=== PATIENT | male | born 1950 | race Caucasian/White ===

== ENCOUNTER 2017-06-12 15:55 | Inpatient (IN) | payer MEDICARE, SELFPAY ==
[2017-06-12] VITALS (12 sets, daily range): BP systolic 115–173; BP diastolic 54–74; PULSE 50–63; RESP 16–20; TEMP 36.5–36.9; O2SAT 87–96; BMI 23.6; BMI 21.7; BMI 21.8
--- NOTE | 2017-06-12 16:41 | EKG12_ITS ---
Test Reason : SOB Blood Pressure : / mmHG Vent. Rate : 051 BPM Atrial Rate : 051 BPM P-R Int : 192 ms QRS Dur : 086 ms QT Int : 538 ms P-R-T Axes : 038 -03 055 degrees QTc Int : 495 ms Sinus bradycardia Prolonged QT Abnormal ECG Confirmed by SUMMER VALDOVINOS, MOHAN ([id number]), field map editor KAZ FRANCO ([id number]) on 06/16/2017 1:12:10 PM Referred By: AAKASH Confirmed By:MOHAN WHEELER MD
--- NOTE | 2017-06-12 16:45 | ED.DCSUM_ITS ---
- ER Visit Summary Date of Service: 06/12/17 Chief Complaint: Difficulty urinating and shortness of breath History of Present Illness: Patient is a 67-year-old male presenting with shortness of breath ?2 days. He has a productive cough. He states that he has intermittent trouble with urination. He was able to urinate this morning. He states he had dark urine. He denies fever or chest pain. He has a history of COPD and is a smoker. He is not on home O2. Physical Examination: Vitals are stable. Patient is afebrile. Alert no acute distress. HEENT exam is unremarkable. Neck is supple. Lungs are wheezing diffusely Heart is regular rate and rhythm. Abdomen is soft nontender nondistended. Extremities are unremarkable. Skin is warm and dry. No focal neurologic deficit. Remainder of exam is unremarkable. Emergency Department Course and Treatment: Patient was given albuterol and Atrovent aerosols. EKG is sinus rate of 51. Chest x-ray shows COPD, right basilar consolidation. He was given albuterol Atrovent aerosols. Respiratory therapy noted that he was 87% on room air while sitting. He was put on 4 L of O2 and is 93% on 4 L. CBC is normal. Chemistries show sodium 127, potassium 3.3. Troponin is negative. He was given Rocephin and Zithromax IV. Blood cultures were sent prior to antibiotics. Due to his hypoxia,will discuss with hospitalist for admission. Disposition: Admission Impression: Community acquired pneumonia, COPD exacerbation, hypoxia, hyponatremia This note was generated with R2integrated dictation software. It may contain incorrect words, spelling, and punctuation that were not noted in review of the chart prior to signing ED Disposition - Plan for ED Patient: Chief Complaint: Complaint Referrals: William Chacko MD [NON-STAFF] -
--- NOTE | 2017-06-12 16:45 | RAD_ITS ---
STUDY: X-RAY CHEST REASON FOR EXAM: Male, 67 years old. Shortness of breath. TECHNIQUE: Single AP portable view of the chest. COMPARISON: May 24, 2016 FINDINGS: Cardiac monitoring leads are present. A loop recorder is visible. The lungs are hyperexpanded. There is left basilar subsegmental atelectasis. There is also right basilar airspace consolidation and/or atelectasis. There is interstitial thickening visible in both lungs. There is no demonstrated pleural abnormality. Normal size heart. There are calcified mediastinal and hilar lymph nodes. There is prominence of the pulmonary hilar arteries without peripheral pulmonary vascular congestion. There is atherosclerotic calcification of the aortic arch with tortuosity. There is demineralization of the osseous structures. Normal visualized ribs, clavicles, and shoulders. There is no demonstrated abnormality of the visualized soft tissue structures of the upper abdomen. RAD/Chest 1 View (Portable) IMPRESSION: 1. COPD with left basilar subsegmental atelectasis. 2. New right basilar airspace consolidation and atelectasis since previous radiograph. Electronically Signed: Mabel Ramirez MD at 17:08 EST , Service support ,
[2017-06-12] MEDS: Ipratropium/Albuterol Sulfate 3 ML AMPUL.NEB INHALATION (17:16)
[2017-06-12] MEDS: Albuterol 2.5 MG/3 ML VIAL.NEB. INHALATION ×3 (17:17)
[2017-06-12 17:33] LABS: Absolute Neutrophil Count 6.4 X10^3/uL (2.0-7.7); Basophil# 0.02 X10^3/uL; Basophil% 0.2 % (0-1); Eosinophil# 0.07 X10^3/uL; Eosinophils% 0.9 % (0-5); Hematocrit 39.9 % (40-54); Hemoglobin 14.2 g/dl (13.0-16.5); Lymphocyte % 11.2 % (19-41); Mean Corp Hgb Conc 35.6 g/gl (32-36); Mean Corpuscular Hgb 35.3 pg (27.0-32.0); Mean Corpuscular Volume 99.3 fL (80-94); Mean Platelet Vol. 9.5 fl (6.2-12.0); Monocyte# 0.63 X10^3/uL; Monocyte% 7.9 % (0-10); Neutrophil # 6.37 X10^3/uL (2.7-7.7); Neutrophil % 79.4 % (47-70); POSITIVE COUNT NO; POSITIVE DIFFERENTIAL NO; POSITIVE MORPHOLOGY NO; Platelet Count 161 K/mm3 (150-450); RBC Distribution Width CV 13.6 % (11.6-14.6); RBC Distribution Width SD 49.2 fl (35.1-43.9); Red Blood Count 4.02 M/mm3 (4.6-6.2)
[2017-06-12 18:03] LABS: Anion Gap 10 (5-15); BUN 10 mg/dL (7-18); BUN/Creat Ratio 11.3 RATIO (10-20); Calcium,Total 8.3 mg/dL (8.5-10.1); Chloride 91 mmol/L (98-107); Creatinine, Serum 0.88 mg/dL (0.70-1.30); EST Glomerular Filtration Rate 91 mL/min (>60); Est Glom Filt Rate - Afr Amer 110 mL/min (>60); Estimated Creatinine Clearance 76.65 ml/min; Glucose 85 mg/dL (74-106); Potassium 3.3 mmol/L (3.5-5.1); Sodium Level 127 mmol/L (136-145)
[2017-06-12 18:03] LABS: Bacteria 0 SEEN /hpf (None Seen); Mucous, Urine 0 SEEN /hpf (<or=2+); Squamous Epithelial Cells - UA 0 SEEN /hpf (0-5)
[2017-06-12 18:10] LABS: Color, Urine Yellow (Yellow); Glucose, Dipstick Normal (Normal); Ketone-Dipstick Negative (Negative); Leukocyte Esterase-Dipstick 25 /ul (Negative); Nitrite-Dipstick Negative (Negative); Occult Blood-Urine Negative /ul (Negative); Protein-Dipstick Negative (Negative); Urine Bilirubin Dipstick Negative (Negative); Urine Clarity Clear (Clear); Urine Urobilinogen Normal (Normal); Urine pH 6.5 (5.0 - 8.0)
[2017-06-12 18:50] LABS: Red Blood Cells-Urine 0-5 SEEN /hpf (0-5); White Blood Cells 0-5 SEEN /hpf (0-5)
[2017-06-12] MEDS: MethylPREDNISolone 125 MG/2 ML Vial IV (19:14)
[2017-06-12] MEDS: Ceftriaxone 1 GM/50 ML BAG IV (19:25)
--- NOTE | 2017-06-12 20:04 | PCM.HP.STD ---
Problem List (1) Pneumonia, bacterial Status: Acute (2) COPD exacerbation Status: Acute (3) Hypokalemia Status: Acute (4) Atrial fibrillation Status: Chronic Qualifiers: Atrial fibrillation type: paroxysmal Qualified Code(s): I48.0 - Paroxysmal atrial fibrillation (5) Coronary atherosclerosis of [place] coronary artery Status: Chronic Qualifiers: [place] vs. transplanted heart: [place] heart Associated angina: without angina Qualified Code(s): I25.10 - Atherosclerotic heart disease of [place] coronary artery without angina pectoris (6) HTN (hypertension) Status: Chronic Qualifiers: Hypertension type: essential hypertension (7) Tobacco use disorder Status: Chronic History of Present Illness Date of Admission: 06/12/17 Chief Complaint: Cough, difficulty urinating. Patient is a 67 years old male with history of COPD, coronary artery disease, BPH, atrial fibrillation, presents with complaining of difficulty urinating. He was found to have Oxygen saturation 87% on arrival, started on oxygen. Further history revealed that he has some difficulty of breathing for past few days with increased wheezing. He also has productive cough. He denied of any fever, chills, or chest pain. He has symptoms of nocturia despite of current medication, Flomax 0.4 mg po qd. He goes to bathroom several times during the night. He also has some post-void dribbling and some hesitancy. Difficulty of urinating has been worsening for past 2 days. Past Medical History Past Medical History (Chronic Problems): Chronic Problems Atrial fibrillation (Chronic) Chronic airway obstruction (Chronic) Coronary atherosclerosis of [place] coronary artery (Chronic) Esophageal reflux (Chronic) HLD (hyperlipidemia) (Chronic) HTN (hypertension) (Chronic) Leukocytosis (Chronic) Percutaneous transluminal coronary angioplasty status (Chronic) PVD (peripheral vascular disease) (Chronic) Tobacco use disorder (Chronic) left stump swelling (Chronic) Alcohol abuse (Chronic) Allergies No Known Allergies Allergy (Verified 06/12/17 15:56) Home Medications: Ambulatory Orders Medication Instructions Recorded Amiodarone HCl [Cordarone] 200 mg PO DAILY 10/15/13 Aspirin E.C. [Ecotrin] 81 mg PO DAILY@0800 10/15/13 Diltiazem CD [Cardizem CD] 240 mg PO BID 10/15/13 Metoprolol Tartrate [Lopressor 50 mg PO BID 10/15/13 (beta lu)] Tamsulosin HCl [Flomax] 0.4 mg PO DAILY 10/15/13 Atorvastatin Calcium [Lipitor] 80 mg PO QHS 06/12/17 Ferrous Sulfate 325 mg PO BIDCM 06/12/17 Rivaroxaban [Xarelto] 15 mg PO DAILY 06/12/17 Surgical History: - - Multiple vascular stents, revasculation of left leg, left BKA Lives: Alone Smoking Status: Current every day smoker - 3 packs a day. Alcohol: Occasional Drugs: None - *Family History Paternal History Items: COPD, Heart Disease, No pertinent history Sibling History Items: COPD - 4 of his sisters has COPD. Review of Systems Comment: ROS: In general: Patient has been in good health, denied of any constitutional symptoms, such as weight loss, or gain, fever, chills, or night sweats. Patient denied of any profound fatigue. HEENT: Unremarkable. Patient denied of any dizziness, chronic headache, blurred vision, double vision, dry mouth, or nasal congestion. CV/respiratory: See HPI. GI: Patient denied any abdominal pain, nausea, vomiting, diarrhea, constipation, melena, or hematochezia. : See HPI. He denied of any dysuria. Neurology: Unremarkable. There is no history of seizure as an adult. Psychological: Unremarkable. ?. Endocrine: Unremarkable. Musculoskeletal: Unremarkable. VTE Information - Inpt Only VTE Present on Admission: No VTE Mechan Device Prophylaxis: None VTE Pharm Prophylaxis ordered?: Yes Patient Problems: Active and Suspected Problems Pneumonia, bacterial (Acute) COPD exacerbation (Acute) Objective: In general, patient is a well-nourished and developed adult. HEENT: Head is atraumatic, and normocephalic. Pupils are equal, round, and reactive to light and accommodations. Neck is supple. There is no lymphadenopathy, or thyromegaly. Oral mucosa is pink, and moist. There are no lesions. Heart: Auscultation is normal with regular rhythm and rate. There is no extra heart sounds, or murmurs. S1 and S2 are present. Point of maximal impulse is not displaced. Lungs: Diminished breath sounds, rales/crackles at right base. Wheezing upper lung mcdonald. Abdomen: Abdominal wall is non-tender, and non-distended. There is no palpable mass or organomegaly. Normoactive bowel sounds are present. Extremities: There is no cyanosis or clubbing. Peripheral pulses are palpable. There is no edema. S/P left BKA. Skin: There are no any skin discoloration or lesions. Neurological: CN II - XII are intact. Sensory and motor functions are grossly normal with no obvious deficit. Cerebellar functions are within normal range. Gait was not tested. - Physical Exam Vital Signs Temp Pulse Resp BP Pulse Ox 98.2 F 58 L 16 128/74 H 93 06/12/17 18:12 06/12/17 18:12 06/12/17 18:12 06/12/17 18:12 06/12/17 18:33 Oxygen Flow Rate 5 Oxygen Delivery Method Nasal Cannula Weight: 155 lb Body Mass Index (BMI) 23.6 Finger Stick Blood Glucose 89 Laboratory Tests Past 24 Hrs 06/12/17 06/12/17 06/12/17 17:25 17:25 17:55 WBC 8.0 RBC 4.02 L Hgb 14.2 Hct 39.9 L MCV 99.3 H MCH 35.3 H MCHC 35.6 RDW 13.6 RDW Differential 49.2 H Plt Count 161 MPV 9.5 Immature Gran % (Auto) 0.400 Neut % (Auto) 79.4 H Lymph % (Auto) 11.2 L [place] % (Auto) 7.9 Eos % (Auto) 0.9 Baso % (Auto) 0.2 Absolute Neuts (auto) 6.4 Absolute Lymphs (auto) 0.90 Total Counted Not Reportable Sodium 127 L Potassium 3.3 L Chloride 91 L Carbon Dioxide 26.0 Anion Gap 10 BUN 10 Creatinine 0.88 Estim Creat Clear Calc 76.65 Est GFR (MDRD) Af Amer 110 Est GFR (MDRD) Non-Af 91 BUN/Creatinine Ratio 11.3 Glucose 85 Calcium 8.3 L Troponin I < 0.02 Urine Color Yellow Urine Clarity Clear Urine pH 6.5 Ur Specific [place] 1.010 Urine Protein Negative Urine Glucose (UA) Normal Urine Ketones Negative Urine Occult Blood Negative Urine Nitrite Negative Urine Bilirubin Negative Urine Urobilinogen Normal Ur Leukocyte Esterase 25 H Urine RBC 0-5 SEEN Urine WBC 0-5 SEEN Ur Squamous Epith Cells 0 SEEN Urine Bacteria 0 SEEN Urine Mucus 0 SEEN Diagnostic Data Chest X-Ray 06/12/17 16:45 IMPRESSION: 1. COPD with left basilar subsegmental atelectasis. 2. New right basilar airspace consolidation and atelectasis since previous radiograph. Electronically Signed: Mabel Ramirez MD at 17:08 EST , Service support , Assessment/Plan Active and Suspected Problems Pneumonia, bacterial (Acute) COPD exacerbation (Acute) Patient is a 67 years old male with history of COPD, coronary artery disease, BPH, atrial fibrillation, presents with complaining of difficulty urinating. He was found to have Oxygen saturation 87% on arrival, started on oxygen. Further history revealed that he has some difficulty of breathing for past few days with increased wheezing. He also has productive cough. He denied of any fever, chills, or chest pain. He has symptoms of nocturia despite of current medication, Flomax 0.4 mg po qd. He goes to bathroom several times during the night. He also has some post-void dribbling and some hesitancy. Difficulty of urinating has been worsening for past 2 days. #1 Pneumonia. Right lower lobe. Check urine for strep and legionella. Blood culture pending. Started on azithromycin and ceftriaxone empirically. Continue. #2 Hypoxia. Due to pneumonia and mild exacerbation of COPD. Aerosol treatment with DuoNeb Q6H and albuterol prn. Oxygen supplement. He does not wear oxygen at home. #3 Mild COPD exacerbation. Bronchodilator and oxygen as above. Add low dose Solu-Medrol 40 mg IVP q12h. #4 Urinary retention with underling presumed BPH. He was on Flomax 0.4 mg daily, increase to 0.8 mg daily. Hamilton was inserted in ED. Consult urology in AM. #5 Paroxysmal atrial fibrillation. Rate controlled. In sinus rhythm. Continue current medications. He is on Xarelto for stroke prevention. Continue. #6 Coronary artery disease. He denied of any chest pain. Continue statin, aspirin, and metoprolol. #7 Hypokalemia. Give K-Dur 40 meq po x 1. Repeat BMP in AM. #8 Hyponatremia. Sodium 127. Although it is slightly lower, but it appears that this is a chronic problems. VTE prophylaxis: Xarelto po. GI prophylaxis: H2 lu po. Patient is DNR-CC Arrest. Code status discussed. Disposition: To be determined. Code Visit Inpatient E&M: 84549 Init Hosp L3
--- NOTE | 2017-06-12 20:20 | HP.PCM_ITS ---
Problem List (1) Pneumonia, bacterial Status: Acute (2) COPD exacerbation Status: Acute (3) Hypokalemia Status: Acute (4) Atrial fibrillation Status: Chronic Qualifiers: Atrial fibrillation type: paroxysmal Qualified Code(s): I48.0 - Paroxysmal atrial fibrillation (5) Coronary atherosclerosis of [place] coronary artery Status: Chronic Qualifiers: [place] vs. transplanted heart: [place] heart Associated angina: without angina Qualified Code(s): I25.10 - Atherosclerotic heart disease of [place] coronary artery without angina pectoris (6) HTN (hypertension) Status: Chronic Qualifiers: Hypertension type: essential hypertension (7) Tobacco use disorder Status: Chronic History of Present Illness Date of Admission: 06/12/17 Chief Complaint: Cough, difficulty urinating. Patient is a 67 years old male with history of COPD, coronary artery disease, BPH, atrial fibrillation, presents with complaining of difficulty urinating. He was found to have Oxygen saturation 87% on arrival, started on oxygen. Further history revealed that he has some difficulty of breathing for past few days with increased wheezing. He also has productive cough. He denied of any fever, chills, or chest pain. He has symptoms of nocturia despite of current medication, Flomax 0.4 mg po qd. He goes to bathroom several times during the night. He also has some post-void dribbling and some hesitancy. Difficulty of urinating has been worsening for past 2 days. Past Medical History Past Medical History (Chronic Problems): Chronic Problems Atrial fibrillation (Chronic) Chronic airway obstruction (Chronic) Coronary atherosclerosis of [place] coronary artery (Chronic) Esophageal reflux (Chronic) HLD (hyperlipidemia) (Chronic) HTN (hypertension) (Chronic) Leukocytosis (Chronic) Percutaneous transluminal coronary angioplasty status (Chronic) PVD (peripheral vascular disease) (Chronic) Tobacco use disorder (Chronic) left stump swelling (Chronic) Alcohol abuse (Chronic) Allergies No Known Allergies Allergy (Verified 06/12/17 15:56) Home Medications: Ambulatory Orders Medication Instructions Recorded Amiodarone HCl [Cordarone] 200 mg PO DAILY 10/15/13 Aspirin E.C. [Ecotrin] 81 mg PO DAILY@0800 10/15/13 Diltiazem CD [Cardizem CD] 240 mg PO BID 10/15/13 Metoprolol Tartrate [Lopressor 50 mg PO BID 10/15/13 (beta lu)] Tamsulosin HCl [Flomax] 0.4 mg PO DAILY 10/15/13 Atorvastatin Calcium [Lipitor] 80 mg PO QHS 06/12/17 Ferrous Sulfate 325 mg PO BIDCM 06/12/17 Rivaroxaban [Xarelto] 15 mg PO DAILY 06/12/17 Surgical History: - - Multiple vascular stents, revasculation of left leg, left BKA Lives: Alone Smoking Status: Current every day smoker - 3 packs a day. Alcohol: Occasional Drugs: None - *Family History Paternal History Items: COPD, Heart Disease, No pertinent history Sibling History Items: COPD - 4 of his sisters has COPD. Review of Systems Comment: ROS: In general: Patient has been in good health, denied of any constitutional symptoms, such as weight loss, or gain, fever, chills, or night sweats. Patient denied of any profound fatigue. HEENT: Unremarkable. Patient denied of any dizziness, chronic headache, blurred vision, double vision, dry mouth, or nasal congestion. CV/respiratory: See HPI. GI: Patient denied any abdominal pain, nausea, vomiting, diarrhea, constipation, melena, or hematochezia. : See HPI. He denied of any dysuria. Neurology: Unremarkable. There is no history of seizure as an adult. Psychological: Unremarkable. ?. Endocrine: Unremarkable. Musculoskeletal: Unremarkable. VTE Information - Inpt Only VTE Present on Admission: No VTE Mechan Device Prophylaxis: None VTE Pharm Prophylaxis ordered?: Yes Patient Problems: Active and Suspected Problems Pneumonia, bacterial (Acute) COPD exacerbation (Acute) Objective: In general, patient is a well-nourished and developed adult. HEENT: Head is atraumatic, and normocephalic. Pupils are equal, round, and reactive to light and accommodations. Neck is supple. There is no lymphadenopathy, or thyromegaly. Oral mucosa is pink, and moist. There are no lesions. Heart: Auscultation is normal with regular rhythm and rate. There is no extra heart sounds, or murmurs. S1 and S2 are present. Point of maximal impulse is not displaced. Lungs: Diminished breath sounds, rales/crackles at right base. Wheezing upper lung mcdonald. Abdomen: Abdominal wall is non-tender, and non-distended. There is no palpable mass or organomegaly. Normoactive bowel sounds are present. Extremities: There is no cyanosis or clubbing. Peripheral pulses are palpable. There is no edema. S/P left BKA. Skin: There are no any skin discoloration or lesions. Neurological: CN II - XII are intact. Sensory and motor functions are grossly normal with no obvious deficit. Cerebellar functions are within normal range. Gait was not tested. - Physical Exam Vital Signs Temp Pulse Resp BP Pulse Ox 98.2 F 58 L 16 128/74 H 93 06/12/17 18:12 06/12/17 18:12 06/12/17 18:12 06/12/17 18:12 06/12/17 18:33 Oxygen Flow Rate 5 Oxygen Delivery Method Nasal Cannula Weight: 155 lb Body Mass Index (BMI) 23.6 Finger Stick Blood Glucose 89 Laboratory Tests Past 24 Hrs 06/12/17 06/12/17 06/12/17 17:25 17:25 17:55 WBC 8.0 RBC 4.02 L Hgb 14.2 Hct 39.9 L MCV 99.3 H MCH 35.3 H MCHC 35.6 RDW 13.6 RDW Differential 49.2 H Plt Count 161 MPV 9.5 Immature Gran % (Auto) 0.400 Neut % (Auto) 79.4 H Lymph % (Auto) 11.2 L [place] % (Auto) 7.9 Eos % (Auto) 0.9 Baso % (Auto) 0.2 Absolute Neuts (auto) 6.4 Absolute Lymphs (auto) 0.90 Total Counted Not Reportable Sodium 127 L Potassium 3.3 L Chloride 91 L Carbon Dioxide 26.0 Anion Gap 10 BUN 10 Creatinine 0.88 Estim Creat Clear Calc 76.65 Est GFR (MDRD) Af Amer 110 Est GFR (MDRD) Non-Af 91 BUN/Creatinine Ratio 11.3 Glucose 85 Calcium 8.3 L Troponin I < 0.02 Urine Color Yellow Urine Clarity Clear Urine pH 6.5 Ur Specific [place] 1.010 Urine Protein Negative Urine Glucose (UA) Normal Urine Ketones Negative Urine Occult Blood Negative Urine Nitrite Negative Urine Bilirubin Negative Urine Urobilinogen Normal Ur Leukocyte Esterase 25 H Urine RBC 0-5 SEEN Urine WBC 0-5 SEEN Ur Squamous Epith Cells 0 SEEN Urine Bacteria 0 SEEN Urine Mucus 0 SEEN Diagnostic Data Chest X-Ray 06/12/17 16:45 IMPRESSION: 1. COPD with left basilar subsegmental atelectasis. 2. New right basilar airspace consolidation and atelectasis since previous radiograph. Electronically Signed: Mabel Ramirez MD at 17:08 EST , Service support , Assessment/Plan Active and Suspected Problems Pneumonia, bacterial (Acute) COPD exacerbation (Acute) Patient is a 67 years old male with history of COPD, coronary artery disease, BPH, atrial fibrillation, presents with complaining of difficulty urinating. He was found to have Oxygen saturation 87% on arrival, started on oxygen. Further history revealed that he has some difficulty of breathing for past few days with increased wheezing. He also has productive cough. He denied of any fever, chills, or chest pain. He has symptoms of nocturia despite of current medication, Flomax 0.4 mg po qd. He goes to bathroom several times during the night. He also has some post-void dribbling and some hesitancy. Difficulty of urinating has been worsening for past 2 days. #1 Pneumonia. Right lower lobe. Check urine for strep and legionella. Blood culture pending. Started on azithromycin and ceftriaxone empirically. Continue. #2 Hypoxia. Due to pneumonia and mild exacerbation of COPD. Aerosol treatment with DuoNeb Q6H and albuterol prn. Oxygen supplement. He does not wear oxygen at home. #3 Mild COPD exacerbation. Bronchodilator and oxygen as above. Add low dose Solu-Medrol 40 mg IVP q12h. #4 Urinary retention with underling presumed BPH. He was on Flomax 0.4 mg daily, increase to 0.8 mg daily. Hamilton was inserted in ED. Consult urology in AM. #5 Paroxysmal atrial fibrillation. Rate controlled. In sinus rhythm. Continue current medications. He is on Xarelto for stroke prevention. Continue. #6 Coronary artery disease. He denied of any chest pain. Continue statin, aspirin, and metoprolol. #7 Hypokalemia. Give K-Dur 40 meq po x 1. Repeat BMP in AM. #8 Hyponatremia. Sodium 127. Although it is slightly lower, but it appears that this is a chronic problems. VTE prophylaxis: Xarelto po. GI prophylaxis: H2 lu po. Patient is DNR-CC Arrest. Code status discussed. Disposition: To be determined. Code Visit Inpatient E&M: 83817 Init Hosp L3
[2017-06-12] MEDS: guaiFENesin 600 MG Tablet 1200 MG PO (21:20)
[2017-06-12] MEDS: Famotidine 20 MG Tablet PO (21:21)
[2017-06-12] MEDS: Atorvastatin Calcium 80 MG Tablet PO (21:21)
[2017-06-12] MEDS: Metoprolol Tartrate 50 MG Tablet PO (21:22)
[2017-06-12] MEDS: dilTIAZem CD 240 MG Capsule PO (21:22)
[2017-06-13] VITALS (17 sets, daily range): BP systolic 123–164; BP diastolic 41–88; PULSE 6–69; RESP 18–20; TEMP 36.2–37.4; O2SAT 93–94
[2017-06-13] MEDS: Ipratropium/Albuterol Sulfate 3 ML AMPUL.NEB INHALATION ×2 (05:53→18:57)
[2017-06-13] MEDS: Nystatin Powder 15gm Bottle 1 APPLIC TOPICAL ×2 (06:18→21:17)
[2017-06-13] MEDS: 0.9% NaCl Peripheral Flush Adult/Peds IV (06:18)
[2017-06-13 07:02] LABS: Absolute Lymphocyte Count 0.24 X10^3/ul (0.83-4.51); Absolute Neutrophil Count 5.4 X10^3/uL (2.0-7.7); Hematocrit 40.9 % (40-54); Hemoglobin 14.3 g/dl (13.0-16.5); Lymphocyte # 0.24 X10^3/ul (4.0); Lymphocyte % 4.2 % (19-41); Mean Corpuscular Hgb 34.8 pg (27.0-32.0); Mean Corpuscular Volume 99.5 fL (80-94); Mean Platelet Vol. 9.3 fl (6.2-12.0); Monocyte# 0.05 X10^3/uL; Monocyte% 0.9 % (0-10); Neutrophil # 5.39 X10^3/uL (2.7-7.7); Neutrophil % 94.7 % (47-70); Platelet Count 180 K/mm3 (150-450); RBC Distribution Width CV 13.7 % (11.6-14.6); RBC Distribution Width SD 49.8 fl (35.1-43.9); Red Blood Count 4.11 M/mm3 (4.6-6.2); White Blood Count 5.7 K/mm3 (4.4-11.0)
[2017-06-13 07:14] LABS: Differential Indicated SCAN CRITERIA MET; POSITIVE COUNT NO; POSITIVE DIFFERENTIAL YES; POSITIVE MORPHOLOGY NO
[2017-06-13 07:18] LABS: Anion Gap 10 (5-15); BUN 8 mg/dL (7-18); BUN/Creat Ratio 13.2 RATIO (10-20); Calcium,Total 8.4 mg/dL (8.5-10.1); Chloride 94 mmol/L (98-107); EST Glomerular Filtration Rate 141 mL/min (>60); Est Glom Filt Rate - Afr Amer 170 mL/min (>60); Glucose 124 mg/dL (74-106); Potassium 3.7 mmol/L (3.5-5.1); Sodium Level 129 mmol/L (136-145)
[2017-06-13] MEDS: Metoprolol Tartrate 50 MG Tablet PO ×2 (08:13→21:16)
[2017-06-13] MEDS: dilTIAZem CD 240 MG Capsule PO ×2 (08:14→21:16)
[2017-06-13] MEDS: Aspirin E.C. 81 MG Tablet PO (08:14)
[2017-06-13] MEDS: Amiodarone 200 MG Tablet PO (08:14)
[2017-06-13] MEDS: Ferrous Sulfate 325 MG Tablet PO ×2 (08:14→17:46)
[2017-06-13] MEDS: Famotidine 20 MG Tablet PO ×2 (08:15→21:16)
[2017-06-13] MEDS: Tamsulosin HCl 0.4 MG Capsule 0.8 MG PO (08:15)
[2017-06-13] MEDS: guaiFENesin 600 MG Tablet 1200 MG PO ×2 (08:15→21:16)
[2017-06-13] MEDS: Rivaroxaban 15 MG Tablet PO (08:15)
--- NOTE | 2017-06-13 08:41 | PCM.PN.HOSP ---
Subjective: Patient states urine retention and dribbling was the main complaint for his ER visit. For last 3 days, having difficulty in urination and has nocturia, wakes up frequently after 1 AM about 5- 6 times with a small amount of urine passed each time. He has BPH for 15 years but has been bothering much for last few days. He denies any chest complaints including sore throat, chest pain, shortness of breath or wheezing. He has history of COPD and [address] Dick is being paged and consulted. Ultrasound kidneys, bladder and prostate ordered. Creatinine clearance estimated 64 mL/min. Vitals/I&O's: Vital Signs Temp Pulse Resp BP Pulse Ox 97.7 F L 67 18 164/88 H 94 06/13/17 08:03 06/13/17 08:13 06/13/17 08:03 06/13/17 08:03 06/13/17 08:03 Oxygen Flow Rate 2 Oxygen Delivery Method Nasal Cannula Weight: 143 lb 4.807 oz Body Mass Index (BMI) 21.7 Intake and Output for Last 24 Hours 06/11/17 06/12/17 06/13/17 23:59 23:59 23:59 Intake Total 921 / 921 Output Total 1625 / 1625 Balance -704 / -704 General: Alert, Oriented x3, Cooperative HEENT: Atraumatic, PERRLA, EOMI, Normocephalic Neck: Supple, No JVD, Negative Carotid Bruits Lungs: No rhonchi, No wheeze, Diminished - On bilateral lung bases, left more than right. Cardiovascular: Regular rate, Regular Rhythm, Normal S1, Normal S2, No murmurs Abdomen: Bowel Sounds Present, Soft, Non Tender, Non-Distended, - - Erythematous inflammation or bilateral groin region and under the scrotum with and one [place] suggestive of urine dribbling and tinea infection Extremities: No edema, Capillary Refill Less than 3 Seconds Skin: No rashes, No breakdown Musculoskeletal: No Tenderness to Palpation of Joints or Extremities Neurological: Cranial nerves II-XII grossly intact Psych/Mental Status: Normal Affect, Appropriate Laboratory Results 06/13/17 06:09: WBC 5.7, RBC 4.11 L, Hgb 14.3, Hct 40.9, MCV 99.5 H, MCH 34.8 H, MCHC 35.0, RDW 13.7, RDW Differential 49.8 H, Plt Count 180, MPV 9.3, Immature Gran % (Auto) 0.200, Neut % (Auto) 94.7 H, Lymph % (Auto) 4.2 L, [place] % (Auto) 0.9, Eos % (Auto) 0.0, Baso % (Auto) 0.0, Absolute Neuts (auto) 5.4, Absolute Lymphs (auto) 0.24 L, Total Counted Not Reportable 06/13/17 06:09: Sodium 129 L, Potassium 3.7, Chloride 94 L, Carbon Dioxide 25.0, Anion Gap 10, BUN 8, Creatinine 0.60 L, Estim Creat Clear Calc 64.10, Est GFR (MDRD) Af Amer 170, Est GFR (MDRD) Non-Af 141, BUN/Creatinine Ratio 13.2, Glucose 124 H, Calcium 8.4 L Current Medications Acetaminophen (Tylenol) 650 mg PO Q6H PRN PRN PRN Reason: Mild Pain (1-3)/Temp > 100.7 F Al Hydroxide/Mg Hydroxide (Mylanta Ii) 30 ml PO Q6H PRN PRN PRN Reason: Gastric burning Albuterol Sulfate (Ventolin Aerosols) 2.5 mg INHALATION Q2H PRN PRN PRN Reason: SHORTNESS OF BREATH Albuterol/Ipratropium (Duoneb) 3 ml INHALATION Q6H.RT [facility] Last Admin: 06/13/17 05:53 Dose: 3 ml Amiodarone HCl (Cordarone) 200 mg PO DAILY [facility] Last Admin: 06/13/17 08:14 Dose: 200 mg Aspirin (Ecotrin) 81 mg PO DAILY@0800 [facility] Last Admin: 06/13/17 08:14 Dose: 81 mg Atorvastatin Calcium (Lipitor) 80 mg PO QHS [facility] Last Admin: 06/12/17 21:21 Dose: 80 mg Bisacodyl (Dulcolax) 5 mg PO DAILY PRN PRN PRN Reason: Constipation Diltiazem HCl (Cardizem Cd) 240 mg PO BID [facility] Last Admin: 06/13/17 08:14 Dose: 240 mg Famotidine (Pepcid) 20 mg PO BID [facility] Last Admin: 06/13/17 08:15 Dose: 20 mg [facility] Admin: 06/13/17 08:14 Dose: 325 mg Guaifenesin (Mucinex) 1,200 mg PO BID [facility] Last Admin: 06/13/17 08:15 Dose: 1,200 mg Azithromycin 500 mg/ Dextrose 255 mls @ 250 mls/hr IV Q24 [facility] Stop: 06/15/17 11:02 Ceftriaxone Sodium (Rocephin) 1 gm in 50 mls @ 100 mls/hr IV Q24H [facility] Magnesium Hydroxide (Milk Of Magnesia) 30 ml PO DAILY PRN PRN PRN Reason: Constipation Methylprednisolone (Solu-Medrol) 40 mg IV Q12H [facility] Last Admin: 06/13/17 06:18 Dose: 40 mg Metoprolol Tartrate (Lopressor (Beta Pauline)) 50 mg PO BID [facility] Last Admin: 06/13/17 08:13 Dose: 50 mg Nutritional Formula (Lactose Free) (Ensure Enlive) 120 ml PO 4X/DAY [facility] Last Admin: 06/13/17 08:19 Dose: 120 ml Nystatin (Mycostatin Powder) 1 applic TOPICAL BID [facility] PRN Reason: Protocol Last Admin: 06/13/17 06:18 Dose: 1 dose Oxycodone HCl (Oxyir) 5 - 10 mg PO Q4H PRN PRN PRN Reason: MOD-SEVERE PAIN (4-10/10) Promethazine HCl (Phenergan (Ll)) 12.5 mg IV Q6H PRN PRN Reason: NAUSEA Rivaroxaban (Xarelto) 15 mg PO DAILY [facility] Last Admin: 06/13/17 08:15 Dose: 15 mg Sodium Chloride () 5 - 30 ml IV UD PRN PRN Reason: SALINE FLUSH Last Admin: 06/13/17 06:18 Dose: 10 ml Tamsulosin HCl (Flomax) 0.8 mg PO DAILY [facility] Last Admin: 06/13/17 08:15 Dose: 0.8 mg Zolpidem Tartrate (Ambien (Generic)) 5 mg PO QHS PRN PRN PRN Reason: INSOMNIA Assessment/Plan Patient is a 67 years old male with history of COPD, coronary artery disease, BPH, atrial fibrillation, presents with complaining of difficulty urinating. He was found to have Oxygen saturation 87% on arrival, started on oxygen. Further history revealed that he has some difficulty of breathing for past few days with increased wheezing. He also has productive cough. He denied of any fever, chills, or chest pain. He has symptoms of nocturia despite of current medication, Flomax 0.4 mg po qd. He goes to bathroom several times during the night. He also has some post-void dribbling and some hesitancy. Difficulty of urinating has been worsening for past 2 days. #1 Right lower lobe community-acquired pneumonia : Urinary antigens are negative. Blood cultures are pending. Patient on azithromycin and ceftriaxone empirically. #2 Acute hypoxic respiratory failure secondary to COPD exacerbation, mild with acute bronchitis and pneumonia as mentioned above: Aerosol treatment with DuoNeb Q6H and albuterol prn. Oxygen supplement. He does not wear oxygen at home. #3 Mild COPD exacerbation acute bronchitis. Bronchodilator and oxygen as above. Add low dose Solu-Medrol 40 mg IVP q12h. #4 Urinary retention with increased nocturia, urine dribbling, suggestive of lower urinary tract symptoms with underling presumed BPH: Urologist consult, Dr. Dick note reviewed and appreciated. He advised Flomax 0.4 mg twice daily. Patient has Hamilton catheter inserted in the ER. Clear urine. UA suggestive of mild leukocyte esterase but negative nitrite, pyuria, hematuria or proteinuria. Ultrasound kidneys reported as bilateral renal cyst more prominent on the right but normal renal cortex and no hydronephrosis. Transrectal prostate ultrasound shows prostate volume 22.3 cm?, normal prostate glandular tissue without evidence of nodules or lesions. Reported as no significant abnormality. PSA ordered. #5 Paroxysmal atrial fibrillation. Rate controlled. In sinus rhythm. Continue current medications. He is on Xarelto for stroke prevention. Continue. #6 Coronary artery disease. He denied of any chest pain. Continue statin, aspirin, and metoprolol. #7 Hypokalemia. Repeat potassium is 3.7. Give K-Dur 40 meq po x 1. On IV fluid normal saline with 20 meq KCl. #8 Hyponatremia. Sodium 127. Repeat sodium is 129. his last sodium was 139 on May 17, 2016. VTE prophylaxis: Xarelto po. GI prophylaxis: H2 pauline po. Patient is DNR-CC Arrest. Code Visit Inpatient E&M: 59587 Subs Hosp L3
--- NOTE | 2017-06-13 09:20 | US_ITS ---
PROCEDURES: TRANSRECTAL ULTRASOUND GUIDED - PROSTATE REASON FOR EXAM: Male, 67 years old. Benign prostatic hypertrophy. TECHNIQUE: Ultrasound evaluation of the prostate was performed with real-time and static samson-scale imaging. Cleansing enema: Yes COMPARISON: None. FINDINGS: Prostate Volume: 22.3 cm3 The prostate glandular tissue appears normal without evidence of nodules or lesions. The prostate glandular tissue appears normal without evidence of nodules or lesions. The prostate glandular tissue appears normal without evidence of nodules or lesions. US/Prostate IMPRESSION: No significant abnormality is seen. Electronically Signed: Clay Bah MD at 13:47 EST Tel [phone], Service support ,
--- NOTE | 2017-06-13 09:20 | US_ITS ---
STUDY: RENAL ULTRASOUND - COMPLETE REASON FOR EXAM: Male, 67 years old. Chronic kidney disease. Urinary retention. TECHNIQUE: Ultrasound evaluation of the kidneys was performed with real-time and static fitzpatrick-scale imaging. COMPARISON: None. FINDINGS: RIGHT KIDNEY: Normal location of the right kidney, which is normal in size. The right kidney measures 10.1 cm x 5.9 cm x 1.7 cm. There is a normal cortex of the right kidney. The renal cortex measures 1.4 cm. 2 cysts are seen. The larger measures 5.2 cm x by 5 cm x 4 cm. There are no right renal calculi. There is no right hydronephrosis. DISTAL RIGHT URETER: There is non-visualization of the distal right ureter. There is no demonstrated right ureterovesical junction calculus. There is no demonstrated right ureteral jet. LEFT KIDNEY: Normal location of the left kidney, which is normal in size. The left kidney measures 14.1 cm x 5.5 cm x 7.3 cm. There is a normal cortex of the left kidney. The renal cortex measures 1.4 cm. There is a 1.3 cm x 1.1 cm x 1.3 cm left renal cyst. There are no left renal calculi. There is no left hydronephrosis. DISTAL LEFT URETER: There is non-visualization of the distal left ureter. There is no demonstrated left ureterovesical junction calculus. There is no demonstrated left ureteral jet. BLADDER: A Hamilton catheter is seen within the bladder. US/Kidney and Bladder IMPRESSION: Bilateral renal cysts more prominent on the right side. Electronically Signed: Clay Bah MD at 15:54 EST Tel [phone], Service support ,
--- NOTE | 2017-06-13 10:05 | CASEMGMT ---
See RN CM Assessment. DC PLAN: undetermined. Pt has Passport services 3x week. YIMI referral placed, YIMI Finley updated. Alberto SALINASN RN ACM
--- NOTE | 2017-06-13 10:35 | PCM.CONS.GEN ---
Reason for Consult Date of Consultation: 06/13/17 Reason for Consultation: Retention History of Present Illness: The patient is a 67 year old M presented to the emergency room in retention. Bladder scan had over 400 cc. Had a catheter was inserted and turned over 600 cc. Catheter was left indwelling. Patient has a other significant comorbidities. On further discussion with the patient he has been having nocturia at least 10 times more for the past 2 months. However going back 6 months he denies nocturia at that time. He had been seen at [facility] in [place] started on Flomax by the urologist. A JEAN PAUL which was normal but does not know if he had a PSA, cystoscopy, etc. Has been on Flomax 1 daily for several months and then this episode started in the last 2 months. States for the last 2 days the urine has had a significant odor. But he denies burning febrile illness etc. 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 Recommendations Leave the catheter until early next week and then possibly have patient remove it at home by himself Continue on Flomax twice daily as opposed to 1 daily Patient has been started on Proscar, would discharge him with Avodart/dutasteride for several months Have patient follow-up in the office later part of next week most likely proceed with cystoscopy at that time. Also sent home with low-dose antibiotic to prevent infection at the time of catheter removal if he develops retention again. Thank you for having us to participate in patient's care [] Past Medical History Past Medical History (Chronic Problems): Chronic Problems Atrial fibrillation (Chronic) Chronic airway obstruction (Chronic) Coronary atherosclerosis of [place] coronary artery (Chronic) Esophageal reflux (Chronic) HLD (hyperlipidemia) (Chronic) HTN (hypertension) (Chronic) Leukocytosis (Chronic) Percutaneous transluminal coronary angioplasty status (Chronic) PVD (peripheral vascular disease) (Chronic) Tobacco use disorder (Chronic) left stump swelling (Chronic) Alcohol abuse (Chronic) Allergies No Known Allergies Allergy (Verified 06/12/17 15:56) Home Medications: Ambulatory Orders Medication Instructions Recorded Amiodarone HCl [Cordarone] 200 mg PO DAILY 10/15/13 Aspirin E.C. [Ecotrin] 81 mg PO DAILY@0800 06/20/14 Diltiazem CD [Cardizem CD] 240 mg PO BID 10/15/13 Metoprolol Tartrate [Lopressor 50 mg PO BID 10/15/13 (beta lu)] Tamsulosin HCl [Flomax] 0.4 mg PO DAILY 10/15/13 Atorvastatin Calcium [Lipitor] 80 mg PO QHS 06/12/17 Ferrous Sulfate 325 mg PO BIDCM 06/12/17 Rivaroxaban [Xarelto] 15 mg PO DAILY 06/12/17 Surgical History: - - Multiple vascular stents, revasculation of left leg, left BKA Lives: Alone Smoking Status: Current every day smoker Alcohol: Occasional Drugs: None - *Family History Sibling History Items: COPD - 4 of his sisters has COPD. Paternal History Items: COPD, Heart Disease, No pertinent history - Physical Exam Vital Signs Temp Pulse Resp BP Pulse Ox 97.7 F L 67 18 164/88 H 94 06/13/17 08:03 06/13/17 08:13 06/13/17 08:03 06/13/17 08:03 06/13/17 08:03 Oxygen Flow Rate 2 Oxygen Delivery Method Nasal Cannula Weight: 65 kg Body Mass Index (BMI) 21.7 Intake and Output for Last 24 Hours 06/11/17 06/12/17 06/13/17 23:59 23:59 23:59 Intake Total 921 / 921 Output Total 1625 / 1625 Balance -704 / -704 Laboratory Tests Past 24 Hrs 06/13/17 06/13/17 06:09 06:09 WBC 5.7 RBC 4.11 L Hgb 14.3 Hct 40.9 MCV 99.5 H MCH 34.8 H MCHC 35.0 RDW 13.7 RDW Differential 49.8 H Plt Count 180 MPV 9.3 Immature Gran % (Auto) 0.200 Neut % (Auto) 94.7 H Lymph % (Auto) 4.2 L [place] % (Auto) 0.9 Eos % (Auto) 0.0 Baso % (Auto) 0.0 Absolute Neuts (auto) 5.4 Absolute Lymphs (auto) 0.24 L Total Counted Not Reportable Sodium 129 L Potassium 3.7 Chloride 94 L Carbon Dioxide 25.0 Anion Gap 10 BUN 8 Creatinine 0.60 L Estim Creat Clear Calc 64.10 Est GFR (MDRD) Af Amer 170 Est GFR (MDRD) Non-Af 141 BUN/Creatinine Ratio 13.2 Glucose 124 H Calcium 8.4 L
--- NOTE | 2017-06-13 10:45 | CON.PCM_ITS ---
Reason for Consult Date of Consultation: 06/13/17 Reason for Consultation: Retention History of Present Illness: The patient is a 67 year old M presented to the emergency room in retention. Bladder scan had over 400 cc. Had a catheter was inserted and turned over 600 cc. Catheter was left indwelling. Patient has a other significant comorbidities. On further discussion with the patient he has been having nocturia at least 10 times more for the past 2 months. However going back 6 months he denies nocturia at that time. He had been seen at [facility] in [place] started on Flomax by the urologist. A JEAN PAUL which was normal but does not know if he had a PSA, cystoscopy, etc. Has been on Flomax 1 daily for several months and then this episode started in the last 2 months. States for the last 2 days the urine has had a significant odor. But he denies burning febrile illness etc. 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 Recommendations Leave the catheter until early next week and then possibly have patient remove it at home by himself Continue on Flomax twice daily as opposed to 1 daily Patient has been started on Proscar, would discharge him with Avodart/ dutasteride for several months Have patient follow-up in the office later part of next week most likely proceed with cystoscopy at that time. Also sent home with low-dose antibiotic to prevent infection at the time of catheter removal if he develops retention again. Thank you for having us to participate in patient's care [] Past Medical History Past Medical History (Chronic Problems): Chronic Problems Atrial fibrillation (Chronic) Chronic airway obstruction (Chronic) Coronary atherosclerosis of [place] coronary artery (Chronic) Esophageal reflux (Chronic) HLD (hyperlipidemia) (Chronic) HTN (hypertension) (Chronic) Leukocytosis (Chronic) Percutaneous transluminal coronary angioplasty status (Chronic) PVD (peripheral vascular disease) (Chronic) Tobacco use disorder (Chronic) left stump swelling (Chronic) Alcohol abuse (Chronic) Allergies No Known Allergies Allergy (Verified 06/12/17 15:56) Home Medications: Ambulatory Orders Medication Instructions Recorded Amiodarone HCl [Cordarone] 200 mg PO DAILY 10/15/13 Aspirin E.C. [Ecotrin] 81 mg PO DAILY@0800 06/20/14 Diltiazem CD [Cardizem CD] 240 mg PO BID 10/15/13 Metoprolol Tartrate [Lopressor 50 mg PO BID 10/15/13 (beta lu)] Tamsulosin HCl [Flomax] 0.4 mg PO DAILY 10/15/13 Atorvastatin Calcium [Lipitor] 80 mg PO QHS 06/12/17 Ferrous Sulfate 325 mg PO BIDCM 06/12/17 Rivaroxaban [Xarelto] 15 mg PO DAILY 06/12/17 Surgical History: - - Multiple vascular stents, revasculation of left leg, left BKA Lives: Alone Smoking Status: Current every day smoker Alcohol: Occasional Drugs: None - *Family History Sibling History Items: COPD - 4 of his sisters has COPD. Paternal History Items: COPD, Heart Disease, No pertinent history - Physical Exam Vital Signs Temp Pulse Resp BP Pulse Ox 97.7 F L 67 18 164/88 H 94 06/13/17 08:03 06/13/17 08:13 06/13/17 08:03 06/13/17 08:03 06/13/17 08:03 Oxygen Flow Rate 2 Oxygen Delivery Method Nasal Cannula Weight: 65 kg Body Mass Index (BMI) 21.7 Intake and Output for Last 24 Hours 06/11/17 06/12/17 06/13/17 23:59 23:59 23:59 Intake Total 921 / 921 Output Total 1625 / 1625 Balance -704 / -704 Laboratory Tests Past 24 Hrs 06/13/17 06/13/17 06:09 06:09 WBC 5.7 RBC 4.11 L Hgb 14.3 Hct 40.9 MCV 99.5 H MCH 34.8 H MCHC 35.0 RDW 13.7 RDW Differential 49.8 H Plt Count 180 MPV 9.3 Immature Gran % (Auto) 0.200 Neut % (Auto) 94.7 H Lymph % (Auto) 4.2 L [place] % (Auto) 0.9 Eos % (Auto) 0.0 Baso % (Auto) 0.0 Absolute Neuts (auto) 5.4 Absolute Lymphs (auto) 0.24 L Total Counted Not Reportable Sodium 129 L Potassium 3.7 Chloride 94 L Carbon Dioxide 25.0 Anion Gap 10 BUN 8 Creatinine 0.60 L Estim Creat Clear Calc 64.10 Est GFR (MDRD) Af Amer 170 Est GFR (MDRD) Non-Af 141 BUN/Creatinine Ratio 13.2 Glucose 124 H Calcium 8.4 L
--- NOTE | 2017-06-13 11:59 | CASEMGMT ---
SW called Eva Aniket w/Passport([phone]), confirmed pt is has Passport, and [facility] provide the aide services. Pt also has a Life Alert button. Eva asked to speak w/pt, SW put pt on phone w/Eva. YIMI called [facility], confirmed they are the agency that provides aides for pt. SW explained if pt is discharged on the weekend, they will be notified. SW spoke w/pt in regard to discharge plan. Pt plans to return home at discharge. If discharged on the weekend, pt will take a taxi. If he is discharged during the week, YIMI explained we can see if the hospital van is available. Pt states understanding. SW placed green sheet on chart w/order to resume home health. YIMI will follow up again if pt is still here next week. JOSE MARTIN Landaverde, [employer]ING [employer]ACHINE [employer]TER
[2017-06-13] MEDS: Finasteride 5 MG Tablet PO (12:11)
[2017-06-13] MEDS: Fleet Enema 1 ML RECTAL (13:30)
[2017-06-13] MEDS: 0.9% Normal Saline 1,000 ML 150 ML IV (18:16)
[2017-06-13] MEDS: Ceftriaxone 1 GM/50 ML BAG IV (20:00)
[2017-06-13] MEDS: Tamsulosin HCl 0.4 MG Capsule PO (21:16)
[2017-06-13] MEDS: Atorvastatin Calcium 80 MG Tablet PO (21:17)
[2017-06-14] VITALS (12 sets, daily range): BP systolic 144–156; BP diastolic 64–71; PULSE 62–71; RESP 18–20; TEMP 35.8–36.3; O2SAT 91–96
[2017-06-14] MEDS: 0.9% NaCl Peripheral Flush Adult/Peds IV ×3 (06:17→22:03)
[2017-06-14] MEDS: Ipratropium/Albuterol Sulfate 3 ML AMPUL.NEB INHALATION ×2 (07:04→18:43)
[2017-06-14 07:58] LABS: Anion Gap 9 (5-15); BUN 14 mg/dL (7-18); BUN/Creat Ratio 26.6 RATIO (10-20); Calcium,Total 7.8 mg/dL (8.5-10.1); Chloride 99 mmol/L (98-107); Creatinine, Serum 0.53 mg/dL (0.70-1.30); EST Glomerular Filtration Rate 165 mL/min (>60); Est Glom Filt Rate - Afr Amer 200 mL/min (>60); Glucose 115 mg/dL (74-106); Potassium 3.2 mmol/L (3.5-5.1); Sodium Level 132 mmol/L (136-145)
[2017-06-14] MEDS: Aspirin E.C. 81 MG Tablet PO (08:24)
[2017-06-14] MEDS: Ferrous Sulfate 325 MG Tablet PO ×2 (08:24→17:24)
[2017-06-14 08:30] LABS: Absolute Lymphocyte Count 0.42 X10^3/ul (0.83-4.51); Absolute Neutrophil Count 11.2 X10^3/uL (2.0-7.7); Hematocrit 38.4 % (40-54); Hemoglobin 13.3 g/dl (13.0-16.5); Lymphocyte # 0.42 X10^3/ul (4.0); Lymphocyte % 3.5 % (19-41); Mean Corp Hgb Conc 34.6 g/gl (32-36); Mean Corpuscular Hgb 34.5 pg (27.0-32.0); Mean Corpuscular Volume 99.7 fL (80-94); Mean Platelet Vol. 9.2 fl (6.2-12.0); Monocyte# 0.45 X10^3/uL; Monocyte% 3.7 % (0-10); Neutrophil # 11.19 X10^3/uL (2.7-7.7); Neutrophil % 92.6 % (47-70); Platelet Count 212 K/mm3 (150-450); RBC Distribution Width SD 50.8 fl (35.1-43.9); Red Blood Count 3.85 M/mm3 (4.6-6.2); White Blood Count 12.1 K/mm3 (4.4-11.0)
[2017-06-14 08:42] LABS: Differential Indicated SCAN CRITERIA MET; POSITIVE COUNT NO; POSITIVE DIFFERENTIAL YES; POSITIVE MORPHOLOGY NO
[2017-06-14 08:53] LABS: Differential Comment SCANNED
[2017-06-14] MEDS: guaiFENesin 600 MG Tablet 1200 MG PO ×2 (11:30→21:57)
[2017-06-14] MEDS: dilTIAZem CD 240 MG Capsule PO ×2 (11:30→21:58)
[2017-06-14] MEDS: Nystatin Powder 15gm Bottle 1 APPLIC TOPICAL ×2 (11:30→21:57)
[2017-06-14] MEDS: Rivaroxaban 15 MG Tablet PO (11:30)
[2017-06-14] MEDS: Metoprolol Tartrate 50 MG Tablet PO ×2 (11:30→21:58)
[2017-06-14] MEDS: Finasteride 5 MG Tablet PO (11:30)
[2017-06-14] MEDS: Tamsulosin HCl 0.4 MG Capsule PO ×2 (11:30→21:58)
[2017-06-14] MEDS: Amiodarone 200 MG Tablet PO (11:30)
[2017-06-14] MEDS: Famotidine 20 MG Tablet PO ×2 (11:30→21:57)
--- NOTE | 2017-06-14 15:25 | PCM.PN.HOSP ---
Subjective: Patient is confused and disoriented. 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 He is disoriented to time, place and person. He remembers past event including demise of his about 3 years ago in October. Objective: General: Alert, Oriented x3, Cooperative HEENT: Atraumatic, PERRLA, EOMI, Normocephalic Neck: Supple, No JVD, Negative Carotid Bruits Lungs: No rhonchi, No wheeze, Diminished - On bilateral lung bases, left more than right. Cardiovascular: Regular rate, Regular Rhythm, Normal S1, Normal S2, No murmurs Abdomen: Bowel Sounds Present, Soft, Non Tender, Non-Distended, - - Erythematous inflammation or bilateral groin region and under the scrotum with and perineal region suggestive of urine dribbling and tinea infection Extremities: No edema, Capillary Refill Less than 3 Seconds Skin: No rashes, No breakdown Musculoskeletal: No Tenderness to Palpation of Joints or Extremities Neurological: Cranial nerves II-XII grossly intact Psych/Mental Status: Normal Affect, Appropriate Vitals/I&O's: Vital Signs Temp Pulse Resp BP Pulse Ox 96.9 F L 63 18 156/68 H 94 06/14/17 15:23 06/14/17 15:23 06/14/17 15:23 06/14/17 15:23 06/14/17 15:23 Oxygen Flow Rate 3 Oxygen Delivery Method Nasal Cannula Weight: 143 lb 4.807 oz Body Mass Index (BMI) 21.7 Intake and Output for Last 24 Hours 06/12/17 06/13/17 06/14/17 23:59 23:59 23:59 Intake Total 1970 / 1970 3659 / 3659 Output Total 1925 / 1925 1650 / 1650 Balance 46 / 46 2008 Microbiology Past 72 Hours 06/13/17 17:50 Urine Catheter - Hamilton Urine Culture - Preliminary Culture exhibits no growth. Laboratory Results 06/14/17 06:55: WBC 12.1 H, RBC 3.85 L, Hgb 13.3, Hct 38.4 L, MCV 99.7 H, MCH 34.5 H, MCHC 34.6, RDW 14.0, RDW Differential 50.8 H, Plt Count 212, MPV 9.2, Immature Gran % (Auto) 0.200, Neut % (Auto) 92.6 H, Lymph % (Auto) 3.5 L, [place] % (Auto) 3.7, Eos % (Auto) 0.0, Baso % (Auto) 0.0, Absolute Neuts (auto) 11.2 H, Absolute Lymphs (auto) 0.42 L, Total Counted Not Reportable, Differential Comment SCANNED 06/14/17 06:55: Sodium 132 L, Potassium 3.2 L, Chloride 99, Carbon Dioxide 24.0, Anion Gap 9, BUN 14, Creatinine 0.53 L, Estim Creat Clear Calc 64.10, Est GFR (MDRD) Af Amer 200, Est GFR (MDRD) Non-Af 165, BUN/Creatinine Ratio 26.6 H, Glucose 115 H, Calcium 7.8 L, Total PSA 6.20 H Current Medications Acetaminophen (Tylenol) 650 mg PO Q6H PRN PRN PRN Reason: Mild Pain (1-3)/Temp > 100.7 F Al Hydroxide/Mg Hydroxide (Mylanta Ii) 30 ml PO Q6H PRN PRN PRN Reason: Gastric burning Albuterol Sulfate (Ventolin Aerosols) 2.5 mg INHALATION Q2H PRN PRN PRN Reason: SHORTNESS OF BREATH Albuterol/Ipratropium (Duoneb) 3 ml INHALATION Q6H.RT [facility] Last Admin: 06/14/17 13:10 Dose: Not Given Amiodarone HCl (Cordarone) 200 mg PO DAILY [facility] Last Admin: 06/14/17 11:30 Dose: 200 mg Aspirin (Ecotrin) 81 mg PO DAILY@0800 [facility] Last Admin: 06/14/17 08:24 Dose: 81 mg Atorvastatin Calcium (Lipitor) 80 mg PO QHS [facility] Last Admin: 06/13/17 21:17 Dose: 80 mg Bisacodyl (Dulcolax) 5 mg PO DAILY PRN PRN PRN Reason: Constipation Diltiazem HCl (Cardizem Cd) 240 mg PO BID [facility] Last Admin: 06/14/17 11:30 Dose: 240 mg Famotidine (Pepcid) 20 mg PO BID [facility] Last Admin: 06/14/17 11:30 Dose: 20 mg [facility]ous S[facility] ([facility] S[facility]) [facility] Last Admin: 06/14/17 08:24 Dose: 325 mg Finasteride (Proscar) 5 mg PO DAILY [facility] Last Admin: 06/14/17 11:30 Dose: 5 mg Guaifenesin (Mucinex) 1,200 mg PO BID [facility] Last Admin: 06/14/17 11:30 Dose: 1,200 mg Azithromycin 500 mg/ Dextrose 255 mls @ 250 mls/hr IV Q24 [facility] Stop: 06/15/17 11:02 Last Admin: 06/14/17 11:30 Dose: 250 mls/hr Ceftriaxone Sodium (Rocephin) 1 gm in 50 mls @ 100 mls/hr IV Q24H [facility] Last Admin: 06/13/17 20:00 Dose: 100 mls/hr Magnesium Hydroxide (Milk Of Magnesia) 30 ml PO DAILY PRN PRN PRN Reason: Constipation Methylprednisolone (Solu-Medrol) 40 mg IV Q12H [facility] Last Admin: 06/14/17 06:17 Dose: 40 mg Metoprolol Tartrate (Lopressor (Beta Pauline)) 50 mg PO BID [facility] Last Admin: 06/14/17 11:30 Dose: 50 mg Nutritional Formula (Lactose Free) (Ensure Enlive) 120 ml PO 4X/DAY [facility] Last Admin: 06/14/17 11:30 Dose: 120 ml Nystatin (Mycostatin Powder) 1 applic TOPICAL BID [facility] PRN Reason: Protocol Last Admin: 06/14/17 11:30 Dose: 1 dose Oxycodone HCl (Oxyir) 5 - 10 mg PO Q4H PRN PRN PRN Reason: MOD-SEVERE PAIN (4-10/10) Promethazine HCl (Phenergan (Ll)) 12.5 mg IV Q6H PRN PRN Reason: NAUSEA Rivaroxaban (Xarelto) 15 mg PO DAILY [facility] Last Admin: 06/14/17 11:30 Dose: 15 mg Sodium Chloride () 5 - 30 ml IV UD PRN PRN Reason: SALINE FLUSH Last Admin: 06/14/17 06:17 Dose: 10 ml Tamsulosin HCl (Flomax) 0.4 mg PO BID [facility] Last Admin: 06/14/17 11:30 Dose: 0.4 mg Zolpidem Tartrate (Ambien (Generic)) 5 mg PO QHS PRN PRN PRN Reason: INSOMNIA Assessment/Plan Patient is a 67 years old male with history of COPD, coronary artery disease, BPH, atrial fibrillation, presents with complaining of difficulty urinating. He was found to have Oxygen saturation 87% on arrival, started on oxygen. Further history revealed that he has some difficulty of breathing for past few days with increased wheezing. He also has productive cough. He denied of any fever, chills, or chest pain. He has symptoms of nocturia despite of current medication, Flomax 0.4 mg po qd. He goes to bathroom several times during the night. He also has some post-void dribbling and some hesitancy. Difficulty of urinating has been worsening for past 2 days. #1 Right lower lobe community-acquired pneumonia : Urinary antigens are negative. Blood cultures are pending. Patient on azithromycin and ceftriaxone empirically. #2 Acute hypoxic respiratory failure secondary to COPD exacerbation, mild with acute bronchitis and pneumonia as mentioned above: Aerosol treatment with DuoNeb Q6H and albuterol prn. Oxygen supplement. He does not wear oxygen at home. #3 Mild COPD exacerbation acute bronchitis. Bronchodilator and oxygen as above. Add low dose Solu-Medrol 40 mg IVP q12h. #4 Urinary retention with increased nocturia, urine dribbling, suggestive of lower urinary tract symptoms with underling presumed BPH: Urologist consult, Dr. Dick note reviewed and appreciated. He advised Flomax 0.4 mg twice daily. Patient has Hamilton catheter inserted in the ER. Clear urine. UA suggestive of mild leukocyte esterase but negative nitrite, pyuria, hematuria or proteinuria. Urine culture negative. Ultrasound kidneys reported as bilateral renal cyst more prominent on the right but normal renal cortex and no hydronephrosis. Transrectal prostate ultrasound shows prostate volume 22.3 cm?, normal prostate glandular tissue without evidence of nodules or lesions. Reported as no significant abnormality. PSA elevated. Altered mental status with confusion disorientation probably acute infectious/metabolic encephalopathy on baseline dementia: Treat the underlying cause. Monitor electrolytes and correct accordingly #5 Paroxysmal atrial fibrillation. Rate controlled. In sinus rhythm. Continue current medications. He is on Xarelto for stroke prevention. Continue. #6 Coronary artery disease. He denied of any chest pain. Continue statin, aspirin, and metoprolol. #7 Hypokalemia. Repeat potassium is 3.7. Give K-Dur 40 meq po x 1. On IV fluid normal saline with 20 meq KCl. #8 Hyponatremia. Sodium 127. Repeat sodium is 129. his last sodium was 139 on May 17, 2016. VTE prophylaxis: Xarelto po. GI prophylaxis: H2 pauline po. Patient is DNR-CC Arrest. Anticipate discharge tomorrow if confusion/disorientation improves Code Visit Inpatient E&M: 09690 Subs Hosp L3
[2017-06-14] MEDS: oxyCODONE 5 MG Tablet PO (15:29)
--- NOTE | 2017-06-14 15:29 | PN_ITS ---
Subjective: Patient is confused and disoriented. 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 He is disoriented to time, place and person. He remembers past event including demise of his about 3 years ago in October. Objective: General: Alert, Oriented x3, Cooperative HEENT: Atraumatic, PERRLA, EOMI, Normocephalic Neck: Supple, No JVD, Negative Carotid Bruits Lungs: No rhonchi, No wheeze, Diminished - On bilateral lung bases, left more than right. Cardiovascular: Regular rate, Regular Rhythm, Normal S1, Normal S2, No murmurs Abdomen: Bowel Sounds Present, Soft, Non Tender, Non-Distended, - - Erythematous inflammation or bilateral groin region and under the scrotum with and perineal region suggestive of urine dribbling and tinea infection Extremities: No edema, Capillary Refill Less than 3 Seconds Skin: No rashes, No breakdown Musculoskeletal: No Tenderness to Palpation of Joints or Extremities Neurological: Cranial nerves II-XII grossly intact Psych/Mental Status: Normal Affect, Appropriate Vitals/I&O's: Vital Signs Temp Pulse Resp BP Pulse Ox 96.9 F L 63 18 156/68 H 94 06/14/17 15:23 06/14/17 15:23 06/14/17 15:23 06/14/17 15:23 06/14/17 15:23 Oxygen Flow Rate 3 Oxygen Delivery Method Nasal Cannula Weight: 143 lb 4.807 oz Body Mass Index (BMI) 21.7 Intake and Output for Last 24 Hours 06/12/17 06/13/17 06/14/17 23:59 23:59 23:59 Intake Total 1970 / 1970 3659 / 3659 Output Total 1925 / 1925 1650 / 1650 Balance 46 / 46 2008 Microbiology Past 72 Hours 06/13/17 17:50 Urine Catheter - [facility] Urine Culture - Preliminary Culture exhibits no growth. Laboratory Results 06/14/17 06:55: WBC 12.1 H, RBC 3.85 L, Hgb 13.3, Hct 38.4 L, MCV 99.7 H, MCH 34.5 H, MCHC 34.6, RDW 14.0, RDW Differential 50.8 H, Plt Count 212, MPV 9.2, Immature Gran % (Auto) 0.200, Neut % (Auto) 92.6 H, Lymph % (Auto) 3.5 L, [place] % (Auto) 3.7, Eos % (Auto) 0.0, Baso % (Auto) 0.0, Absolute Neuts (auto) 11.2 H , Absolute Lymphs (auto) 0.42 L, Total Counted Not Reportable, Differential Comment SCANNED 06/14/17 06:55: Sodium 132 L, Potassium 3.2 L, Chloride 99, Carbon Dioxide 24.0 , Anion Gap 9, BUN 14, Creatinine 0.53 L, Estim Creat Clear Calc 64.10, Est GFR (MDRD) Af Amer 200, Est GFR (MDRD) Non-Af 165, BUN/Creatinine Ratio 26.6 H, Glucose 115 H, Calcium 7.8 L, Total PSA 6.20 H Current Medications Acetaminophen (Tylenol) 650 mg PO Q6H PRN PRN PRN Reason: Mild Pain (1-3)/Temp > 100.7 F Al Hydroxide/Mg Hydroxide (Mylanta Ii) 30 ml PO Q6H PRN PRN PRN Reason: Gastric burning Albuterol Sulfate (Ventolin Aerosols) 2.5 mg INHALATION Q2H PRN PRN PRN Reason: SHORTNESS OF BREATH Albuterol/Ipratropium (Duoneb) 3 ml INHALATION Q6H.RT [facility] Last Admin: 06/14/17 13:10 Dose: Not Given Amiodarone HCl (Cordarone) 200 mg PO DAILY [facility] Last Admin: 06/14/17 11:30 Dose: 200 mg Aspirin (Ecotrin) 81 mg PO DAILY@0800 [facility] Last Admin: 06/14/17 08:24 Dose: 81 mg Atorvastatin Calcium (Lipitor) 80 mg PO QHS [facility] Last Admin: 06/13/17 21:17 Dose: 80 mg Bisacodyl (Dulcolax) 5 mg PO DAILY PRN PRN PRN Reason: Constipation Diltiazem HCl (Cardizem Cd) 240 mg PO BID [facility] Last Admin: 06/14/17 11:30 Dose: 240 mg Famotidine (Pepcid) 20 mg PO BID [facility] Last Admin: 06/14/17 11:30 Dose: 20 mg Ferrous Sulfate [facility]) [facility] Last Admin: 06/14/17 08:24 Dose: 325 mg Finasteride (Proscar) 5 mg PO DAILY [facility] Last Admin: 06/14/17 11:30 Dose: 5 mg Guaifenesin (Mucinex) 1,200 mg PO BID [facility] Last Admin: 06/14/17 11:30 Dose: 1,200 mg Azithromycin 500 mg/ Dextrose 255 mls @ 250 mls/hr IV Q24 [facility] Stop: 06/15/17 11:02 Last Admin: 06/14/17 11:30 Dose: 250 mls/hr Ceftriaxone Sodium (Rocephin) 1 gm in 50 mls @ 100 mls/hr IV Q24H [facility] Last Admin: 06/13/17 20:00 Dose: 100 mls/hr Magnesium Hydroxide (Milk Of Magnesia) 30 ml PO DAILY PRN PRN PRN Reason: Constipation Methylprednisolone (Solu-Medrol) 40 mg IV Q12H [facility] Last Admin: 06/14/17 06:17 Dose: 40 mg Metoprolol Tartrate (Lopressor (Beta Pauline)) 50 mg PO BID [facility] Last Admin: 06/14/17 11:30 Dose: 50 mg Nutritional Formula (Lactose Free) (Ensure Enlive) 120 ml PO 4X/DAY [facility] Last Admin: 06/14/17 11:30 Dose: 120 ml Nystatin (Mycostatin Powder) 1 applic TOPICAL BID [facility] PRN Reason: Protocol Last Admin: 06/14/17 11:30 Dose: 1 dose Oxycodone HCl (Oxyir) 5 - 10 mg PO Q4H PRN PRN PRN Reason: MOD-SEVERE PAIN (4-10/10) Promethazine HCl (Phenergan (Ll)) 12.5 mg IV Q6H PRN PRN Reason: NAUSEA Rivaroxaban (Xarelto) 15 mg PO DAILY [facility] Last Admin: 06/14/17 11:30 Dose: 15 mg Sodium Chloride () 5 - 30 ml IV UD PRN PRN Reason: SALINE FLUSH Last Admin: 06/14/17 06:17 Dose: 10 ml Tamsulosin HCl (Flomax) 0.4 mg PO BID [facility] Last Admin: 06/14/17 11:30 Dose: 0.4 mg Zolpidem Tartrate (Ambien (Generic)) 5 mg PO QHS PRN PRN PRN Reason: INSOMNIA Assessment/Plan Patient is a 67 years old male with history of COPD, coronary artery disease, BPH, atrial fibrillation, presents with complaining of difficulty urinating. He was found to have Oxygen saturation 87% on arrival, started on oxygen. Further history revealed that he has some difficulty of breathing for past few days with increased wheezing. He also has productive cough. He denied of any fever, chills, or chest pain. He has symptoms of nocturia despite of current medication, Flomax 0.4 mg po qd. He goes to bathroom several times during the night. He also has some post-void dribbling and some hesitancy. Difficulty of urinating has been worsening for past 2 days. #1 Right lower lobe community-acquired pneumonia : Urinary antigens are negative. Blood cultures are pending. Patient on azithromycin and ceftriaxone empirically. #2 Acute hypoxic respiratory failure secondary to COPD exacerbation, mild with acute bronchitis and pneumonia as mentioned above: Aerosol treatment with DuoNeb Q6H and albuterol prn. Oxygen supplement. He does not wear oxygen at home. #3 Mild COPD exacerbation acute bronchitis. Bronchodilator and oxygen as above. Add low dose Solu-Medrol 40 mg IVP q12h. #4 Urinary retention with increased nocturia, urine dribbling, suggestive of lower urinary tract symptoms with underling presumed BPH: Urologist consult, Dr. Dick note reviewed and appreciated. He advised Flomax 0.4 mg twice daily. Patient has Hamilton catheter inserted in the ER. Clear urine. UA suggestive of mild leukocyte esterase but negative nitrite, pyuria, hematuria or proteinuria. Urine culture negative. Ultrasound kidneys reported as bilateral renal cyst more prominent on the right but normal renal cortex and no hydronephrosis. Transrectal prostate ultrasound shows prostate volume 22.3 cm?, normal prostate glandular tissue without evidence of nodules or lesions. Reported as no significant abnormality. PSA elevated. Altered mental status with confusion disorientation probably acute infectious/ metabolic encephalopathy on baseline dementia: Treat the underlying cause. Monitor electrolytes and correct accordingly #5 Paroxysmal atrial fibrillation. Rate controlled. In sinus rhythm. Continue current medications. He is on Xarelto for stroke prevention. Continue. #6 Coronary artery disease. He denied of any chest pain. Continue statin, aspirin, and metoprolol. #7 Hypokalemia. Repeat potassium is 3.7. Give K-Dur 40 meq po x 1. On IV fluid normal saline with 20 meq KCl. #8 Hyponatremia. Sodium 127. Repeat sodium is 129. his last sodium was 139 on May 17, 2016. VTE prophylaxis: Xarelto po. GI prophylaxis: H2 pauline po. Patient is DNR-CC Arrest. Anticipate discharge tomorrow if confusion/disorientation improves Code Visit Inpatient E&M: 39260 Subs Hosp L3
--- NOTE | 2017-06-14 17:53 | PCA ---
pt in bed call light in reach bed exit on
[2017-06-14] MEDS: Ceftriaxone 1 GM/50 ML BAG IV (19:37)
[2017-06-14] MEDS: Atorvastatin Calcium 80 MG Tablet PO (21:57)
[2017-06-15] VITALS (8 sets, daily range): BP systolic 147–152; BP diastolic 69–70; PULSE 58–72; RESP 16–22; TEMP 36.2–36.6; O2SAT 91–94
--- NOTE | 2017-06-15 03:32 | NURSING ---
Have found that patient has removed 02 several times during the night. Nurse has had to place 02 back on patient several times during the operator bearer systems. Nurse noticed that patient gets confused when he is hypoxic. Pt's sats drops to mid 80s to 88% on room air. Spoke to patient about considering smoking cessation, and he said he would consider to stop smoking if he would be prescribed the right medications. Pt stated he currently smokes 3ppd. Pt is not currently using 02 at home.
[2017-06-15] MEDS: 0.9% NaCl Peripheral Flush Adult/Peds IV (06:39)
[2017-06-15 06:44] LABS: Absolute Lymphocyte Count 0.36 X10^3/ul (0.83-4.51); Absolute Neutrophil Count 7.9 X10^3/uL (2.0-7.7); Hematocrit 37.3 % (40-54); Hemoglobin 12.8 g/dl (13.0-16.5); Lymphocyte # 0.36 X10^3/ul (4.0); Lymphocyte % 4.2 % (19-41); Mean Corp Hgb Conc 34.3 g/gl (32-36); Mean Corpuscular Hgb 34.8 pg (27.0-32.0); Mean Corpuscular Volume 101.4 fL (80-94); Mean Platelet Vol. 9.3 fl (6.2-12.0); Monocyte# 0.36 X10^3/uL; Monocyte% 4.2 % (0-10); Neutrophil % 91.1 % (47-70); Platelet Count 219 K/mm3 (150-450); RBC Distribution Width CV 14.2 % (11.6-14.6); RBC Distribution Width SD 52.6 fl (35.1-43.9); Red Blood Count 3.68 M/mm3 (4.6-6.2); White Blood Count 8.7 K/mm3 (4.4-11.0)
[2017-06-15] MEDS: Ipratropium/Albuterol Sulfate 3 ML AMPUL.NEB INHALATION ×3 (06:45→18:58)
[2017-06-15 06:49] LABS: Differential Indicated SCAN CRITERIA MET; POSITIVE COUNT NO; POSITIVE DIFFERENTIAL YES; POSITIVE MORPHOLOGY NO
[2017-06-15 07:00] LABS: Anion Gap 7 (5-15); BUN 20 mg/dL (7-18); BUN/Creat Ratio 33.8 RATIO (10-20); Calcium,Total 8.2 mg/dL (8.5-10.1); Chloride 102 mmol/L (98-107); Creatinine, Serum 0.59 mg/dL (0.70-1.30); EST Glomerular Filtration Rate 144 mL/min (>60); Est Glom Filt Rate - Afr Amer 174 mL/min (>60); Glucose 117 mg/dL (74-106); Magnesium 2.1 mg/dL (1.6-2.6); Potassium 3.9 mmol/L (3.5-5.1); Sodium Level 136 mmol/L (136-145)
[2017-06-15 07:27] LABS: Differential Comment SCANNED
[2017-06-15] MEDS: Ferrous Sulfate 325 MG Tablet PO ×2 (08:08→17:24)
[2017-06-15] MEDS: Aspirin E.C. 81 MG Tablet PO (08:09)
[2017-06-15] MEDS: Rivaroxaban 15 MG Tablet PO (09:59)
[2017-06-15] MEDS: guaiFENesin 600 MG Tablet 1200 MG PO ×2 (09:59→21:50)
[2017-06-15] MEDS: dilTIAZem CD 240 MG Capsule PO ×2 (09:59→21:51)
[2017-06-15] MEDS: Finasteride 5 MG Tablet PO (09:59)
[2017-06-15] MEDS: Tamsulosin HCl 0.4 MG Capsule PO ×2 (09:59→21:49)
[2017-06-15] MEDS: Amiodarone 200 MG Tablet PO (09:59)
[2017-06-15] MEDS: Metoprolol Tartrate 50 MG Tablet PO ×2 (09:59→21:51)
[2017-06-15] MEDS: Nystatin Powder 15gm Bottle 1 APPLIC TOPICAL ×2 (10:00→21:50)
[2017-06-15] MEDS: Famotidine 20 MG Tablet PO ×2 (10:01→21:50)
--- NOTE | 2017-06-15 12:56 | PCM.PN.HOSP ---
Subjective: No fever. Still short of breath. Patient on 2 L of oxygen per valuable needed oxygen at the time of discharge. Patient walked with his prosthetic leg, left below-knee amputation with physical therapist, by stand Objective: General: Alert, Oriented x3, Cooperative HEENT: Atraumatic, PERRLA, EOMI, Normocephalic Neck: Supple, No JVD, Negative Carotid Bruits Lungs: No rhonchi, No wheeze, Diminished - On bilateral lung bases, left more than right. Cardiovascular: Regular rate, Regular Rhythm, Normal S1, Normal S2, No murmurs Abdomen: Bowel Sounds Present, Soft, Non Tender, Non-Distended, - - Erythematous inflammation or bilateral groin region and under the scrotum with and perineal region suggestive of urine dribbling and tinea infection; improved Extremities: No edema, Capillary Refill Less than 3 Seconds Skin: No rashes, No breakdown Musculoskeletal: No Tenderness to Palpation of Joints or Extremities. Left BKA with prosthetic leg Neurological: Cranial nerves II-XII grossly intact Psych/Mental Status: Normal Affect, Appropriate Vitals/I&O's: Vital Signs Temp Pulse Resp BP Pulse Ox 97.3 F L 58 L 22 H 151/70 H 93 06/15/17 10:00 06/15/17 12:41 06/15/17 12:41 06/15/17 10:00 06/15/17 10:00 Oxygen Flow Rate 3 Oxygen Delivery Method Nasal Cannula Weight: 143 lb 4.807 oz Body Mass Index (BMI) 21.7 Intake and Output for Last 24 Hours 06/13/17 06/14/17 06/15/17 23:59 23:59 23:59 Intake Total 1970 / 1970 4099 / 4099 251 / 251 Output Total 1924 / 1924 1949 / 1949 850 / 850 Balance 46 / 46 2149 / 2149 -599 / -599 Microbiology Past 72 Hours 06/13/17 17:50 Urine Catheter - Hamilton Urine Culture - Preliminary Culture exhibits no growth. Laboratory Results 06/15/17 06:20: WBC 8.7, RBC 3.68 L, Hgb 12.8 L, Hct 37.3 L, MCV 101.4 H, MCH 34.8 H, MCHC 34.3, RDW 14.2, RDW Differential 52.6 H, Plt Count 219, MPV 9.3, Immature Gran % (Auto) 0.500, Neut % (Auto) 91.1 H, Lymph % (Auto) 4.2 L, Frederick % (Auto) 4.2, Eos % (Auto) 0.0, Baso % (Auto) 0.0, Absolute Neuts (auto) 7.9 H, Absolute Lymphs (auto) 0.36 L, Total Counted Not Reportable, Differential Comment SCANNED 06/15/17 06:20: Sodium 136, Potassium 3.9, Chloride 102, Carbon Dioxide 27.0, Anion Gap 7, BUN 20 H, Creatinine 0.59 L, Estim Creat Clear Calc 64.10, Est GFR (MDRD) Af Amer 174, Est GFR (MDRD) Non-Af 144, BUN/Creatinine Ratio 33.8 H, Glucose 117 H, Calcium 8.2 L, Magnesium 2.1 Current Medications Acetaminophen (Tylenol) 650 mg PO Q6H PRN PRN PRN Reason: Mild Pain (1-3)/Temp > 100.7 F Al Hydroxide/Mg Hydroxide (Mylanta Ii) 30 ml PO Q6H PRN PRN PRN Reason: Gastric burning Albuterol Sulfate (Ventolin Aerosols) 2.5 mg INHALATION Q2H PRN PRN PRN Reason: SHORTNESS OF BREATH Albuterol/Ipratropium (Duoneb) 3 ml INHALATION Q6H.RT [facility] Last Admin: 06/15/17 12:41 Dose: 3 ml Amiodarone HCl (Cordarone) 200 mg PO DAILY [facility] Last Admin: 06/15/17 09:59 Dose: 200 mg Aspirin (Ecotrin) 81 mg PO DAILY@0800 [facility] Last Admin: 06/15/17 08:09 Dose: 81 mg Atorvastatin Calcium (Lipitor) 80 mg PO QHS [facility] Last Admin: 06/14/17 21:57 Dose: 80 mg Bisacodyl (Dulcolax) 5 mg PO DAILY PRN PRN PRN Reason: Constipation Diltiazem HCl (Cardizem Cd) 240 mg PO BID [facility] Last Admin: 06/15/17 09:59 Dose: 240 mg Famotidine (Pepcid) 20 mg PO BID [facility] Last Admin: 06/15/17 10:01 Dose: 20 mg [facility]ous [facility] Admin: 06/15/17 08:08 Dose: 325 mg Finasteride (Proscar) 5 mg PO DAILY [facility] Last Admin: 06/15/17 09:59 Dose: 5 mg Guaifenesin (Mucinex) 1,200 mg PO BID [facility] Last Admin: 06/15/17 09:59 Dose: 1,200 mg Ceftriaxone Sodium (Rocephin) 1 gm in 50 mls @ 100 mls/hr IV Q24H [facility] Last Admin: 06/14/17 19:37 Dose: 100 mls/hr Magnesium Hydroxide (Milk Of Magnesia) 30 ml PO DAILY PRN PRN PRN Reason: Constipation Methylprednisolone (Solu-Medrol) 40 mg IV Q12H [facility] Last Admin: 06/15/17 06:39 Dose: 40 mg Metoprolol Tartrate (Lopressor (Beta Pauline)) 50 mg PO BID [facility] Last Admin: 06/15/17 09:59 Dose: 50 mg Nutritional Formula (Lactose Free) (Ensure Enlive) 120 ml PO 4X/DAY [facility] Last Admin: 06/15/17 09:59 Dose: 120 ml Nystatin (Mycostatin Powder) 1 applic TOPICAL BID [facility] PRN Reason: Protocol Last Admin: 06/15/17 10:00 Dose: 1 dose Oxycodone HCl (Oxyir) 5 - 10 mg PO Q4H PRN PRN PRN Reason: MOD-SEVERE PAIN (4-10/10) Last Admin: 06/14/17 15:29 Dose: 5 mg Promethazine HCl (Phenergan (Ll)) 12.5 mg IV Q6H PRN PRN Reason: NAUSEA Rivaroxaban (Xarelto) 15 mg PO DAILY [facility] Last Admin: 06/15/17 09:59 Dose: 15 mg Sodium Chloride () 5 - 30 ml IV UD PRN PRN Reason: SALINE FLUSH Last Admin: 06/15/17 06:39 Dose: 10 ml Tamsulosin HCl (Flomax) 0.4 mg PO BID [facility] Last Admin: 06/15/17 09:59 Dose: 0.4 mg Zolpidem Tartrate (Ambien (Generic)) 5 mg PO QHS PRN PRN PRN Reason: INSOMNIA Assessment/Plan Patient is a 67 years old male with history of COPD, coronary artery disease, BPH, atrial fibrillation, presents with complaining of difficulty urinating. He was found to have Oxygen saturation 87% on arrival, started on oxygen. Further history revealed that he has some difficulty of breathing for past few days with increased wheezing. He also has productive cough. He denied of any fever, chills, or chest pain. He has symptoms of nocturia despite of current medication, Flomax 0.4 mg po qd. He goes to bathroom several times during the night. He also has some post-void dribbling and some hesitancy. Difficulty of urinating has been worsening for past 2 days. #1 Right lower lobe community-acquired pneumonia left basilar subsegmental atelectasis: Urinary antigens are negative. Patient on azithromycin and ceftriaxone empirically. Blood cultures ?2 are negative for more than 48 hours. Urinary antigens are negative. Follow-up chest x-ray PA and lateral tomorrow. #2 Acute hypoxic respiratory failure secondary to COPD exacerbation, mild with acute bronchitis and pneumonia as mentioned above: Aerosol treatment with DuoNeb Q6H and albuterol prn. Oxygen supplement. He does not wear oxygen at home. #3 Mild COPD exacerbation acute bronchitis. Bronchodilator and oxygen as above. Add low dose Solu-Medrol 40 mg IVP q12h. #4 Urinary retention with increased nocturia, urine dribbling, suggestive of lower urinary tract symptoms with underling presumed BPH: Urologist consult, Dr. Dick note reviewed and appreciated. He advised Flomax 0.4 mg twice daily. Patient has Hamilton catheter inserted in the ER. Clear urine. UA suggestive of mild leukocyte esterase but negative nitrite, pyuria, hematuria or proteinuria. Urine culture negative. Ultrasound kidneys reported as bilateral renal cyst more prominent on the right but normal renal cortex and no hydronephrosis. Transrectal prostate ultrasound shows prostate volume 22.3 cm?, normal prostate glandular tissue without evidence of nodules or lesions. Reported as no significant abnormality. PSA elevated. Urine culture is negative. Altered mental status with confusion disorientation probably acute infectious/metabolic encephalopathy on baseline dementia: Treat the underlying cause. Monitor electrolytes and correct accordingly #5 Paroxysmal atrial fibrillation. Rate controlled. In sinus rhythm. Continue current medications. He is on Xarelto for stroke prevention. Continue. #6 Coronary artery disease. He denied of any chest pain. Continue statin, aspirin, and metoprolol. #7 Hypokalemia. Repeat potassium is 3.7. Give K-Dur 40 meq po x 1. On IV fluid normal saline with 20 meq KCl. #8 Hyponatremia. Sodium 127. Repeat sodium is 129. his last sodium was 139 on May 17, 2016. VTE prophylaxis: Xarelto po. GI prophylaxis: H2 pauline po. Patient is DNR-CC Arrest. I anticipate discharge tomorrow on Home oxygen. Needs oxygen authorization and approval, by family preservation caseworker tomorrow. Code Visit Inpatient E&M: 83848 [facility] Hosp L3
[2017-06-15] MEDS: Ceftriaxone 1 GM/50 ML BAG IV (18:00)
[2017-06-15] MEDS: Atorvastatin Calcium 80 MG Tablet PO (21:51)
[2017-06-16] VITALS (7 sets, daily range): BP systolic 135–182; BP diastolic 46–60; PULSE 62–73; RESP 16–18; TEMP 36.6–36.7; O2SAT 90–95
[2017-06-16] MEDS: Ipratropium/Albuterol Sulfate 3 ML AMPUL.NEB INHALATION ×2 (00:45→12:15)
--- NOTE | 2017-06-16 05:55 | RAD_ITS ---
STUDY: X-RAY CHEST REASON FOR EXAM: Male, 67 years old. Decreased aeration of the right lower lobe. TECHNIQUE: PA and lateral views of the chest. COMPARISON: Comparison is made with prior study dated June 12, 2017. FINDINGS: Hyperinflation. Stable increased markings at the left lung base suggestive of atelectasis and/or scarring. There is blunting of the costophrenic angles posteriorly. Normal size heart. Normal mediastinum and narayan. Normal visualized pulmonary arteries. There is atherosclerotic calcification of the aortic arch with tortuosity. There is demineralization of the osseous structures. Normal visualized ribs, clavicles, and shoulders. There is no demonstrated abnormality of the visualized soft tissue structures of the upper abdomen. RAD/Chest PA and Lateral IMPRESSION: Hyperinflation. Stable increased markings at the left lung base suggestive of left basilar atelectasis and/or early infiltrate. Electronically Signed: Clay Bah MD at 8:16 EST Tel [phone], Service support ,
[2017-06-16] MEDS: 0.9% NaCl Peripheral Flush Adult/Peds IV (06:01)
[2017-06-16] MEDS: Ferrous Sulfate 325 MG Tablet PO (08:10)
[2017-06-16] MEDS: Aspirin E.C. 81 MG Tablet PO (08:10)
[2017-06-16] MEDS: dilTIAZem CD 240 MG Capsule PO (08:11)
[2017-06-16] MEDS: Amiodarone 200 MG Tablet PO (08:11)
[2017-06-16] MEDS: Tamsulosin HCl 0.4 MG Capsule PO ×2 (08:11→10:37)
[2017-06-16] MEDS: guaiFENesin 600 MG Tablet 1200 MG PO (08:11)
--- NOTE | 2017-06-16 10:15 | PCM.DC ---
You will use the following diet at home:: Cardiac Discharge Activity: Return to Normal Activity Call your doctor if you observe: Shortness of breath, Dizziness, Fainting spells, Chest pain, Increased palpitations (irregular heartbeat) Additional Instructions: You will need to monitor you oxygen at home. Recommend purchasing a pulse oximeter from [employer], etc. Your oxygen level should be at or above 90%. Recommend you follow up with permanent waver (lung doctor) for further testing and follow-up for COPD given your extensive smoking history. You CANNOT smoke while using oxygen at home, which we discussed during your visit. Please follow-up with Dr. Dick in 3-5 days regarding your urinary retention/fall catheter. Allergies/Adverse Reactions: Allergies No Known Allergies Allergy (Verified 06/12/17 15:56) Medications to take at Discharge Amiodarone HCl [Cordarone] 200 mg PO DAILY 10/15/13 Aspirin E.C. [Ecotrin] 81 mg PO DAILY@0800 10/15/13 Diltiazem CD [Cardizem CD] 240 mg PO BID 10/15/13 Metoprolol Tartrate [Lopressor (beta lu)] 50 mg PO BID 10/15/13 Atorvastatin Calcium [Lipitor] 80 mg PO QHS 06/12/17 Ferrous Sulfate 325 mg PO BIDCM 06/12/17 Rivaroxaban [Xarelto] 15 mg PO DAILY 06/12/17 Albuterol Aerosols [Ventolin Aerosols] 2.5 mg INHALATION Q2H PRN PRN #120 vial.neb. 06/16/17 Finasteride [Proscar] 5 mg PO DAILY #30 tab 06/16/17 Ipratropium/Albuterol Sulfate [Duoneb] 3 ml INHALATION Q6H.RT #120 ampul.neb 06/16/17 Levofloxacin [Levaquin] 750 mg PO DAILY #4 tab 06/16/17 Prednisone See Taper PO DAILY #30 tab 06/16/17 Tamsulosin HCl [Flomax] 0.4 mg PO BID #60 cap 06/16/17 The following prescriptions were given: Albuterol Aerosols [Ventolin Aerosols] 2.5 mg INHALATION Q2H PRN PRN #120 vial.neb. PRN Reason: Shortness Of Breath Ipratropium/Albuterol Sulfate [Duoneb] 3 ml INHALATION Q6H.RT #120 ampul.neb Finasteride [Proscar] 5 mg PO DAILY #30 tab Levofloxacin [Levaquin] 750 mg PO DAILY #4 tab Prednisone See Taper PO DAILY #30 tab Tamsulosin HCl [Flomax] 0.4 mg PO BID #60 cap Primary Care Physician: William Chacko MD [NON-STAFF] - Please Follow Up With: Sudhakar Crowell MD When: As scheduled Please Follow Up With: Sharath Dick MD When: This week, 3-5 days Please Follow Up With: Josue Gonzales MD - May see SOLAR BUSINESS DEVELOPER/PA When: 2-4 Weeks Proposed Discharge Date: 06/16/17
--- NOTE | 2017-06-16 10:22 | DCINST_ITS ---
You will use the following diet at home:: Cardiac Discharge Activity: Return to Normal Activity Call your doctor if you observe: Shortness of breath, Dizziness, Fainting spells , Chest pain, Increased palpitations (irregular heartbeat) Additional Instructions: You will need to monitor you oxygen at home. Recommend purchasing a pulse oximeter from [employer], [employer], etc. Your oxygen level should be at or above 90%. Recommend you follow up with signaling project engineer (lung doctor) for further testing and follow-up for COPD given your extensive smoking history. You CANNOT smoke while using oxygen at home, which we discussed during your visit. Please follow-up with Dr. Dick in 3-5 days regarding your urinary retention/fall catheter. Allergies/Adverse Reactions: Allergies No Known Allergies Allergy (Verified 06/12/17 15:56) Medications to take at Discharge Amiodarone HCl [Cordarone] 200 mg PO DAILY 10/15/13 Aspirin E.C. [Ecotrin] 81 mg PO DAILY@0800 10/15/13 Diltiazem CD [Cardizem CD] 240 mg PO BID 10/15/13 Metoprolol Tartrate [Lopressor (beta lu)] 50 mg PO BID 10/15/13 Atorvastatin Calcium [Lipitor] 80 mg PO QHS 06/12/17 Ferrous Sulfate 325 mg PO BIDCM 06/12/17 Rivaroxaban [Xarelto] 15 mg PO DAILY 06/12/17 Albuterol Aerosols [Ventolin Aerosols] 2.5 mg INHALATION Q2H PRN PRN #120 vial.neb. 06/16/17 Finasteride [Proscar] 5 mg PO DAILY #30 tab 06/16/17 Ipratropium/Albuterol Sulfate [Duoneb] 3 ml INHALATION Q6H.RT #120 ampul.neb Levofloxacin [Levaquin] 750 mg PO DAILY #4 tab 06/16/17 Prednisone See Taper PO DAILY #30 tab 06/16/17 Tamsulosin HCl [Flomax] 0.4 mg PO BID #60 cap 06/16/17 The following prescriptions were given: Albuterol Aerosols [Ventolin Aerosols] 2.5 mg INHALATION Q2H PRN PRN #120 vial.neb. PRN Reason: Shortness Of Breath Ipratropium/Albuterol Sulfate [Duoneb] 3 ml INHALATION Q6H.RT #120 ampul.neb Finasteride [Proscar] 5 mg PO DAILY #30 tab Levofloxacin [Levaquin] 750 mg PO DAILY #4 tab Prednisone See Taper PO DAILY #30 tab Tamsulosin HCl [Flomax] 0.4 mg PO BID #60 cap Primary Care Physician: William Chacko MD [NON-STAFF] - Please Follow Up With: Sudhakar Crowell MD When: As scheduled Please Follow Up With: Sharath Dick MD When: This week, 3-5 days Please Follow Up With: Josue Gonzales MD - May see FARMER CASH GRAIN/PA When: 2-4 Weeks Proposed Discharge Date: 06/16/17
--- NOTE | 2017-06-16 10:26 | DS.PCM_ITS ---
Addendum entered and electronically signed by VIRI Teixeira 06/16/17 11:25: Code Visit During repeat oxygen testing for home oxygen qualification, patient did not qualify for home oxygen and is stable on room air at rest and with ambulation. Patient will receive home health at discharge in which they will continue to reassess this. Original Note: <No Mathur - Last Filed: 06/16/17 11:24> Discharge Date and Diagnosis Date of Admission: 06/12/17 Date of Discharge: 06/16/17 - Primary Discharge Diagnosis 1. COPD exacerbation with acute bronchitis 2. Right lower lobe community-acquired pneumonia 3. Acute hypoxia secondary to #1/#2 4. Urinary retention secondary to BPH 5. Electrolyte imbalance-hypokalemia/hyponatremia - Secondary Discharge Diagnosis Chronic Problems Atrial fibrillation (Chronic) Chronic airway obstruction (Chronic) Coronary atherosclerosis of [place] coronary artery (Chronic) Esophageal reflux (Chronic) HLD (hyperlipidemia) (Chronic) HTN (hypertension) (Chronic) Leukocytosis (Chronic) Percutaneous transluminal coronary angioplasty status (Chronic) PVD (peripheral vascular disease) (Chronic) Tobacco use disorder (Chronic) left stump swelling (Chronic) Alcohol abuse (Chronic) Hospital Course and Treatment Imaging Results: Diagnostic Data Prostate Ultrasound 06/13/17 09:20 IMPRESSION: No significant abnormality is seen. Electronically Signed: Clay Bah MD at 13:47 EST Tel [phone], Service support , Renal Ultrasound 06/13/17 09:20 IMPRESSION: Bilateral renal cysts more prominent on the right side. Electronically Signed: Clay Bah MD at 15:54 EST Tel [phone], Service support , Chest X-Ray 06/16/17 05:55 IMPRESSION: Hyperinflation. Stable increased markings at the left lung base suggestive of left basilar atelectasis and/or early infiltrate. Electronically Signed: Clay Bah MD at 8:16 EST Tel [phone], Service support , Dr. Dick- Urology Operations: None Procedures: None Summary of Care Provided: The patient is a 67 year old M admitted 06/12/2017 due to cough, difficulty urinating. He has a past medical history of COPD, CAD s/p PCI, BPH, HTN, HLD, CVA, GERD, atrial fibrillation, tobacco dependence, PVD, s/p L BKA. Patient was found to have COPD exacerbation with acute bronchitis and right lower lobe community-acquired pneumonia with associated hypoxia. Patient will require continuous home oxygen supplementation 2-3L to maintain O2 at or above 90%. He is ambulatory in the home. Patient is a 3 pack per day smoker and was instructed not to smoke while on oxygen supplementation. He was encouraged to quit smoking altogether. He does not follow with a grooming assistant. Recommend following up with pulmonary for further testing and outpatient follow-up. Patient will be discharged on 750 mg Levaquin daily for 4 days and prednisone taper. He was also discharged with nebulizer and albuterol/DuoNeb aerosols. He received IV azithromycin and Rocephin during admission. Urine antigens negative. Chest x-ray day of discharge showed hyperinflation, stable markings at the left lung base suggestive of left basilar atelectasis and/or early infiltrate. Patient was also found to have urinary retention secondary to BPH. Urology was consulted. His Flomax was increased to twice daily and he was started on Proscar. Urinalysis negative. Patient will be discharged with Fall catheter which can be removed in the next few days. Patient will follow up with Dr. Dick in the office in 3-5 days. PSA was elevated, 6.20. Kidney ultrasound showed it bilateral renal cyst, no hydronephrosis. Prostate ultrasound showed normal prostate glandular tissue without evidence of nodules or lesions. Patient had electrolyte imbalance including hypokalemia and hyponatremia which have both resolved. Other chronic medical conditions as noted above are stable at this time. Patient lives alone and has left BKA. He will be discharged with continued home health and physical therapy. He denies other home needs. General: Alert, Oriented x3, Cooperative Neck: Supple, No JVD, Negative Carotid Bruits Lungs: Clear, diminished Cardiovascular: Regular rate, Regular Rhythm, Normal S1, Normal S2, No murmurs Abdomen: Bowel Sounds Present, Soft, Non Tender, Non-Distended Extremities: No edema, Capillary Refill Less than 3 Seconds Skin: No rashes, No breakdown Musculoskeletal: No Tenderness to Palpation of Joints or Extremities. Left BKA. Neurological: Cranial nerves II-XII grossly intact Psych/Mental Status: Normal Affect, Appropriate Patient seen and examined prior to discharge. Physical assessment as noted above. Patient is stable for discharge home with recommendations as noted above. This patient was seen by VIRI Teixeira under the supervision of Dr. Trimble. Discharge Diet: Low fat/ Low Cholesterol Discharge Activity: Return to Normal Activity Call your doctor if you observe: Shortness of breath, Dizziness, Fainting spells , Chest pain, Increased palpitations (irregular heartbeat) Home Medications: Medications to take at Discharge Amiodarone HCl [Cordarone] 200 mg PO DAILY 10/15/13 Aspirin E.C. [Ecotrin] 81 mg PO DAILY@0800 10/15/13 Diltiazem CD [Cardizem CD] 240 mg PO BID 10/15/13 Metoprolol Tartrate [Lopressor (beta lu)] 50 mg PO BID 10/15/13 Atorvastatin Calcium [Lipitor] 80 mg PO QHS 06/12/17 Ferrous Sulfate 325 mg PO BIDCM 06/12/17 Rivaroxaban [Xarelto] 15 mg PO DAILY 06/12/17 Albuterol Aerosols [Ventolin Aerosols] 2.5 mg INHALATION Q2H PRN PRN #120 vial.neb. 06/16/17 Finasteride [Proscar] 5 mg PO DAILY #30 tab 06/16/17 Ipratropium/Albuterol Sulfate [Duoneb] 3 ml INHALATION Q6H.RT #120 ampul.neb Levofloxacin [Levaquin] 750 mg PO DAILY #4 tab 06/16/17 Prednisone See Taper PO DAILY #30 tab 06/16/17 Tamsulosin HCl [Flomax] 0.4 mg PO BID #60 cap 06/16/17 Following Prescrptions Were Given to Patient: Albuterol Aerosols [Ventolin Aerosols] 2.5 mg INHALATION Q2H PRN PRN #120 vial.neb. PRN Reason: Shortness Of Breath Ipratropium/Albuterol Sulfate [Duoneb] 3 ml INHALATION Q6H.RT #120 ampul.neb Finasteride [Proscar] 5 mg PO DAILY #30 tab Levofloxacin [Levaquin] 750 mg PO DAILY #4 tab Prednisone See Taper PO DAILY #30 tab Tamsulosin HCl [Flomax] 0.4 mg PO BID #60 cap Primary Care Physician: William Chacko MD [NON-STAFF] - Please Follow Up With: Sudhakar Crowell MD When: As scheduled Please Follow Up With: Sharath Dick MD When: This week, 3-5 days Please Follow Up With: Josue Gonzales MD - May see DIGITAL MEDIA PLANNER/PA When: 2-4 Weeks Additional Instructions: You will need to monitor you oxygen at home. Recommend purchasing a pulse oximeter from [employer], [employer], etc. Your oxygen level should be at or above 90%. Recommend you follow up with grooming assistant (lung doctor) for further testing and follow-up for COPD given your extensive smoking history. You CANNOT smoke while using oxygen at home, which we discussed during your visit. Please follow-up with Dr. Dick in 3-5 days regarding your urinary retention/fall catheter. Disposition: Home with Home Health Minutes spent on discharge:: 35 Patient Condition:: Stable Meaningful Use Info Meaningful Use Diagnoses (Choose all that apply): None applicable <Juan Trimble E - Last Filed: 06/16/17 12:58> Discharge Date and Diagnosis - Secondary Discharge Diagnosis Chronic Problems Atrial fibrillation (Chronic) Chronic airway obstruction (Chronic) Coronary atherosclerosis of [place] coronary artery (Chronic) Esophageal reflux (Chronic) HLD (hyperlipidemia) (Chronic) HTN (hypertension) (Chronic) Leukocytosis (Chronic) Percutaneous transluminal coronary angioplasty status (Chronic) PVD (peripheral vascular disease) (Chronic) Tobacco use disorder (Chronic) left stump swelling (Chronic) Alcohol abuse (Chronic) Hospital Course and Treatment Imaging Results: 06/16/17 05:55 Chest PA and Lateral [RAD] AM (NON MEDS) Summary of Care Provided: Hospitalist note: Discharge summary above reviewed as well as physical examination and I agree with above discharge plan. Patient was admitted for cough on mild shortness of breath, found to have right lower community-acquired pneumonia as well as COPD exacerbation and acute hypoxic respiratory failure. He was treated with IV antibiotics, bronchodilators and IV fluids. His pneumococcal and Legionella antigen were negative. His blood culture showed no growth in 48 hours. Urine culture showed no growth. Patient complained of urinary retention upon admission, started on Proscar and Flomax and urology recommended Fall catheter. He remained afebrile throughout admission. Walking pulse oximeter was above 88% on room air with ambulation and patient did not qualify for home oxygen. Patient discharged home with home health in a stable medical condition , discharged on Levaquin 750 mg p.o. daily, continued on bronchodilators, continued on Xarelto, discharged on tapering course of prednisone, discharged on Flomax, plan to follow-up with PCP in 1 week as scheduled, follow-up with urology in 3-5 days and follow-up with pulmonology in 2-4 weeks. Minutes spent on discharge:: 32 Code Visit Inpatient E&M: 57169 [facility] H[facility]
[2017-06-16] MEDS: Metoprolol Tartrate 50 MG Tablet PO (10:35)
[2017-06-16] MEDS: Finasteride 5 MG Tablet PO (10:35)
[2017-06-16] MEDS: Nystatin Powder 15gm Bottle 1 APPLIC TOPICAL (10:36)
[2017-06-16] MEDS: Rivaroxaban 15 MG Tablet PO (10:37)
[2017-06-16] MEDS: Famotidine 20 MG Tablet PO (10:37)
--- NOTE | 2017-06-16 10:40 | CASEMGMT ---
GENA SOLANO reviewed patient clinical and spoke with nurse practitioner, No Mathur re: transition planning. Per Alvina she anticipated patient would need home oxygen at discharge. Patient is a 3 PPD smoker. Bedside RN did complete home oxygen qualification, however, patient did not qualify. RN XIOMARA notified No NOLAN who requested nurse complete a second qualification. RN XIOMARA notified bedside RN Nighat. GENA SOLANO met with patient to discuss choice for oxygen, nebulizer and home health. Patient chose [facility] for oxygen, if qualifies, and nebulizer. Patient chose [facility] for jail and therapy. Referral made to [facility] and per Audrey, they are able to accept. Will continue to follow for home oxygen needs. Margret Mart BSN, RN-BC, CCM
--- NOTE | 2017-06-16 11:01 | NURSING ---
Received phone call from Ellen, pharmacist for [facility]. She states that there is an interaction between patient's levaquin and amiodarone which is increase in arrhythmias. This RN paged No Mathur NP, per Ellen's request and notified her of same. She verified that it is fine to have both medications ordered. This RN returned call to [facility] pharmacist and spoke with oDnna- notified her that this RN received verbal ok for both prescriptions from No Mathur NP.
--- NOTE | 2017-06-16 11:12 | CASEMGMT ---
Social Work Note Placed call to Eva Marcial, pt's case coordinator through [employer], and left vm updating that pt would be discharging this date. Placed call to [facility] and spoke with Mayi. Also updated that pt was discharging and Mayi denies need for discharge instructions, they will resume aide services. No further needs identified. Plan: Home with aide services resumed through [facility], and skilled services initiated through [facility]. No Sampson, TRAFFIC II MANAGER, FOOD SAFETY SPECIALIST
--- NOTE | 2017-06-16 11:25 | NURSING ---
patient ambulating in hallway on room air. Assessing for oxygen need with ambulating, and his oxygen saturations ranged between 90 - 92%. He did not appear acutely short of breath at any point during the activity. The walk was terminated because the patient had his prosthesis begin to fall off. This did not effect the assessment however as the patient had already performed a few minutes of walking without an apparent increase in oxygen demand. Obtained a wheel chair and patient actually self propelled self to his room also with his oxygen saturations remaining above 90%. Returned to his chair and denies further needs. call light and phone within reach
--- NOTE | 2017-06-16 11:43 | CASEMGMT ---
Transition Planning: LACE Strata 4: COPD: Patient ambulated a second time, and still did not qualify for home oxygen. With the referral for the nebulizer, patient was enrolled in [employer]'s Breathe Easy Program which includes Overnight Pulse Ox Testing and Patient Education which will include: COPD Overview, Exercise, Nutrition, Medication, and Smoking Cessation. Patient will follow-up with PCP, appnt to be scheduled by [employer] Ramp Supervisor. Urinary Retention: Patient is to follow-up with [facility], appt to be scheduled by Refueling Ramp Supervisor. Patient was started on Proscar and Flomax. Patient could be discharged with urinary catheter in place, if so, patient will have removed in the office or by home health. Bedside RN is clarifying with urology whether the catheter should be removed prior to discharge. Disposition Plan: Home with resumption of [employer] services, new Skilled HHC with [facility] (Longterm and PT/OT)
== END 2017-06-16 15:00 | disposition home health service (06) | DRG 193 ==
LOC: ED 17:44 → MS2 20:20
PROVIDERS: Admitting Provider Hospitalist; Emergency Provider Emergency Medicine; Family Provider Family Medicine; PCP Family Medicine; Visit Provider Hospitalist
DX: J18.9 Pneumonia, unspecified organism (principal); J96.01 Acute respiratory failure with hypoxia; E87.1 Hypo-osmolality and hyponatremia; J44.0 Chronic obstructive pulmonary disease with (acute) lower respiratory infection; J44.1 Chronic obstructive pulmonary disease with (acute) exacerbation; I48.0 Paroxysmal atrial fibrillation; F17.210 Nicotine dependence, cigarettes, uncomplicated; I25.10 Atherosclerotic heart disease of native coronary artery without angina pectoris; N40.1 Benign prostatic hyperplasia with lower urinary tract symptoms; R33.8 Other retention of urine; R35.1 Nocturia; E87.6 Hypokalemia; Z66 Do not resuscitate; J20.9 Acute bronchitis, unspecified; Z89.512 Acquired absence of left leg below knee; K21.9 Gastro-esophageal reflux disease without esophagitis; E78.5 Hyperlipidemia, unspecified; I10 Essential (primary) hypertension; I73.9 Peripheral vascular disease, unspecified; Z79.02 Long term (current) use of antithrombotics/antiplatelets; F10.10 Alcohol abuse, uncomplicated; Z98.61 Coronary angioplasty status
CPT/HCPCS: 36415; 51702; 71045; 71046; 76770; 76872; 80048; 81001; 83735; 84153; 84484; 85025; 87040; 87086; 87449; 93005; 94640; 97162; 97166; 97530; 97802; 99285; 99406; J7030; J7040; J7050; A4216

== ENCOUNTER 2017-09-17 08:54 | Day surgery (SDC) | payer MEDICARE, SELFPAY ==
[2017-09-17] VITALS (17 sets, daily range): BP systolic 95–197; BP diastolic 50–90; PULSE 58–84; RESP 16–18; TEMP 35.9–36.9; O2SAT 91–100; BMI 21.7
[2017-09-17 09:33] LABS: Hematocrit 44.7 % (40-54); Mean Corp Hgb Conc 35.8 g/gl (32-36); Mean Corpuscular Hgb 38.6 pg (27.0-32.0); Mean Platelet Vol. 8.5 fl (6.2-12.0); Platelet Count 230 K/mm3 (150-450); RBC Distribution Width CV 14.3 % (11.6-14.6); RBC Distribution Width SD 56.7 fl (35.1-43.9); Red Blood Count 4.14 M/mm3 (4.6-6.2); White Blood Count 7.5 K/mm3 (4.4-11.0)
[2017-09-17 09:34] LABS: Scan Indicated on CBC? Y/N NO
[2017-09-17 09:42] LABS: Anion Gap 9 (5-15); BUN 4 mg/dL (7-18); Calcium,Total 8.4 mg/dL (8.5-10.1); Chloride 90 mmol/L (98-107); Creatinine, Serum 0.57 mg/dL (0.70-1.30); EST Glomerular Filtration Rate 151 mL/min (>60); Est Glom Filt Rate - Afr Amer 182 mL/min (>60); Glucose 73 mg/dL (74-106); International Normalized Ratio 0.9; Partial Thromboplast Time 30.3 Seconds (24.1-36.2); Potassium 3.4 mmol/L (3.5-5.1); Prothrombin Time (Protime)PT. 12.6 SECONDS (11.7-14.9); Sodium Level 124 mmol/L (136-145)
[2017-09-17] MEDS: Cefazolin 2 GM in 0.9% Normal Saline 100 ML IV (13:03)
--- NOTE | 2017-09-17 13:14 | PCM.DC.URO ---
Discharge Diet: Light diet - advance as tolerated Discharge Activity: May Not Drive Call your doctor if your incision/area has: Continuous Slow Oozing, Sudden Increased Bleeding, Increased Pain/ Swelling, Increased Redness, Foul Smelling Discharge, Swelling at the incision site Suture Line Care: Avoid Pulling/Pushing, Avoid Pinching/Bending Instructions: Transurethral Resection of the Prostate (TURP): Home Recovery Allergies/Adverse Reactions: Allergies No Known Allergies Allergy (Verified 09/10/17 14:44) Medications to take at Discharge Amiodarone HCl [Cordarone] 200 mg PO DAILY 10/15/13 Aspirin E.C. [Ecotrin] 81 mg PO DAILY@0800 10/15/13 Diltiazem CD [Cardizem CD] 240 mg PO BID 10/15/13 Metoprolol Tartrate [Lopressor (beta lu)] 50 mg PO BID 10/15/13 Atorvastatin Calcium [Lipitor] 80 mg PO QHS 06/12/17 Ferrous Sulfate 325 mg PO BIDCM 06/12/17 Rivaroxaban [Xarelto] 15 mg PO DAILY 06/12/17 Albuterol Aerosols [Ventolin Aerosols] 2.5 mg INHALATION Q2H PRN PRN #120 vial.neb. 06/16/17 Finasteride [Proscar] 5 mg PO DAILY #30 tab 06/16/17 Tamsulosin HCl [Flomax] 0.4 mg PO BID #60 cap 06/16/17 Ipratropium/Albuterol Sulfate [Duoneb] 1 puff INHALATION QHS 09/10/17 Prednisone 10 mg PO DAILY 09/10/17 Primary Care Physician: Sudhakar Crowell MD [Primary Care Provider] - Please Follow Up With: Fabrice Hines MD When: October 02 at 10:15am Proposed Discharge Date: 09/18/17
[2017-09-17] MEDS: Ondansetron 4 MG/2 ML Vial (13:34)
--- NOTE | 2017-09-17 13:35 | PROS_PTH ---
PATIENT: PIOTR MARTINEZ Jr. LOC: [facility] [place] U#:[id number] AGE/SX: 67/M ROOM: RE09/17/[address]: Dr. Fabrice Hines MD : [id number] BED: DIS: 09/18/2017 SPEC #: [id number] RECD: 09/17/17 15:36 STATUS: DEVON DENNISON #: [id number] CECE: 09/17/17 13:[address]: Fabrice Hines DEPT: SURGICAL PATHOLOGY RECD BY: Scar Wolfe ENTERED: 09/18/17 08:13 SP TYPE: TURP OTHR DR: Dr. Sudhakar Crowell MD Tissues: Prostate, NOS Procedures: Surgery Specimen Level IV HEADER OPERATION: Cysto, TUR, prostate, Olympus PRE-OP DIAGNOSIS: BPH with obstruction, urinary retention TISSUE SUBMITTED: Prostate tissue MICROSCOPIC DIAGNOSIS Prostate tissue, TUR: Benign prostatic hyperplasia, glandular and stromal type. Focal mild chronic inflammation and basal cell hyperplasia. OLGA:mila 09/19/17 MICROSCOPIC DESCRIPTION Slides are reviewed. GROSS DESCRIPTION Received is one container labeled with the patient's name and designated prostate tissue. The specimen consists of multiple irregular fragments of pink-santoyo, rubbery, soft tissue that in aggregate weigh 5.4 gm and measure in aggregate 4.5 x 4 x 2 cm. The entire specimen is submitted in six cassettes. OLGA:mila 09/18/17 TC:5 CPT: 64960
[2017-09-17] MEDS: 0.9% Normal Saline 1,000 ML 75 ML IV (15:38)
[2017-09-17] MEDS: Ferrous Sulfate 325 MG Tablet PO (17:35)
[2017-09-17] MEDS: Acetaminophen 325 MG Tablet PO (18:43)
[2017-09-17] MEDS: oxyCODONE 5 MG Tablet PO (18:43)
[2017-09-17] MEDS: Ipratropium/Albuterol Sulfate 3 ML AMPUL.NEB INHALATION (19:30)
[2017-09-17] MEDS: dilTIAZem CD 240 MG Capsule PO (22:03)
[2017-09-17] MEDS: Docusate Sodium 100 MG Capsule PO (22:03)
[2017-09-17] MEDS: Tamsulosin HCl 0.4 MG Capsule PO (22:03)
[2017-09-17] MEDS: Ciprofloxacin 500 MG Tablet PO (22:03)
[2017-09-17] MEDS: Metoprolol Tartrate 50 MG Tablet PO (22:05)
[2017-09-17] MEDS: Atorvastatin Calcium 80 MG Tablet PO (22:05)
[2017-09-17] MEDS: Ibuprofen 600 MG Tablet PO (22:09)
[2017-09-18] MEDS: 0.9% Normal Saline 1,000 ML 75 ML IV (00:16)
[2017-09-18 03:00] VITALS: BP 162/60; PULSE 62; RESP 18; TEMP 36.6; O2SAT 95
[2017-09-18 04:00] VITALS: RESP 18
[2017-09-18 07:07] VITALS: O2SAT 97
--- NOTE | 2017-09-18 07:20 | OP.PCM_ITS ---
Report of Operation Date of Procedure: 09/17/17 Pre-Operative Diagnosis: BPH with obstruction Post-Operative Diagnosis: Same Surgery/Procedure Performed:: Transurethral resection of the prostate Description of Surgical Findings:: 67-year-old male underwent general anesthesia, penis and testicles were prepped and draped in usual sterile fashion, used a cystoscope and inspected the entire length of the urethra which was normal sphincter normal prostate was short in length with obstructive the high riding bladder neck, I then switched over to the resectoscope and resected the prostate which is quite small but obstructive from the bladder neck to the verumontanum. After resecting all the tissue he had a good flow sphincter was intact, placed the catheter into the bladder and was started on continuous bladder irrigation the urine is fairly clear. Patient 's anesthetic was reversed taken back to PACU in good condition., Also of note his bladder is fairly stretched out hypotonic. Type of Anesthesia:: General Drains: fall - Admit VTE Documentation VTE Present on Admission: No VTE Mechan Device Prophylaxis: SCD's VTE Pharm Prophylaxis ordered?: No Reason prophylaxis not ordered:: Treatment Not Indicated
[2017-09-18 08:04] VITALS: BP 171/53; PULSE 58; RESP 16; TEMP 36.5; O2SAT 98
[2017-09-18] MEDS: Amiodarone 200 MG Tablet PO (08:10)
[2017-09-18] MEDS: Pantoprazole Sodium 40 MG Tablet PO (08:10)
[2017-09-18] MEDS: Ferrous Sulfate 325 MG Tablet PO (08:10)
[2017-09-18 08:11] VITALS: PULSE 58
[2017-09-18] MEDS: Ciprofloxacin 500 MG Tablet PO (08:11)
[2017-09-18] MEDS: Docusate Sodium 100 MG Capsule PO (08:11)
[2017-09-18] MEDS: Metoprolol Tartrate 50 MG Tablet PO (08:11)
[2017-09-18] MEDS: dilTIAZem CD 240 MG Capsule PO (08:11)
[2017-09-18] MEDS: Finasteride 5 MG Tablet PO (08:12)
[2017-09-18] MEDS: Tamsulosin HCl 0.4 MG Capsule PO (08:12)
[2017-09-18] MEDS: predniSONE 10 MG Tablet PO (08:15)
[2017-09-18] MEDS: oxyCODONE 5 MG Tablet PO (10:56)
[2017-09-18 10:57] VITALS: BP 140/46; PULSE 60; RESP 16; TEMP 36.5; O2SAT 97
== END 2017-09-18 13:43 | disposition home or self-care (01) ==
LOC: SDC 08:54 → AC 08:58 → MS3 09-18 11:10
PROVIDERS: Family Provider Family Medicine; PCP Family Medicine; Visit Provider Urology
PROC: (CPT 52630; principal; 2017-09-17 13:25)
DX: N40.1 Benign prostatic hyperplasia with lower urinary tract symptoms (principal); N41.1 Chronic prostatitis; R33.8 Other retention of urine; I48.91 Unspecified atrial fibrillation; I10 Essential (primary) hypertension; E78.00 Pure hypercholesterolemia, unspecified; I27.20 Pulmonary hypertension, unspecified; F17.210 Nicotine dependence, cigarettes, uncomplicated; Z86.718 Personal history of other venous thrombosis and embolism
CPT/HCPCS: 52630; 80048; 85027; 85610; 85730; 88305; 94640; 97802; J7030; J7120; J2405

== ENCOUNTER 2017-11-24 17:27 | Inpatient (IN) | payer MEDICARE, SELFPAY ==
[2017-11-24 17:28] VITALS: BP 101/46; PULSE 57; RESP 18; TEMP 36.6; O2SAT 94; BMI 20.9
--- NOTE | 2017-11-24 17:51 | CT_ITS ---
STUDY: CT BRAIN WITHOUT CONTRAST REASON FOR EXAM: Male, 67 years old. Hypertension, headache, mental status change RADIATION DOSAGE (If Supplied By Facility): CTDIvol = ( 44.99 ) mGy, DLP = ( 796.11 ) mGycm TECHNIQUE: Transaxial CT imaging of the brain was performed without administration of intravenous contrast material. Individualized dose optimization techniques were used for this CT. COMPARISON: 05/24/2016 FINDINGS: Normal soft tissue structures. Normal calvarium. There is mild cerebral atrophy with widening of the extra-axial spaces and ventricular dilatation. There are areas of decreased attenuation within the white matter tracts of the supratentorial brain, consistent with microvascular disease changes. There are small punctate calcifications of the basal ganglia which are seen in the aging brain as a normal variant. Old lacunar infarct in the left basal ganglia. Normal brainstem. There is mild cerebellar atrophy. There is no intracranial hemorrhage. There are no findings of an acute ischemic infarction. There is near complete opacification of the left maxillary sinus CT/Brain/Head without Contrast IMPRESSION: Chronic involutional changes of the brain. No acute hemorrhage or significant interval change Left maxillary sinusitis Electronically Signed: Rich Glass MD at 18:34 EDT , Service support ,
--- NOTE | 2017-11-24 17:52 | EKG12_ITS ---
Test Reason : Blood Pressure : / mmHG Vent. Rate : 112 BPM Atrial Rate : 112 BPM P-R Int : 000 ms QRS Dur : 094 ms QT Int : 354 ms P-R-T Axes : 000 -46 093 degrees QTc Int : 483 ms Sinus rhythm Left axis deviation Inferior infarct , age undetermined Nonspecific ST and T wave abnormality Abnormal ECG Confirmed by SUMMER VALDOVINOS, MOHAN ([id number]), editorial assistant KAZ FRANCO ([id number]) on 11/27/2017 9:57:21 AM Referred By: DEVANTE Confirmed By:MOHAN WHEELER MD
--- NOTE | 2017-11-24 17:56 | ED.DCSUM_ITS ---
- ER Visit Summary Date of Service: 11/24/17 Chief Complaint: Fall, generalized weakness History of Present Illness: The patient is a 67 M presenting after fall on Friday. Patient states he lost his balance and fell hitting his left side. He denies hitting his head. Denies losing consciousness. He complains of pain in the left side of his ribs. He has had decreased appetite. He complains of generalized weakness. He states he was doing okay yesterday but today was unable to stand secondary to pain in his left side. He lives alone. Physical Examination: Vitals are stable. Patient is afebrile. Alert no acute distress. HEENT exam is unremarkable. Neck is nontender Lungs are clear and equal bilaterally. Left lateral chest wall tenderness with no crepitus Heart is regular rate and rhythm. Abdomen is soft nontender nondistended. No guarding or rebound Extremities are unremarkable. Skin is warm and dry. No focal neurologic deficit. Remainder of exam is unremarkable. Emergency Department Course and Treatment: Patient is given morphine, Zofran IV. Left rib series shows no acute process. CT head shows chronic changes. CBC , chemistries unremarkable other than sodium 126, potassium 2.6, glucose 70. Patient states he has not been eating. His troponin is 0.016. He is given potassium IV replacement, IV fluids. He feels too weak to go home. Discussed with the hospitalist for admission. Disposition: Admission Impression: Chest wall contusion, hypokalemia, generalized weakness This note was generated with [employer] dictation software. It may contain incorrect words, spelling, and punctuation that were not noted in review of the chart prior to signing ED Disposition - Plan for ED Patient: Chief Complaint: Chest Other Referrals: Sudhakar Crowell MD [Primary Care Provider] -
[2017-11-24] MEDS: Ondansetron 4 MG/2 ML Vial IV (18:09)
[2017-11-24] MEDS: Morphine 4 MG/ML Syringe IV ×2 (18:09→19:33)
--- NOTE | 2017-11-24 18:28 | RAD_ITS ---
STUDY: X-RAY - UNILATERAL RIBS ( LEFT ) WITH CHEST REASON FOR EXAM: Male, 67 years old. Left-sided chest pain after a fall TECHNIQUE - RIBS: 4 view(s) of the ribs. TECHNIQUE - CHEST: COMPARISON: None. FINDINGS - RIBS: There is demineralization of the osseous structures which diminishes the diagnostic sensitivity of this examination, however there is no visualized rib fracture. FINDINGS - CHEST: EKG leads overlie the chest There are interstitial fibrotic changes of the lungs. There is no demonstrated pleural abnormality. Normal size heart. Normal mediastinum and narayan. Normal visualized pulmonary arteries. There is atherosclerotic calcification of the aortic arch with tortuosity. There are diffuse degenerative changes of the visualized thoracic spine. There is degenerative osteoarthritis of the bilateral shoulders. There is no demonstrated abnormality of the visualized soft tissue structures of the upper abdomen. RAD/Ribs Uni Min 3V w/PA Chest IMPRESSION: RIBS: Demineralization of the osseous structures, no demonstrated fracture or suspicious osseous lesion CHEST: Chronic interstitial changes, no superimposed acute pulmonary process Electronically Signed: Rich Glass MD at 18:46 EDT , Service support ,
[2017-11-24 18:32] LABS: Anion Gap 15 (5-15); BUN 10 mg/dL (7-18); Calcium,Total 8.7 mg/dL (8.5-10.1); Chloride 87 mmol/L (98-107); Creatinine, Serum 0.71 mg/dL (0.70-1.30); EST Glomerular Filtration Rate 116 mL/min (>60); Est Glom Filt Rate - Afr Amer 141 mL/min (>60); Estimated Creatinine Clearance 59.66 ml/min; Glucose 70 mg/dL (74-106); Potassium 2.6 mmol/L (3.5-5.1); Sodium Level 126 mmol/L (136-145)
--- NOTE | 2017-11-24 18:40 | ED.RN ---
critical value of 2.6 potassium received, dr freedman notified. no new orders.
[2017-11-24 19:36] VITALS: BP 97/44; PULSE 93; RESP 20; O2SAT 2
[2017-11-24 19:47] LABS: Macrocytosis 1+; Platelet Morphology LARGE
[2017-11-24 19:54] LABS: Absolute Lymphocyte Count 0.57 X10^3/ul (0.83-4.51); Absolute Neutrophil Count 5.1 X10^3/uL (2.0-7.7); Basophil# 0.01 X10^3/uL; Basophil% 0.2 % (0-1); Differential Indicated SCAN CRITERIA MET; Eosinophil# 0.03 X10^3/uL; Eosinophils% 0.5 % (0-5); Hematocrit 41.7 % (40-54); Lymphocyte # 0.57 X10^3/ul (4.0); Lymphocyte % 8.7 % (19-41); Mean Corpuscular Hgb 36.6 pg (27.0-32.0); Mean Corpuscular Volume 101.7 fL (80-94); Monocyte# 0.78 X10^3/uL; Monocyte% 11.9 % (0-10); Neutrophil # 5.12 X10^3/uL (2.7-7.7); Neutrophil % 78.4 % (47-70); POSITIVE COUNT NO; POSITIVE DIFFERENTIAL YES; POSITIVE MORPHOLOGY NO; Platelet Count 168 K/mm3 (150-450); RBC Distribution Width CV 13.4 % (11.6-14.6); RBC Distribution Width SD 50.1 fl (35.1-43.9); White Blood Count 6.5 K/mm3 (4.4-11.0)
[2017-11-24 19:55] LABS: Platelet Estimate ADEQUATE (ADEQ)
[2017-11-24 21:14] VITALS: BP 99/59; PULSE 111; RESP 9; O2SAT 96
[2017-11-24 21:16] VITALS: BP 99/59; PULSE 111; RESP 13; TEMP 37.1; O2SAT 96
--- NOTE | 2017-11-24 22:09 | HP.PCM_ITS ---
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 (2) Hyponatremia Status: Acute (3) Chronic airway obstruction Status: Chronic Qualifiers: (4) Coronary atherosclerosis of [place] coronary artery Status: Chronic Qualifiers: (5) Esophageal reflux Status: Chronic Qualifiers: (6) HLD (hyperlipidemia) Status: Chronic Qualifiers: (7) HTN (hypertension) Status: Chronic Qualifiers: (8) Tobacco use disorder Status: Chronic (9) Hypokalemia Status: Acute (10) Alcohol abuse Status: Chronic History of Present Illness Date of Admission: 11/24/17 Chief Complaint: fall with weakness The patient is a 67 year old male patient who lives alone fell on Friday bruising his left rib cage. He denies hitting his head or losing consciousness. The patient complains of loss of appetite and has been getting weak. He states since his fall on Friday he has become weaker and in more discomfort. He lives alone and relies on a prosthetic left leg as well. Sodium and potassium are markedly low and the patient will require admission for electrolyte imbalance and debility. Past Medical History Past Medical History (Chronic Problems): Chronic Problems Amputation of left lower extremity (Chronic) Atrial fibrillation (Chronic) Chronic airway obstruction (Chronic) Coronary atherosclerosis of [place] coronary artery (Chronic) Esophageal reflux (Chronic) HLD (hyperlipidemia) (Chronic) HTN (hypertension) (Chronic) Leukocytosis (Chronic) Percutaneous transluminal coronary angioplasty status (Chronic) PVD (peripheral vascular disease) (Chronic) Tobacco use disorder (Chronic) left stump swelling (Chronic) Alcohol abuse (Chronic) Allergies No Known Allergies Allergy (Verified 11/24/17 17:32) Home Medications: Ambulatory Orders Medication Instructions Recorded Amiodarone HCl [Cordarone] 200 mg PO DAILY 10/15/13 Aspirin E.C. [Ecotrin] 81 mg PO DAILY@0800 10/15/13 Diltiazem CD [Cardizem CD] 240 mg PO BID 10/15/13 Metoprolol Tartrate [Lopressor 50 mg PO BID 10/15/13 (beta lu)] Atorvastatin Calcium [Lipitor] 80 mg PO QHS 06/12/17 Ferrous Sulfate 325 mg PO BIDCM 06/12/17 Cyclobenzaprine [Flexeril] 10 mg PO QHS 11/24/17 Finasteride [Proscar] 5 mg PO DAILY 11/24/17 Rivaroxaban [Xarelto] 15 mg PO DAILY 11/24/17 Tamsulosin HCl [Flomax] 0.4 mg PO DAILY 11/24/17 Umeclidinium Brm/Vilanterol Tr 1 inh INHALATION DAILY 11/24/17 [Anoro Ellipta 62.5-25 Mcg INH] traMADol [Ultram] 50 - 100 mg PO Q4H PRN PRN 11/24/17 Surgical History: - - Multiple vascular stents, revasculation of left leg, left BKA Smoking Status: Current every day smoker - *Family History Sibling History Items: COPD - 4 of his sisters has COPD. Paternal History Items: COPD, Heart Disease, No pertinent history Review of Systems Constitutional: Reports: Anorexia, Weakness, Weight Change. Denies: Chills, Fever HEENT: Denies: Head Aches, Sinus Congestion, Sinus Drainage Cardiovascular: Denies: Chest Pain, Palpitations Respiratory: Denies: Cough, Shortness of breath at rest, Sputum production Gastrointestinal: Denies: Abdominal Pain, Nausea, Vomiting Genitourinary: Denies: Dysuria Musculoskeletal: Reports: - - left leg amputee. Denies: Joint Pain, Joint Tenderness Skin: Denies: Rash, Wounds Neurological: Denies: Numbness, Tingling, Focal weakness Psychiatric: Denies: Anxiety, Depression, Homicidal Ideations, Suicidal Ideations Hematologic/ Lymphatic: Denies: Easy Bruising, Easy Bleeding VTE Information - Inpt Only VTE Present on Admission: No VTE Mechan Device Prophylaxis: None VTE Pharm Prophylaxis ordered?: Yes Patient Problems: Active and Suspected Problems Hyponatremia (Acute) - Physical Exam General: Alert, Oriented x3, Cooperative HEENT: Atraumatic, Normocephalic Neck: Supple Lungs: Clear to auscultation, Normal air movement Cardiovascular: Regular rate, Normal S1, Normal S2, No murmurs Abdomen: Bowel Sounds Present, Soft, Non Tender Extremities: No edema, - - left leg amputee Skin: No rashes, No breakdown Musculoskeletal: Tenderness - left lower ant rib cage Neurological: Neuro grossly intact Psych/Mental Status: Normal Affect, Appropriate Vital Signs Temp Pulse Resp BP Pulse Ox 98.7 F 111 H 13 99/59 L 96 11/24/17 21:16 11/24/17 21:16 11/24/17 21:16 11/24/17 21:16 11/24/17 21:16 Oxygen Flow Rate (L/min) 2 Oxygen Delivery Method Nasal Cannula Weight: 133 lb 6.075 oz Body Mass Index (BMI) 20.9 Finger Stick Blood Glucose 89 Laboratory Tests Past 24 Hrs 11/24/17 11/24/17 18:03 18:03 WBC 6.5 RBC 4.10 L Hgb 15.0 Hct 41.7 MCV 101.7 H MCH 36.6 H MCHC 36.0 RDW 13.4 RDW Differential 50.1 H Plt Count 168 MPV 10.0 Immature Gran % (Auto) 0.300 Neut % (Auto) 78.4 H Lymph % (Auto) 8.7 L Coffey % (Auto) 11.9 H Eos % (Auto) 0.5 Baso % (Auto) 0.2 Absolute Neuts (auto) 5.1 Absolute Lymphs (auto) 0.57 L Total Counted Not Reportable Platelet Estimate ADEQUATE Plt Morphology Comment LARGE Macrocytosis 1+ Sodium 126 L Potassium 2.6 L* Chloride 87 L Carbon Dioxide 24.0 Anion Gap 15 BUN 10 Creatinine 0.71 Estim Creat Clear Calc 59.66 Est GFR (MDRD) Af Amer 141 Est GFR (MDRD) Non-Af 116 BUN/Creatinine Ratio 14.0 Glucose 70 L Calcium 8.7 Troponin I 0.016 Assessment/Plan All Active Problems Hyponatremia (Acute) Acute arterial ischemic stroke, vertebrobasilar, thalamic (Acute) TIA (transient ischemic attack) (Acute) Acute blood loss anemia (Acute) Hypokalemia (Acute) Chronic Problems Amputation of left lower extremity (Chronic) Atrial fibrillation (Chronic) Chronic airway obstruction (Chronic) Coronary atherosclerosis of [place] coronary artery (Chronic) Esophageal reflux (Chronic) HLD (hyperlipidemia) (Chronic) HTN (hypertension) (Chronic) Leukocytosis (Chronic) Percutaneous transluminal coronary angioplasty status (Chronic) PVD (peripheral vascular disease) (Chronic) Tobacco use disorder (Chronic) left stump swelling (Chronic) Alcohol abuse (Chronic) Plan - admit to medical surgical floor with telemetry due to electrolyte deficiency - normal saline with 20meq KCL at 125cc/hour - 40meq KCl PO X 1 - repeat BMP in am and check magnesium level - PT to evaluate and treat for ADLs - continue routine home medications, hold diuretics - LMWH for DVT prophylaxis - may need transitional care as this patient resides alone and is a fall risk Code Visit Inpatient E&M: 61788 Init Hosp L3
[2017-11-24 23:20] VITALS: BMI 19.4
[2017-11-24 23:25] VITALS: BP 118/68; PULSE 89; RESP 18; TEMP 36.6; O2SAT 93
[2017-11-24 23:28] VITALS: BMI 19.5
[2017-11-24 23:35] VITALS: PULSE 104
[2017-11-24] MEDS: 0.9% NaCl Peripheral Flush Adult/Peds IV (23:57)
[2017-11-25] VITALS (15 sets, daily range): BP systolic 121–153; BP diastolic 59–90; PULSE 74–118; RESP 18–19; TEMP 36.4–36.8; O2SAT 83–98
--- NOTE | 2017-11-25 00:08 | NURSING ---
Pt does not know home medications, states no one to bring them in from home either.
[2017-11-25] MEDS: Morphine 2 MG/ML Syringe IV ×5 (04:15→23:30)
[2017-11-25] MEDS: 0.9% NaCl Peripheral Flush Adult/Peds IV (04:16)
[2017-11-25 05:37] LABS: Bacteria 0 SEEN /hpf (None Seen); Mucous, Urine 0 SEEN /hpf (<or=2+)
[2017-11-25 05:39] LABS: Color, Urine Amber (Yellow); Glucose, Dipstick Normal (Normal); Ketone-Dipstick 50 mg/dl (Negative); Leukocyte Esterase-Dipstick 100 /ul (Negative); Nitrite-Dipstick Negative (Negative); Occult Blood-Urine 150 /ul (Negative); Protein-Dipstick 30 mg/dl (Negative); Urine Clarity Sl. Cloudy (Clear); Urine Urobilinogen 1 mg/dl (Normal)
[2017-11-25 06:03] LABS: Red Blood Cells-Urine 5-10 SEEN /hpf (0-5); Squamous Epithelial Cells - UA 0-5 SEEN /hpf (0-5); Urine Bilirubin Dipstick 1 mg/dL (Negative); White Blood Cells 0-5 SEEN /hpf (0-5)
[2017-11-25 06:31] LABS: Anion Gap 9 (5-15); BUN 8 mg/dL (7-18); BUN/Creat Ratio 13.4 RATIO (10-20); Calcium,Total 7.6 mg/dL (8.5-10.1); Chloride 95 mmol/L (98-107); EST Glomerular Filtration Rate 143 mL/min (>60); Est Glom Filt Rate - Afr Amer 173 mL/min (>60); Estimated Creatinine Clearance 55.62 ml/min; Glucose 102 mg/dL (74-106); Potassium 2.9 mmol/L (3.5-5.1); Sodium Level 131 mmol/L (136-145)
[2017-11-25] MEDS: Ipratropium/Albuterol Sulfate 3 ML AMPUL.NEB INHALATION ×2 (07:18→19:14)
[2017-11-25] MEDS: Aspirin E.C. 81 MG Tablet PO (08:54)
[2017-11-25] MEDS: Rivaroxaban 15 MG Tablet PO (08:54)
[2017-11-25] MEDS: Amiodarone 200 MG Tablet PO (08:54)
[2017-11-25] MEDS: Ferrous Sulfate 325 MG Tablet PO ×2 (08:54→15:41)
[2017-11-25] MEDS: Finasteride 5 MG Tablet PO (08:55)
[2017-11-25] MEDS: Metoprolol Tartrate 50 MG Tablet PO ×2 (08:55→22:02)
[2017-11-25] MEDS: Tamsulosin HCl 0.4 MG Capsule PO (08:55)
[2017-11-25] MEDS: dilTIAZem CD 240 MG Capsule PO ×2 (08:55→22:02)
--- NOTE | 2017-11-25 11:23 | CASEMGMT ---
CM INITIAL ASSESSMENT: Home: Patient states he lives alone in a one story home with a ramp. HHS/Aides: Patient states he's previously had [facility], but has no home health at this time. He has [employer]. Aides are provided for 3 hours, 3 days a week. His director case management is Eva Marcial. He tells me that his aides assist him by doing grocery shopping, cleaning, laundry and errands. He tells me he usually bathes himself. DME: Patient states he uses a wheel chair and walker. He also has a cane, grab bars in shower, and stool in walk-in shower. He states that he feels he would benefit from an elevated toilet seat. He tells he fell, on Friday, when trying to get up from the toilet. He tells me that his director case management, Eva Marcial, is aware of the request for elevated toilet seat. Home Oxygen: Denies home oxygen, cpap, bipap. Patient is currently 92% on 2L oxygen in the hospital. [facility]acy: [facility] Advance Directives: Patient states he does have advance directives on file and tells me that Monica Willson, his sister, is his medical POA. PCP: Himanshu Crowell Specialists: Dr. Koch, cardiology. DC Plan: TBD. PT/OT elisa pending. Patient would like to return home upon discharge. He states that he has a dog he has to take care of and cannot be gone from him for long. Patient does not have a preference for home health agency, but states he has used [facility] in the past and was pleased with his care. CM will continue to follow for safe and effective discharge planning.
--- NOTE | 2017-11-25 16:11 | CASEMGMT ---
Addendum entered by Rosi Gonsales 11/25/17 16:33: Brina, with [facility], states the patient has aide services through [facility]. He has a [employer] Button through [facility]. Original Note: [facility] notified of patients admission. I spoke with Brina, who confirmed that they are working with patient's insurance on getting elevated toilet seat for patient. Brina requested PT evaluation. Faxed at this time.
--- NOTE | 2017-11-25 19:43 | PN_ITS ---
Patient Problems: Active and Suspected Problems Hyponatremia (Acute) Hypokalemia (Acute) Subjective: Patient was seen and examined today, he states he would like to go home if possible rather than go to a longterm, nursing told me that the patient was able to walk in the [place] today pretty well with a walker. Patient will have a repeat BMP done in the morning, he was given oral potassium today. I have decided to turn down his IV rate. Patient states he is only drinking a couple cans of beer a day. I am not sure why the patient's sodium was so low when he was admitted. I suspect patient is drinking more than 2 cans of beer a day. - Physical Exam General: Alert, Cooperative, No apparent distress, Well developed HEENT: Atraumatic, PERRLA, EOMI, Normocephalic Oral: Moist Mucosa Neck: Supple, No Nuchal Rigidity, Trachea Midline, Thyroid Normal Size and Texture Lungs: Clear to auscultation, Normal air movement, No rhonchi, No wheeze, No rales Cardiovascular: Regular rate, Regular Rhythm, Normal S1, Normal S2, No murmurs, No Ectopic Activity Abdomen: Bowel Sounds Present, Soft, Non Tender, Non-Distended, No hernias noted Extremities: No clubbing, No cyanosis, No edema, - - Remote left lower extremity amputation is noted Skin: No rashes Neurological: Cranial nerves II-XII grossly intact, Neuro grossly intact, Sensory exam intact to light touch and pain, Coordination normal Psych/Mental Status: Normal Affect, Appropriate, Alert and oriented to time, place, person, mood and affect Vital Signs Temp Pulse Resp BP Pulse Ox 98.2 F 79 18 134/59 H 94 11/25/17 17:13 11/25/17 17:13 11/25/17 17:13 11/25/17 17:13 11/25/17 17:13 Oxygen Flow Rate (L/min) 2 Oxygen Delivery Method Room Air Weight: 56.4 kg Body Mass Index (BMI) 19.4 Intake and Output for Last 24 Hours 11/23/17 11/24/17 11/25/17 23:59 23:59 23:59 Intake Total 2474 / 2474 Output Total 990 / 990 Balance 1484 / 1484 Laboratory Tests Past 24 Hrs 11/25/17 11/25/17 05:10 05:30 Sodium 131 L Potassium 2.9 L Chloride 95 L Carbon Dioxide 27.0 Anion Gap 9 BUN 8 Creatinine 0.60 L Estim Creat Clear Calc 55.62 Est GFR (MDRD) Af Amer 173 Est GFR (MDRD) Non-Af 143 BUN/Creatinine Ratio 13.4 Glucose 102 Calcium 7.6 L Urine Color Nancy Urine Clarity Sl. Cloudy Urine pH 6.0 Ur Specific [place] 1.020 Urine Protein 30 H Urine Glucose (UA) Normal Urine Ketones 50 H Urine Occult Blood 150 H Urine Nitrite Negative Urine Bilirubin 1 H Urine Urobilinogen 1 H Ur Leukocyte Esterase 100 H Urine RBC 5-10 SEEN Urine WBC 0-5 SEEN Ur Squamous Epith Cells 0-5 SEEN Urine Bacteria 0 SEEN Urine Mucus 0 SEEN Medical Necessity - Tobacco Use Smoking Status: Current every day smoker Assessment/Plan All Active Problems Hyponatremia (Acute) Acute arterial ischemic stroke, vertebrobasilar, thalamic (Resolved) TIA (transient ischemic attack) (Resolved) Acute blood loss anemia (Resolved) Hypokalemia (Acute) #1 hypokalemia-etiology unknown, recheck labs tomorrow #2 hyponatremia-probably secondary to alcohol ingestion (beer)-labs will be repeated tomorrow #3 hypertension #4 paroxysmal atrial fibrillation-currently in sinus rhythm #5 suspected alcohol abuse #6 generalized weakness-PT and OT are seeing the patient, patient refuses to go to residential facility and wishes to be discharged home when he is medically stable Code Visit Inpatient E&M: 48525 Subs Hosp L2
[2017-11-25] MEDS: Acetaminophen 325 MG Tablet 650 MG PO (20:03)
[2017-11-25] MEDS: Magnesium Hydroxide 30 ML UDC PO (20:33)
[2017-11-25] MEDS: Atorvastatin Calcium 80 MG Tablet PO (22:02)
[2017-11-26] VITALS (21 sets, daily range): BP systolic 91–138; BP diastolic 46–76; PULSE 58–100; RESP 12–36; TEMP 36.4–36.8; O2SAT 85–96
--- NOTE | 2017-11-26 04:04 | NURSING ---
PT WOKE, HE HAD TAKEN HIS O2 OFF WHILE SLEEPING, CALLED FOR SOB, PLACED ON A 100% NRB, PULSE OX 76%. CALLED RESP.
[2017-11-26] MEDS: Furosemide 40 MG/4 ML Vial IV (04:21)
--- NOTE | 2017-11-26 04:23 | NURSING ---
BIPAP PLACED, LASIX 40IVP GIVEN. PT BREATHING BETTER, PULSE OX 98% AT THIS TIME. RESP GIVING A BREATHING TREATMENT.
[2017-11-26] MEDS: Ipratropium/Albuterol Sulfate 3 ML AMPUL.NEB INHALATION ×6 (04:25→22:45)
[2017-11-26 06:20] LABS: Anion Gap 10 (5-15); BUN 6 mg/dL (7-18); BUN/Creat Ratio 9.7 RATIO (10-20); Calcium,Total 7.8 mg/dL (8.5-10.1); Chloride 96 mmol/L (98-107); Creatinine, Serum 0.62 mg/dL (0.70-1.30); EST Glomerular Filtration Rate 137 mL/min (>60); Est Glom Filt Rate - Afr Amer 166 mL/min (>60); Estimated Creatinine Clearance 55.62 ml/min; Glucose 120 mg/dL (74-106); Potassium 3.5 mmol/L (3.5-5.1); Sodium Level 132 mmol/L (136-145)
--- NOTE | 2017-11-26 06:57 | RAD_ITS ---
STUDY: X-RAY CHEST REASON FOR EXAM: Male, 67 years old. Shortness of breath TECHNIQUE: Single AP portable view of the chest. COMPARISON: 11/24/2017, 06/16/2017 FINDINGS: Cardiac monitoring leads overlie the chest. Interstitial markings are prominent. Interstitial edema is suspected. There is no demonstrated pleural abnormality. Normal size heart. Normal mediastinum and narayan. Normal visualized pulmonary arteries. There is atherosclerotic calcification of the aortic arch with tortuosity. Normal visualized thoracic spine. Normal visualized ribs, clavicles, and shoulders. There is no demonstrated abnormality of the visualized soft tissue structures of the upper abdomen. RAD/Chest 1 View (Portable) IMPRESSION: Interstitial edema. No focal pneumonia. Electronically Signed: Espinoza Mathur DO at 8:56 EDT Tel , Service support ,
--- NOTE | 2017-11-26 06:57 | EKG12_ITS ---
Test Reason : SOB Blood Pressure : / mmHG Vent. Rate : 069 BPM Atrial Rate : 208 BPM P-R Int : 000 ms QRS Dur : 094 ms QT Int : 492 ms P-R-T Axes : 000 029 059 degrees QTc Int : 527 ms Atrial fibrillation Nonspecific T wave abnormality Prolonged QT Abnormal ECG Confirmed by SUMMER VALDOVINOS, MOHAN ([id number]), brands editor KAZ FRANCO ([id number]) on 12/05/2017 2:47:22 PM Referred By: SONIA Confirmed By:MOHAN WHEELER MD
--- NOTE | 2017-11-26 07:02 | NURSING ---
dr. manzano notified of the pts low bp this a, , and afib/flutter, ordered cxray,ekg and enzymes to be drawn,
[2017-11-26] MEDS: Rivaroxaban 15 MG Tablet PO (07:31)
[2017-11-26] MEDS: Aspirin E.C. 81 MG Tablet PO (07:31)
[2017-11-26] MEDS: Ferrous Sulfate 325 MG Tablet PO ×2 (07:31→16:26)
[2017-11-26] MEDS: Metoprolol Tartrate 50 MG Tablet PO ×2 (09:30→20:46)
[2017-11-26] MEDS: Tamsulosin HCl 0.4 MG Capsule PO (09:31)
[2017-11-26] MEDS: Finasteride 5 MG Tablet PO (09:31)
[2017-11-26] MEDS: dilTIAZem CD 240 MG Capsule PO ×2 (09:31→20:47)
[2017-11-26] MEDS: Amiodarone 200 MG Tablet PO (09:31)
--- NOTE | 2017-11-26 12:51 | CASEMGMT ---
GENA SOLANO into visit pt re: discharge plan. Reviewed previous RN [facility] assessment for baseline status and services. Reviewed PT assessment and noted need for further skilled therapy. Pt states he wants to return home with previous home health attendant services and resumption of home PT. Pt states he has three different weighted hand weights and three different resistance bands at home to use for strengthening. Pt states he plans to use his wheelchair for mobility around his home instead of his walker although he has not used his wheelchair before. States he has a wheelchair ramp up to his front door and does not have any steps to navigate. Pt's aides purchase microwave meals for him that are easy to prepare but he does cook on occasion. Pt is not interested in meals on wheels as he has had them in the past and does not like them. Pt states he calls his insurance when in need of transportation and they provide him a wheelchair van. Pt is currently on O2 at 3L/min. Pt states he does not have O2 or bipap at home. Discussed with pt concern re: his increased weakness and need to gain strength to reach his baseline. Recommended to pt to go for rehab prior to returning home. Pt prefers to go home but willing to think about it and consider the option. Plan: PT to see pt this afternoon, watch for any change in pt's ability to mobilize. Monitor pt's oxygenation level and evaluate for home O2 need. Recheck with patient to discuss needs at discharge and agreement for SNF vs Home PT services. Vilma Saleem RN
--- NOTE | 2017-11-26 16:23 | NURSING ---
pt step daughter genie called, , concerns of patient being discharged home, pt not safe to go home, and let genie know that sw and cm can contact tomorrow 11/27/17 will discharge planning/concerns
[2017-11-26] MEDS: HYDROcodone Bitartrate/Apap 5/325 Tablet PO (16:26)
--- NOTE | 2017-11-26 19:43 | PCM.PROGNOTE ---
Patient Problems: Active and Suspected Problems Hyponatremia (Acute) Hypokalemia (Acute) Subjective: Patient was seen and examined today, nursing talked with him earlier today and he is agreed to go to assisted facility if it is approved. Patient appeared weaker today than yesterday. Patient's pulse ox is 92% on 3 L. Patient voices no complaints of any shortness of breath or chest discomfort at the time of my visit. Patient had fluid overload earlier this morning and was given IV Lasix. - Physical Exam General: Alert, Oriented x3, Cooperative, No apparent distress, Well developed HEENT: Atraumatic, PERRLA, EOMI, Normocephalic Oral: Moist Mucosa Neck: Supple, No JVD, No Nuchal Rigidity, Trachea Midline, Thyroid Normal Size and Texture Lungs: Clear to auscultation, Normal air movement, No rhonchi, No wheeze, No rales Cardiovascular: Regular rate, Regular Rhythm, Normal S1, Normal S2, No murmurs, No Ectopic Activity, PMI Normal, No rub noted, No Gallop Abdomen: Bowel Sounds Present, Soft, Non Tender, Non-Distended, No hernias noted Extremities: No clubbing, No cyanosis, No edema, Capillary Refill Less than 3 Seconds Skin: No rashes, No breakdown Musculoskeletal: No Tenderness to Palpation of Joints or Extremities Neurological: Cranial nerves II-XII grossly intact, Neuro grossly intact, Sensory exam intact to light touch and pain, Coordination normal Psych/Mental Status: Normal Affect, Appropriate, Alert and oriented to time, place, person, mood and affect Vital Signs Temp Pulse Resp BP Pulse Ox 98.0 F 58 L 20 H 105/51 L 92 11/26/17 14:00 11/26/17 18:00 11/26/17 15:30 11/26/17 14:00 11/26/17 14:00 Oxygen Flow Rate (L/min) 3 Oxygen Delivery Method Nasal Cannula Weight: 56.4 kg Body Mass Index (BMI) 19.4 Intake and Output for Last 24 Hours 11/24/17 11/25/17 11/26/17 23:59 23:59 23:59 Intake Total 2474 / 2474 950 / 950 Output Total 990 / 990 1500 / 1500 Balance 1484 / 1484 -550 / -550 Laboratory Tests Past 24 Hrs 11/26/17 11/26/17 11/26/17 05:40 05:40 08:35 Sodium 132 L Potassium 3.5 Chloride 96 L Carbon Dioxide 26.0 Anion Gap 10 BUN 6 L Creatinine 0.62 L Estim Creat Clear Calc 55.62 Est GFR (MDRD) Af Amer 166 Est GFR (MDRD) Non-Af 137 BUN/Creatinine Ratio 9.7 L Glucose 120 H Calcium 7.8 L Troponin I 0.050 H 0.042 Medical Necessity - Tobacco Use Smoking Status: Current every day smoker Assessment/Plan All Active Problems Hyponatremia (Acute) Acute arterial ischemic stroke, vertebrobasilar, thalamic (Resolved) TIA (transient ischemic attack) (Resolved) Acute blood loss anemia (Resolved) Hypokalemia (Acute) #1 hypokalemia-etiology unknown #2 hyponatremia-probably secondary to alcohol ingestion (beer) #3 hypertension #4 paroxysmal atrial fibrillation-currently in sinus rhythm #5 suspected alcohol abuse #6 generalized weakness-PT and OT are seeing the patient, patient now says he will go to assisted facility if needed, he would [facility] #7 fluid overload-resolved #8 severe protein and caloric malnutrition-nutritional services will continue to see patient Code Visit Inpatient E&M: 66750 Subs Hosp L2
[2017-11-26] MEDS: Atorvastatin Calcium 80 MG Tablet PO (20:46)
[2017-11-27] VITALS (20 sets, daily range): BP systolic 106–129; BP diastolic 49–65; PULSE 63–78; RESP 12–21; TEMP 36.7–37.1; O2SAT 86–97
[2017-11-27] MEDS: Ipratropium/Albuterol Sulfate 3 ML AMPUL.NEB INHALATION ×5 (07:07→23:20)
[2017-11-27] MEDS: Rivaroxaban 15 MG Tablet PO (07:21)
[2017-11-27] MEDS: Aspirin E.C. 81 MG Tablet PO (07:21)
[2017-11-27] MEDS: Ferrous Sulfate 325 MG Tablet PO ×2 (07:21→17:23)
--- NOTE | 2017-11-27 08:50 | CASEMGMT ---
Addendum entered by Martina Barnhart 11/27/17 11:26: SW spoke w/Amy from [facility], they can take pt and will start precert. SW let pt know that [facility] can take him and will start precert. SW inquired if he would like SW to let his daughter know, pt states he will let her know. SW will continue to follow. JOSE MARTIN Landaverde, HEALTH SYSTEMS ANALYST Original Note: Addendum entered by Martina Barnhart 11/27/17 10:44: SW called [facility], message left inquiring if they have reviewed the referral and if they can take pt. SW will continue to follow. JOSE MARTIN Landaverde, HEALTH SYSTEMS ANALYST Original Note: SW spoke w/RN, RN spoke w/pt and pt would like to go to [facility], pt was concerned about his dog however. SW met w/pt in the room, confirmed w/pt he is in agreement with a referral to [facility] for rehab. Pt spoke about his dog, SW explained that RN was going to call the vet clinic where pt's dog is to see if the dog can stay longer. Pt states understanding. SW called [facility], message left and referral faxed. RN called the vet clinic and the dog can stay there, RN let pt know and pt is fine with this. SW will await call back from [facility] regarding referral. JOSE MARTIN Landaverde, HEALTH SYSTEMS ANALYST
[2017-11-27] MEDS: Tamsulosin HCl 0.4 MG Capsule PO (10:43)
[2017-11-27] MEDS: Amiodarone 200 MG Tablet PO (10:43)
[2017-11-27] MEDS: Finasteride 5 MG Tablet PO (10:43)
[2017-11-27] MEDS: Metoprolol Tartrate 50 MG Tablet PO ×2 (10:43→21:57)
[2017-11-27] MEDS: dilTIAZem CD 240 MG Capsule PO ×2 (10:43→21:57)
[2017-11-27] MEDS: HYDROcodone Bitartrate/Apap 5/325 Tablet PO (17:23)
--- NOTE | 2017-11-27 19:45 | PCM.PROGNOTE ---
Subjective: Patient seen and examined this evening, he has inspiratory rales at the bases of his lungs, he is not wearing his oxygen at the time of my examination. Patient's pulse ox has been adequate on nasal cannula O2 today. I decided to repeat the patient's chest x-ray this evening, his other chest x-ray was read out as vascular congestion-I feel it was due to fluid overload. 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) Skin: No rashes, No breakdown Neurological: Cranial nerves II-XII grossly intact, Neuro grossly intact, Muscle tone normal, Sensory exam intact to light touch and pain Psych/Mental Status: Normal Affect, Appropriate, Alert and oriented to time, place, person, mood and affect Vital Signs Temp Pulse Resp BP Pulse Ox 98.6 F 64 18 128/60 H 93 11/27/17 16:24 11/27/17 16:24 11/27/17 16:24 11/27/17 16:24 11/27/17 16:24 Oxygen Flow Rate (L/min) 3 Oxygen Delivery Method Nasal Cannula Weight: 56.4 kg Body Mass Index (BMI) 19.4 Intake and Output for Last 24 Hours 11/25/17 11/26/17 11/27/17 23:59 23:59 23:59 Intake Total 2474 / 2474 950 / 950 1650 / 1650 Output Total 990 / 990 1500 / 1500 850 / 850 Balance 1484 / 1484 -550 / -550 800 / 800 Medical Necessity - Tobacco Use Smoking Status: Current every day smoker Assessment/Plan All Active Problems Hyponatremia (Acute) Acute arterial ischemic stroke, vertebrobasilar, thalamic (Resolved) TIA (transient ischemic attack) (Resolved) Acute blood loss anemia (Resolved) Hypokalemia (Acute) #1 hypokalemia-etiology unknown, corrected at this time #2 hyponatremia-probably secondary to alcohol ingestion (beer) #3 hypertension #4 paroxysmal atrial fibrillation-currently in sinus rhythm #5 suspected alcohol abuse #6 generalized weakness-PT and OT are seeing the patient, patient now says he will go to detention facility if needed, he would prefer [facility], we are awaiting insurance approval #7 fluid overload-resolved, patient will get a chest x-ray tonight to confirm this #8 severe protein and caloric malnutrition-nutritional services will continue to see patient Code Visit Inpatient E&M: 72819 Subs Hosp L2
--- NOTE | 2017-11-27 19:50 | RAD_ITS ---
STUDY: X-RAY CHEST REASON FOR EXAM: Male, 67 years old. COUGH TECHNIQUE: Single frontal view of the chest. COMPARISON: Study done yesterday. FINDINGS: Chronic appearing increased interstitial lung markings. There are small bilateral pleural effusions. Enlarged heart size. Normal mediastinum and narayan. Prominent visualized pulmonary arteries. There is atherosclerotic calcification of the aortic arch with tortuosity. There are diffuse degenerative changes of the visualized thoracic spine. There is degenerative osteoarthritis of the bilateral shoulders. There is no demonstrated abnormality of the visualized soft tissue structures of the upper abdomen. RAD/Chest 1 View (Portable) IMPRESSION: Minimal improvement in the interstitial edema Electronically Signed: Justice Desir MD at 20:06 EDT , Service support ,
[2017-11-27] MEDS: Atorvastatin Calcium 80 MG Tablet PO (21:57)
[2017-11-27] MEDS: 0.9% NaCl Peripheral Flush Adult/Peds IV ×2 (21:57→22:06)
[2017-11-27] MEDS: Furosemide 40 MG/4 ML Vial IV (22:06)
[2017-11-28] VITALS (13 sets, daily range): BP systolic 116–131; BP diastolic 53–61; PULSE 61–81; RESP 16–20; TEMP 36.7–37.1; O2SAT 91–98
[2017-11-28] MEDS: Ipratropium/Albuterol Sulfate 3 ML AMPUL.NEB INHALATION ×5 (03:21→17:18)
--- NOTE | 2017-11-28 08:12 | ECHOD_ITS ---
Reason For Study: SOB Procedure This was a 2D Doppler, Color Flow transthoracic echocardiogram. The exam was of adequate technical quality. Exam performed portable in patient room. Left Ventricle Normal LV size. Sigmoid septum. Left ventricular systolic function is normal. The estimated ejection fraction is 60 %. There is evidence of diastolic dysfunction. No regional wall motion abnormalities noted. Right Ventricle Normal RV size. Normal systolic function. Atria The left atrium is mildly enlarged. Normal right atrium. No doppler evidence for ASD. Mitral Valve There is mild mitral annular calcification. Mild diffuse mitral valve thickening. The mitral papillary muscle appears thickened and/or calcified. Mild-Moderate (1-2+) mitral valve insufficiency. Tricuspid Valve Normal tricuspid valve. Mild tricuspid valve insufficiency. Right ventricular systolic pressure estimated to be 39 mmHg. Aortic Valve Trisinus/trileaflet aortic valve. Mild diffuse aortic valve thickening. Mild focal aortic valve calcification. Aortic sclerosis, no stenosis. Mild (1+) aortic valve insufficiency. Pulmonic Valve The pulmonic valve is not well visualized. Trivial pulmonic valve insufficiency. Great Vessels Normal sized aortic root. Calcified aortic root. Pericardium/Pleural No pericardial effusion. MMode/2D Measurements & Calculations LVIDd: 3.4 cm IVSd: 1.5 cm LVOT diam: 2.0 cm LVIDs: 2.1 cm LVPWd: 1.1 cm LVOT area: 3.1 cm2 RVDd: 3.2 cm FS: 37.0 % Ao root diam: 3.4 cm LAV(MOD-bp): 63.6 ml LA A4 area: 19.1 cm2 LA dimension: 4.2 cm LAV(MOD-bp) Indexed: 38.5 ml/m2 LAV(MOD-sp2): 66.0 ml LAV(MOD-sp4): 57.3 ml RA A4 area: 20.6 cm2 Doppler Measurements & Calculations MV E max peter: 57.0 cm/sec Lat Peak E' Peter: 4.4 cm/sec Med Peak E' Peter: 4.3 cm/sec MV A max peter: 86.4 cm/sec E/E' lat: 13.0 E/E' med: 13.4 MV E/A: 0.66 Ao V2 max: 168.3 cm/sec AI max peter: 406.5 cm/sec LV V1 max: 141.4 cm/sec Ao max P.3 mmHg AI max P.1 mmHg LV V1 max P.0 mmHg Ao V2 mean: 103.4 cm/sec AI dec slope: 306.4 cm/sec2 LV V1 mean P.6 mmHg Ao mean P.0 mmHg AI P1/2t: 388.6 msec LV V1 mean: 88.1 cm/sec Ao V2 VTI: 29.1 cm LV V1 VTI: 28.3 cm HUNTER(I,D): 3.1 cm2 HUNTER(V,D): 2.6 cm2 SV(LVOT): 89.2 ml PA V2 max: 94.0 cm/sec TR max peter: 297.3 cm/sec TR max P.5 mmHg Interpretation Summary Left ventricular systolic function is normal. The estimated ejection fraction is 60 %. Sigmoid septum. The left atrium is mildly enlarged. There is mild mitral annular calcification. Mild diffuse mitral valve thickening. The mitral papillary muscle appears thickened and/or calcified. Mild-Moderate (1-2+) mitral valve insufficiency. Mild tricuspid valve insufficiency. Aortic sclerosis, no stenosis. Mild (1+) aortic valve insufficiency. Trivial pulmonic valve insufficiency. Calcified aortic root. Right ventricular systolic pressure estimated to be 39 mmHg. There is evidence of diastolic dysfunction. Ordering Physician: Srinivas Villa Referring Physician: Himanshu Crowell Performed By: Alma Lal RDCS
[2017-11-28] MEDS: Metoprolol Tartrate 50 MG Tablet PO (08:54)
[2017-11-28] MEDS: Aspirin E.C. 81 MG Tablet PO (08:55)
[2017-11-28] MEDS: Tamsulosin HCl 0.4 MG Capsule PO (08:55)
[2017-11-28] MEDS: Amiodarone 200 MG Tablet PO (08:55)
[2017-11-28] MEDS: Rivaroxaban 15 MG Tablet PO (08:55)
[2017-11-28] MEDS: Ferrous Sulfate 325 MG Tablet PO ×2 (08:55→16:04)
[2017-11-28] MEDS: dilTIAZem CD 240 MG Capsule PO (08:55)
[2017-11-28] MEDS: Finasteride 5 MG Tablet PO (08:56)
[2017-11-28 09:19] LABS: BNP,B-Type NATRIURETIC PEPTIDE 960.6 pg/mL (0-100)
--- NOTE | 2017-11-28 10:15 | CASEMGMT ---
Addendum entered by Katie Forde 11/28/17 17:04: YIMI placed a call to pt's daughter Nelida and updated her that pt will be discharged today. Original Note: Social Work Note SW received phone call from Kaye at [facility] stating that pre-cert has been obtained and pt is able to discharge today. YIMI updated Dr. Villa of this. Dr. Villa states that he will discharge pt. YIMI completed convalescent [facility]000 in [facility] and placed copy on pt's chart. Green sheet on chart. Plan: Pt to discharge to [facility] today for rehabilitation. Green sheet on chart Katie Forde TABULAR TYPIST, [employer] SALES REPRESENTATIVE
[2017-11-28] MEDS: Furosemide 40 MG Tablet PO (16:02)
--- NOTE | 2017-11-28 16:46 | TREXTCAR_ITS ---
- Diet 11/24/17 22:14 Diet: Regular Diet Food consistency:: Regular Liquid Consistency:: Regular/Thin - Routine Orders/Code Status O2 Liters per Minute: 2 O2 Frequency: Continuous Keep PO Greater than or Equal to (%): 90 Routine Lab Work: BMP - in 5 days Code Status: Full Code - Wound(s) Right hand/wrist Wound Type: abrasions/scabs - Therapies Physical Therapy: Eval and Treat Occupational Therapy: Eval and Treat - Problem/Diagnosis (1) Paroxysmal A-fib Status: Chronic Comment: currently in sinus rhythm Current Visit: Yes (2) Coronary atherosclerosis of [place] coronary artery Status: Chronic Current Visit: No (3) HTN (hypertension) Status: Chronic Current Visit: No (4) Hypokalemia Status: Acute Current Visit: No (5) Chronic airway obstruction Status: Chronic Current Visit: No (6) Diastolic CHF Status: Acute Current Visit: Yes - Allergies/Procedures Done in Hospital Allergies/Adverse Reactions: Allergies No Known Allergies Allergy (Verified 11/24/17 17:32) Procedures: 2-D Echocardiogram - Type of Care/Length of Stay Estimated LOS: Convalescent Care Less Than 30 days Type of Care Needed: Skilled Rehab Potential: Good Prognosis: Good - Additional Orders/Day of Discharge H&P will serve as current which was dated: 11/24/17 Day of Discharge: 11/28/17 - Dietary and Speech Recommendations Dietitian Recommendations/Changes: Will continue to provide Ensure Enlive 120 ml 4 x / day on medpass to provide extra calories/nutrients if consumed. - Follow Up Care Primary Care Physician: Sudhakar Crowell MD [Primary Care Provider] -
--- NOTE | 2017-11-28 16:52 | CHAPLAIN ---
Type of Pastoral Visit _x__ Initial Visit ___ Follow-up Visit ___ On-call Visit ___ General Patient Visit ___ Spiritual Assessment ___ Family Conference ___ Bereavement ___ Rapid Response ___ Code Blue ___ Other (describe below) Pastoral Care Referral From _x__ Patient ___ Family ___ Nurse ___ Physician ___ Pbx Mechanic ___ Dishtank Operator ___ Other (describe below) Sacrament/Intervention _x__ Active listening ___ Anointing ___ Roman Catholic ___ Bereavement ___ Communion ___ Mckenna exploration ___ _x__ Life review _x__ Prayer ___ Reconciliation ___ Sacrament of Sick _x__ Supportive presence ___ Wedding ___ Other (describe below) Pastoral Comments patient says he has no family in this area; there is no connection to congregational or social groups he claims and no neighbors that he has contact with; pt is glad that he is going to [facility] where he has been before and feels he will have good care there;
--- NOTE | 2017-11-28 17:21 | NURSING ---
report called to [facility] to [place]. Further questions denied.
--- NOTE | 2017-11-28 17:24 | NURSING ---
called dietary at 1700 requesting stat meal- special of day for patient as he is preparing to be d/c'ed around 1800
--- NOTE | 2017-11-28 20:20 | NURSING ---
Monica Willson, pt's sister called this RN to check on pt status. Informed her of pt's transfer to [facility] this evening and phone number given for this facility.
--- NOTE | 2017-11-29 11:36 | PCM.DC.SUM ---
Discharge Date and Diagnosis Date of Admission: 11/24/17 Date of Discharge: 11/28/17 - Primary Discharge Diagnosis 1 hypokalemia-etiology unknown #2 hyponatremia-probably secondary to alcohol ingestion (beer) #3 hypertension #4 paroxysmal atrial fibrillation- #5 suspected alcohol abuse #6 generalized weakness-secondary to deconditioning #7 Acute diastolic congestive heart failure #8 severe protein and caloric malnutrition #9 acute hypoxic respiratory failure secondary to acute diastolic congestive heart failure and chronic obstructive lung disease #10 chronic obstructive lung disease - Secondary Discharge Diagnosis Chronic Problems Paroxysmal A-fib (Chronic) currently in sinus rhythm Amputation of left lower extremity (Chronic) Atrial fibrillation (Chronic) Chronic airway obstruction (Chronic) Coronary atherosclerosis of [place] coronary artery (Chronic) Esophageal reflux (Chronic) HLD (hyperlipidemia) (Chronic) HTN (hypertension) (Chronic) Leukocytosis (Chronic) Percutaneous transluminal coronary angioplasty status (Chronic) PVD (peripheral vascular disease) (Chronic) Tobacco use disorder (Chronic) left stump swelling (Chronic) Alcohol abuse (Chronic) Hospital Course and Treatment Operations: None Procedures: None Summary of Care Provided: The patient is a 67 year old M who came to the emergency room at [facility] after sustaining a fall and hitting his left side, he complained of generalized weakness also. Patient lives alone and his caloric intake was poor. Workup in the emergency room included a CT of the head which showed chronic changes, CBC was unremarkable, chemistry showed a sodium of 126, potassium of 2.6, and troponin 0.016. Patient was given IV potassium replacement and IV fluids, he did not feel he was able to go home however and was admitted to the hospitalist service. Patient's labs were monitored, he was given potassium replacement, patient's sodium corrected on IV fluid. Patient did however have an episode of congestive heart failure and required high flow oxygen in the form of BiPAP at one time. Echocardiogram was performed which showed a normal EF. Patient agreed to temporary placement in a fdc facility at the time of his discharge from the hospital, on 11/28/17, patient was seen and examined and felt to be in stable condition for transfer to an extended care facility for rehab. Home Medications: Medications to take at Discharge Amiodarone HCl [Cordarone] 200 mg PO DAILY 10/15/13 Aspirin E.C. [Ecotrin] 81 mg PO DAILY@0800 10/15/13 Diltiazem CD [Cardizem CD] 240 mg PO BID 10/15/13 Metoprolol Tartrate [Lopressor (beta lu)] 50 mg PO BID 10/15/13 Atorvastatin Calcium [Lipitor] 80 mg PO QHS 06/12/17 Ferrous Sulfate 325 mg PO BIDCM 06/12/17 Cyclobenzaprine [Flexeril] 10 mg PO QHS 11/24/17 Finasteride [Proscar] 5 mg PO DAILY 11/24/17 Rivaroxaban [Xarelto] 15 mg PO DAILY 11/24/17 Tamsulosin HCl [Flomax] 0.4 mg PO DAILY 11/24/17 traMADol [Ultram] 50 - 100 mg PO Q4H PRN PRN 11/24/17 Acetaminophen [Tylenol Tablet] 650 mg PO Q6H PRN PRN tablet 11/28/17 Albuterol Aerosols [Ventolin Aerosols] 2.5 mg INHALATION Q2H PRN PRN vial.neb. 11/28/17 Ensure Enlive 120 ml PO 4X/DAY liquid 11/28/17 Furosemide [Lasix] 40 mg PO DAILY #1 tab 11/28/17 Hydrocodone Bitart/Apap 5-325 [Foster 5/325] 1 tab PO Q6H PRN PRN #20 tab 11/28/17 Ipratropium/Albuterol Sulfate [Duoneb] 3 ml INHALATION Q4H.RT ampul.neb 11/28/17 Potassium Chloride 20 meq PO DAILY #1 tablet.er 11/28/17 Following Prescrptions Were Given to Patient: Hydrocodone Bitart/Apap 5-325 [Foster 5/325] 1 tab PO Q6H PRN PRN #20 tab PRN Reason: Severe Pain (6-10/10) Furosemide [Lasix] 40 mg PO DAILY #1 tab Potassium Chloride 20 meq PO DAILY #1 tablet.er Primary Care Physician: Sudhakar Crowell MD [Primary Care Provider] - Disposition: Senior Care facility Minutes spent on discharge:: 32 Patient Condition:: Stable Medical Necessity - Tobacco Use Smoking Status: Current every day smoker Meaningful Use Info Meaningful Use Diagnoses (Choose all that apply): CHF - CHF YANNICK/ARB ordered at discharge?: No Reason YANNICK/ARB not ordered?: Allergy - not indicated Documented LVEF (%): 60 Code Visit Inpatient E&M: 35308 Disch Hosp
--- NOTE | 2017-11-29 11:40 | DS.PCM_ITS ---
Discharge Date and Diagnosis Date of Admission: 11/24/17 Date of Discharge: 11/28/17 - Primary Discharge Diagnosis 1 hypokalemia-etiology unknown #2 hyponatremia-probably secondary to alcohol ingestion (beer) #3 hypertension #4 paroxysmal atrial fibrillation- #5 suspected alcohol abuse #6 generalized weakness-secondary to deconditioning #7 Acute diastolic congestive heart failure #8 severe protein and caloric malnutrition #9 acute hypoxic respiratory failure secondary to acute diastolic congestive heart failure and chronic obstructive lung disease #10 chronic obstructive lung disease - Secondary Discharge Diagnosis Chronic Problems Paroxysmal A-fib (Chronic) currently in sinus rhythm Amputation of left lower extremity (Chronic) Atrial fibrillation (Chronic) Chronic airway obstruction (Chronic) Coronary atherosclerosis of [place] coronary artery (Chronic) Esophageal reflux (Chronic) HLD (hyperlipidemia) (Chronic) HTN (hypertension) (Chronic) Leukocytosis (Chronic) Percutaneous transluminal coronary angioplasty status (Chronic) PVD (peripheral vascular disease) (Chronic) Tobacco use disorder (Chronic) left stump swelling (Chronic) Alcohol abuse (Chronic) Hospital Course and Treatment Operations: None Procedures: None Summary of Care Provided: The patient is a 67 year old M who came to the emergency room at [facility] after sustaining a fall and hitting his left side, he complained of generalized weakness also. Patient lives alone and his caloric intake was poor. Workup in the emergency room included a CT of the head which showed chronic changes, CBC was unremarkable, chemistry showed a sodium of 126, potassium of 2.6, and troponin 0.016. Patient was given IV potassium replacement and IV fluids, he did not feel he was able to go home however and was admitted to the hospitalist service. Patient's labs were monitored, he was given potassium replacement, patient's sodium corrected on IV fluid. Patient did however have an episode of congestive heart failure and required high flow oxygen in the form of BiPAP at one time. Echocardiogram was performed which showed a normal EF. Patient agreed to temporary placement in a custodial facility at the time of his discharge from the hospital, on 11/28/17, patient was seen and examined and felt to be in stable condition for transfer to an extended care facility for rehab. Home Medications: Medications to take at Discharge Amiodarone HCl [Cordarone] 200 mg PO DAILY 10/15/13 Aspirin E.C. [Ecotrin] 81 mg PO DAILY@0800 10/15/13 Diltiazem CD [Cardizem CD] 240 mg PO BID 10/15/13 Metoprolol Tartrate [Lopressor (beta lu)] 50 mg PO BID 10/15/13 Atorvastatin Calcium [Lipitor] 80 mg PO QHS 06/12/17 Ferrous Sulfate 325 mg PO BIDCM 06/12/17 Cyclobenzaprine [Flexeril] 10 mg PO QHS 11/24/17 Finasteride [Proscar] 5 mg PO DAILY 11/24/17 Rivaroxaban [Xarelto] 15 mg PO DAILY 11/24/17 Tamsulosin HCl [Flomax] 0.4 mg PO DAILY 11/24/17 traMADol [Ultram] 50 - 100 mg PO Q4H PRN PRN 11/24/17 Acetaminophen [Tylenol Tablet] 650 mg PO Q6H PRN PRN tablet 11/28/17 Albuterol Aerosols [Ventolin Aerosols] 2.5 mg INHALATION Q2H PRN PRN vial.neb. 11/28/17 Ensure Enlive 120 ml PO 4X/DAY liquid 11/28/17 Furosemide [Lasix] 40 mg PO DAILY #1 tab 11/28/17 Hydrocodone Bitart/Apap 5-325 [[place] 5/325] 1 tab PO Q6H PRN PRN #20 tab Ipratropium/Albuterol Sulfate [Duoneb] 3 ml INHALATION Q4H.RT ampul.neb Potassium Chloride 20 meq PO DAILY #1 tablet.er 11/28/17 Following Prescrptions Were Given to Patient: Hydrocodone Bitart/Apap 5-325 [[place] 5/325] 1 tab PO Q6H PRN PRN #20 tab PRN Reason: Severe Pain (6-10/10) Furosemide [Lasix] 40 mg PO DAILY #1 tab Potassium Chloride 20 meq PO DAILY #1 tablet.er Primary Care Physician: Sudhakar Crowell MD [Primary Care Provider] - Disposition: [facility] facility Minutes spent on discharge:: 32 Patient Condition:: Stable Medical Necessity - Tobacco Use Smoking Status: Current every day smoker Meaningful Use Info Meaningful Use Diagnoses (Choose all that apply): CHF - CHF YANNICK/ARB ordered at discharge?: No Reason YANNICK/ARB not ordered?: Allergy - not indicated Documented LVEF (%): 60 Code Visit Inpatient E&M: 98682 Disch Hosp
== END 2017-11-28 19:47 | disposition skilled nursing facility (03) | DRG 640 ==
LOC: ED 18:11 → MS2 22:34 → MS3 11-27 16:45
PROVIDERS: Family Medicine; Admitting Provider Family Medicine; Emergency Provider Emergency Medicine; Family Provider Family Medicine; PCP Family Medicine; Visit Provider Internal Medicine
DX: E87.1 Hypo-osmolality and hyponatremia (principal); E43 Unspecified severe protein-calorie malnutrition; I50.31 Acute diastolic (congestive) heart failure; J96.01 Acute respiratory failure with hypoxia; J44.0 Chronic obstructive pulmonary disease with (acute) lower respiratory infection; I11.0 Hypertensive heart disease with heart failure; I25.10 Atherosclerotic heart disease of native coronary artery without angina pectoris; K21.9 Gastro-esophageal reflux disease without esophagitis; E78.5 Hyperlipidemia, unspecified; E87.6 Hypokalemia; I73.9 Peripheral vascular disease, unspecified; F10.10 Alcohol abuse, uncomplicated; I48.0 Paroxysmal atrial fibrillation; E87.70 Fluid overload, unspecified; F17.200 Nicotine dependence, unspecified, uncomplicated; Z79.82 Long term (current) use of aspirin; Z60.2 Problems related to living alone; Z89.512 Acquired absence of left leg below knee; Y90.9 Presence of alcohol in blood, level not specified
CPT/HCPCS: 36415; 70450; 71045; 71101; 80048; 81001; 83880; 84484; 85025; 93005; 93306; 94002; 94003; 94640; 97110; 97116; 97162; 97165; 97530; 97802; 99285; 99406; J7030; J7040; A4216; J1940; J2405

== ENCOUNTER 2018-09-09 10:27 | Day surgery (SDC) | payer MEDICARE, SELFPAY ==
--- NOTE | 2018-09-08 17:05 | PCM.HP.BLA ---
History and Physical Date of Admission: 09/09/18 HISTORY AND PHYSICAL ? Vincenzo Olvera 1950 ? REFERRING PHYSICIAN: ??Himanshu Crowell ? CHIEF COMPLAINT: ??Consult (Consult Colonoscopy +IFOBT) ? HPI: The patient is a 68 year old male referred for endoscopy. ?Vincenzo states his insurance company sent him a stool card to check for blood, and they informed him this was positive.??Of note, patient is on iron supplementation-states his insurance company is aware of this. ?States his insurance told him he would need to have a colonoscopy. ? ?Patient denies any change in bowel habits, weight changes,?visible?blood in stools, black tarry stools or abdominal pain.??Denies?family history of colon issues. ? Ardene?has?undergone prior?colonoscopy in [address] Adi Nassar which showed hemorrhoids and diverticulosis, 10 year follow-up recommended. ?He has had several EGDs in the past with findings of gastritis and esophagitis, as well as a hiatal hernia. ? ? Patient's past medical history is significant for stroke, coronary artery disease, past PR, hypertension, peripheral vascular disease, atrial fibrillation, s/p peripheral artery bypass, tobacco use-2 packs per day of cigarettes, alcohol abuse, SIADH, COPD, DVT, left BKA secondary to blood clots in leg, carotid artery stenosis. ?The patient denies chest pain, shortness of breath, dizziness or recent hospitalizations. ?Denies problems with sedation in the past. ?Patient is maintained on chronic oral anticoagulation. ?He follows with Dr. Crowell for his chronic medical conditions as well as Dr. Haque in cardiology. ?Chart mentions patient being on palliative care/hospice-the patient tells me this is actually referring to management of his back pain. ? ? PAST?MEDICAL?HISTORY PAST MEDICAL HISTORY Diagnosis Date ? Acute venous embolism and thrombosis of other specified veins(453.89) ? ? Arrhythmia ? ? Atherosclerosis of [place] arteries of the extremities with intermittent claudication ? ? BPH (benign prostatic hyperplasia) ? ? Chronic airway obstruction, not elsewhere classified ? ? Coronary artery disease ? ? Dr. Haque ? DVT (deep venous thrombosis) (HCC) ? ? Esophageal reflux ? ? Essential hypertension, benign ? ? Fracture, olecranon 12/18/2015 ? Heart attack (HCC) ? ? Other and unspecified alcohol dependence, unspecified drinking behavior ? ? Pain in left wrist 12/18/2015 ? Psychosexual dysfunction, unspecified ? ? PVD (PERIPHERAL VASCULAR DISEASE) PERIPH VASC DISEASE,UNSP 06/04/2005 ? Dr. Corona ? S/P BKA (below knee amputation) unilateral (HCC) 04/15/2012 ? S/p L BKA secondary to blood clots in leg. ? ? Stroke (HCC) ? ? Syncope ? ? Tobacco use disorder ? ? Transfusion history ? ? Unspecified sleep apnea ? ? ? PAST?SURGICAL?HISTORY PAST SURGICAL HISTORY Procedure Laterality Date ? AMPUTATION LEG THRU TIBIA & FIBULA ? 2012 ? ?left ? INSERT CATH,ART,PERCUT,SHORTTERM ? 01-03-14 ? MAL LESION TRUNK,ARM,LEG 1.1-2.0 CM ? 10/14/12 ? Exc. right wrist skin lesion ? ORTHOPEDIC SURGERY HX Left 12/19/15 ? I & D elbow ? past surgical history ? ? ? multiple stents placed in legs . ? REVASCULARIZATION ILIAC ARTERY ANGIOP 1ST VSL ? 04-10-11 ? LEFT LEG ? REVSC OPN/PRQ FEM/POP W/ATHRC/ANGIOP SM VSL ? 04-10-11 ? LEFT LEG ? REVSC OPN/PRQ FEM/POP W/ATHRC/ANGIOP SM VSL ? 05-21-11 ? ? ? THROMBOENDARTECTMY NECK,NECK INCIS ? 01-03-14 ? ?LEFT ? ? CURRENT?MEDICATIONS ? Current Outpatient Medications: tamsulosin ER (FLOMAX) 0.4 mg cap Take 1 capsule by mouth once daily. metoprolol tartrate, short acting, (LOPRESSOR) 50 mg tablet Take 1 tablet by mouth twice daily. HYDROcodone-Acetaminophen (NORCO) 7.5-325 mg per tablet Take 1 tablet by mouth every 4 hours as needed. diltiazem (CARDIZEM) 120 mg tablet Take 1 tablet by mouth twice daily. mirtazapine (REMERON) 30 mg tablet Take 1 tablet by mouth daily at bedtime. rivaroxaban (XARELTO) 15 mg tablet Take 1 tablet by mouth daily with dinner. methadone (DOLOPHINE) 5 mg tablet twice daily. potassium gluconate 550 mg (90 mg) tab Take by mouth. amiodarone (CORDARONE) 200 mg tablet Take 0.5 tablets by mouth once daily. cyclobenzaprine (FLEXERIL) 10 mg tablet Take 10 mg by mouth daily at bedtime. [id number] 1.5 mg iron- 8.73 mg CpID Take by mouth. iron,carb/vit C/vit B12/folic (IRON 100 PLUS ORAL) Take 1 Tablespoonful by mouth twice daily. albuterol HFA (VENTOLIN HFA) 90 mcg/actuation inhaler Inhale 2 Puffs as instructed every 4 hours as needed. atorvastatin (LIPITOR) 80 mg tablet Take 1 tablet by mouth once daily. finasteride (PROSCAR) 5 mg tablet Take 1 tablet by mouth once daily. umeclidinium-vilanterol (ANORO ELLIPTA) 62.5-25 mcg/actuation inhaler Inhale 1 Inhalation as instructed once daily. ferrous sulfate 325 mg (65 mg iron) tablet Take 1 tablet by mouth twice daily. gabapentin (NEURONTIN) 600 mg tablet Take 1 tablet by mouth three times daily. ASPIRIN 81 MG TAB Take one(1) tablet daily. ? No current facility-administered medications for this visit.? ? ALLERGIES:?Patient has no known allergies. ? PERSONAL HISTORY:? SOCIAL?HISTORY Social History ??Socioeconomic History ?Marital status: ?Spouse name: Not on file ?Number of children: Not on file ?Years of education: Not on file ?Highest education level: Not on file ??Social Needs ?Financial resource strain: Not on file ?Food insecurity - worry: Not on file ?Food insecurity - inability: Not on file ?Transportation needs - medical: Not on file ?Transportation needs - non-medical: Not on file ??Occupational History ?Not on file ??Tobacco Use ?Smoking status: Current Every Day Smoker ?Packs/day: 2.00 ?Years: 45.00 ?Pack years: 90 ?Types: Cigarettes ?Start date: 08/05/1968 ?Smokeless tobacco: Never Used ??Substance and Sexual Activity ?Alcohol use: Yes ?Alcohol/week: 60.0 oz ?Types: 40 Cans of Beer (12oz) per week ?Comment: 6 beers a dy ?Drug use: No ?Sexual activity: Yes ?Partners: Female ??Other Topics ?Concerns: ?Not on file ??Social History Narrative ?Rents mobile home, , October 2014. ?He gets help with rides to medical appts. ? FAMILY HISTORY:? FAMILY?HISTORY History reviewed. No pertinent family history. ? REVIEW OF SYMPTOMS: ??The review of systems data was entered by the nurse and reviewed by me ? Nursing Notes: Danny Almonte LPN ?08/05/2018 ?3:25 PM ?Signed REVIEW OF SYSTEMS: ?General:???The patient denies fatigue, denies weight loss, denies weight gain, denies feeling hot, and denies feelings of cold. ?Eyes: ?The patient denies glaucoma, denies eye injury/surgery, does not wear glasses or contacts. ?Ear/Nose/Throat: ?The patient denies allergies, denies hayfever, denies ear infections, and denies bloody noses. ?Cardiovascular: ?The patient denies chest pain, NOTES heart disease, NOTES high blood pressure,NOTES cardiac stent, NOTES prior heart attack, NOTES irregular heart beat, NOTES high cholesterol, ?NOTES poor circulation, denies heart failure, other cardiac issues, NOTES claudication, NOTES cold feet, NOTES peripheral arterial stent. ?Respiratory: ?The patient denies tuberculosis, denies pneumonia, denies frequent cough, denies pulmonary embolism, denies shortness of breath, and denies coughing up blood. ?Gastrointestinal: ?The patient denies difficulty swallowing, NOTES acid reflux, denies ulcers, denies vomiting, denies jaundice/hepatitis, denies gallbladder problems, denies black or tarry stools, denies hemorrhoids, denies bleeding from rectum, denies diverticulitis, denies constipation, denies diarrhea, denies loss of stool control, and denies hernias. ?Kidney/Bladder: ?The patient denies kidney stones, denies urine infections, and denies bloody urine. ?Skin: ?The patient denies a history of skin cancer, denies bleeding/changing moles, and denies a history of skin rash. ?Neurologic: ?The patient denies a history of epilepsy/convulsions, denies headaches, denies head/spinal injuries, and NOTES stroke/TIA. ?Psychiatric: ?The patient denies psychiatric medications, denies depression, and denies voices, denies substance abuse. ?Endocrine: ?The patient denies thyroid disorders, denies diabetes, and denies hormonal problems. ?Hematologic: ?The patient denies a history of bruising, denies bleeding, and denies anemia, NOTES blood clots. ?Infections: ?The patient denies a history of measles and mumps, denies rheumatic fever, and denies sexually transmitted diseases. ?Musculoskeletal: ?The patient denies back pain/injury, denies back problems, denies sciatica, denies knee/foot trouble, denies arthritis, or denies gout. ? ? When was patient's last Mammogram screening? N/A ? ?Last Colonoscopy: ?05/12 ? Danny Almonte LPN ?I have confirmed and edited as necessary, the PFSH and ROS obtained by others. ? PHYSICAL EXAMINATION: ? General: ?The patient is 68 year old male, well nourished, well hydrated in no acute distress. ?The patient is oriented to time, place, and person. ? VITALS:?Blood pressure 105/52, pulse 63, temperature 36.3 ?C (97.4 ?F), SpO2 95 %.?There is no height or weight on file to calculate BMI.? ? HEENT: ?Normal cephalic, ataumatic, pupils are equally round, sclera are anicteric, mucous membranes are moist, oropharynx is clear. ?Neck has no masses, asymmetry or lymphadenopathy. ? ? Respiratory: ?Clear to auscultation and percussion. ?Normal respiratory excursion and pattern. ? Cardiac: ?Examination is regular rate and rhythm. ?Normal S1/S2 ? Abdominal exam: ?Soft, nontender, ?with no palpable masses. ?No hepatosplenomegaly. ?No palpable hernias. ? Extremities:??Left BKA.??no clubbing, cyanosis or edema. ?No adenopathy. ? LABORATORY VALUES: As Noted ? RADIOLOGIC STUDIES: ?As Noted ? ? Assessment ? IMPRESSION:?heme positive stool, recommend upper and lower endoscopy to be performed with MAC due to medical comorbidities?? ? PLAN: ?I have reviewed my findings with the surgeon, who participated in development of the following plan. ?Will plan for upper and lower?endoscopy under Monitored Anesthetic care. ??We discussed the risks and benefits of the planned endoscopy. ?I have informed the patient that complications can occur including failure to complete the endoscopy and perforation. ?The patient had the opportunity to ask questions concerning the planned endoscopy. ?My staff has also explained the procedure to the patient in understandable terms and has given the patient printed material concerning the procedure. ?The patient freely consents to surgery. ? I plan to use?Miralax?bowel preparation in addition to 2 days of clear liquid diet. ?Reviewed importance of good hydration with bowel preparation ? Patient to remain on all routine medications, including his anticoagulation, for the procedure ? The patient has medical comorbidities for which we will plan for the procedure to be performed under Monitored Anesthetic Care. ? ? Diagnoses:?(R19.5) Heme positive stool ?(primary encounter diagnosis) (Z79.01) On continuous oral anticoagulation (Z89.519) S/P BKA (below knee amputation) unilateral (HCC) (F10.10) Chronic alcohol abuse (F17.200) Tobacco use disorder (Z86.39) History of SIADH ? ? Priyanka Hutchison PA-C
--- NOTE | 2018-09-09 | EGD_PTH ---
PATIENT: PIOTR MARTINEZ Jr. LOC: EN U#:[id number] AGE/SX: 68/M ROOM: RE09/09/[address]: Dr. Edis De La Torre MD : 1950 BED: DIS: 09/09/2018 SPEC #: [id number] RECD: 09/09/18 12:26 STATUS: DEVON REQ #: [id number] CECE: 09/09/18 00:[address]: Edis De La Torre DEPT: SURGICAL PATHOLOGY RECD BY: Dennis Arshad ENTERED: 09/09/18 12:49 SP TYPE: EGD BIOPSY OT DR: Dr. Sudhakar Crowell MD Tissues: A - Gastric mucous membrane B - Transverse colon C - Rectum, NOS Procedures: Surgery Specimen Level IV HEADER OPERATION: [place] [place] DIAGNOSIS: Blood in stool TISSUE SUBMITTED: A - Antrum biopsy for H. pylori, B - Transverse colon polyp biopsy, C - Rectal polyp biopsy MICROSCOPIC DIAGNOSIS A. Gastric antrum, biopsy: Mild chronic gastritis. See comment. B. Transverse colon polyp, biopsy: Polypoid fragment of benign colloid mucosa. See comment. C. Rectal polyp, biopsy: Tubular adenoma. AM:mila 09/10/18 COMMENT A. The results of immunohistochemistry for Helicobacter pylori will be reported separately ([id number]). B. Neither hyperplastic nor adenomatous change is identified. Clinical correlation is suggested. MICROSCOPIC DESCRIPTION Slides are reviewed. GROSS DESCRIPTION A - Received in fixative is one container labeled with the patient's name and designated antrum biopsy. The specimen consists of one irregular fragment of light santoyo soft tissue that measures 0.5 x 0.3 x 0.1 cm. The specimen is totally submitted in one cassette. B - Received in fixative is one container labeled with the patient's name and designated transverse colon polyp. The specimen consists of one irregular fragment of light santoyo soft tissue that measures 0.5 x 0.3 x 0.1 cm. The specimen is totally submitted in one cassette. C - Received in fixative is one container labeled with the patient's name and designated rectal polyp biopsy. The specimen consists of one irregular fragment of light santoyo soft tissue that measures 0.3 x 0.2 x 0.1 cm. The specimen is totally submitted in one cassette. / AM:mila 09/09/18 TC:5 CPT: 22069 x3
[2018-09-09 10:51] VITALS: BP 144/54; PULSE 48; RESP 16; TEMP 36.5; O2SAT 100; BMI 21.2
[2018-09-09 12:10] VITALS: BP 144/54; BP 99/54; PULSE 60; RESP 16; TEMP 36; O2SAT 97
--- NOTE | 2018-09-09 12:11 | OP.ENDO_ITS ---
09/09/2018 Sudhakar Crowell Re : Upper GI endoscopy procedure for Vincenzo Olvera Dear Socrates This procedure was performed on Sunday, September 09, 2018. My impressions and recommendations are as follows: Impressions : - Normal examined jejunum. - Erythematous duodenopathy. - Gastritis. Biopsied. - Medium-sized hiatal hernia. - Mildly severe reflux esophagitis. Recommendations : - Await pathology results. - Return to physician it administrative assistant in 1 week. - Continue present medications. My findings are described in the full procedure note, which is enclosed. If I can be of further assistance, please feel free to contact me at Doctor phone number(s): , Work: . Sincerely, Edis De La Torre MD 09/09/2018 12:11:36 PM This report has been signed electronically.
--- NOTE | 2018-09-09 12:14 | OP.ENDO_ITS ---
09/09/2018 Sudhakar Crowell Re : Colonoscopy procedure for Vincenzo Crowell This procedure was performed on Sunday, September 09, 2018. My impressions and recommendations are as follows: Impressions : - Two small polyps at the recto-sigmoid colon and in the transverse colon, removed with a cold biopsy forceps. Resected and retrieved. - The examination was otherwise normal. - The distal rectum and anal verge are normal on retroflexion view. Recommendations : - Discharge patient to home. - Resume previous diet. - Continue present medications. - Return to physician furniture removalist's assistant in 1 week. - Repeat colonoscopy is recommended. The colonoscopy date will be determined after pathology results from today's exam become available for review. My findings are described in the full procedure note, which is enclosed. If I can be of further assistance, please feel free to contact me at Doctor phone number(s): , Work: . Sincerely, Edis De La Torre MD 09/09/2018 12:13:35 PM This report has been signed electronically.
[2018-09-09 12:15] VITALS: BP 114/47; BP 144/54; PULSE 62; RESP 16; O2SAT 97
[2018-09-09 12:20] VITALS: BP 113/57; BP 144/54; PULSE 62; RESP 16; O2SAT 95
[2018-09-09 12:25] VITALS: BP 131/63; BP 144/54; PULSE 62; RESP 16; TEMP 36; O2SAT 97
--- NOTE | 2018-09-09 12:30 | IMM_PTH ---
PATIENT: PIOTR MARTINEZ Jr. LOC: EN U#:[id number] AGE/SX: 68/M ROOM: RE09/09/[address]: Dr. Edis De La Torre MD : 1950 BED: DIS: 09/09/2018 SPEC #: [id number] RECD: 09/09/18 15:23 STATUS: DEVON REQ #: [id number] CECE: 09/09/18 12:[address]: Edis De La Torre DEPT: IMMUNOHISTOCHEMISTRY RECD BY: Latisha Lindquist ENTERED: 09/09/18 15:24 SP TYPE: IMMUNO OTHR DR: Dr. Sudhakar Crowell MD Tissues: A - Stomach, NOS Procedures: H Pylori (initial) PHYSICIAN & INSTITUTION [place] [id number] SPECIMEN INFORMATION: Tissue Source: A - Antrum biopsy Clinical Info: Blood in stool Specimen Number: [id number] CPT code: 14798 METHODOLOGY: Deparaffinized sections of prefer/formalin-fixed tissue or PAP/DQ stained slides are incubated with monoclonal/polyclonal antibodies/oligonucleotide probes. Localization is made via biotin free immunoperoxidase method. Appropriate controls are performed and reacted as expected. Results on target cell population are indicated in the following table: RESULTS: ANTIBODY / CLONE RESULT Block A H Pylori (polyclonal) negative These tests were developed and their performance characteristics determined by [facility]. They may not have been cleared or approved by the U.S. Food and Drug Administration. The FDA has determined that such clearance or approval is not necessary. INTERPRETATION: A. Antrum biopsy: Negative for Helicobacter pylori organisms. AM:mila 09/10/18
[2018-09-09 12:54] VITALS: BP 144/54
== END 2018-09-09 12:59 | disposition home or self-care (01) ==
LOC: EN 10:28 → AC 10:29
PROVIDERS: Family Provider Family Medicine; PCP Family Medicine; Referring Provider Family Medicine; Visit Provider Surgery
PROC: 0DJD8ZZ Inspection of Lower Intestinal Tract, Via Natural or Artificial Opening Endoscopic (ICD-10-PCS; CPT 45378; principal; 2018-09-09 12:25)
DX: K29.50 Unspecified chronic gastritis without bleeding (principal); K44.9 Diaphragmatic hernia without obstruction or gangrene; K21.0 Gastro-esophageal reflux disease with esophagitis; D12.8 Benign neoplasm of rectum; Z87.19 Personal history of other diseases of the digestive system; D12.5 Benign neoplasm of sigmoid colon; E22.2 Syndrome of inappropriate secretion of antidiuretic hormone; F10.20 Alcohol dependence, uncomplicated; F17.210 Nicotine dependence, cigarettes, uncomplicated; I48.91 Unspecified atrial fibrillation; J44.9 Chronic obstructive pulmonary disease, unspecified; N40.0 Benign prostatic hyperplasia without lower urinary tract symptoms; I25.2 Old myocardial infarction; Z79.01 Long term (current) use of anticoagulants; Z79.82 Long term (current) use of aspirin; Z79.899 Other long term (current) drug therapy; Z86.73 Personal history of transient ischemic attack (TIA), and cerebral infarction without residual deficits; Z89.512 Acquired absence of left leg below knee; I70.219 Atherosclerosis of native arteries of extremities with intermittent claudication, unspecified extremity; R19.5 Other fecal abnormalities
CPT/HCPCS: 43239; 45380; 88305; 88342; J7120

== ENCOUNTER 2018-09-25 11:30 | Outpatient (RCR) | payer MEDICARE, SELFPAY ==
--- NOTE | 2018-08-12 15:40 | HP.PTEVAL ---
Patient's Visit Information PIOTR MARTINEZ Jr. is a 68 year old M referred to Physical Therapy by Heron Plata with a diagnosis of Lumbar Sprain. Date of Evaluation: 08/12/18 Physical Therapist: KAROLINA Ferrell - Visit Plan Frequency: 2x /Week Duration: 6 Weeks Plan: 2X/ week for 5 weeks for Trunk AROM, hip strengthening, progressive gait mechanics, core stability with HEP and functional activities with HEP - Subjective Findings: Pt has a LB problem. The back pain started about 1.5 years ago. He has tried chiropractor and pain pills and nothing seems to help. He can barely stand for 5 min and that is pushing it. He can not walk far because of back pain. He uses a walke at home but he has a very small house and its about 50 feet from one end to the other. He has no stairs in the home. He has a WC ramp to get into the home. His back hurts around the belt line and has nothing along the leg. He describes the pain as an aching pain. The pain is worse in standing but there in sitting. Pt was told that he had arthritis in his back a couple of years ago. Pt would like to be able to walk from treatment rooms to the front door which is approx 150 feet. Any straight back chair begins to bother him after sitting there for about 20 minutes. He is able recliner or couch for as long as he needs too. - Pain LB Pain Pain Intensity (Out of 10): 6 Comment: with pain meds - Objective LE MMT: B hip flex 4-/5, B knee ext R 4/5 and L 3+/5, R knee flex 4/5, B hip abd 4-/5, B hip ext 2-/5. Sit to stand: He is able to and uses his arms to stand up. Gait: walks with a front wheeled walker approx 80 feet with decreased stride length and decrease hip extension. He has a prosthesis on the L LE (AKA). Approx 40-50 feet into the walk he started to feel his back pain but was able to make it back to his wheelchair. His pain stopped when he sat down. He walks with flexed L-spine and fw head posture. Posture: sits with flexed L-spine and fw head. Trunk AROM: Ext 25%, flexion 50%, SB B 75% - Goals Goal 1:: I HEP Goal 2:: Increase trunk AROM (especially extension to 50-75% normal ROM) Goal Time Frame: 4-6 Weeks Goal 3:: Be able to walk 150-200 feet with front wheeled walker with SBA with minimal back pain and upright posture Goal Time Frame: 4-6 Weeks Goal 4:: Be able to increase hip ext and hip abd strength by 1/2 muscle grade or complete 3 X 15 bridges for hip extension strength. Goal Time Frame: 4-6 Weeks Goal 5:: Decrease back pain to 2/10 on daily basis when performing ADL's in standing or when washing dishes. Goal Time Frame: 4-6 Weeks - Rehabilitation Potential Rehabilitation Potential: Good - Anticipated Interventions Patient/Client Instruction: Educate patient on: Condition, Plan of Care For the Purpose of:: To decrease pain, To increase ROM, To improve nutrient delivery to tissue, To improve muscle performance and motor function, To improve ability to perform ADL's, To increase tolerance to activity/condition/position, To improve performance and independence with ADL's, To improve ability of physical actions for home/community/work/leisure, To improve gait and locomotor functions, To decrease soft tissue restriction, To increase flexibility/ROM, To improve balance Therapeutic Exercise to Include: Strength training, Endurance training, Balance training, Postural training, Flexibilty training, Gait and locomotor training, Active ROM, Dynamic Lumbar Stabilization, Scapular Strength/Stabilization For the Purpose of:: To decrease pain, To increase ROM, To improve nutrient delivery to tissue, To improve muscle performance and motor function, To improve ability to perform ADL's, To increase tolerance to activity/condition/position, To improve ability of physical actions for home/community/work/leisure, To improve gait and locomotor functions, To improve health of tissue, To decrease soft tissue restriction, To increase flexibility/ROM Thank you for the opportunity to evaluate your patient. For Medicare and Medicare HMO plans, please review the plan of care and approve it. It will need to be FAXED BACK to us at [phone] for Medicare purposes. For Medicare only, by signing this I certify the plan of care. Please let me know if there are questions or concerns regarding this plan of care. Physician Signature: Date:
--- NOTE | 2018-09-25 12:02 | HP.PTDCSUM_ITS ---
HP - PT D/C Summary It has been my pleasure to treat PIOTR MARTINEZ Jr. under orders from Heron Plata, for the diagnosis of Lumbar Sprain for a total of 10 visit(s). Discharge Date: 09/25/18 Please see the following information for a summary of their discharge status. - Subjective Subjective: Pt reports that he has not made any improvements. - Pain LB Pain Pain Intensity (Out of 10): 8 - Objective Objective/Function: Trunk AROM: flex 50%, ext 10%, SB B 75%. Hip ext R ext 4- /5 and L 4/5, R hip abd 4/5 and L 4-/5. Able to do 3 X 10 Bridges with pain. Pt struggles with transitioning from supine to S/L. 8 inch step ups 2 X 10 B - Goals Goal 1:: I HEP Goal 2:: Increase trunk AROM (especially extension to 50-75% normal ROM) Goal Progress: Not Progressing Goal 3:: Be able to walk 150-200 feet with front wheeled walker with SBA with minimal back pain and upright posture Goal Progress: Not Progressing Goal 4:: Be able to increase hip ext and hip abd strength by 1/2 muscle grade or complete 3 X 15 bridges for hip extension strength. Goal 5:: Decrease back pain to 2/10 on daily basis when performing ADL's in standing or when washing dishes. Goal Progress: Not Progressing - Plan Plan: DC PT to Physician for reassessment. - D/C Information Discharge Comments: DC PT to physician for reassessment If there are questions or concerns regarding this patient's physical therapy, please feel free to call me at [phone]. Thank you for the referral of this patient. Sincerely, Yennifer Anderson, MPT
== END 2018-09-25 19:00 | disposition home or self-care (01) ==
LOC: PT 11:30
PROVIDERS: Family Provider Family Medicine; PCP Family Medicine; Referring Provider Chiropractor; Visit Provider Chiropractor
DX: S33.5XXD Sprain of ligaments of lumbar spine, subsequent encounter (principal)
CPT/HCPCS: 97110; 97161; 97530

== ENCOUNTER 2018-10-15 08:12 | Inpatient (IN) | payer MEDICARE, SELFPAY ==
[2018-10-15] VITALS (13 sets, daily range): BP systolic 91–131; BP diastolic 37–72; PULSE 75–99; RESP 14–20; TEMP 36.5–37.1; O2SAT 95–99; BMI 21.1; BMI 20.8
--- NOTE | 2018-10-15 08:28 | EKG12_ITS ---
Test Reason : DIZZINESS Blood Pressure : / mmHG Vent. Rate : 098 BPM Atrial Rate : 098 BPM P-R Int : 168 ms QRS Dur : 088 ms QT Int : 426 ms P-R-T Axes : 066 047 065 degrees QTc Int : 543 ms Sinus rhythm with Premature atrial complexes Prolonged QT Abnormal ECG Confirmed by SUMMER VALDOVINOS, MOHAN ([id number]), food editor VIOLETA GASPAR ([id number]) on 11/02/2018 2:06:45 PM Referred By: Makayla Reynoso Confirmed By:MOHAN WHEELER MD
--- NOTE | 2018-10-15 08:28 | RAD_ITS ---
STUDY: X-RAY CHEST REASON FOR EXAM: Male, 68 years old. Worsening dizziness. TECHNIQUE: Single AP portable view of the chest. COMPARISON: Comparison is made with prior study dated November 27, 2017. FINDINGS: EKG electrodes are seen. Hyperinflation. Mild residual increased linear markings at the left lung base suggestive of scarring. This has improved as compared to prior study. Mild blunting of the left costophrenic angle. Normal size heart. Normal mediastinum and narayan. Normal visualized pulmonary arteries. There is atherosclerotic calcification of the aortic arch with tortuosity. There is a dextroscoliosis of the thoracic spine. Normal visualized ribs, clavicles, and shoulders. There is no demonstrated abnormality of the visualized soft tissue structures of the upper abdomen. RAD/Chest 1 View (Portable) IMPRESSION: Minimal increased markings at the left lung base suggestive of left basilar scarring. This has improved as compared to prior study. Electronically Signed: Clay Bah, at 9:10 EDT , Service support ,
--- NOTE | 2018-10-15 08:29 | CT_ITS ---
STUDY: CT BRAIN WITHOUT CONTRAST REASON FOR EXAM: Male, 68 years old. Dizziness. RADIATION DOSAGE (If Supplied By Facility): CTDIvol = ( 44.99 ) mGy, DLP = ( 796.11 ) mGycm TECHNIQUE: Transaxial CT imaging of the brain was performed without administration of intravenous contrast material. Individualized dose optimization techniques were used for this CT. COMPARISON: Comparison is made with prior examination dated November 24, 2017. FINDINGS: Normal soft tissue structures. Normal calvarium. There is mild cerebral atrophy with widening of the extra-axial spaces and ventricular dilatation. There are areas of decreased attenuation within the white matter tracts of the supratentorial brain, consistent with microvascular disease changes. There are small punctate calcifications of the basal ganglia which are seen in the aging brain as a normal variant. Normal brainstem. Normal cerebellum. There is no intracranial hemorrhage. There are no findings of an acute ischemic infarction. Atherosclerotic calcification of the vertebral arteries and cavernous portions of the internal carotid arteries bilaterally. Partial opacification of the left maxillary sinus and mucosal thickening of the right maxillary sinus. Stable 2.5 cm x 2 cm soft tissue mass causing expansion of the anterior left ethmoid sinus as well as resorption of the medial wall of the left orbit. This is unchanged. CT/Brain/Head without Contrast IMPRESSION: Chronic involutional changes of the brain. Sinusitis. Stable soft tissue mass in the anterior aspect of the left ethmoid sinus causing expansion and thinning of the medial wall of the left orbit. Electronically Signed: Clay Bah, at 9:05 EDT , Service support ,
--- NOTE | 2018-10-15 08:34 | ED.DCSUM_ITS ---
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 Indicates today his dizziness and spinning sensation worse to where he was crawling around his home paramedics were called he was brought in. 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 fib indicates he had a stroke many years ago left him with some right hand tingling, he denies headache neck pain chest pain abdominal pain his bowel bladder habits been normal indicates decreased p.o. intake is not been hungry Past Medical History - Allergies and Home Meds Allergies/Adverse Reactions: Allergies No Known Allergies Allergy (Verified 10/15/18 08:16) Primary Care Physician: Sudhakar Crowell MD [Primary Care Provider] - Surgical History: - - Multiple vascular stents, revasculation of left leg, left BKA Smoking Status: Current every day smoker - Family History Sibling Family History: Reports: COPD - 4 of his sisters has COPD. Paternal Family History: Reports: COPD, Heart Disease, No pertinent history Review of Systems General: Denies: Chills, Fever, Sweats Eyes: Denies: Visual changes - bilaterally, Diplopia ENT: Denies: Rhinorrhea, Sore throat Cardiovascular: Denies: Chest pain, Palpitations Respiratory: Denies: Dyspnea, Cough, Dyspnea on exertion Gastrointestinal: Denies: Abdominal pain, Nausea, Vomiting, Diarrhea, Melena, Hematochezia Genitourinary: Denies: Dysuria, Hematuria, Frequency Musculoskeletal: Denies: Back pain, Extremity Pain Skin: Denies: Rash, Wounds Neurological: Reports: - - Only complaint is dizziness complaining of a spinning sensation as above no change in mental capacity no weakness dizziness is improved as he sits in the ED but not resolved and has had this again for a few weeks. Denies: Headache, Weakness, Numbness Physical Exam Vital Signs/Narrative: Vital Signs Temp Pulse Resp BP Pulse Ox 10/15/18 08:29 95 14 119/72 99 10/15/18 08:13 98.2 F 95 18 106/50 L 98 General: Well nourished, Well developed, No Acute Distress Head: Normocephalic, Atraumatic Eyes: Perrl, EOMI ENT: Moist mucous membranes, No rhinorrhea Neck: Supple, Nontender Cardiovascular: Regular rate, No murmurs, Irregular, Tachycardia, - - Appears to have atrial fibrillation or flutter 05 07-05 17 Respiratory: No distress, CTA bilaterally, Chest nontender Abdomen: Soft, Nontender, Nondistended, Normal bowel sounds Back: Nontender, Normal Inspection Extremities: Nontender, No edema Skin: Normal color, No rash Neurological: Alert, Oriented x3, Cranial nerves II-XII grossly intact, Normal Strength, Normal Sensation Psychological: Normal affect, Normal Mood Diagnostic/Tx/Re-eval - Medical Decision Making He is in no distress his vital signs show blood pressure of 120/80 heart rate 05 07-05 17 he is awake and alert physical exam is unremarkable, neurologic exam unremarkable, the left elbow area shows the incisions intact without any abnormalities is no drainage has decreased range of motion related to chronic pain his range of motion is unchanged no signs of joint infection the distal hand exam neurovascular is unremarkable Patient's EKG shows a sinus rhythm nothing acute, rate is about 98, his head CT and chest x-ray generally unremarkable no acute abnormalities radiology notes a stable mass in 1 of the sinuses see that report, his screening labs are also generally unremarkable see those reports, I had a long talk conversation with the patient we try to walk him he could not walk because he was still intractably dizzy given all the above we have asked the hospital seen further management and admission Final impression Intractable dizziness, inability to walk, recent left elbow surgery ED Disposition - Plan for ED Patient: Referrals: Sudhakar Crowell MD [Primary Care Provider] -
[2018-10-15 08:44] LABS: Absolute Lymphocyte Count 0.88 X10^3/ul (0.83-4.51); Absolute Neutrophil Count 11.1 X10^3/uL (2.0-7.7); Basophil# 0.02 X10^3/uL; Basophil% 0.2 % (0-1); Eosinophil# 0.21 X10^3/uL; Eosinophils% 1.6 % (0-5); Hematocrit 28.2 % (40-54); Hemoglobin 9.9 g/dl (13.0-16.5); Lymphocyte # 0.88 X10^3/ul (4.0); Lymphocyte % 6.8 % (19-41); Mean Corp Hgb Conc 35.1 g/gl (32-36); Mean Corpuscular Hgb 37.1 pg (27.0-32.0); Mean Corpuscular Volume 105.6 fL (80-94); Mean Platelet Vol. 8.9 fl (6.2-12.0); Monocyte# 0.76 X10^3/uL; Monocyte% 5.9 % (0-10); Neutrophil # 11.06 X10^3/uL (2.7-7.7); Platelet Count 351 K/mm3 (150-450); RBC Distribution Width SD 48.4 fl (35.1-43.9); Red Blood Count 2.67 M/mm3 (4.6-6.2)
[2018-10-15 08:46] LABS: POSITIVE COUNT NO; POSITIVE DIFFERENTIAL NO; POSITIVE MORPHOLOGY NO
[2018-10-15] MEDS: 0.9% Normal Saline 1,000 ML 150 ML IV ×3 (08:48→22:35)
[2018-10-15 08:59] LABS: BUN 13 mg/dL (7-18); Creatinine, Serum 0.61 mg/dL (0.70-1.30); Glucose 97 mg/dL (74-106)
[2018-10-15 09:00] LABS: Anion Gap 8 (5-15); BUN/Creat Ratio 21.2 RATIO (10-20); Calcium,Total 8.2 mg/dL (8.5-10.1); Chloride 105 mmol/L (98-107); EST Glomerular Filtration Rate 138 mL/min (>60); Est Glom Filt Rate - Afr Amer 167 mL/min (>60); Potassium 3.3 mmol/L (3.5-5.1); Sodium Level 140 mmol/L (136-145)
[2018-10-15 09:13] LABS: BNP,B-Type NATRIURETIC PEPTIDE 150.1 pg/mL (0-100)
--- NOTE | 2018-10-15 14:53 | CASEMGMT ---
Patient has a Healthcare POA and Healthcare LW on file at [facility]. Edyta LUZ FIRMWARE ARCHITECT
--- NOTE | 2018-10-15 16:40 | MRI_ITS ---
STUDY: MRI BRAIN WITHOUT CONTRAST REASON FOR EXAM: Male, 68 years old. Worsening dizziness for 3 weeks. TECHNIQUE: Standardized multiplanar fat and water weighted pulse sequences were obtained. COMPARISON: CT head 10/15/2018 and MRI brain 05/24/2016 FINDINGS: There is mild cerebral atrophy with widening of the extra-axial spaces and moderate ventricular dilatation. There are multiple white matter hyperintensities, distributed throughout the deep white matter tracts of the cerebral hemispheres, consistent with moderate chronic white matter ischemic changes. There is confluent periventricular hyperintensity cloaking the lateral ventricles, consistent with periventricular leukoaraiosis. There is no evidence for recent intracranial ischemia or other cause of cytotoxic edema on diffusion weighted imaging (DWI). Normal T2* images of the brain without demonstrated susceptibility artifact. There is no demonstrated hemosiderin stain. There are prominent perivascular spaces (PVS) involving the basal ganglia. There is a focus of abnormal signal left thalamus probably related to old infarct. This is more prominent than it was on the previous study. The right thalamus is within normal limits. There is no extra-axial fluid accumulation. Normal flow voids within the major intracranial circulation suggesting patency by spin echo criteria. Normal sella turcica, pituitary gland, infundibular stalk, optic chiasm and hypothalamus. Normal tectal plate and pineal gland. There are chronic white matter ischemic changes of the janelle. The midbrain and medulla are otherwise normal. Normal cerebellum. There are large basal cisterns. Normal bilateral temporal bones. Normal bilateral internal auditory canals. No demonstrated orbital abnormality, within the constraints of a routine brain study. There is enlargement of the left-sided ethmoid sinus with abnormal signal measuring up to 2.8 cm in size. This is unchanged since the previous study and likely represents a mucocele. There is moderate mucosal periosteal thickening in left maxillary sinus. There are postoperative changes involving the right sided ostiomeatal complex with surgical resection. There has also has been surgical resection of left inferior turbinate and right middle turbinate. Normal calvarium and skull base. Normal visualized soft tissue structures. Normal visualized upper cervical spine. MRI/Brain without Contrast IMPRESSION: 1. Involutional changes of the brain, as described above. 2. No MR evidence for acute infarct. 3. Left-sided ethmoid mucocele. Electronically Signed: Mabel Ramirez MD at 11:14 EDT , Service support ,
[2018-10-15] MEDS: Meclizine HCl 25 MG Tablet PO ×2 (17:03→20:13)
[2018-10-15] MEDS: Ferrous Sulfate 325 MG Tablet PO (17:04)
[2018-10-15] MEDS: 0.9% Normal Saline 1,000 ML 999 ML IV (17:23)
[2018-10-15] MEDS: LORazepam 0.5 MG Tablet PO (18:30)
--- NOTE | 2018-10-15 19:07 | PCM.HP.STD ---
Problem List (1) Gait instability Status: Acute (2) Orthostatic hypotension Status: Acute (3) Macrocytic anemia Status: Acute (4) Diastolic CHF Status: Chronic (5) Hypokalemia Status: Acute (6) Hyponatremia Status: Resolved (7) Amputation of left lower extremity Status: Chronic (8) Chronic airway obstruction Status: Chronic Qualifiers: (9) Coronary atherosclerosis of [place] coronary artery Status: Chronic Qualifiers: (10) Esophageal reflux Status: Chronic Qualifiers: (11) HLD (hyperlipidemia) Status: Chronic Qualifiers: (12) HTN (hypertension) Status: Chronic Qualifiers: (13) Leukocytosis Status: Chronic (14) PVD (peripheral vascular disease) Status: Chronic (15) Paroxysmal A-fib Status: Chronic Comment: currently in sinus rhythm (16) Percutaneous transluminal coronary angioplasty status Status: Chronic (17) Tobacco use disorder Status: Chronic (18) left stump swelling Status: Resolved (19) Acute arterial ischemic stroke, vertebrobasilar, thalamic Status: Resolved (20) Acute blood loss anemia Status: Resolved (21) TIA (transient ischemic attack) Status: Resolved Qualifiers: Transient cerebral ischemia type: unspecified Qualified Code(s): G45.9 - Transient cerebral ischemic attack, unspecified (22) Chronic anticoagulation Status: Chronic Comment: Xarelto (23) Depression Status: Chronic History of Present Illness Date of Admission: 10/15/18 Chief Complaint: lightheadedness and inability to walk and maintain balance The patient is a 68 year old M with a past medical history of paroxysmal atrial fibrillation, chronic anticoagulation with Xarelto, COPD, tobacco dependence, hypertension, peripheral vascular disease, history of left lower extremity amputation secondary to peripheral vascular disease, BPH, GERD, hyperlipidemia, heavy alcohol consumption and coronary artery disease with history of PTCA who presented to the ED at [facility] on 10/15/2018 complaining of lightheadedness which had been getting progressively worse over the past 2 to 3 weeks. It had progressed to the point where he was unable to ambulate. He recently had surgery on the Left elbow at [facility] for chronic infection. He has had a CVA in the past due to AF and was not on anticoagulation at that time. Signs at presentation to the emergency room are temperature 98.2, pulse rate 95, blood pressure 106/50, respiratory rate 18 and he was 98 to 99% saturated on room air. Blood cell count was elevated at 13 with a left shift. Hemoglobin is 9.9 with an MCV of 105.6 and a normal RDW. Platelets were within normal limits. BMP was remarkable for a potassium of 3.3 and a BUN of 13 with creatinine of 0.61 and a BUN/creatinine ratio of 21. Troponin was less than 0.015. Noncontrasted CT of the brain showed chronic involutional changes with sinusitis. There is a stable soft tissue mass in the anterior aspect of the left ethmoid sinus. Ray showed no pleural effusions, pulmonary vascular congestion or infiltrates. Past Medical History Past Medical History (Chronic Problems): Chronic Problems Paroxysmal A-fib (Chronic) currently in sinus rhythm Diastolic CHF (Chronic) Chronic anticoagulation (Chronic) Xarelto Depression (Chronic) Amputation of left lower extremity (Chronic) Chronic airway obstruction (Chronic) Coronary atherosclerosis of [place] coronary artery (Chronic) Esophageal reflux (Chronic) HLD (hyperlipidemia) (Chronic) HTN (hypertension) (Chronic) Leukocytosis (Chronic) Percutaneous transluminal coronary angioplasty status (Chronic) PVD (peripheral vascular disease) (Chronic) Tobacco use disorder (Chronic) Allergies No Known Allergies Allergy (Verified 10/15/18 08:16) Home Medications: Ambulatory Orders Medication Instructions Recorded Amiodarone HCl [Cordarone] 100 mg PO DAILY 10/15/13 Aspirin E.C. [Ecotrin] 81 mg PO DAILY@0800 10/15/13 Diltiazem CD [Cardizem CD] 120 mg PO BID 10/15/13 Metoprolol Tartrate [Lopressor 50 mg PO BID 10/15/13 (beta lu)] Atorvastatin Calcium [Lipitor] 80 mg PO QHS 06/12/17 Ferrous Sulfate 325 mg PO BIDCM 06/12/17 Finasteride [Proscar] 5 mg PO DAILY 11/24/17 Rivaroxaban [Xarelto] 15 mg PO DAILY 11/24/17 Tamsulosin HCl [Flomax] 0.4 mg PO DAILY 11/24/17 Albuterol Aerosols [Ventolin 2.5 mg INHALATION Q2H PRN PRN 11/28/17 Aerosols] vial.neb. Albuterol Inhaler [Ventolin Hfa 1 - 2 puff INHALATION Q4H PRN PRN 09/07/18 (SP)] Hydrocodone/Acetaminophen 1 ea PO Q4H PRN 10/15/18 [Hydrocodon-Acetaminoph 7.5-325] Methadone HCl [(None)] 5 mg PO BID 10/15/18 Mirtazapine [Remeron] 30 mg PO QHS 10/15/18 Multivit-Min/FA/Lycopen/Lutein 1 ea PO DAILY 10/15/18 [Centrum Silver Tablet] Potassium Gluconate 500 mg PO DAILY 10/15/18 Ranitidine [Zantac] 150 mg PO DAILY 10/15/18 Surgical History: - - Multiple vascular stents, revasculation of left leg, left BKA, left elbow debridement for chronic infection Psychiatric History: No pertinent psych hx Lives: Alone Smoking Status: Current every day smoker Tobacco Use: Cigarettes Alcohol: None, Heavy - 2-3 beers daily....used to drink even more - *Family History Sibling History Items: COPD - 4 of his sisters has COPD. Paternal History Items: COPD, Heart Disease, No pertinent history Review of Systems Constitutional: Reports: Weakness, - - decreased appetite. Denies: Anorexia, Chills, Fever, Weight Change HEENT: Denies: Difficulty Swallowing, Head Aches, Sinus Congestion, Sinus Drainage, Sore Throat Cardiovascular: Reports: Light Headedness. Denies: Chest Pain, Palpitations Respiratory: Denies: Cough, Shortness of breath at rest, Sputum production Gastrointestinal: Denies: Abdominal Pain, Nausea, Vomiting Genitourinary: Denies: Dysuria Musculoskeletal: Reports: Joint Pain - left elbow. Denies: Joint Tenderness Skin: Denies: Rash, Wounds Neurological: Reports: Balance problems. Denies: Double vision, Change in Speech, Slurred speech, Confusion, Focal weakness, Numbness, Tingling, Tremor, Seizures Psychiatric: Reports: Depression - on Remeron. Denies: Anxiety, Homicidal Ideations, Suicidal Ideations Hematologic/ Lymphatic: Denies: Easy Bruising, Easy Bleeding VTE Information - Inpt Only VTE Present on Admission: No VTE Mechan Device Prophylaxis: Knee High RICKEY Hose VTE Pharm Prophylaxis ordered?: No Reason prophylaxis not ordered:: Treatment Not Indicated - pt is on Xarelto Patient Problems: Active and Suspected Problems Gait instability (Acute) Orthostatic hypotension (Acute) Macrocytic anemia (Acute) - Physical Exam General: Alert, Oriented x3, Cooperative, No apparent distress HEENT: Atraumatic, PERRLA, EOMI, Normocephalic, - - no nystagmus Oral: Dry Mucosa Neck: Supple, No JVD, Carotid Bruits, Bilateral - L>R Lungs: Clear to auscultation, Diminished Cardiovascular: Regular rate, Regular Rhythm, Normal S1, Normal S2, Murmur - at the apex and also with MM in the left axilla, No rub noted, No Gallop Abdomen: Bowel Sounds Present, Soft, Non Tender, Non-Distended Extremities: No clubbing, No cyanosis, No edema Musculoskeletal: No Muscle Wasting Neurological: Cranial nerves II-XII grossly intact, Neuro grossly intact Psych/Mental Status: Appropriate, Flat Affect Vital Signs Temp Pulse Resp BP Pulse Ox 98.8 F 86 14 128/49 H 95 10/15/18 16:50 10/15/18 16:50 10/15/18 16:50 10/15/18 16:50 10/15/18 16:50 Oxygen Delivery Method Room Air Weight: 132 lb 15.02 oz Body Mass Index (BMI) 20.8 Finger Stick Blood Glucose 89 Orthostatic Vital Signs Start: 10/15/18 16:48 Freq: q24h Status: Active Protocol: Activity Type Activity Date Activity User E-Sign Co-Sign Detail Recorded Client Recorded Date Recorded By Document 10/15/18 16:48 DS [id number] 10/15/18 16:58 DS 10/15/18 16:48 Orthostatic Vitals Standing -Blood Pressure (90/60-120/80 mm Hg) 95/51 L -Extremity Use Right Arm -Pulse Rate (60-100 beats/min) 95 Sitting -Blood Pressure (90/60-120/80 mm Hg) 91/50 L -Extremity Use Right Arm -Pulse Rate (60-100 beats/min) 88 Lying -Blood Pressure (90/60-120/80 mm Hg) 128/49 H -Extremity Use Right Arm -Pulse Rate (60-100 beats/min) 79 Intake and Output for Last 24 Hours 10/13/18 10/14/18 10/15/18 23:59 23:59 23:59 Intake Total 2015 Balance 2015 Laboratory Tests Past 24 Hrs 10/15/18 10/15/18 10/15/18 08:30 08:30 08:30 WBC 13.0 H RBC 2.67 L Hgb 9.9 L Hct 28.2 L MCV 105.6 H MCH 37.1 H MCHC 35.1 RDW 13.0 RDW Differential 48.4 H Plt Count 351 MPV 8.9 Immature Gran % (Auto) 0.500 Neut % (Auto) 85.0 H Lymph % (Auto) 6.8 L [place] % (Auto) 5.9 Eos % (Auto) 1.6 Baso % (Auto) 0.2 Absolute Neuts (auto) 11.1 H Absolute Lymphs (auto) 0.88 Total Counted Not Reportable Sodium 140 Potassium 3.3 L Chloride 105 Carbon Dioxide 27.0 Anion Gap 8 BUN 13 Creatinine 0.61 L Estim Creat Clear Calc 59.40 Est GFR (MDRD) Af Amer 167 Est GFR (MDRD) Non-Af 138 BUN/Creatinine Ratio 21.2 H Glucose 97 Calcium 8.2 L Troponin I < 0.015 B-Natriuretic Peptide 150.1 H Ethyl Alcohol 10/15/18 10/15/18 10/15/18 13:32 13:32 16:02 WBC RBC Hgb Hct MCV MCH MCHC RDW RDW Differential Plt Count MPV Immature Gran % (Auto) Neut % (Auto) Lymph % (Auto) [place] % (Auto) Eos % (Auto) Baso % (Auto) Absolute Neuts (auto) Absolute Lymphs (auto) Total Counted Sodium Potassium Chloride Carbon Dioxide Anion Gap BUN Creatinine Estim Creat Clear Calc Est GFR (MDRD) Af Amer Est GFR (MDRD) Non-Af BUN/Creatinine Ratio Glucose Calcium Troponin I 0.017 0.021 B-Natriuretic Peptide Ethyl Alcohol 3.0 Assessment/Plan All Active Problems Gait instability (Acute) Orthostatic hypotension (Acute) Macrocytic anemia (Acute) TIA (transient ischemic attack) (Resolved) Acute blood loss anemia (Resolved) Hypokalemia (Acute) Acute arterial ischemic stroke, vertebrobasilar, thalamic (Resolved) Hyponatremia (Resolved) left stump swelling (Resolved) Impressions 1. gait instability with inability to ambulate - progressing over the preceding few weeks 2. Orthostatic hypotension secondary to dehydration 3. Dehydration 4. Decreased appetite 5. Depression 6. PAF 7. Chronic anticoagulation with Xarelto 8. Macrocytic anemia 9. Tobacco dependence 10. Hypertension history 11. Hyperlipidemia 12. BPH 13. Recent surgery on the left elbow at [facility] for chronic infected bursitis 14. Heavy alcohol [id number]-8-7 beers daily 15. Remote history of CVA secondary to atrial fibrillation when he was not on anticoagulation 16. Hypokalemia 17. Leukocytosis - afebrile stress? admit to a monitored bed on PCU MRI of the brain to r/o brainstem infarct stroke protocol initiated Supplement the potassium Hydrate Lab in the a.m. smoking cessation counselling give....he is not interested in quitting CRP Code Visit Inpatient E&M: 56803 Init Hosp L3
[2018-10-15] MEDS: 0.9% NaCl Peripheral Flush Adult/Peds IV (20:11)
[2018-10-15] MEDS: Atorvastatin Calcium 80 MG Tablet PO (20:13)
[2018-10-15] MEDS: Mirtazapine 30 MG Tablet PO (20:13)
[2018-10-15] MEDS: dilTIAZem CD 120 MG Capsule PO (20:13)
[2018-10-15] MEDS: Metoprolol Tartrate 25 MG Tablet PO (20:13)
[2018-10-15 20:17] LABS: Immature Platelet Fraction 2.3 % (1.0-7.9); RET-HE 40.1 pg (30-35); Reticulocyte Count 5.82 % (0.5-1.5)
--- NOTE | 2018-10-15 20:17 | NURSING ---
Pt requesting to have meds early, because he takes them earlier at home.
[2018-10-15 20:27] LABS: Erythrocyte Sedimentation Rate 2 mm/hr (0-20)
[2018-10-15 20:39] LABS: Thyroid Stim Hormone (TSH) 0.76 uIU/mL (0.358-3.74)
[2018-10-16] VITALS (16 sets, daily range): BP systolic 96–134; BP diastolic 32–56; PULSE 67–135; RESP 18; TEMP 36.5–37.1; O2SAT 92–98; BMI 20.8
[2018-10-16] MEDS: Meclizine HCl 25 MG Tablet PO (05:06)
[2018-10-16] MEDS: 0.9% Normal Saline 1,000 ML 150 ML IV ×2 (05:07→16:47)
[2018-10-16 06:42] LABS: Hematocrit 22.8 % (40-54); Hemoglobin 7.6 g/dl (13.0-16.5); Mean Corp Hgb Conc 33.3 g/gl (32-36); Mean Corpuscular Hgb 36.4 pg (27.0-32.0); Mean Corpuscular Volume 109.1 fL (80-94); Platelet Count 280 K/mm3 (150-450); RBC Distribution Width CV 12.9 % (11.6-14.6); RBC Distribution Width SD 47.2 fl (35.1-43.9); Red Blood Count 2.09 M/mm3 (4.6-6.2); White Blood Count 8.4 K/mm3 (4.4-11.0)
[2018-10-16 06:48] LABS: Scan Indicated on CBC? Y/N NO
[2018-10-16 06:55] LABS: ALB/GLOB Ratio 0.8 RATIO (0.9-2.4); AST(SGOT) 17 U/L (15-37); Alanine Aminotransfer ALT/SGPT 15 U/L (16-61); Alkaline Phosphatase 68 U/L (45-117); Anion Gap 7 (5-15); BUN 14 mg/dL (7-18); BUN/Creat Ratio 34.7 RATIO (10-20); Calcium,Total 7.5 mg/dL (8.5-10.1); Chloride 114 mmol/L (98-107); Cholesterol 71 mg/dL (200); EST Glomerular Filtration Rate 223 mL/min (>60); Est Glom Filt Rate - Afr Amer 270 mL/min (>60); Estimated Creatinine Clearance 58.63 ml/min; Globulin 2.6 g/dL (2.2-4.2); Glucose 94 mg/dL (74-106); High Density Lipoprotein 33 mg/dL; Magnesium 1.9 mg/dL (1.6-2.6); Phosphorus 1.8 mg/dL (2.5-4.9); Potassium 3.8 mmol/L (3.5-5.1); Protein, Total 4.6 g/dL (6.4-8.2); Sodium Level 142 mmol/L (136-145); Triglycerides 65 mg/dL; Very Low Density Lipoprotein 13 mg/dL (5-40)
[2018-10-16] MEDS: Rivaroxaban 15 MG Tablet PO (08:48)
[2018-10-16] MEDS: Metoprolol Tartrate 25 MG Tablet PO ×2 (08:48→21:42)
[2018-10-16] MEDS: Finasteride 5 MG Tablet PO (08:48)
[2018-10-16] MEDS: dilTIAZem CD 120 MG Capsule PO ×2 (08:49→21:41)
[2018-10-16] MEDS: Ferrous Sulfate 325 MG Tablet PO ×2 (08:49→17:35)
[2018-10-16] MEDS: Aspirin E.C. 81 MG Tablet PO (08:49)
[2018-10-16] MEDS: Amiodarone 200 MG Tablet 100 MG PO (08:49)
[2018-10-16] MEDS: Tamsulosin HCl 0.4 MG Capsule PO (08:49)
--- NOTE | 2018-10-16 09:36 | CASEMGMT ---
Assessment- SW completed assessment with patient. Living situation- Patient lives alone in a 1 story home with ramp entrance. PCP: Dr Crowell Specialists: Used to see Dr Pendleton for Cardiology, however he has retired and patient has not seen a new Acetylene Cutter yet. Pharmacy: [facility] DME: 3 canes, wheelchair, walker, shower chair, grab bars, raised toilet seat, medical alert button ADL's/IADL's: Patient said he bathes himself and sets up his own medications. He does not drive. He utilizes transportation through [facility]. Past SNF/rehab: Yes. SW Past HH: Yes. Could not remember agency LW: Yes and on file at [facility] POA: Yes and on file at [facility] Patient lives alone. He is active with [employer] through [facility]. His briefcase sewer is Eva Marcial. He gets an aide 3 hours a day 4 days a week from [facility]. He has a Medical alert button through [employer]. He plans on returning home at discharge. YIMI and GENA CM to follow for d/c plan. Edyta LUZ PROCEDURES RN
--- NOTE | 2018-10-16 09:49 | CASEMGMT ---
This RN XIOMARA received call from Eva Marcial, pt's [facility] CM in the community, and she states that the pt has a medical alert button and that he currently has aides set up through [facility] in [place], 3 hrs on M, T, W, F. She states that she was planning on switching this to 3 hours daily s/p pt's upcoming surgery. Eva is aware that pt would like to go home at this time, pending daily PT/OT evals and neuro c/s. Yvette AVERY CM
[2018-10-16 11:57] LABS: Vitamin B12 > 2000 pg/mL (211-911)
[2018-10-16] MEDS: Ondansetron 4 MG/2 ML Vial IV (17:35)
--- NOTE | 2018-10-16 20:23 | PN_ITS ---
Subjective: Doing much better today. He denies lightheadedness and also denies vertigo. He was able to ambulate with physical therapy today. Orthostatics were negative today. Denies chest pain, shortness of breath, nausea, vomiting, abdominal pain. Objective: PHYSICAL EXAM: GENERAL: alert, oriented X 3, Cooperative, NAD ORAL: dry mucosa still, no mucosal lesions NECK: No JVD, supple, trachea midline, BL bruits LUNGS: CTA, symmetric chest expansion, diminished HEART: RRR, Normal S1 and S2, no rub, no gallop, positive murmur at the apex radiating into the left axilla ABDOMEN: soft, NT, ND, BS present, no guarding with palpation EXTREMITIES: no edema, no cyanosis, no calf tenderness, status post left BKA, stump has no open lesions or areas of erythema. SKIN: No rashes, no breakdown NEUROLOGIC: no focal neurologic deficits PSYCH: appropriate, normal affect, pleasant - Physical Exam Vital Signs Temp Pulse Resp BP Pulse Ox 98.1 F 86 18 102/56 L 95 10/16/18 17:38 10/16/18 19:06 10/16/18 17:38 10/16/18 17:38 10/16/18 17:38 Oxygen Delivery Method Room Air Weight: 132 lb 15.02 oz Body Mass Index (BMI) 20.8 Finger Stick Blood Glucose 89 Orthostatic Vital Signs Start: 10/15/18 16:48 Freq: q24h Status: Active Protocol: Activity Type Activity Date Activity User E-Sign Co-Sign Detail Recorded Client Recorded Date Recorded By Document 10/16/18 04:15 JANIE [id number] 10/16/18 04:31 JANIE 10/16/18 04:15 Orthostatic Vitals Standing -Blood Pressure (90/60-120/80 mm Hg) 134/51 H -Extremity Use Right Arm -Pulse Rate (60-100 beats/min) 87 Sitting -Blood Pressure (90/60-120/80 mm Hg) 104/53 L -Extremity Use Right Arm -Pulse Rate (60-100 beats/min) 81 Lying -Blood Pressure (90/60-120/80 mm Hg) 111/32 L -Extremity Use Right Arm -Pulse Rate (60-100 beats/min) 76 Intake and Output for Last 24 Hours 10/14/18 10/15/18 10/16/18 23:59 23:59 23:59 Intake Total 2015 3522 / 3522 Output Total 193 / 193 Balance 2015 1587 / 1587 Laboratory Tests Past 24 Hrs 10/15/18 10/15/18 10/15/18 08:30 20:04 20:04 WBC RBC Hgb Hct MCV MCH MCHC RDW RDW Differential Plt Count MPV ESR Sodium Potassium Chloride Carbon Dioxide Anion Gap BUN Creatinine Estim Creat Clear Calc Est GFR (MDRD) Af Amer Est GFR (MDRD) Non-Af BUN/Creatinine Ratio Glucose Calcium Phosphorus Magnesium Total Bilirubin AST ALT Alkaline Phosphatase C-React Prot Ext Range Total Protein Albumin Globulin Albumin/Globulin Ratio Triglycerides Cholesterol LDL Cholesterol VLDL Cholesterol HDL Cholesterol Vitamin B12 > 2000 H TSH 0.76 Blood Type O POSITIVE Antibody Screen NEGATIVE Crossmatch See Detail 10/15/18 10/15/18 10/16/18 20:04 20:04 06:30 WBC RBC Hgb Hct MCV MCH MCHC RDW RDW Differential Plt Count MPV ESR 2 Sodium 142 Potassium 3.8 Chloride 114 H Carbon Dioxide 21.0 Anion Gap 7 BUN 14 Creatinine 0.40 L Estim Creat Clear Calc 58.63 Est GFR (MDRD) Af Amer 270 Est GFR (MDRD) Non-Af 223 BUN/Creatinine Ratio 34.7 H Glucose 94 Calcium 7.5 L Phosphorus 1.8 L Magnesium 1.9 Total Bilirubin 0.20 AST 17 ALT 15 L Alkaline Phosphatase 68 C-React Prot Ext Range 29.00 H Total Protein 4.6 L Albumin 2.0 L Globulin 2.6 Albumin/Globulin Ratio 0.8 L Triglycerides 65 Cholesterol 71 LDL Cholesterol 25 VLDL Cholesterol 13 HDL Cholesterol 33 L Vitamin B12 TSH Blood Type Antibody Screen Crossmatch 10/16/18 06:30 WBC 8.4 RBC 2.09 L Hgb 7.6 L Hct 22.8 L MCV 109.1 H MCH 36.4 H MCHC 33.3 RDW 12.9 RDW Differential 47.2 H Plt Count 280 MPV 9.0 ESR Sodium Potassium Chloride Carbon Dioxide Anion Gap BUN Creatinine Estim Creat Clear Calc Est GFR (MDRD) Af Amer Est GFR (MDRD) Non-Af BUN/Creatinine Ratio Glucose Calcium Phosphorus Magnesium Total Bilirubin AST ALT Alkaline Phosphatase C-React Prot Ext Range Total Protein Albumin Globulin Albumin/Globulin Ratio Triglycerides Cholesterol LDL Cholesterol VLDL Cholesterol HDL Cholesterol Vitamin B12 TSH Blood Type Antibody Screen Crossmatch Medical Necessity - Tobacco Use Smoking Status: Current every day smoker Tobacco Use: Cigarettes Assessment/Plan All Active Problems Atrial fibrillation with RVR (Acute) Gait instability (Acute) Orthostatic hypotension (Acute) Macrocytic anemia (Acute) TIA (transient ischemic attack) (Resolved) Acute blood loss anemia (Resolved) Hypokalemia (Acute) Acute arterial ischemic stroke, vertebrobasilar, thalamic (Resolved) Hyponatremia (Resolved) Leukocytosis (Resolved) left stump swelling (Resolved) Impressions 1. gait instability with inability to ambulate - progressing over the preceding few weeks 2. Orthostatic hypotension secondary to dehydration 3. Dehydration 4. Decreased appetite 5. Depression 6. PAF 7. Chronic anticoagulation with Xarelto 8. Macrocytic anemia 9. Tobacco dependence 10. Hypertension history 11. Hyperlipidemia 12. BPH 13. Recent surgery on the left elbow at [facility] for chronic infected bursitis 14. Heavy alcohol aflvmhgiatt-0-9 beers daily 15. Remote history of CVA secondary to atrial fibrillation when he was not on anticoagulation 16. Hypokalemia 17. Leukocytosis - afebrile stress? Continue hydration Recheck orthostatic blood pressures in the a.m. Recheck lab in the a.m. Possible discharge tomorrow Code Visit Inpatient E&M: 33172 Subs Hosp L2
[2018-10-16] MEDS: Atorvastatin Calcium 80 MG Tablet PO (21:42)
[2018-10-16] MEDS: Mirtazapine 30 MG Tablet PO (21:43)
[2018-10-17] VITALS (10 sets, daily range): BP systolic 102–122; BP diastolic 31–67; PULSE 65–134; RESP 18–20; TEMP 36.8–37.5; O2SAT 92–95
[2018-10-17] MEDS: 0.9% NaCl Peripheral Flush Adult/Peds IV (01:29)
[2018-10-17 08:10] LABS: Hematocrit 25.7 % (40-54); Hemoglobin 8.6 g/dl (13.0-16.5); Mean Corp Hgb Conc 33.5 g/gl (32-36); Mean Corpuscular Hgb 34.7 pg (27.0-32.0); Mean Corpuscular Volume 103.6 fL (80-94); Mean Platelet Vol. 9.4 fl (6.2-12.0); Platelet Count 292 K/mm3 (150-450); RBC Distribution Width CV 16.3 % (11.6-14.6); RBC Distribution Width SD 56.9 fl (35.1-43.9); Red Blood Count 2.48 M/mm3 (4.6-6.2); White Blood Count 7.9 K/mm3 (4.4-11.0)
[2018-10-17 08:12] LABS: Scan Indicated on CBC? Y/N NO
[2018-10-17] MEDS: dilTIAZem CD 120 MG Capsule PO (08:13)
[2018-10-17] MEDS: Finasteride 5 MG Tablet PO (08:17)
[2018-10-17] MEDS: Ferrous Sulfate 325 MG Tablet PO (08:21)
[2018-10-17] MEDS: Aspirin E.C. 81 MG Tablet PO (08:21)
[2018-10-17] MEDS: Tamsulosin HCl 0.4 MG Capsule PO (08:21)
[2018-10-17] MEDS: Rivaroxaban 15 MG Tablet PO (08:21)
[2018-10-17] MEDS: Metoprolol Tartrate 25 MG Tablet PO (08:23)
[2018-10-17 08:28] LABS: Phosphorus 4.6 mg/dL (2.5-4.9)
--- NOTE | 2018-10-17 10:25 | DCINST_ITS ---
- Discharge Diagnoses Current Active Problems: Current Active and Chronic Problems Gait instability (Acute) Orthostatic hypotension (Acute) Macrocytic anemia (Acute) Chronic anticoagulation (Chronic) Xarelto Depression (Chronic) You will use the following diet at home:: Other - resume previous diet Your food should be the consistency of: Regular Your liquids should be the consistency of: Regular/Thin Discharge Activity: Return to Normal Activity, - - When you go from lying to sitting and sitting to standing....allow a minute or so to pass before you take off. Call your doctor if your incision/area has: Continuous Slow Oozing, Sudden Increased Bleeding, Increased Pain/ Swelling, Increased Redness, Foul Smelling Discharge, Swelling at the incision site Call your doctor if you observe: Fever of 101 or Higher, Shortness of breath, Dizziness, Fainting spells, Swelling in the ankles, Chest pain, Uncontrolled pain Additional Instructions: 1. The dizziness and the trouble walking you had at admission were due to a combination of dehydration and anemia. When you are dehydrated and anemic when you stand the blood goes to your feet and not your head and you get lightheaded and can pass out. We gave you IV fluids and blood and the BP now no longer drops when you stand. You are still anemia so keep taking your iron supplement. Iron can cause constipation so if this is a problem start metamucil, citracil or miralax to keep the stool soft. Make sure you drink plenty of water to stay hydrated and to help with constipation. 2. You are going in and out of atrial fibrillation and on the day of discharge the heart rate was up so we gave you some extra amiodarone intravenously to better control the heart rate. You had a low potassium when you came into the hospital and this can put you into atrial fibrillation. 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 2. You did not have a stroke. 3. It was a pleasure to meet you Ardene and I hope everything is good for you when you go home. I will be working at the hospital until next Friday. If you have a problem or a question you can call the hospital at [phone] and ask for the felt cutting machine operator to page me......I am here from 7AM to usually 7 PM daily. Pending Tests on Discharge: none Allergies/Adverse Reactions: Allergies No Known Allergies Allergy (Verified 10/15/18 08:16) Medications to take at Discharge Amiodarone HCl [Cordarone] 100 mg PO DAILY 10/15/13 Aspirin E.C. [Ecotrin] 81 mg PO DAILY@0800 10/15/13 Diltiazem CD [Cardizem CD] 120 mg PO BID 10/15/13 Metoprolol Tartrate [Lopressor (beta lu)] 50 mg PO BID 10/15/13 Atorvastatin Calcium [Lipitor] 80 mg PO QHS 06/12/17 Ferrous Sulfate 325 mg PO BIDCM 06/12/17 Finasteride [Proscar] 5 mg PO DAILY 11/24/17 Rivaroxaban [Xarelto] 15 mg PO DAILY 11/24/17 Tamsulosin HCl [Flomax] 0.4 mg PO DAILY 11/24/17 Albuterol Aerosols [Ventolin Aerosols] 2.5 mg INHALATION Q2H PRN PRN vial.neb. 11/28/17 Albuterol Inhaler [Ventolin Hfa] 1 - 2 puff INHALATION Q4H PRN PRN 09/07/18 Hydrocodone/Acetaminophen [Hydrocodone-Acetamin 7.5-325] 1 ea PO Q4H PRN 10/15/18 Methadone HCl 5 mg PO BID 10/15/18 Mirtazapine [Remeron] 30 mg PO QHS 10/15/18 Multivit-Min/FA/Lycopen/Lutein [Centrum Silver Tablet] 1 ea PO DAILY 10/15/18 Potassium Gluconate 500 mg PO DAILY 10/15/18 Ranitidine [Zantac] 150 mg PO DAILY 10/15/18 Primary Care Physician: Sudhakar Crowell MD [Primary Care Provider] - Please follow up with your Primary Care Physician in: 5-7 days Test Results: Test results from this visit will be discussed in further detail at your follow- up appointment, if applicable. Proposed Discharge Date: 10/17/18
--- NOTE | 2018-10-17 10:44 | DS.PCM_ITS ---
Discharge Date and Diagnosis - Problem List Patient Problems: Active and Suspected Problems Atrial fibrillation with RVR (Acute) Gait instability (Acute) Orthostatic hypotension (Acute) Macrocytic anemia (Acute) Date of Admission: 10/15/18 Date of Discharge: 10/17/18 - Primary Discharge Diagnosis Active and Suspected Problems Atrial fibrillation with RVR (Acute) Gait instability (Acute) Orthostatic hypotension (Acute) Macrocytic anemia (Acute) - due to blood loss from recent surgery on the left elbow - Secondary Discharge Diagnosis Chronic Problems Paroxysmal A-fib (Chronic) Diastolic CHF (Chronic) Chronic anticoagulation (Chronic) - Xarelto Depression (Chronic) Amputation of left lower extremity (Chronic) due to PVD Chronic airway obstruction (Chronic) Coronary atherosclerosis of [place] coronary artery (Chronic) Esophageal reflux (Chronic) HLD (hyperlipidemia) (Chronic) HTN (hypertension) (Chronic) Percutaneous transluminal coronary angioplasty status (Chronic) PVD (peripheral vascular disease) (Chronic) Tobacco use disorder (Chronic) history of heavy alcohol use in the past Hospital Course and Treatment Imaging Results: Clinical Impression(s) from Imaging Studies Chest X-Ray 10/15/18 08:28 IMPRESSION: Minimal increased markings at the left lung base suggestive of left basilar scarring. This has improved as compared to prior study. Electronically Signed: Clay Bah, at 9:10 EDT , Service support , Brain CT 10/15/18 08:29 IMPRESSION: Chronic involutional changes of the brain. Sinusitis. Stable soft tissue mass in the anterior aspect of the left ethmoid sinus causing expansion and thinning of the medial wall of the left orbit. Electronically Signed: Clay Bah, at 9:05 EDT , Service support , Brain MRI 10/15/18 16:40 IMPRESSION: 1. Involutional changes of the brain, as described above. 2. No MR evidence for acute infarct. 3. Left-sided ethmoid mucocele. Electronically Signed: Mabel Ramirez MD at 11:14 EDT , Service support , Laboratory Results - last 24 hr 10/15/18 10/15/18 10/17/18 08:30 20:04 07:25 WBC 7.9 RBC 2.48 L Hgb 8.6 L Hct 25.7 L MCV 103.6 H MCH 34.7 H MCHC 33.5 RDW 16.3 H RDW Differential 56.9 H Plt Count 292 MPV 9.4 Phosphorus Vitamin B12 > 2000 H Blood Type O POSITIVE Antibody Screen NEGATIVE Crossmatch See Detail 10/17/18 07:25 WBC RBC Hgb Hct MCV MCH MCHC RDW RDW Differential Plt Count MPV Phosphorus 4.6 Vitamin B12 Blood Type Antibody Screen Crossmatch none Operations: None Procedures: None Summary of Care Provided: The patient is a 68 year old M with a past medical history of paroxysmal atrial fibrillation, chronic anticoagulation with Xarelto, COPD, tobacco dependence, hypertension, peripheral vascular disease, history of left lower extremity amputation secondary to peripheral vascular disease, BPH, GERD, hyperlipidemia, heavy alcohol consumption in the past and coronary artery disease with history of PTCA who presented to the ED at [facility] on 10/15/2018 complaining of lightheadedness which had been getting progressively worse over the past 2 to 3 weeks. It had progressed to the point where he was unable to ambulate. He denied vertigo and he had no nystagmus. He recently had surgery on the Left elbow at [place] for chronic infection and he was anemic. He has had a CVA in the past due to AF and was not on anticoagulation at that time for the surgical procedure. Vital signs at presentation to the emergency room are temperature 98.2, pulse rate 95, blood pressure 106/50, respiratory rate 18 and he was 98 to 99% saturated on room air. Blood cell count was elevated at 13 with a left shift. Hemoglobin was 9.9 with an MCV of 105.6 and a normal RDW. Platelets were within normal limits. BMP was remarkable for a potassium of 3.3 and a BUN of 13 with creatinine of 0.61 and a BUN/creatinine ratio of 21. Troponin was less than 0.015. Noncontrasted CT of the brain showed chronic involutional changes with sinusitis. There is a stable soft tissue mass in the anterior aspect of the left ethmoid sinus. Chest Xray showed no pleural effusions, pulmonary vascular congestion or infiltrates. He was admitted to a monitored bed on ICU on stroke protocol was initiated. He was hydrated and the potassium was supplemented. The following morning an MRI of the brain was obtained and was negative for acute CVA. Neurochecks were discontinued. He was seen by PT and was able to ambulate with a steady gait without loss of balance. He denied lightheadedness. Following hydration the hemoglobin dropped to 7.6 and he was transfused with 1 unit of packed red blood cells. Reticulocyte count was appropriate elevated at 5.82. Phosphorus was low at 1.8 and was supplemented. Potassium was 3.8 and with atrial fibrillation we elected to increase the potassium supplement to 500 mg p.o. twice daily. Telemetry showed intermittent AF. On 10/17/2018 the blood pressure did not significantly drop with orthostatic vital signs however the heart rate went from 89 lying down to 134 sitting up. Telemetry showed atrial fibrillation with rapid ventricular response. Cardizem and Metoprolol were given early and he was given a one time bolus of Amiodarone 150 mg. Repeat orthostatics 2 hours later were negative and the patient denied lightheadedness. HR was well controlled. He was discharged home and will follow up with Dr. Crowell in 1 week for recheck on the potassium and the HH. He will start Metamucil every day rather than PRN to treat the constipation associated with the iron supplement. Physical Exam General: Alert, Oriented x3, Cooperative, No apparent distress HEENT: Atraumatic, PERRLA, EOMI, Normocephalic, - - no nystagmus Oral: Moist mucosa Neck: Supple, No JVD, Carotid Bruits, Bilateral - L>R Lungs: Clear to auscultation, Diminished Cardiovascular: irregular, monitor shows AF with RVR , Normal S1, Normal S2, Murmur - at the apex and also with MM in the left axilla, No rub noted, No Gallop. Converted to NSR after amiodarone bolus Abdomen: Bowel Sounds Present, Soft, Non Tender, Non-Distended Extremities: No clubbing, No cyanosis, No edema Musculoskeletal: No Muscle Wasting Neurological: Cranial nerves II-XII grossly intact, Neuro grossly intact Psych/Mental Status: Appropriate, normal Affect This note was generated with Mavination software. It may contain incorrect words, spelling, and punctuation that were not noted in checking the note before signing. Patient Problems: Active and Suspected Problems Atrial fibrillation with RVR (Acute) Gait instability (Acute) Orthostatic hypotension (Acute) Macrocytic anemia (Acute) - Physical Exam Vital Signs Temp Pulse Resp BP Pulse Ox 98.6 F 71 20 H 110/39 L 94 10/17/18 09:49 10/17/18 09:49 10/17/18 09:49 10/17/18 09:49 10/17/18 09:49 Oxygen Delivery Method Room Air Weight: 132 lb 15.02 oz Body Mass Index (BMI) 20.8 Finger Stick Blood Glucose 89 Orthostatic Vital Signs Start: 10/15/18 16:48 Freq: q24h Status: Active Protocol: Activity Type Activity Date Activity User E-Sign Co-Sign Detail Recorded Client Recorded Date Recorded By Document 10/17/18 09:48 DW [id number] 10/17/18 09:49 DW 10/17/18 09:48 Orthostatic Vitals Standing -Blood Pressure (90/60-120/80 mm Hg) 104/41 L -Extremity Use Right Arm -Pulse Rate (60-100 beats/min) 73 Sitting -Blood Pressure (90/60-120/80 mm Hg) 110/39 L -Extremity Use Right Arm -Pulse Rate (60-100 beats/min) 71 Lying -Blood Pressure (90/60-120/80 mm Hg) 116/47 L -Extremity Use Right Arm -Pulse Rate (60-100 beats/min) 71 Intake and Output for Last 24 Hours 10/15/18 10/16/18 10/17/18 23:59 23:59 23:59 Intake Total 2015 3522 / 3522 1785 / 1785 Output Total 1934 / 1935 1475 / 1475 Balance 2015 1587 / 1587 310 / 310 Laboratory Tests Past 24 Hrs 10/15/18 10/15/18 10/17/18 08:30 20:04 07:25 WBC 7.9 RBC 2.48 L Hgb 8.6 L Hct 25.7 L MCV 103.6 H MCH 34.7 H MCHC 33.5 RDW 16.3 H RDW Differential 56.9 H Plt Count 292 MPV 9.4 Phosphorus Vitamin B12 > 2000 H Blood Type O POSITIVE Antibody Screen NEGATIVE Crossmatch See Detail 10/17/18 07:25 WBC RBC Hgb Hct MCV MCH MCHC RDW RDW Differential Plt Count MPV Phosphorus 4.6 Vitamin B12 Blood Type Antibody Screen Crossmatch Discharge Activity: Return to Normal Activity, - - When you go from lying to sitting and sitting to standing....allow a minute or so to pass before you take off. Call your doctor if your incision/area has: Continuous Slow Oozing, Sudden Increased Bleeding, Increased Pain/ Swelling, Increased Redness, Foul Smelling Discharge, Swelling at the incision site Call your doctor if you observe: Fever of 101 or Higher, Shortness of breath, Dizziness, Fainting spells, Swelling in the ankles, Chest pain, Uncontrolled pain Home Medications: Medications to take at Discharge Amiodarone HCl [Cordarone] 100 mg PO DAILY 10/15/13 Aspirin E.C. [Ecotrin] 81 mg PO DAILY@0800 10/15/13 Diltiazem CD [Cardizem CD] 120 mg PO BID 10/15/13 Metoprolol Tartrate [Lopressor (beta lu)] 50 mg PO BID 10/15/13 Atorvastatin Calcium [Lipitor] 80 mg PO QHS 06/12/17 Ferrous Sulfate 325 mg PO BIDCM 06/12/17 Finasteride [Proscar] 5 mg PO DAILY 11/24/17 Rivaroxaban [Xarelto] 15 mg PO DAILY 11/24/17 Tamsulosin HCl [Flomax] 0.4 mg PO DAILY 11/24/17 Albuterol Aerosols [Ventolin Aerosols] 2.5 mg INHALATION Q2H PRN PRN vial.neb. 11/28/17 Albuterol Inhaler [Ventolin Hfa] 1 - 2 puff INHALATION Q4H PRN PRN 09/07/18 Hydrocodone/Acetaminophen [Hydrocodone-Acetamin 7.5-325] 1 ea PO Q4H PRN 10/15/18 Methadone HCl 5 mg PO BID 10/15/18 Mirtazapine [Remeron] 30 mg PO QHS 10/15/18 Multivit-Min/FA/Lycopen/Lutein [Centrum Silver Tablet] 1 ea PO DAILY 10/15/18 Ranitidine [Zantac] 150 mg PO DAILY 10/15/18 Potassium Gluconate 500 mg PO BID #60 tab 10/17/18 Following Prescrptions Were Given to Patient: Potassium Gluconate 500 mg PO BID #60 tab Prescription Printed Primary Care Physician: Sudhakar Crowell MD [Primary Care Provider] - Please follow up with your Primary Care Physician in: 5-7 days Disposition: Home Minutes spent on discharge:: 35 Patient Condition:: Good Medical Necessity - Tobacco Use Smoking Status: Current every day smoker Tobacco Use: Cigarettes Meaningful Use Info Meaningful Use Diagnoses (Choose all that apply): None applicable Code Visit Inpatient E&M: 20259 Disch Hosp
[2018-10-18 22:08] LABS: Folate, Hemolysate Test 491.1 ng/mL (Not Estab.); Folate, RBC (Hct) Test 23.4 % (37.5-51.0)
[2018-10-19 11:13] LABS: Folates, RBC Test 2099 ng/mL (>498)
--- NOTE | 2018-10-19 13:41 | CASEMGMT ---
GENA SOLANO DC PHONE CALL DC DATE: 10/17/18 DC Disposition: Home LACE/STRATA: 01/28 Intro role of CM to patient. Pt states he is doing well, has good understanding re: instructions. States there was a medication that [facility] pharmacy could not fill, not sure which one. GENA SOLANO offered to call pharmacy. -Call to [facility] pharmacy. Potassium Gluconate was OTC and not available at [facility]. Dr. Reynoso notified and she will call in script for Potassium to pt's pharmacy. Pt called back and updated. -No further questions or concerns. No care improvement suggestions given. Alberto PEARSON RN ACM
== END 2018-10-17 11:26 | disposition home or self-care (01) | DRG 812 ==
LOC: ED 12:02 → PCU 12:44
PROVIDERS: Admitting Provider Internal Medicine; Emergency Provider Emergency Medicine; Family Provider Family Medicine; PCP Family Medicine; Referring Provider Internal Medicine; Visit Provider Internal Medicine
DX: D50.0 Iron deficiency anemia secondary to blood loss (chronic) (principal); I50.30 Unspecified diastolic (congestive) heart failure; E86.0 Dehydration; I48.0 Paroxysmal atrial fibrillation; I95.1 Orthostatic hypotension; E87.6 Hypokalemia; F17.210 Nicotine dependence, cigarettes, uncomplicated; J44.9 Chronic obstructive pulmonary disease, unspecified; I73.9 Peripheral vascular disease, unspecified; N40.0 Benign prostatic hyperplasia without lower urinary tract symptoms; E78.5 Hyperlipidemia, unspecified; K21.9 Gastro-esophageal reflux disease without esophagitis; I25.10 Atherosclerotic heart disease of native coronary artery without angina pectoris; F32.9 Major depressive disorder, single episode, unspecified; I11.0 Hypertensive heart disease with heart failure; Z86.73 Personal history of transient ischemic attack (TIA), and cerebral infarction without residual deficits; Z79.01 Long term (current) use of anticoagulants; Z89.512 Acquired absence of left leg below knee; R26.89 Other abnormalities of gait and mobility
CPT/HCPCS: 36415; 70450; 70551; 71045; 80048; 80053; 80061; 80320; 82607; 82747; 83735; 83880; 84100; 84443; 84484; 85014; 85025; 85027; 85045; 85652; 86140; 86850; 86900; 86920; 86922; 93005; 97162; 97166; 97802; 99285; 99406; J7030; J7040; P9016; A4216; G0480; J2405

== ENCOUNTER → 2019-05-04 12:50 | Outpatient (CLI) | payer MEDICARE, SELFPAY ==
[2019-04-22 10:02] VITALS: BMI 20.8
--- NOTE | 2019-05-04 12:52 | ART_ITS ---
Reason For Study: Claudication Procedure A bilateral lower extremity continuous wave Doppler with analog waveform analysis,segmental pressures,and ankle brachial indexes without exercise. Left Segmental Pressures Left brachial= 132mmHg. Left thigh = 79mmHg. The left thigh waveforms are biphasic. Right Segmental Pressures Right brachial= 131mmHg. Right thigh = 115mmHg. Right calf = 73mmHg. Right posterior tibial artery = 74mmHg. Right dorsalis pedis artery = 88mmHg. Right digit = 52 mmHg. The right dorsalis pedis waveforms are monophasic. The right posterior tibial artery waveforms are monophasic. Indices The right ankle brachial index by the dorsalis pedis is 0.67. The right ankle brachial index by the posterior tibial artery is 0.56. The right digital-brachial index is 0.39. The left thigh brachial index by the popliteal artery is 0.60. Interpretation Summary Moderately severe right lower extremity arterial occlusive disease The monophasic right posterior tibial and dorsalis pedis Doppler waveforms might suggest a more severe level of disease Moderately severe left low thigh index with history of left below-knee amputation Cardiac arrhythmia Ordering Physician: Adi Nassra Referring Physician: Himanshu Crowell Performed By: Katie Holt RVT
== END ==
PROVIDERS: Family Provider Family Medicine; PCP Family Medicine; Referring Provider Surgery; Visit Provider Surgery
DX: I73.9 Peripheral vascular disease, unspecified (principal)
CPT/HCPCS: 93923

== ENCOUNTER 2019-09-17 22:04 | Inpatient (IN) | payer MEDICARE, MEDICAID, SELFPAY ==
[2019-05-05 14:52] VITALS: BMI 20.8
[2019-09-17 22:05] VITALS: BP 105/54; PULSE 58; RESP 16; TEMP 36.5; O2SAT 92; BMI 22.0
--- NOTE | 2019-09-17 22:22 | ED.DCSUM_ITS ---
History of Present Illness Chief Complaint: Fall Informant: Patient Narrative: Patient stated he injured his right hip. He stated he was watching TV in his living room. He got up to use the bathroom and lost his balance and fell onto his right hip. He did not hit his head or injure anything else. He cannot stand secondary to pain in the hip. No home treatment. EMS brought him in for further evaluation. He is on Xarelto and baby aspirin. He has a history of atrial fibrillation. Denies any other injuries. Current severity is moderate with movement. No pain at rest. Only pain with movement in his right hip. 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 (7) Chronic airway obstruction Status: Chronic (8) Chronic anticoagulation Status: Chronic Comment: Xarelto (9) Coronary atherosclerosis of [place] coronary artery Status: Chronic (10) Depression Status: Chronic (11) Diastolic CHF Status: Chronic (12) Esophageal reflux Status: Chronic (13) HLD (hyperlipidemia) Status: Chronic (14) HTN (hypertension) Status: Chronic (15) PVD (peripheral vascular disease) Status: Chronic (16) Paroxysmal A-fib Status: Chronic Comment: currently in sinus rhythm (17) Percutaneous transluminal coronary angioplasty status Status: Chronic (18) Tobacco use disorder Status: Chronic (19) Acute blood loss anemia Status: Resolved (20) TIA (transient ischemic attack) Status: Resolved Past Medical History - Allergies and Home Meds Allergies/Adverse Reactions: Allergies No Known Allergies Allergy (Verified 05/05/19 14:32) Primary Care Physician: Sudhakar Crowell MD [Primary Care Provider] - Prior records reviewed: Yes Past Medical History: - - See problem list Surgical History: - - Multiple vascular stents, revasculation of left leg, left BKA, left elbow debridement for chronic infection Smoking Status: Current every day smoker Alcohol: None Drugs: None - Family History Sibling Family History: Family History (Last Updated 05/05/19 @ 14:31 by Rose Valdez) Father Asthma Family History: Reports: COPD - 4 of his sisters has COPD. Paternal Family History: Family History (Last Updated 05/05/19 @ 14:31 by Rose Valdez) Father Asthma Family History: Reports: COPD, Heart Disease, No pertinent history Review of Systems General: Denies: Chills, Fever, Sweats Eyes: Denies: Visual changes - bilaterally, Diplopia ENT: Denies: Rhinorrhea, Sore throat Cardiovascular: Denies: Chest pain, Palpitations Respiratory: Denies: Dyspnea, Cough, Dyspnea on exertion Gastrointestinal: Denies: Abdominal pain, Nausea, Vomiting, Diarrhea, Melena, Hematochezia Genitourinary: Denies: Dysuria, Hematuria, Frequency Musculoskeletal: Reports: Extremity Pain - Right hip injury. Denies: Back pain Skin: Denies: Rash, Wounds Neurological: Denies: Headache, Weakness, Numbness Physical Exam Vital Signs/Narrative: Vital Signs Temp Pulse Resp BP Pulse Ox 09/17/19 22:05 97.7 F L 92 16 105/54 L 58 General: Well nourished, Well developed, No Acute Distress Head: Normocephalic, Atraumatic Eyes: Perrl, EOMI ENT: Moist mucous membranes, No rhinorrhea Neck: Supple, Nontender Cardiovascular: Regular rate, Regular rhythm, No murmurs Respiratory: No distress, CTA bilaterally, Chest nontender Abdomen: Soft, Nontender, Nondistended, Normal bowel sounds Back: Nontender, Normal Inspection Extremities: No edema, Tenderness - Tenderness in the right hip with decreased range of motion in all mcdonald secondary to pain. Unable to move it off the bed., - - Left the knee amputation. Negative for: Nontender Skin: Normal color, No rash Neurological: Alert, Oriented x3, Cranial nerves II-XII grossly intact, Normal Strength, Normal Sensation Psychological: Normal affect, Normal Mood Diagnostic/Tx/Re-eval - Medical Decision Making Patient does not want any pain medicine at rest as he has no pain. X-ray of the right hip obtained. X-ray shows a subtrochanteric hip fracture with displacement. Patient was given a dose of morphine for pain later in his stay. Preoperative chest x-ray obtained. EKG shows sinus bradycardia at a rate of 53. No acute ischemic findings. Preop labs obtained. Patient has very mild anemia. He has hyponatremia at 125. He was given IV normal saline to bring this number up. Chloride was mildly low as well. Calcium is chronically mildly low as well. Blood sugar was mildly low. He was given something to drink to bring this up. I spoke to orthopedics. They stated he will have to wait to have his body metabolize Xarelto. He will have surgery in a couple days. Discussed with the hospitalist who will admit the patient for further evaluation and treatment of the above ED Disposition - Plan for ED Patient: Disposition: Acute Care Hospital [facility] Diagnosis: Closed right hip fracture, Hyponatremia, Hypoglycemia
--- NOTE | 2019-09-17 22:40 | RAD_ITS ---
STUDY: X-RAY - PELVIS AND RIGHT HIP REASON FOR EXAM: Male, 69 years old. Pain after falling. TECHNIQUE: 3 views of the pelvis and hip. COMPARISON: None. FINDINGS: Acute fracture extending from the cephalad aspect of the right femur lesser trochanter, obliquely inferiorly through the proximal shaft. The shaft is displaced medially one shaft width and approximately approximately 2 cm. The femoral head maintains articulation with the acetabulum. No other fracture is evident. Atherosclerosis, stent in the region of the right external iliac artery. RAD/HIP, UNI W/ Pelvis 2-3 Views IMPRESSION: Acute displaced fracture of the proximal right femur. Electronically Signed: Heron Love, at 23:19 EDT Tel , Service support ,
--- NOTE | 2019-09-17 22:42 | EKG12_ITS ---
Test Reason : DYSRHYTMIA Blood Pressure : / mmHG Vent. Rate : 053 BPM Atrial Rate : 053 BPM P-R Int : 206 ms QRS Dur : 092 ms QT Int : 478 ms P-R-T Axes : 059 054 066 degrees QTc Int : 448 ms Sinus bradycardia Otherwise normal ECG Confirmed by AYE VALDOVINOS, LEIGH ([id number]), newspaper photo editor KAZ FRANCO ([id number]) on 09/21/2019 2:37:03 PM Referred By: Danny Stone Confirmed By:LEIGH GRIFFITHS MD
--- NOTE | 2019-09-17 23:13 | RAD_ITS ---
STUDY: X-RAY CHEST REASON FOR EXAM: Male, 69 years old. Pain after falling. TECHNIQUE: Portable AP COMPARISON: 10/15/2018 CXR FINDINGS: No evidence of pneumonia, pulmonary edema, pneumothorax or pleural effusion. Left basilar scarring unchanged. Mildly lucent and hyperinflated lungs. Cardiac silhouette, hilar and mediastinal contours with no acute findings. Atherosclerosis of the thoracic aorta. Degenerative osseous changes with no acute osseous abnormality. RAD/Chest 1 View (Portable) IMPRESSION: No acute findings. Suspect mild COPD/emphysema. Electronically Signed: Heron Love, at 23:41 EDT Tel , Service support ,
[2019-09-17 23:14] LABS: Absolute Lymphocyte Count 1.26 X10^3/uL (0.83-4.51); Absolute Neutrophil Count 3.8 X10^3/uL (2.0-7.7); Basophil# 0.04 X10^3/uL; Basophil% 0.7 % (0-1); Eosinophil# 0.27 X10^3/uL; Eosinophils% 4.5 % (0-5); Hemoglobin 11.2 g/dL (13.0-16.5); Lymphocyte # 1.26 X10^3/ul (4.0); Lymphocyte % 21.2 % (19-41); Mean Corp Hgb Conc 33.9 g/dL (32-36); Mean Corpuscular Hgb 36.5 pg (27.0-32.0); Mean Corpuscular Volume 107.5 fL (80-94); Mean Platelet Vol. 8.9 fl (6.2-12.0); Monocyte# 0.51 X10^3/uL; Monocyte% 8.6 % (0-10); NRBC Flagged by Analyzer 0 % (0-5); Neutrophil # 3.75 X10^3/uL (2.7-7.7); Platelet Count 209 K/mm3 (150-450); RBC Distribution Width CV 15.7 % (11.6-14.6); RBC Distribution Width SD 62.2 fl (35.1-43.9); Red Blood Count 3.07 M/mm3 (4.6-6.2)
[2019-09-17 23:20] LABS: International Normalized Ratio 1.6; Prothrombin Time (Protime)PT. 18.2 SECONDS (11.7-14.9)
[2019-09-17 23:21] LABS: Partial Thromboplast Time 41.4 Seconds (24.1-36.2)
[2019-09-17] MEDS: 0.9% Normal Saline 1,000 ML 100 ML IV (23:26)
[2019-09-17] MEDS: Morphine 2 MG/ML Syringe IV (23:26)
[2019-09-17 23:28] LABS: Anion Gap 5 (5-15); BUN 4 mg/dL (7-18); BUN/Creat Ratio 9.6 RATIO (10-20); Calcium,Total 7.7 mg/dL (8.5-10.1); Chloride 95 mmol/L (98-107); Creatinine, Serum 0.42 mg/dL (0.70-1.30); EST Glomerular Filtration Rate 216 mL/min (>60); Est Glom Filt Rate - Afr Amer 261 mL/min (>60); Estimated Creatinine Clearance 63.06 ml/min; Glucose 69 mg/dL (74-106); Potassium 4.1 mmol/L (3.5-5.1); Sodium Level 125 mmol/L (136-145)
--- NOTE | 2019-09-17 23:52 | HP.PCM_ITS ---
Problem List (1) Closed right hip fracture Status: Acute (2) Hyponatremia Status: Acute (3) Hypoglycemia Status: Acute (4) Paroxysmal A-fib Status: Chronic Comment: currently in sinus rhythm (5) Diastolic CHF Status: Chronic (6) Gait instability Status: Chronic (7) Macrocytic anemia Status: Chronic (8) Chronic anticoagulation Status: Chronic Comment: Xarelto (9) Depression Status: Chronic (10) Amputation of left lower extremity Status: Chronic (11) Chronic airway obstruction Status: Chronic Qualifiers: (12) Coronary atherosclerosis of [place] coronary artery Status: Chronic Qualifiers: (13) Esophageal reflux Status: Chronic Qualifiers: (14) HLD (hyperlipidemia) Status: Chronic Qualifiers: (15) HTN (hypertension) Status: Chronic Qualifiers: (16) Percutaneous transluminal coronary angioplasty status Status: Chronic (17) PVD (peripheral vascular disease) Status: Chronic (18) Tobacco use disorder Status: Chronic History of Present Illness Date of Admission: 09/17/19 Chief Complaint: Right hip pain The patient is a 69 year old M with a significant history of hypertension; atrial fibrillation; left below 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 fib; and alcoholism who presents emergency department with right hip pain after a fall. Reportedly he lost balance and he fell. He reports excruciating pain at his right hip. He rated his pain as a 9-1/2 out of 10. He describes his pain as it hurts. Hip and pelvis x-ray showed acute displaced fracture of the proximal right femur. Emergent department doctor discussed the case with Dr. Boyle orthopedic surgeon who may do surgery it on 09/19/2019 on 09/20/2019. Per emergent department doctor orthopedic surgeon want to wait for patient's Eliquis to metabolized. Of note patient is on Eliquis. At emergent department patient was found to have hyponatremia with sodium of 125. Patient reports drinking about 5-8 beers daily. Last time he drank was just before he came to the emergency department. Also his blood glucose at emergency department was 69 and he was food and drink. Past Medical History Past Medical History (Chronic Problems): Chronic Problems (Last Reviewed 09/18/19 @ 02:[address] Danny Stone MD) Paroxysmal A-fib (Chronic) currently in sinus rhythm Diastolic CHF (Chronic) Gait instability (Chronic) Macrocytic anemia (Chronic) Chronic anticoagulation (Chronic) Xarelto Depression (Chronic) Amputation of left lower extremity (Chronic) Chronic airway obstruction (Chronic) Coronary atherosclerosis of [place] coronary artery (Chronic) Esophageal reflux (Chronic) HLD (hyperlipidemia) (Chronic) HTN (hypertension) (Chronic) Percutaneous transluminal coronary angioplasty status (Chronic) PVD (peripheral vascular disease) (Chronic) Tobacco use disorder (Chronic) Medical History: Medical History (Last Reviewed 09/18/19 @ 07:[address] Danny Stone MD) Arthritis M19.90 Back problem M53.9 H/O TIA (transient ischemic attack) and stroke Z86.73 HTN (hypertension) I10 Allergies No Known Allergies Allergy (Verified 05/05/19 14:32) Home Medications: Ambulatory Orders Medication Instructions Recorded Amiodarone HCl [Cordarone] 100 mg PO DAILY 10/15/13 Aspirin E.C. [Ecotrin] 81 mg PO DAILY@0800 10/15/13 Diltiazem CD [Cardizem CD] 120 mg PO BID 10/15/13 Metoprolol Tartrate [Lopressor 50 mg PO BID 10/15/13 (beta lu)] Atorvastatin Calcium [Lipitor] 80 mg PO QHS 06/12/17 Ferrous Sulfate 325 mg PO BIDCM 06/12/17 Finasteride [Proscar] 5 mg PO DAILY 11/24/17 Rivaroxaban [Xarelto] 15 mg PO DAILY 11/24/17 Tamsulosin HCl [Flomax] 0.4 mg PO DAILY 11/24/17 Albuterol Aerosols [Ventolin 2.5 mg INHALATION Q2H PRN PRN 11/28/17 Aerosols] vial.neb. Albuterol Inhaler [Ventolin Hfa] 1 - 2 puff INHALATION Q4H PRN PRN 09/07/18 Mirtazapine [Remeron] 30 mg PO QHS 10/15/18 Multivit-Min/FA/Lycopen/Lutein 1 ea PO DAILY 10/15/18 [Centrum Silver Tablet] Potassium Chloride [K-Dur] 20 meq PO DAILY #30 tab 10/19/18 hydrocodone 7.5 mg-acetaminophen 1 tab PO Q4H PRN 05/05/19 325 mg tablet methadone 5 mg tablet 10 mg PO BID tab 05/05/19 omeprazole 40 mg capsule,delayed 40 mg PO DAILY 05/05/19 release Surgical History: Surgical History (Last Reviewed 09/18/19 @ 07:[address] Danny Stone MD) Amputated left leg S88.912A History of surgery on upper extremity Z98.890 Surgical History: - - Multiple vascular stents, revasculation of left leg, left BKA, left elbow debridement for chronic infection Psychiatric History: No pertinent psych hx Smoking Status: Current every day smoker Tobacco Use: Cigarettes Alcohol: Heavy Drugs: None - *Family History Sibling Family History: Family History (Last Reviewed 09/18/19 @ 07:[address] Danny Stone MD) Father Asthma History Items: COPD - 4 of his sisters has COPD. Paternal Family History: Family History (Last Reviewed 09/18/19 @ 07:[address] Danny Stone MD) Father Asthma History Items: COPD, Heart Disease, No pertinent history Review of Systems Constitutional: Denies: Chills, Fever, Weight Change HEENT: Denies: Head Aches, Sinus Congestion, Sinus Drainage Cardiovascular: Denies: Chest Pain, Palpitations Respiratory: Denies: Cough, Shortness of breath at rest, Sputum production Gastrointestinal: Denies: Abdominal Pain, Nausea, Vomiting Genitourinary: Denies: Dysuria Musculoskeletal: Reports: Joint Tenderness - Right hip. Denies: Joint Pain Skin: Denies: Rash, Wounds Neurological: Denies: Numbness, Tingling, Focal weakness Psychiatric: Denies: Anxiety, Depression, Homicidal Ideations, Suicidal Ideations Hematologic/ Lymphatic: Denies: Easy Bruising, Easy Bleeding VTE Information - Inpt Only VTE Present on Admission: No VTE Mechan Device Prophylaxis: None VTE Pharm Prophylaxis ordered?: Yes Patient Problems: Active and Suspected Problems (Last Reviewed 09/18/19 @ 02:[address] Danny ross MD) Closed right hip fracture (Acute) Hyponatremia (Acute) Hypoglycemia (Acute) - Physical Exam Vitals/I&O's: Vital Signs Temp Pulse Resp BP Pulse Ox 97.7 F L 92 16 105/54 L 58 09/17/19 22:05 09/17/19 22:05 09/17/19 22:05 09/17/19 22:05 09/17/19 22:05 Oxygen Delivery Method Room Air Weight: 65.8 kg Body Mass Index (BMI) 22.0 Finger Stick Blood Glucose 89 General: Alert, Oriented x3, Cooperative HEENT: Atraumatic, PERRLA, EOMI, Normocephalic Neck: Supple, No JVD, Negative Carotid Bruits Lungs: No rhonchi, No rales, Wheezes Cardiovascular: Normal S1, No murmurs, Bradycardic Abdomen: Bowel Sounds Present, Soft, Non Tender Extremities: Tenderness - Right hip; right hip swelling, - - Left below the knee amputation. Skin: No rashes, No breakdown Musculoskeletal: No Tenderness to Palpation of Joints or Extremities Neurological: Cranial nerves II-XII grossly intact Psych/Mental Status: Normal Affect, Appropriate Laboratory Results 09/17/19 22:55: WBC 6.0, RBC 3.07 L, Hgb 11.2 L, Hct 33.0 L, MCV 107.5 H, MCH 36.5 H, MCHC 33.9, RDW Std Deviation 62.2 H, RDW Coeff of [place] 15.7 H, Plt Count 209, MPV 8.9, Immature Gran % (Auto) 2.000 H, Neut % (Auto) 63.0, Lymph % (Auto) 21.2, [place] % (Auto) 8.6, Eos % (Auto) 4.5, Baso % (Auto) 0.7, Absolute Neuts (auto) 3.8, Absolute Lymphs (auto) 1.26, Nucleated RBC % 0 09/17/19 22:55: PT 18.2 H, INR 1.6, APTT 41.4 H 09/17/19 22:55: Sodium 125 L, Potassium 4.1, Chloride 95 L, Carbon Dioxide 25.0, Anion Gap 5, BUN 4 L, Creatinine 0.42 L, Estim Creat Clear Calc 63.06, Est GFR (MDRD) Af Amer 261, Est GFR (MDRD) Non-Af 216, BUN/Creatinine Ratio 9.6 L, Glucose 69 L, Calcium 7.7 L 09/17/19 22:55: Blood Type Pending, Antibody Screen Pending 09/17/19 23:05: COVID-19 (LILIAM) Cancelled Current Medications Sodium Chloride () 1,000 mls @ 100 mls/hr IV .Q10H PATRICIA Last Admin: 09/17/19 23:26 Dose: 100 mls/hr Documented by: Assessment/Plan All Active Problems (Last Reviewed 09/18/19 @ 02:[address] 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 fib; and alcoholism who presents emergency department with right hip pain after a fall and found to have acute displaced fracture of the proximal right femur. Acute displaced fracture of the proximal right femur Could be due to imbalance from left BKA; cannot rule out contribution from alcohol intoxication. Pain control with oxycodone. Zofran PRN for nausea. Bowel protocol. Hold home aspirin and Xarelto. Alcohol abuse Place on multivitamin; thiamine and folic acid. CIWA protocol with as needed A tivan ordered. Counseled. Hyponatremia Presentation sodium was 125. Likely secondary to be able to beer potomania. Asymptomatic with it. Gentle IV hydration. Trend BMP. Hypoglycemia Blood glucose at emergency department was 69 and patient was given food. Repeat Accu-Chek. Paroxysmal A. fib. Sinus bradycardia dictation. Xarelto held secondary to planned surgery. COPD Stable. Albuterol as needed. DVT prophylaxis Heparin subcutaneous; hold midnight of day of surgery. Inpatient E&M: [id number] Init Hosp L3
[2019-09-18] VITALS (9 sets, daily range): BP systolic 105–163; BP diastolic 46–96; PULSE 58–98; RESP 17–18; TEMP 36.3–36.8; O2SAT 92–100; BMI 19.5
--- NOTE | 2019-09-18 01:29 | NURSING ---
pt denies having allergies. pt has never received a flu shot.
--- NOTE | 2019-09-18 01:31 | NURSING ---
pt unsure of the names and dosages of the medications that he takes.
[2019-09-18] MEDS: 0.9% Normal Saline 1,000 ML 50 ML IV ×2 (01:39→22:05)
[2019-09-18 02:06] LABS: Bedside Glucose 95 mg/dL (70-110)
--- NOTE | 2019-09-18 03:58 | NURSING ---
pt didn't want anyone notified/updated about his admission.
[2019-09-18] MEDS: oxyCODONE 5 MG Tablet 10 MG PO ×3 (06:44→22:05)
[2019-09-18 07:03] LABS: Absolute Lymphocyte Count 0.71 X10^3/uL (0.83-4.51); Absolute Neutrophil Count 8.7 X10^3/uL (2.0-7.7); Basophil# 0.02 X10^3/uL; Basophil% 0.2 % (0-1); Eosinophil# 0.05 X10^3/uL; Eosinophils% 0.5 % (0-5); Hematocrit 30.8 % (40-54); Hemoglobin 10.7 g/dL (13.0-16.5); Lymphocyte # 0.71 X10^3/ul (4.0); Lymphocyte % 6.9 % (19-41); Mean Corp Hgb Conc 34.7 g/dL (32-36); Mean Corpuscular Hgb 36.5 pg (27.0-32.0); Mean Corpuscular Volume 105.1 fL (80-94); Mean Platelet Vol. 8.8 fl (6.2-12.0); Monocyte# 0.63 X10^3/uL; Monocyte% 6.2 % (0-10); NRBC Flagged by Analyzer 0 % (0-5); Neutrophil # 8.74 X10^3/uL (2.7-7.7); Neutrophil % 85.5 % (47-70); Platelet Count 192 K/mm3 (150-450); RBC Distribution Width CV 15.6 % (11.6-14.6); RBC Distribution Width SD 59.4 fl (35.1-43.9); Red Blood Count 2.93 M/mm3 (4.6-6.2); White Blood Count 10.2 K/mm3 (4.4-11.0)
[2019-09-18 07:24] LABS: Anion Gap 8 (5-15); BUN 5 mg/dL (7-18); BUN/Creat Ratio 12.4 RATIO (10-20); Calcium,Total 7.6 mg/dL (8.5-10.1); Chloride 97 mmol/L (98-107); EST Glomerular Filtration Rate 223 mL/min (>60); Est Glom Filt Rate - Afr Amer 270 mL/min (>60); Estimated Creatinine Clearance 55.87 ml/min; Glucose 81 mg/dL (74-106); Potassium 3.8 mmol/L (3.5-5.1); Sodium Level 129 mmol/L (136-145)
--- NOTE | 2019-09-18 07:36 | RAD_ITS ---
STUDY: X-RAY - RIGHT FEMUR REASON FOR STUDY: Male, 69 years old. KNOWN HIP FRACTURE TECHNIQUE: 4 view(s) of the femur. COMPARISON: None. FINDINGS: Proximal shaft fracture of the femur. Normal visualized soft tissue structure. Vascular stent is noted over the pelvis. Vascular calcifications. RAD/Femur Min 2 Views IMPRESSION: Proximal shaft fracture of the femur. Electronically Signed: Valeriy Layne DO at 11:01 EDT Tel [phone], Service support ,
--- NOTE | 2019-09-18 07:48 | PCM.PN.HOSP ---
Patient Problems: Active and Suspected Problems (Last Reviewed 09/18/19 @ 07:[address] Danny Stone MD) Closed right hip fracture (Acute) Hyponatremia (Acute) Hypoglycemia (Acute) Vitals/I&O's: Vital Signs Temp Pulse Resp BP Pulse Ox 98 F 70 18 123/46 H 92 09/18/19 06:42 09/18/19 06:42 09/18/19 06:42 09/18/19 06:42 09/18/19 06:42 Oxygen Flow Rate (L/min) 1.5 Oxygen Delivery Method Nasal Cannula Weight: 128 lb 8.472 oz Body Mass Index (BMI) 19.5 Finger Stick Blood Glucose 89 Intake and Output for Last 24 Hours 09/16/19 09/17/19 09/18/19 23:59 23:59 23:59 Intake Total 323.33 / 323.33 Output Total 1550 / 1550 Balance -1226.67 / -1226.67 Microbiology Past 72 Hours 09/17/19 23:05 Mucosa - Nasopharyngeal Coronavirus COVID-19 PCR - Preliminary Laboratory Results 09/17/19 22:55: WBC 6.0, RBC 3.07 L, Hgb 11.2 L, Hct 33.0 L, MCV 107.5 H, MCH 36.5 H, MCHC 33.9, RDW Std Deviation 62.2 H, RDW Coeff of [place] 15.7 H, Plt Count 209, MPV 8.9, Immature Gran % (Auto) 2.000 H, Neut % (Auto) 63.0, Lymph % (Auto) 21.2, White % (Auto) 8.6, Eos % (Auto) 4.5, Baso % (Auto) 0.7, Absolute Neuts (auto) 3.8, Absolute Lymphs (auto) 1.26, Nucleated RBC % 0 09/17/19 22:55: PT 18.2 H, INR 1.6, APTT 41.4 H 09/17/19 22:55: Sodium 125 L, Potassium 4.1, Chloride 95 L, Carbon Dioxide 25.0, Anion Gap 5, BUN 4 L, Creatinine 0.42 L, Estim Creat Clear Calc 63.06, Est GFR (MDRD) Af Amer 261, Est GFR (MDRD) Non-Af 216, BUN/Creatinine Ratio 9.6 L, Glucose 69 L, Calcium 7.7 L 09/17/19 22:55: Blood Type O POSITIVE, Antibody Screen NEGATIVE 09/17/19 23:05: COVID-19 (LILIAM) Cancelled 09/18/19 00:24: Ethyl Alcohol 146.0 09/18/19 01:42: POC Glucose 95 09/18/19 06:44: Sodium 129 L, Potassium 3.8, Chloride 97 L, Carbon Dioxide 24.0, Anion Gap 8, BUN 5 L, Creatinine 0.40 L, Estim Creat Clear Calc 55.87, Est GFR (MDRD) Af Amer 270, Est GFR (MDRD) Non-Af 223, BUN/Creatinine Ratio 12.4, Glucose 81, Calcium 7.6 L 09/18/19 06:44: WBC 10.2, RBC 2.93 L, Hgb 10.7 L, Hct 30.8 L, MCV 105.1 H, MCH 36.5 H, MCHC 34.7, RDW Std Deviation 59.4 H, RDW Coeff of [place] 15.6 H, Plt Count 192, MPV 8.8, Immature Gran % (Auto) 0.700, Neut % (Auto) 85.5 H, Lymph % (Auto) 6.9 L, [place] % (Auto) 6.2, Eos % (Auto) 0.5, Baso % (Auto) 0.2, Absolute Neuts (auto) 8.7 H, Absolute Lymphs (auto) 0.71 L, Nucleated RBC % 0 Current Medications Acetaminophen (Tylenol) 650 mg PO Q6H PRN PRN PRN Reason: Pain Score 1-10/Temp > 100.7 F Albuterol Sulfate (Ventolin Aerosols) 2.5 mg INHALATION Q2H PRN PRN PRN Reason: Shortness of Breath/Wheezing Calamine/Phenol (Calmoseptine Ointment) 1 applic TOPICAL BID PATRICIA; Protocol Dextrose (D50w Syringe) 0 gm IV X1 PRN; Protocol PRN Reason: Hypoglycemia Folic Acid (Folic Acid) 1 mg PO DAILY@0800 [facility] Stop: 09/20/19 08:01 Glucagon () 1 mg IM .X1 PRN PRN Reason: Hypoglycemia Heparin Sodium (Porcine) (Heparin Na) 5,000 unit SC Q12 [facility] Last Admin: 09/18/19 07:42 Dose: Not Given Documented by: Sodium Chloride () 1,000 mls @ 50 mls/hr IV .Q20H [facility] Last Admin: 09/18/19 01:39 Dose: 50 mls/hr Documented by: Sodium Chloride () 250 mls @ 15 mls/hr IV .[id number] PRN PRN Reason: Saline Flush Sodium Chloride () 250 mls @ 15 mls/hr IV .[id number] PRN PRN Reason: Additional IVPB Infusion Cefazolin Sodium 2 gm/ Sodium (Chloride) 110 mls @ 150 mls/hr IV X1 ONE Stop: 09/18/19 08:26 Lorazepam (Ativan) 2 mg IV Q2H PRN PRN; Protocol PRN Reason: CIWA score > 8 but <15 Lorazepam (Ativan) 2 mg IV UD PRN; Protocol PRN Reason: CIWA score >/=15. Multivitamins/Minerals (Multivitamin With Minerals (Bkc)) [facility] Nutritional Formula (Lactose Free) (Ensure Enlive) 120 ml PO TID [facility] Last Admin: 09/18/19 06:43 Dose: 120 ml Documented by: Ondansetron HCl (Zofran) 4 mg IV Q8H PRN PRN PRN Reason: NAUSEA/VOMITING Oxycodone HCl (Oxyir) 10 mg PO Q4H PRN PRN PRN Reason: Pain Score 6-10/10 Last Admin: 09/18/19 06:44 Dose: 10 mg Documented by: Sodium Chloride () 10 - 40 ml IV UD PRN PRN Reason: SALINE FLUSH Thiamine HCl (Vitamin B1) 100 mg PO BIDCM [facility] Stop: 09/20/19 17:01 STROKE Vital Signs/Narrative: Vital Signs Temp Pulse Resp BP Pulse Ox 09/18/19 06:42 98 F 70 18 123/46 H 92 Medical Necessity - Tobacco Use Smoking Status: Current every day smoker Tobacco Use: Cigarettes Assessment/Plan All Active Problems (Last Reviewed 09/18/19 @ 07:[address] 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 fib; and alcoholism who presents emergency department with right hip pain after a fall and found to have acute displaced fracture of the proximal right femur. 1. Acute displaced fracture of the proximal right femur with left BKA: NSQIP perioperative surgical risk evaluation done. Risk of serious complication 12.8% with average risk 10.4% and risk of cardiac complication 1.4%, pneumonia 3.2%. Discussed with hide house supervisor Dr. espinal. Patient had 2D echo is reported as EF 60%, left atrium mildly enlarged mild to moderate MR, mild diffuse mitral valve thickening, mild TR, aortic sclerosis but no stenosis, mild AR, RVSP 39 mmHg history of mild chronic diastolic heart failure. Patient also has history of smoking 2 packs/day, drinks alcohol 6-8 beers every day, COPD and limited physical capacity on wheeled walker or wheelchair. 2. Large right thigh anterolateral swelling most probably hematoma from fracture femur, complicated with Eliquis: Hold Xarelto and aspirin. Patient right TELECOMMUNICATIONS ADMINISTRATOR was less palpable therefore bedside Doppler was done and shows good audible pulse on right popliteal, right TELECOMMUNICATIONS ADMINISTRATOR and dorsalis pedis. 3. COPD, paroxysmal A. fib on Xarelto, chronic cigarette smoker, chronic alcohol use: This increases the patient risk. Continue multivitamin, thiamine and folic acid. CIWA protocol with as needed Ativan. Patient was counseled to quit smoking and drinking alcohol. 4. Hyponatremia, chronic in nature: Patient had history of hyponatremia intermittently ranging from 1 24-132 since December 2015 most probably beer portal [place] suggestive of hypotonic, isovolumic hyponatremia. Continue IV fluid mostly at 50 mils per hour. 6. Hypoglycemia most probably secondary to chronic alcohol use: We will repeat liver chemistry test. Repeat glucose 81. Blood glucose at emergency department was 69 and patient was given food. Paroxysmal A. fib. EKG shows sinus bradycardia 53 beats per 1. 7. COPD Stable. Albuterol as needed. Will need outpatient PFT. DVT prophylaxis: Pharmacological prophylaxis contraindicated in view of right femur fracture and hematoma. Xarelto is held prior to surgery. SCD. CODE STATUS: DNR CC arrest with no intubation Total time of the visit including total time spent in counseling or coordination of care, (more than 50% of the total time, spent in obtaining medical information from nurses and other ancillary care providers), discussion with hide house supervisor, Dr. espinal, review of labs and imaging is 30 minutes Inpatient E&M: [id number] [facility] Hosp L3
[2019-09-18] MEDS: Acetaminophen 325 MG Tablet 650 MG PO ×2 (08:41→15:55)
[2019-09-18] MEDS: Multivitamins,Ther W-Minerals Tablet 1 TABLET PO (08:41)
[2019-09-18] MEDS: Thiamine Hydrochloride 100 MG Tablet PO ×2 (08:41→15:52)
[2019-09-18] MEDS: Folic Acid 1 MG Tablet PO (08:41)
[2019-09-18] MEDS: Morphine 2 MG/ML Syringe IV ×3 (09:29→19:59)
[2019-09-18] MEDS: Menthol/Lanolin/Calamine/Znox 113 GM Tube 1 APPLIC TOPICAL ×2 (09:33→21:57)
[2019-09-18] MEDS: Heparin Injection (Vial) 5,000 UNIT/ML VIAL 5000 UNIT SC (09:35)
--- NOTE | 2019-09-18 12:44 | PCM.CONS.GEN ---
Reason for Consult Date of Consultation: 09/18/19 History of Present Illness: The patient is a 69 year old M alcoholic left lower extremity below the knee amputee history of DVT says he must have passed out injuring his right hip denies other injury comfortable now Past Medical History Past Medical History (Chronic Problems): Chronic Problems (Last Reviewed 09/18/19 @ 07:[address] Danny Stone MD) Paroxysmal A-fib (Chronic) currently in sinus rhythm Diastolic CHF (Chronic) Gait instability (Chronic) Macrocytic anemia (Chronic) Chronic anticoagulation (Chronic) Xarelto Depression (Chronic) Amputation of left lower extremity (Chronic) Chronic airway obstruction (Chronic) Coronary atherosclerosis of [place] coronary artery (Chronic) Esophageal reflux (Chronic) HLD (hyperlipidemia) (Chronic) HTN (hypertension) (Chronic) Percutaneous transluminal coronary angioplasty status (Chronic) PVD (peripheral vascular disease) (Chronic) Tobacco use disorder (Chronic) Medical History: Medical History (Last Reviewed 09/18/19 @ 07:[address] Danny Stone MD) Arthritis M19.90 Back problem M53.9 H/O TIA (transient ischemic attack) and stroke Z86.73 HTN (hypertension) I10 Allergies No Known Allergies Allergy (Verified 05/05/19 14:32) Home Medications: Ambulatory Orders Medication Instructions Recorded Amiodarone HCl [Cordarone] 100 mg PO DAILY 10/15/13 Aspirin E.C. [Ecotrin] 81 mg PO DAILY@0800 10/15/13 Diltiazem CD [Cardizem CD] 60 mg PO BID 10/15/13 Metoprolol Tartrate [Lopressor 50 mg PO BID 10/15/13 (beta pauline)] Atorvastatin Calcium [Lipitor] 80 mg PO QHS 06/12/17 Ferrous Sulfate 325 mg PO BIDCM 06/12/17 Finasteride [Proscar] 5 mg PO DAILY 11/24/17 Rivaroxaban [Xarelto] 15 mg PO DAILY 11/24/17 Tamsulosin HCl [Flomax] 0.4 mg PO DAILY 11/24/17 Albuterol Aerosols [Ventolin 2.5 mg INHALATION Q2H PRN PRN 11/28/17 Aerosols] vial.neb. Albuterol Inhaler [Ventolin Hfa] 1 - 2 puff INHALATION Q4H PRN PRN 09/07/18 Mirtazapine [Remeron] 30 mg PO QHS 10/15/18 Multivit-Min/FA/Lycopen/Lutein 1 ea PO DAILY 10/15/18 [Centrum Silver Tablet] hydrocodone 7.5 mg-acetaminophen 1 tab PO Q4H PRN 05/05/19 325 mg tablet omeprazole 40 mg capsule,delayed 40 mg PO DAILY 05/05/19 release Mupirocin 1 applicatio TOPICAL TID 09/18/19 Oxycodone HCl 10 mg PO TID 09/18/19 Potassium Chloride [K-Dur] 20 meq PO DAILY 09/18/19 Valacyclovir HCl [Valacyclovir] 1,000 mg PO TID 09/18/19 Surgical History: Surgical History (Last Reviewed 09/18/19 @ 07:[address] Danny Stone MD) Amputated left leg S88.912A History of surgery on upper extremity Z98.890 Surgical History: - - Multiple vascular stents, revasculation of left leg, left BKA, left elbow debridement for chronic infection Psychiatric History: No pertinent psych hx Smoking Status: Current every day smoker Tobacco Use: Cigarettes Alcohol: Heavy Drugs: None - *Family History Sibling Family History: Family History (Last Reviewed 09/18/19 @ 07:[address] Danny Stone MD) Father Asthma History Items: COPD - 4 of his sisters has COPD. Paternal Family History: Family History (Last Reviewed 09/18/19 @ 07:[address] Danny Stone MD) Father Asthma History Items: COPD, Heart Disease, No pertinent history Patient Problems: Active and Suspected Problems (Last Reviewed 09/18/19 @ 07:[address] Danny Stone MD) Closed right hip fracture (Acute) Hyponatremia (Acute) Hypoglycemia (Acute) Objective: X-ray demonstrates a right subtrochanteric femur fracture that is displaced and shortened - Physical Exam Vitals/I&O's: Vital Signs Temp Pulse Resp BP Pulse Ox 98.2 F 72 18 111/56 L 94 09/18/19 09:21 09/18/19 09:21 09/18/19 09:21 09/18/19 09:21 09/18/19 09:21 Oxygen Flow Rate (L/min) 1 Oxygen Delivery Method Nasal Cannula Weight: 128 lb 8.472 oz Body Mass Index (BMI) 19.5 Finger Stick Blood Glucose 89 Intake and Output for Last 24 Hours 09/16/19 09/17/19 09/18/19 23:59 23:59 23:59 Intake Total 323.33 / 323.33 Output Total 1550 / 1550 Balance -1226.67 / -1226.67 General: Alert, Cooperative, No apparent distress Extremities: - - Faint pedal pulse palpable intact sensation to light touch compartment soft no joint effusion in the knee no open wounds or ecchymosis erythema about the hip. Microbiology Past 72 Hours 09/17/19 23:05 Mucosa - Nasopharyngeal Coronavirus COVID-19 PCR - Preliminary Laboratory Results 09/17/19 22:55: WBC 6.0, RBC 3.07 L, Hgb 11.2 L, Hct 33.0 L, MCV 107.5 H, MCH 36.5 H, MCHC 33.9, RDW Std Deviation 62.2 H, RDW Coeff of Sarai 15.7 H, Plt Count 209, MPV 8.9, Immature Gran % (Auto) 2.000 H, Neut % (Auto) 63.0, Lymph % (Auto) 21.2, [place] % (Auto) 8.6, Eos % (Auto) 4.5, Baso % (Auto) 0.7, Absolute Neuts (auto) 3.8, Absolute Lymphs (auto) 1.26, Nucleated RBC % 0 09/17/19 22:55: PT 18.2 H, INR 1.6, APTT 41.4 H 09/17/19 22:55: Sodium 125 L, Potassium 4.1, Chloride 95 L, Carbon Dioxide 25.0, Anion Gap 5, BUN 4 L, Creatinine 0.42 L, Estim Creat Clear Calc 63.06, Est GFR (MDRD) Af Amer 261, Est GFR (MDRD) Non-Af 216, BUN/Creatinine Ratio 9.6 L, Glucose 69 L, Calcium 7.7 L 09/17/19 22:55: Blood Type O POSITIVE, Antibody Screen NEGATIVE 09/17/19 23:05: COVID-19 (LILIAM) Cancelled 09/18/19 00:24: Ethyl Alcohol 146.0 09/18/19 01:42: POC Glucose 95 09/18/19 06:44: Sodium 129 L, Potassium 3.8, Chloride 97 L, Carbon Dioxide 24.0, Anion Gap 8, BUN 5 L, Creatinine 0.40 L, Estim Creat Clear Calc 55.87, Est GFR (MDRD) Af Amer 270, Est GFR (MDRD) Non-Af 223, BUN/Creatinine Ratio 12.4, Glucose 81, Calcium 7.6 L 09/18/19 06:44: WBC 10.2, RBC 2.93 L, Hgb 10.7 L, Hct 30.8 L, MCV 105.1 H, MCH 36.5 H, MCHC 34.7, RDW Std Deviation 59.4 H, RDW Coeff of Sarai 15.6 H, Plt Count 192, MPV 8.8, Immature Gran % (Auto) 0.700, Neut % (Auto) 85.5 H, Lymph % (Auto) 6.9 L, [place] % (Auto) 6.2, Eos % (Auto) 0.5, Baso % (Auto) 0.2, Absolute Neuts (auto) 8.7 H, Absolute Lymphs (auto) 0.71 L, Nucleated RBC % 0 Current Medications Acetaminophen (Tylenol) 650 mg PO Q6H PRN PRN PRN Reason: Pain Score 1-10/Temp > 100.7 F Last Admin: 09/18/19 08:41 Dose: 650 mg Documented by: Albuterol Sulfate (Ventolin Aerosols) 2.5 mg INHALATION Q2H PRN PRN PRN Reason: Shortness of Breath/Wheezing Amiodarone HCl (Cordarone) 100 mg PO DAILY [facility] Atorvastatin Calcium (Lipitor) 80 mg PO QHS [facility] Calamine/Phenol (Calmoseptine Ointment) 1 applic TOPICAL BID [facility]; Protocol Last Admin: 09/18/19 09:33 Dose: 1 applicatio Documented by: Dextrose (D50w Syringe) 0 gm IV X1 PRN; Protocol PRN Reason: Hypoglycemia Diltiazem HCl (Cardizem Cd) 60 mg PO BID [facility] Ferrous Sulfate (Ferrous Sulfate) 325 mg PO DAILY [facility] Finasteride (Proscar) 5 mg PO DAILY [facility] Folic Acid (Folic Acid) 1 mg PO DAILY@0800 [facility] Stop: 09/20/19 08:01 Last Admin: 09/18/19 08:41 Dose: 1 mg Documented by: Glucagon () 1 mg IM .X1 PRN PRN Reason: Hypoglycemia Sodium Chloride () 1,000 mls @ 50 mls/hr IV .Q20H [facility] Last Admin: 09/18/19 01:39 Dose: 50 mls/hr Documented by: Sodium Chloride () 250 mls @ 15 mls/hr IV .[id number] PRN PRN Reason: Saline Flush Sodium Chloride () 250 mls @ 15 mls/hr IV .[id number] PRN PRN Reason: Additional IVPB Infusion Cefazolin Sodium 2 gm/ Sodium (Chloride) 110 mls @ 150 mls/hr IV X1 ONE Stop: 09/19/19 07:43 Lorazepam (Ativan) 2 mg IV Q2H PRN PRN; Protocol PRN Reason: CIWA score > 8 but <15 Lorazepam (Ativan) 2 mg IV UD PRN; Protocol PRN Reason: CIWA score >/=15. Metoprolol Tartrate (Lopressor (Beta Pauline)) 50 mg PO BID [facility] Morphine Sulfate () 2 mg IV Q4H PRN PRN PRN Reason: Pain Score 6-10/10 Last Admin: 09/18/19 09:29 Dose: 2 mg Documented by: Multivitamins/Minerals (Multivitamin With Minerals (Bkc)) 1 tablet PO DAILYCM [facility] Last Admin: 09/18/19 08:41 Dose: 1 tablet Documented by: Mupirocin (Bactroban) applic TOPICAL TID [facility]; Protocol Nicotine (Nicoderm Cq (Pbkc)) 21 mg TRANSDERM. DAILY [facility] Non-Formulary Medication (Mirtazapine [Remeron]) 15 mg PO QHS [facility] Non-Formulary Medication (Omeprazole) 40 mg PO DAILY [facility] Non-Formulary Medication (Oxycodone Hcl) 10 mg PO TID [facility] Non-Formulary Medication (Valacyclovir Hcl [Valacyclovir]) 1,000 mg PO TID [facility] Nutritional Formula (Lactose Free) (Ensure Enlive) 120 ml PO TID [facility] Last Admin: 09/18/19 06:43 Dose: 120 ml Documented by: Ondansetron HCl (Zofran) 4 mg IV Q8H PRN PRN PRN Reason: NAUSEA/VOMITING Oxycodone HCl (Oxyir) 10 mg PO Q4H PRN PRN PRN Reason: Pain Score 4-5/10 Potassium Chloride (K-Dur) 20 meq PO DAILY [facility] Sodium Chloride () 10 - 40 ml IV UD PRN PRN Reason: SALINE FLUSH Tamsulosin HCl (Flomax) 0.4 mg PO DAILY [facility] Thiamine HCl (Vitamin B1) 100 mg PO BIDCM [facility] Stop: 09/20/19 17:01 Last Admin: 09/18/19 08:41 Dose: 100 mg Documented by: Assessment/Plan All Active Problems (Last Reviewed 09/18/19 @ 07:[address] Danny Stone MD) Closed right hip fracture (Acute) Hyponatremia (Acute) Hypoglycemia (Acute) TIA (transient ischemic attack) (Resolved) Acute blood loss anemia (Resolved) Acute arterial ischemic stroke, vertebrobasilar, thalamic (Resolved) Hyponatremia (Resolved) Leukocytosis (Resolved) left stump swelling (Resolved) Right hip displaced shortened subtrochanteric femur fracture Holding home medication of Xarelto reason for surgical delay. Plan to proceed 09/19/2019 8 AM right hip cephalo-medullary fixation informed consent obtained. Patient on Ciwa protocol We will place in 7 pounds You's traction right lower extremity Hold anticoagulation in the evening will resume 12 hours after surgery Preoperative antibiotics ordered on-call to the OR SCDs RICKEY mckoy
--- NOTE | 2019-09-18 12:50 | PCM.PN.HOSP ---
Patient Problems: Active and Suspected Problems (Last Reviewed 09/18/19 @ 07:[address] Danny Stone MD) Closed right hip fracture (Acute) Hyponatremia (Acute) Hypoglycemia (Acute) Vitals/I&O's: Vital Signs Temp Pulse Resp BP Pulse Ox 98.2 F 72 18 111/56 L 94 09/18/19 09:21 09/18/19 09:21 09/18/19 09:21 09/18/19 09:21 09/18/19 09:21 Oxygen Flow Rate (L/min) 1 Oxygen Delivery Method Nasal Cannula Weight: 128 lb 8.472 oz Body Mass Index (BMI) 19.5 Finger Stick Blood Glucose 89 Intake and Output for Last 24 Hours 09/16/19 09/17/19 09/18/19 23:59 23:59 23:59 Intake Total 323.33 / 323.33 Output Total 1550 / 1550 Balance -1226.67 / -1226.67 Microbiology Past 72 Hours 09/17/19 23:05 Mucosa - Nasopharyngeal Coronavirus COVID-19 PCR - Preliminary Laboratory Results 09/17/19 22:55: WBC 6.0, RBC 3.07 L, Hgb 11.2 L, Hct 33.0 L, MCV 107.5 H, MCH 36.5 H, MCHC 33.9, RDW Std Deviation 62.2 H, RDW Coeff of Sarai 15.7 H, Plt Count 209, MPV 8.9, Immature Gran % (Auto) 2.000 H, Neut % (Auto) 63.0, Lymph % (Auto) 21.2, [place] % (Auto) 8.6, Eos % (Auto) 4.5, Baso % (Auto) 0.7, Absolute Neuts (auto) 3.8, Absolute Lymphs (auto) 1.26, Nucleated RBC % 0 09/17/19 22:55: PT 18.2 H, INR 1.6, APTT 41.4 H 09/17/19 22:55: Sodium 125 L, Potassium 4.1, Chloride 95 L, Carbon Dioxide 25.0, Anion Gap 5, BUN 4 L, Creatinine 0.42 L, Estim Creat Clear Calc 63.06, Est GFR (MDRD) Af Amer 261, Est GFR (MDRD) Non-Af 216, BUN/Creatinine Ratio 9.6 L, Glucose 69 L, Calcium 7.7 L 09/17/19 22:55: Blood Type O POSITIVE, Antibody Screen NEGATIVE 09/17/19 23:05: COVID-19 (LILIAM) Cancelled 09/18/19 00:24: Ethyl Alcohol 146.0 09/18/19 01:42: POC Glucose 95 09/18/19 06:44: Sodium 129 L, Potassium 3.8, Chloride 97 L, Carbon Dioxide 24.0, Anion Gap 8, BUN 5 L, Creatinine 0.40 L, Estim Creat Clear Calc 55.87, Est GFR (MDRD) Af Amer 270, Est GFR (MDRD) Non-Af 223, BUN/Creatinine Ratio 12.4, Glucose 81, Calcium 7.6 L 09/18/19 06:44: WBC 10.2, RBC 2.93 L, Hgb 10.7 L, Hct 30.8 L, MCV 105.1 H, MCH 36.5 H, MCHC 34.7, RDW Std Deviation 59.4 H, RDW Coeff of Sarai 15.6 H, Plt Count 192, MPV 8.8, Immature Gran % (Auto) 0.700, Neut % (Auto) 85.5 H, Lymph % (Auto) 6.9 L, [place] % (Auto) 6.2, Eos % (Auto) 0.5, Baso % (Auto) 0.2, Absolute Neuts (auto) 8.7 H, Absolute Lymphs (auto) 0.71 L, Nucleated RBC % 0 Current Medications Acetaminophen (Tylenol) 650 mg PO Q6H PRN PRN PRN Reason: Pain Score 1-10/Temp > 100.7 F Last Admin: 09/18/19 08:41 Dose: 650 mg Documented by: Albuterol Sulfate (Ventolin Aerosols) 2.5 mg INHALATION Q2H PRN PRN PRN Reason: Shortness of Breath/Wheezing Amiodarone HCl (Cordarone) 100 mg PO DAILY [facility] Atorvastatin Calcium (Lipitor) 80 mg PO QHS [facility] Calamine/Phenol (Calmoseptine Ointment) 1 applic TOPICAL BID [facility]; Protocol Last Admin: 09/18/19 09:33 Dose: 1 applicatio Documented by: Dextrose (D50w Syringe) 0 gm IV X1 PRN; Protocol PRN Reason: Hypoglycemia Diltiazem HCl (Cardizem Cd) 60 mg PO BID [facility] Ferrous Sulfate (Ferrous Sulfate) 325 mg PO DAILY [facility] Finasteride (Proscar) 5 mg PO DAILY [facility] Folic Acid (Folic Acid) 1 mg PO DAILY@0800 [facility] Stop: 09/20/19 08:01 Last Admin: 09/18/19 08:41 Dose: 1 mg Documented by: Glucagon () 1 mg IM .X1 PRN PRN Reason: Hypoglycemia Sodium Chloride () 1,000 mls @ 50 mls/hr IV .Q20H [facility] Last Admin: 09/18/19 01:39 Dose: 50 mls/hr Documented by: Sodium Chloride () 250 mls @ 15 mls/hr IV .[id number] PRN PRN Reason: Saline Flush Sodium Chloride () 250 mls @ 15 mls/hr IV .[id number] PRN PRN Reason: Additional IVPB Infusion Cefazolin Sodium 2 gm/ Sodium (Chloride) 110 mls @ 150 mls/hr IV X1 ONE Stop: 09/19/19 07:43 Lorazepam (Ativan) 2 mg IV Q2H PRN PRN; Protocol PRN Reason: CIWA score > 8 but <15 Lorazepam (Ativan) 2 mg IV UD PRN; Protocol PRN Reason: CIWA score >/=15. Metoprolol Tartrate (Lopressor (Beta Pauline)) 50 mg PO BID [facility] Morphine Sulfate () 2 mg IV Q4H PRN PRN PRN Reason: Pain Score 6-10/10 Last Admin: 09/18/19 09:29 Dose: 2 mg Documented by: Multivitamins/Minerals ([facility]itamin With Minerals (B[facility])) [facility] Last Admin: 09/18/19 08:41 Dose: 1 tablet Documented by: Mupirocin (Bactroban) applic TOPICAL TID [facility]; Protocol Nicotine (Nicoderm Cq (Pbkc)) 21 mg TRANSDERM. DAILY [facility] Non-Formulary Medication (Mirtazapine [Remeron]) 15 mg PO QHS [facility] Non-Formulary Medication (Omeprazole) 40 mg PO DAILY [facility] Non-Formulary Medication (Oxycodone Hcl) 10 mg PO TID [facility] Non-Formulary Medication (Valacyclovir Hcl [Valacyclovir]) 1,000 mg PO TID [facility] Nutritional Formula (Lactose Free) (Ensure Enlive) 120 ml PO TID [facility] Last Admin: 09/18/19 06:43 Dose: 120 ml Documented by: Ondansetron HCl (Zofran) 4 mg IV Q8H PRN PRN PRN Reason: NAUSEA/VOMITING Oxycodone HCl (Oxyir) 10 mg PO Q4H PRN PRN PRN Reason: Pain Score 4-5/10 Potassium Chloride (K-Dur) 20 meq PO DAILY [facility] Sodium Chloride () 10 - 40 ml IV UD PRN PRN Reason: SALINE FLUSH Tamsulosin HCl (Flomax) 0.4 mg PO DAILY [facility] Thiamine HCl (Vitamin B1) 100 mg PO BIDCM [facility] Stop: 09/20/19 17:01 Last Admin: 09/18/19 08:41 Dose: 100 mg Documented by: STROKE Vital Signs/Narrative: Vital Signs Temp Pulse Resp BP Pulse Ox 09/18/19 09:21 98.2 F 72 18 111/56 L 94 Medical Necessity - Tobacco Use Smoking Status: Current every day smoker Tobacco Use: Cigarettes Assessment/Plan All Active Problems (Last Reviewed 09/18/19 @ 07:[address] 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 fib; and alcoholism who presents emergency department with right hip pain after a fall and found to have acute displaced fracture of the proximal right femur. Acute displaced fracture of the proximal right femur Patient risk of serious complication is 12.8%, average risk is 10.4%. Pneumonia 3.2%, cardiac complication 1.4%, surgical site infection 1.4%. Could be due to imbalance from left BKA; cannot rule out contribution from alcohol intoxication. Pain control with oxycodone. Zofran PRN for nausea. Bowel protocol. Hold home aspirin and Xarelto. Alcohol abuse Place on multivitamin; thiamine and folic acid. CIWA protocol with as needed Ativan ordered. Counseled. Hyponatremia Presentation sodium was 125. Likely secondary to be able to beer potomania. Asymptomatic with it. Gentle IV hydration. Trend BMP. Hypoglycemia Blood glucose at emergency department was 69 and patient was given food. Repeat Accu-Chek. Paroxysmal A. fib. Sinus bradycardia dictation. Xarelto held secondary to planned surgery. COPD Stable. Albuterol as needed.
[2019-09-18 13:35] LABS: Hemoglobin 10.9 g/dL (13.0-16.5)
[2019-09-18] MEDS: 0.9% Saline Lock 10 ML Syringe IV (13:47)
[2019-09-18 13:48] LABS: AST(SGOT) 25 U/L (15-37); Alanine Aminotransfer ALT/SGPT 19 U/L (16-61); Albumin, Serum 2.1 g/dL (3.2-5.0); Alkaline Phosphatase 117 U/L (45-117); Bilirubin, Direct 0.21 mg/dL (0.00-0.30); GGTP 77 U/L (15-85); Globulin 3.5 g/dL (2.2-4.2); Protein, Total 5.6 g/dL (6.4-8.2)
--- NOTE | 2019-09-18 14:59 | CASEMGMT ---
Addendum entered by Denise Toribio 09/18/19 15:09: Patient is new on oxygen and has a medical alert button in the home. Original Note: Social Work Consult: Discharge Planning Met with patient in room. Introduced self as well as social media marketer role. Patient is agreeable to speaking with this social media marketer. Patient stating to currently live at home alone in a 1-story home with a ramp to enter. Patient prior level of functioning was ambulating with a walker and prostatic in the home and wheelchair in the community. Patient has PASSPORT services and has aide services 4 days a week for 3 hours each day. Aides assist with transportation, grocery shopping, cooking, and cleaning. Patient is unsure of who PASSPORT outsole caser is. Patient stating to be able to manage all ADL's prior to fall that led to hip fracture. Patient scheduled to have surgery tomorrow. Patient denies any mental health history. Patient stating that patient sister, Monica is health care power of commercial real estate attorney. Monica lives in [place]. Broached topic of substance abuse history. Patient denies any substance abuse history stating to consume alcohol occasionally, on the holidays. Per chart patient has a history of alcoholism and on admission has a blood alcohol level of 146.0. Patient would like to return to home alone but is realistic to the fact that patient will most likely requiring [facility] home placement for therapy and strengthening prior to return to home alone with PASSPORT services. Patient stating to have a history of SNF stay and is choosing [facility] as first choice for snf, if this is needed. Active support and listening provided. Patient with no further questions and aware that social work will continue to follow as needed. Social Work to continue to follow as needed. Margret VICTOR, NATTY
[2019-09-18] MEDS: Mupirocin Ointment 22gm Tube 1 APPLIC TOPICAL ×2 (15:51→21:57)
[2019-09-18] MEDS: Acyclovir 800 MG Tablet PO ×2 (17:49→22:03)
[2019-09-18] MEDS: Atorvastatin Calcium 80 MG Tablet PO (22:03)
[2019-09-18] MEDS: dilTIAZem 60 MG Tablet PO (22:04)
[2019-09-18] MEDS: MELATONIN 3 MG TABLET PO (22:04)
[2019-09-18] MEDS: Mirtazapine 15 MG Tablet PO (22:04)
[2019-09-18] MEDS: Metoprolol Tartrate 50 MG Tablet PO (22:04)
[2019-09-19] VITALS (14 sets, daily range): BP systolic 102–166; BP diastolic 46–97; PULSE 74–131; RESP 16–18; TEMP 36.1–37; O2SAT 83–97; BMI 19.5
[2019-09-19] MEDS: Morphine 2 MG/ML Syringe IV ×2 (01:12→06:13)
[2019-09-19 04:59] LABS: Absolute Neutrophil Count 6.7 X10^3/uL (2.0-7.7); Basophil# 0.02 X10^3/uL; Basophil% 0.2 % (0-1); Eosinophil# 0.09 X10^3/uL; Eosinophils% 1.1 % (0-5); Hematocrit 28.1 % (40-54); Hemoglobin 9.8 g/dL (13.0-16.5); Lymphocyte % 8.5 % (19-41); Mean Corp Hgb Conc 34.9 g/dL (32-36); Mean Corpuscular Hgb 36.7 pg (27.0-32.0); Mean Corpuscular Volume 105.2 fL (80-94); Mean Platelet Vol. 8.9 fl (6.2-12.0); Monocyte# 0.69 X10^3/uL; Monocyte% 8.4 % (0-10); NRBC Flagged by Analyzer 0 % (0-5); Neutrophil # 6.68 X10^3/uL (2.7-7.7); Neutrophil % 81.3 % (47-70); Platelet Count 171 K/mm3 (150-450); RBC Distribution Width CV 15.6 % (11.6-14.6); RBC Distribution Width SD 59.7 fl (35.1-43.9); Red Blood Count 2.67 M/mm3 (4.6-6.2); White Blood Count 8.2 K/mm3 (4.4-11.0)
[2019-09-19 05:06] LABS: International Normalized Ratio 1.2; Prothrombin Time (Protime)PT. 14.2 SECONDS (11.7-14.9)
[2019-09-19 05:07] LABS: Partial Thromboplast Time 37.2 Seconds (24.1-36.2)
[2019-09-19 05:17] LABS: AST(SGOT) 21 U/L (15-37); Alanine Aminotransfer ALT/SGPT 16 U/L (16-61); Albumin, Serum 1.9 g/dL (3.2-5.0); Alkaline Phosphatase 97 U/L (45-117); Anion Gap 5 (5-15); BUN 6 mg/dL (7-18); BUN/Creat Ratio 16.1 RATIO (10-20); Bilirubin, Direct 0.24 mg/dL (0.00-0.30); Calcium,Total 7.5 mg/dL (8.5-10.1); Chloride 99 mmol/L (98-107); Creatinine, Serum 0.37 mg/dL (0.70-1.30); EST Glomerular Filtration Rate 245 mL/min (>60); Est Glom Filt Rate - Afr Amer 296 mL/min (>60); Estimated Creatinine Clearance 55.87 ml/min; Globulin 3.3 g/dL (2.2-4.2); Glucose 104 mg/dL (74-106); Potassium 3.8 mmol/L (3.5-5.1); Protein, Total 5.2 g/dL (6.4-8.2); Sodium Level 131 mmol/L (136-145)
[2019-09-19] MEDS: Cefazolin 2 GM in 0.9% Normal Saline 100 ML IV (07:50)
--- NOTE | 2019-09-19 08:00 | RAD_ITS ---
STUDY: X-RAY - RIGHT FEMUR REASON FOR STUDY: Male, 69 years old. TROCH FEMORAL NAILING TECHNIQUE: 8 intraoperative view(s) of the femur. COMPARISON: September 18, 2019. FINDINGS: Intraoperative images demonstrate ORIF for a proximal femoral fracture femur. Bony fragments demonstrate good alignment and approximation. Intramedullary luanne is in place. RAD/Femur Min 2 Views IMPRESSION: ORIF of the femur for a proximal shaft fracture. Electronically Signed: Valeriy Layne DO at 10:04 EDT Tel [phone], Service support ,
[2019-09-19] MEDS: Bupiv/Epi 0.5% Mpf 30 ML Vial (09:18)
--- NOTE | 2019-09-19 09:41 | OP.PCM_ITS ---
Report of Operation Date of Procedure: 09/19/19 Description of Surgical Findings:: Preoperative diagnosis: Right hip displaced subtrochanteric fracture Postoperative diagnosis: Same Procedure: Cephalo-medullary fixation right hip Implants: Synthes long nail 7 x 380, 90 mm helical blade, 42 mm screw Anesthesia: General EBL: 50 Complications: None Condition: Stable to PACU Indication for procedure: 69-year-old alcoholic male on 50 mg of Xarelto daily secondary to history of blood clot status post fall sustaining a for mention fracture surgery postponed initially secondary to Xarelto use. Discussed operative intervention risk benefits and alternatives of surgical versus nonsurgical treatment. fracture demonstrated [subtrochanteric pattern, risk benefits and alternatives were reviewed including risk of bleeding infection nerve, artery, bone, tissue damage, blood clot, RSD need for further surgery and continued pain. Procedure: Patient met in the preoperative holding area once again the operative extremity was identified by both patient and physician and was marked. Patient was met by anesthesia and IV was started she was brought back to the to the operating room anesthesia was started. She was then positioned on the fracture table all bony prominences were well-padded. She was then positioned with adduction internal rotation and traction and fluoroscopy was brought in to ensure that an adequate reduction could be performed. There was a flexion component to the proximal piece patient was then prepped and draped in usual sterile fashion and timeout was called to ensure the proper patient procedure and extremity were being contemplated. Fluoroscopy was used to dell the tip of the greater trochanter and a 3 fingerbreadth incision was made 2 finger breaths proximal to the tip of the greater trochanter. Was carried carried down through the skin and subcutaneous tissue as well as the gluteal fascia. A guide pin was then inserted through the tip of the greater trochanter directed towards the level of lesser trochanter this was checked in both AP and lateral projections. An opening reamer was performed. We then used a awl to attempt to extend the proximal fragment however this was unsuccessful. We therefore proceeded with making a stab incision in the anterior lateral femur with a ball spike pusher we then reduced the proximal fragment with this A guide pin was bent and placed down the femoral canal to the level of the superior patella then measured this and placed the corresponding length nail after flexible reamers were used to achieve cortical chatter and achieving 1.5 mm greater than the nail was chosen . following this was the insertion of the nail the appropriate height jig was used and a triple trocar sleeve was advanced to the skin and a stab incision was made at the trocar was inserted to the level of the bone and a guidepin was placed into the femoral neck and head checked on both AP and lateral projections. This was then measured and appropriately sized helical blade was inserted the nail was locked proximally to allow dynamic compression, the fracture was compressed and a locking screw was placed distally using perfect [place] technique. This was then drilled and measured under fluoroscopy and the appropriate size screw was inserted. Final AP and lateral projections were saved to the PACS system of the entire construct. the wounds were thoroughly irrigated the fascia was closed with #1 [id number] Vicryls followed by 2-0 Vicryl in the subcutaneous tissues followed by kalani in the skin. 0.5% Marcaine with epinephrine was injected into the subcutaneous tissues dressing was applied form of Xeroform 4 x 4 ABD and Ioban tape. Patient tolerated procedure well there is no intraoperative complications she was brought back to the PACU in stable condition.
--- NOTE | 2019-09-19 09:46 | PCM.PN.ORT ---
Patient Problems: Active and Suspected Problems (Last Reviewed 09/18/19 @ 07:[address] Danny Stone MD) Closed right hip fracture (Acute) Hyponatremia (Acute) Hypoglycemia (Acute) Subjective: Postop no in PACU patient awake no acute distress pain controlled - Physical Exam Vitals/I&O's: Vital Signs Temp Pulse Resp BP Pulse Ox 97.0 F L 106 H 16 123/97 H 92 09/19/19 09:33 09/19/19 09:42 09/19/19 09:42 09/19/19 09:42 09/19/19 09:42 Oxygen Flow Rate (L/min) 2 Oxygen Delivery Method Nasal Cannula Weight: 128 lb 8.472 oz Body Mass Index (BMI) 19.5 Finger Stick Blood Glucose 89 Intake and Output for Last 24 Hours 09/17/19 09/18/19 09/19/19 23:59 23:59 23:59 Intake Total 1323.33 / 1723.33 450 / 450 Output Total 2300 / 2700 700 / 700 Balance -976.67 / -976.67 -250 / -250 General: Cooperative, No apparent distress Extremities: - - Dressing clean dry and intact compartment soft neurovascular intact Microbiology Past 72 Hours 09/17/19 23:05 Mucosa - Nasopharyngeal Coronavirus COVID-19 PCR - Final Laboratory Results 09/18/19 06:14: Total Bilirubin 0.40, Direct Bilirubin 0.21, GGT 77, AST 25, ALT 19, Alkaline Phosphatase 117, Total Protein 5.6 L, Albumin 2.1 L, Globulin 3.5 09/18/19 13:07: Hgb 10.9 L, Hct 31.0 L 09/19/19 04:50: WBC 8.2, RBC 2.67 L, Hgb 9.8 L, Hct 28.1 L, MCV 105.2 H, MCH 36.7 H, MCHC 34.9, RDW Std Deviation 59.7 H, RDW Coeff of Sarai 15.6 H, Plt Count 171, MPV 8.9, Immature Gran % (Auto) 0.500, Neut % (Auto) 81.3 H, Lymph % (Auto) 8.5 L, Terry % (Auto) 8.4, Eos % (Auto) 1.1, Baso % (Auto) 0.2, Absolute Neuts (auto) 6.7, Absolute Lymphs (auto) 0.70 L, Nucleated RBC % 0 09/19/19 04:50: PT 14.2, INR 1.2, APTT 37.2 H 09/19/19 04:50: Sodium 131 L, Potassium 3.8, Chloride 99, Carbon Dioxide 27.0, Anion Gap 5, BUN 6 L, Creatinine 0.37 L, Estim Creat Clear Calc 55.87, Est GFR (MDRD) Af Amer 296, Est GFR (MDRD) Non-Af 245, BUN/Creatinine Ratio 16.1, Glucose 104, Calcium 7.5 L, Total Bilirubin 0.40, Direct Bilirubin 0.24, AST 21, ALT 16, Alkaline Phosphatase 97, Total Protein 5.2 L, Albumin 1.9 L, Globulin 3.3 Current Medications Acetaminophen (Tylenol) 1,000 mg PO Q8 [facility] Acyclovir (Zovirax) 800 mg PO 5X/DAY [facility] Stop: 09/22/19 14:01 Last Admin: 09/19/19 05:33 Dose: Not Given Documented by: Albuterol Sulfate (Ventolin Aerosols) 2.5 mg INHALATION Q2H PRN PRN PRN Reason: Shortness of Breath/Wheezing Amiodarone HCl (Cordarone) 100 mg PO DAILY@0800 [facility] Atorvastatin Calcium (Lipitor) 80 mg PO QHS [facility] Last Admin: 09/18/19 22:03 Dose: 80 mg Documented by: Calamine/Phenol (Calmoseptine Ointment) 1 applic TOPICAL BID [facility]; Protocol Last Admin: 09/18/19 21:57 Dose: 1 applicatio Documented by: Dextrose (D50w Syringe) 0 gm IV X1 PRN; Protocol PRN Reason: Hypoglycemia Diltiazem HCl (Cardizem) 60 mg PO BID [facility] Last Admin: 09/18/19 22:04 Dose: 60 mg Documented by: Ferrous Sulfate (Ferrous Sulfate) 325 mg PO DAILY@1200 [facility] Finasteride (Proscar) 5 mg PO DAILY [facility] Folic Acid (Folic Acid) 1 mg PO DAILY@0800 [facility] Stop: 09/20/19 08:01 Last Admin: 09/18/19 08:41 Dose: 1 mg Documented by: Glucagon () 1 mg IM .X1 PRN PRN Reason: Hypoglycemia Hydralazine HCl (Apresoline Iv) 5 mg IV Q4H PRN PRN PRN Reason: SBP more than 160 mmHg Hydromorphone HCl (Dilaudid Inj) 0.5 mg IV Q2H PRN PRN PRN Reason: Pain Score 6-10/10 Sodium Chloride () 1,000 mls @ 50 mls/hr IV .Q20H [facility] Last Admin: 09/18/19 22:05 Dose: 50 mls/hr Documented by: Sodium Chloride () 250 mls @ 15 mls/hr IV .[id number] PRN PRN Reason: Saline Flush Sodium Chloride () 250 mls @ 15 mls/hr IV .[id number] PRN PRN Reason: Additional IVPB Infusion Cefazolin Sodium () 1 gm in 50 mls @ 100 mls/hr IV Q8 [facility] Lorazepam (Ativan) 2 mg IV Q2H PRN PRN; Protocol PRN Reason: CIWA score > 8 but <15 Lorazepam (Ativan) 2 mg IV UD PRN; Protocol PRN Reason: CIWA score >/=15. Melatonin (Melatonin) 3 mg PO QHS PRN PRN PRN Reason: INSOMNIA Last Admin: 09/18/19 22:04 Dose: 3 mg Documented by: Metoprolol Tartrate (Lopressor (Beta Pauline)) 50 mg PO BID [facility] Last Admin: 09/18/19 22:04 Dose: 50 mg Documented by: Mirtazapine (Remeron) 15 mg PO QHS [facility] Last Admin: 09/18/19 22:04 Dose: 15 mg Documented by: Multivitamins/Minerals (Multivitamin With Minerals (Bkc)) [facility] Last Admin: 09/18/19 08:41 Dose: 1 tablet Documented by: Mupirocin (Bactroban) 1 applic TOPICAL TID [facility]; Protocol Last Admin: 09/19/19 05:33 Dose: Not Given Documented by: Nicotine (Nicoderm Cq (Pbkc)) 21 mg TRANSDERM. DAILY [facility] Last Admin: 09/18/19 15:51 Dose: 21 mg Documented by: Nutritional Formula (Lactose Free) (Ensure Enlive) 120 ml PO 4X/DAY [facility] Last Admin: 09/18/19 22:02 Dose: 120 ml Documented by: Ondansetron HCl (Zofran) 4 mg IV Q6H PRN PRN PRN Reason: NAUSEA Oxycodone HCl (Oxyir) 5 - 10 mg PO Q4H PRN PRN PRN Reason: Pain Score 4-10/10 Pantoprazole Sodium (Protonix) 40 mg PO DAILY [facility] Potassium Chloride (K-Dur) 20 meq PO DAILY@0800 [facility] Rivaroxaban (Xarelto) 15 mg PO DAILY@1700 [facility] Senna/Docusate Sodium (Senokot-S, Brianna-Colace) 2 tablet PO BID [facility] Sodium Chloride () 10 - 40 ml IV UD PRN PRN Reason: SALINE FLUSH Last Admin: 09/18/19 13:47 Dose: 10 ml Documented by: Tamsulosin HCl (Flomax) 0.4 mg PO DAILY [facility] Thiamine HCl (Vitamin B1) [facility] Stop: 09/20/19 17:01 Last Admin: 09/18/19 15:52 Dose: 100 mg Documented by: Medical Necessity - Tobacco Use Smoking Status: Current every day smoker Tobacco Use: Cigarettes Assessment/Plan All Active Problems (Last Reviewed 09/18/19 @ 07:[address] Danny Stone MD) Closed right hip fracture (Acute) Hyponatremia (Acute) Hypoglycemia (Acute) TIA (transient ischemic attack) (Resolved) Acute blood loss anemia (Resolved) Acute arterial ischemic stroke, vertebrobasilar, thalamic (Resolved) Hyponatremia (Resolved) Leukocytosis (Resolved) left stump swelling (Resolved) Postop day #0 right femur cephalo-medullary fixation with long trochanteric femoral nail Patient will receive postoperative antibiotics to be discontinued within 23 hours Patient will be weightbearing as tolerated right lower extremity physical therapy occupational therapy ordered Dressing is to be left on for 72 hours postop and then removed prior to first shower on postop day #3 at that point may wash and shower with antibacterial soap and warm water and replace with a dry dressing. DVT prophylaxis we will resume his home dose of Xarelto 15 mg daily to begin 10 hours after surgery 9:30 PM today SCD and RICKEY mckoy Patient will likely need placement after discharge And will need follow-up appointment with me 2 weeks postoperatively for wound check if he is still in a nursing facility at that time they may remove kalani 2 weeks postop and follow-up with me 4 weeks postop.
[2019-09-19] MEDS: Cefazolin 1 GM/50 ML BAG IV ×2 (09:59→17:07)
[2019-09-19] MEDS: 0.9% Normal Saline 1,000 ML 50 ML IV (10:00)
[2019-09-19] MEDS: Amiodarone 200 MG Tablet 100 MG PO (10:24)
[2019-09-19] MEDS: Metoprolol Tartrate 50 MG Tablet PO ×2 (10:24→21:55)
[2019-09-19] MEDS: dilTIAZem 60 MG Tablet PO ×2 (10:24→21:55)
[2019-09-19] MEDS: Pantoprazole Sodium 40 MG Tablet PO (10:25)
--- NOTE | 2019-09-19 11:11 | PCM.PN.HOSP ---
Patient Problems: Active and Suspected Problems (Last Reviewed 09/18/19 @ 07:[address] Danny Stone MD) Closed right hip fracture (Acute) Hyponatremia (Acute) Hypoglycemia (Acute) Reason for Visit: Patient came from OR. Discussed with orthopedic surgeon. On floor patient is tachycardic, heart rate 131 blood pressure 102/60, respiratory rate 16 and pulse ox 93% on 2 L of oxygen. 500 mL Ringer lactate ordered and then 100 mL/h for 1 L. Vitals/I&O's: Vital Signs Temp Pulse Resp BP Pulse Ox 98.4 F 74 16 166/60 H 97 09/19/19 06:16 09/19/19 06:16 09/19/19 06:16 09/19/19 06:16 09/19/19 06:16 Oxygen Flow Rate (L/min) 2 Oxygen Delivery Method Nasal Cannula Weight: 128 lb 8.472 oz Body Mass Index (BMI) 19.5 Finger Stick Blood Glucose 89 Intake and Output for Last 24 Hours 09/17/19 09/18/19 09/19/19 23:59 23:59 23:59 Intake Total 1323.33 / 1723.33 450 / 450 Output Total 2300 / 2700 700 / 700 Balance -976.67 / -976.67 -250 / -250 General: Alert, Oriented x3, Cooperative HEENT: Atraumatic, PERRLA, EOMI, Normocephalic Neck: Supple, No JVD, Negative Carotid Bruits Lungs: Normal air movement, No rhonchi, No wheeze, No rales, Diminished - Air entry diminished bilaterally. Cardiovascular: Regular rate, Regular Rhythm, Normal S1, Normal S2, No murmurs Abdomen: Bowel Sounds Present, Soft, Non Tender, Non-Distended Extremities: No edema, Capillary Refill Less than 3 Seconds Skin: No rashes, No breakdown Musculoskeletal: No Tenderness to Palpation of Joints or Extremities Neurological: Cranial nerves II-XII grossly intact, Deep Tendon Reflexes 2+/4 and Symmetrical, Neuro grossly intact Psych/Mental Status: Normal Affect, Appropriate Microbiology Past 72 Hours 09/17/19 23:05 Mucosa - Nasopharyngeal Coronavirus COVID-19 PCR - Final Laboratory Results 09/18/19 06:14: Total Bilirubin 0.40, Direct Bilirubin 0.21, GGT 77, AST 25, ALT 19, Alkaline Phosphatase 117, Total Protein 5.6 L, Albumin 2.1 L, Globulin 3.5 09/18/19 13:07: Hgb 10.9 L, Hct 31.0 L 09/19/19 04:50: WBC 8.2, RBC 2.67 L, Hgb 9.8 L, Hct 28.1 L, MCV 105.2 H, MCH 36.7 H, MCHC 34.9, RDW Std Deviation 59.7 H, RDW Coeff of Sarai 15.6 H, Plt Count 171, MPV 8.9, Immature Gran % (Auto) 0.500, Neut % (Auto) 81.3 H, Lymph % (Auto) 8.5 L, [place] % (Auto) 8.4, Eos % (Auto) 1.1, Baso % (Auto) 0.2, Absolute Neuts (auto) 6.7, Absolute Lymphs (auto) 0.70 L, Nucleated RBC % 0 09/19/19 04:50: PT 14.2, INR 1.2, APTT 37.2 H 09/19/19 04:50: Sodium 131 L, Potassium 3.8, Chloride 99, Carbon Dioxide 27.0, Anion Gap 5, BUN 6 L, Creatinine 0.37 L, Estim Creat Clear Calc 55.87, Est GFR (MDRD) Af Amer 296, Est GFR (MDRD) Non-Af 245, BUN/Creatinine Ratio 16.1, Glucose 104, Calcium 7.5 L, Total Bilirubin 0.40, Direct Bilirubin 0.24, AST 21, ALT 16, Alkaline Phosphatase 97, Total Protein 5.2 L, Albumin 1.9 L, Globulin 3.3 Current Medications Acetaminophen (Tylenol) 650 mg PO Q6H PRN PRN PRN Reason: Pain Score 1-10/Temp > 100.7 F Last Admin: 09/18/19 15:55 Dose: 650 mg Documented by: Acyclovir (Zovirax) 800 mg PO 5X/DAY [facility] Stop: 09/22/19 14:01 Last Admin: 09/19/19 05:33 Dose: Not Given Documented by: Albuterol Sulfate (Ventolin Aerosols) 2.5 mg INHALATION Q2H PRN PRN PRN Reason: Shortness of Breath/Wheezing Amiodarone HCl (Cordarone) 100 mg PO DAILY@0800 [facility] Atorvastatin Calcium (Lipitor) 80 mg PO QHS [facility] Last Admin: 09/18/19 22:03 Dose: 80 mg Documented by: Calamine/Phenol (Calmoseptine Ointment) 1 applic TOPICAL BID [facility]; Protocol Last Admin: 09/18/19 21:57 Dose: 1 applicatio Documented by: Dextrose (D50w Syringe) 0 gm IV X1 PRN; Protocol PRN Reason: Hypoglycemia Diltiazem HCl (Cardizem) 60 mg PO BID [facility] Last Admin: 09/18/19 22:04 Dose: 60 mg Documented by: Ferrous Sulfate (Ferrous Sulfate) 325 mg PO DAILY@1200 [facility] Finasteride (Proscar) 5 mg PO DAILY [facility] Folic Acid (Folic Acid) 1 mg PO DAILY@0800 [facility] Stop: 09/20/19 08:01 Last Admin: 09/18/19 08:41 Dose: 1 mg Documented by: Glucagon () 1 mg IM .X1 PRN PRN Reason: Hypoglycemia Hydralazine HCl (Apresoline Iv) 5 mg IV Q4H PRN PRN PRN Reason: SBP more than 160 mmHg Sodium Chloride () 1,000 mls @ 50 mls/hr IV .Q20H [facility] Last Admin: 09/18/19 22:05 Dose: 50 mls/hr Documented by: Sodium Chloride () 250 mls @ 15 mls/hr IV .[id number] PRN PRN Reason: Saline Flush Sodium Chloride () 250 mls @ 15 mls/hr IV .[id number] PRN PRN Reason: Additional IVPB Infusion Lorazepam (Ativan) 2 mg IV Q2H PRN PRN; Protocol PRN Reason: CIWA score > 8 but <15 Lorazepam (Ativan) 2 mg IV UD PRN; Protocol PRN Reason: CIWA score >/=15. Melatonin (Melatonin) 3 mg PO QHS PRN PRN PRN Reason: INSOMNIA Last Admin: 09/18/19 22:04 Dose: 3 mg Documented by: Metoprolol Tartrate (Lopressor (Beta Pauline)) 50 mg PO BID [facility] Last Admin: 09/18/19 22:04 Dose: 50 mg Documented by: Mirtazapine (Remeron) 15 mg PO QHS [facility] Last Admin: 09/18/19 22:04 Dose: 15 mg Documented by: Morphine Sulfate () 2 mg IV Q4H PRN PRN PRN Reason: Pain Score 6-10/10 Last Admin: 09/19/19 06:13 Dose: 2 mg Documented by: Multivitamins/Minerals (Multivitamin With Minerals (B[facility])) [facility] Last Admin: 09/18/19 08:41 Dose: 1 tablet Documented by: Mupirocin (Bactroban) 1 applic TOPICAL TID [facility]; Protocol Last Admin: 09/19/19 05:33 Dose: Not Given Documented by: Nicotine (Nicoderm Cq (Pbkc)) 21 mg TRANSDERM. DAILY [facility] Last Admin: 09/18/19 15:51 Dose: 21 mg Documented by: Nutritional Formula (Lactose Free) (Ensure Enlive) 120 ml PO 4X/DAY [facility] Last Admin: 09/18/19 22:02 Dose: 120 ml Documented by: Ondansetron HCl (Zofran) 4 mg IV Q8H PRN PRN PRN Reason: NAUSEA/VOMITING Oxycodone HCl (Oxyir) 10 mg PO Q4H PRN PRN PRN Reason: Pain Score 4-5/10 Last Admin: 09/18/19 22:05 Dose: 10 mg Documented by: Pantoprazole Sodium (Protonix) 40 mg PO DAILY [facility] Potassium Chloride (K-Dur) 20 meq PO DAILY@0800 [facility] Sodium Chloride () 10 - 40 ml IV UD PRN PRN Reason: SALINE FLUSH Last Admin: 09/18/19 13:47 Dose: 10 ml Documented by: Tamsulosin HCl (Flomax) 0.4 mg PO DAILY [facility] Thiamine [facility] ([facility]amin B1) [facility] Stop: 09/20/19 17:01 Last Admin: 09/18/19 15:52 Dose: 100 mg Documented by: STROKE Vital Signs/Narrative: Vital Signs Temp Pulse Resp BP Pulse Ox 09/19/19 06:16 98.4 F 74 16 166/60 H 97 Medical Necessity - Tobacco Use Smoking Status: Current every day smoker Tobacco Use: Cigarettes Assessment/Plan All Active Problems (Last Reviewed 09/18/19 @ 07:[address] 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 fib; and alcoholism who presents emergency department with right hip pain after a fall and found to have acute displaced fracture of the proximal right femur. 1. Acute displaced fracture of the proximal right femur with left BKA: As per NSQIP perioperative surgical risk, risk of serious complication 12.8% with average risk 10.4% and risk of cardiac complication 1.4%, pneumonia 3.2%. Discussed with food technician Dr. espinal. Patient has acceptable risk, more than average but can proceed with surgery. Patient had 2D echo November 2017 is reported as EF 60%, left atrium mildly enlarged mild to moderate MR, mild diffuse mitral valve thickening, mild TR, aortic sclerosis but no stenosis, mild AR, RVSP 39 mmHg history of mild chronic diastolic heart failure. Patient also has history of smoking 2 packs/day, drinks alcohol 6-8 beers every day, COPD and limited physical capacity on wheeled walker or wheelchair. 09/18: Patient had right femoral calf elementary fixation with long trochanteric femoral nail. Patient looks volume depleted therefore 500 Ringer lactate bolus and then 100 mils per hour for 1 L and then reevaluate. Monitor intake and output. Mild sinus tachycardia probably secondary to hypovolemia. Postoperative antibiotics to continue for 1 day. Discontinue if platelet count drops less than 50,000 or hemoglobin less than 8 g% today with Xarelto 50 mg daily to begin 10 hours after surgery 9:30 PM today. SCD and RICKEY hose. 2. Large right thigh anterolateral swelling most probably reactive edema/hematoma from fracture femur, complicated with Eliquis: Hold Xarelto and aspirin. Patient right SPEECH LANG PATH was less palpable therefore bedside Doppler was done and shows good audible pulse on right popliteal, right SPEECH LANG PATH and dorsalis pedis. Discussed with orthopedic surgeon did not believe swelling is hematoma. 3. COPD, paroxysmal A. fib on Xarelto, chronic cigarette smoker, chronic alcohol use: This increases the patient risk. Continue multivitamin, thiamine and folic acid. CIWA protocol with as needed Ativan. Patient was counseled to quit smoking and drinking alcohol. 09/18: No signs and symptoms suggestive of withdrawal yet. 4. 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 6. Hypoglycemia most probably secondary to chronic alcohol use: Repeat glucose 81. Repeat liver biochemistry shows normal ALT and AST alkaline phosphatase except albumin 1.9. INR 1.2. Blood glucose at emergency department was 69 and patient was given food. Paroxysmal A. fib. EKG shows sinus bradycardia 53 beats per 1. 7. COPD Stable. Albuterol as needed. Will need outpatient PFT. DVT prophylaxis: Pharmacological prophylaxis contraindicated in view of right femur fracture and hematoma. Xarelto is held prior to surgery. SCD. CODE STATUS: DNR CC arrest with no intubation Total time of the visit including total time spent in counseling or coordination of care, (more than 50% of the total time, spent in obtaining medical information from nurses and other ancillary care providers), discussion with food technician, Dr. espinal and orthopedic surgeon, Dr. Boyle, review of labs and imaging is 30 minutes Inpatient E&M: [id number] [facility] L3
[2019-09-19] MEDS: Lactated Ringers 500 ML 999 ML IV (11:13)
[2019-09-19] MEDS: Multivitamins,Ther W-Minerals Tablet 1 TABLET PO (11:24)
[2019-09-19] MEDS: Thiamine Hydrochloride 100 MG Tablet PO ×2 (11:25→15:27)
[2019-09-19] MEDS: Menthol/Lanolin/Calamine/Znox 113 GM Tube 1 APPLIC TOPICAL ×2 (11:25→21:57)
[2019-09-19] MEDS: Folic Acid 1 MG Tablet PO (11:25)
[2019-09-19] MEDS: Tamsulosin HCl 0.4 MG Capsule PO (11:26)
[2019-09-19] MEDS: Finasteride 5 MG Tablet PO (11:27)
[2019-09-19] MEDS: Senna/Docusate Sodium 1 Tablet 2 TABLET PO ×2 (11:34→21:54)
[2019-09-19] MEDS: Acyclovir 800 MG Tablet PO ×4 (11:37→21:54)
[2019-09-19] MEDS: 0.9% Normal Saline 1,000 ML 100 ML IV (11:38)
[2019-09-19] MEDS: Ferrous Sulfate 325 MG Tablet PO (11:40)
[2019-09-19] MEDS: Acetaminophen 500 MG Tablet 1000 MG PO ×2 (15:26→21:54)
[2019-09-19] MEDS: Mupirocin Ointment 22gm Tube 1 APPLIC TOPICAL ×2 (15:27→21:57)
[2019-09-19] MEDS: Rivaroxaban 15 MG Tablet PO (18:45)
[2019-09-19 20:22] LABS: Hematocrit 23.4 % (40-54); Hemoglobin 7.9 g/dL (13.0-16.5)
[2019-09-19] MEDS: Atorvastatin Calcium 80 MG Tablet PO (21:55)
[2019-09-19] MEDS: Mirtazapine 15 MG Tablet PO (21:55)
[2019-09-19] MEDS: MELATONIN 3 MG TABLET PO (22:06)
[2019-09-20] VITALS (9 sets, daily range): BP systolic 122–156; BP diastolic 53–64; PULSE 68–80; RESP 16–20; TEMP 36.5–36.7; O2SAT 4–98; BMI 19.5
[2019-09-20] MEDS: Cefazolin 1 GM/50 ML BAG IV (02:04)
[2019-09-20] MEDS: Acetaminophen 500 MG Tablet 1000 MG PO ×3 (06:20→22:04)
[2019-09-20] MEDS: Acyclovir 800 MG Tablet PO ×5 (06:20→22:04)
[2019-09-20] MEDS: oxyCODONE 5 MG Tablet PO ×3 (06:20→22:15)
[2019-09-20 06:33] LABS: Hematocrit 22.5 % (40-54); Hemoglobin 7.8 g/dL (13.0-16.5); Mean Corp Hgb Conc 34.7 g/dL (32-36); Mean Corpuscular Hgb 36.1 pg (27.0-32.0); Mean Corpuscular Volume 104.2 fL (80-94); Mean Platelet Vol. 9.4 fl (6.2-12.0); Platelet Count 169 K/mm3 (150-450); RBC Distribution Width CV 15.9 % (11.6-14.6); RBC Distribution Width SD 59.6 fl (35.1-43.9); Red Blood Count 2.16 M/mm3 (4.6-6.2); White Blood Count 9.2 K/mm3 (4.4-11.0)
[2019-09-20 06:50] LABS: Anion Gap 7 (5-15); BUN 6 mg/dL (7-18); Calcium,Total 7.5 mg/dL (8.5-10.1); Chloride 99 mmol/L (98-107); Creatinine, Serum 0.32 mg/dL (0.70-1.30); EST Glomerular Filtration Rate 297 mL/min (>60); Est Glom Filt Rate - Afr Amer 359 mL/min (>60); Estimated Creatinine Clearance 55.87 ml/min; Glucose 132 mg/dL (74-106); Potassium 3.6 mmol/L (3.5-5.1); Sodium Level 130 mmol/L (136-145)
[2019-09-20] MEDS: dilTIAZem 60 MG Tablet PO ×2 (08:06→22:04)
[2019-09-20] MEDS: Metoprolol Tartrate 50 MG Tablet PO ×2 (08:06→22:04)
[2019-09-20] MEDS: Mupirocin Ointment 22gm Tube 1 APPLIC TOPICAL ×3 (08:06→22:05)
[2019-09-20] MEDS: Senna/Docusate Sodium 1 Tablet 2 TABLET PO ×2 (08:07→22:05)
[2019-09-20] MEDS: Finasteride 5 MG Tablet PO (08:07)
[2019-09-20] MEDS: Pantoprazole Sodium 40 MG Tablet PO (08:07)
[2019-09-20] MEDS: Tamsulosin HCl 0.4 MG Capsule PO (08:09)
[2019-09-20] MEDS: Amiodarone 200 MG Tablet 100 MG PO (08:10)
[2019-09-20] MEDS: Thiamine Hydrochloride 100 MG Tablet PO ×2 (08:11→17:51)
[2019-09-20] MEDS: Multivitamins,Ther W-Minerals Tablet 1 TABLET PO (08:11)
[2019-09-20] MEDS: Folic Acid 1 MG Tablet PO (08:11)
[2019-09-20] MEDS: Menthol/Lanolin/Calamine/Znox 113 GM Tube 1 APPLIC TOPICAL ×2 (10:52→22:04)
[2019-09-20] MEDS: Ferrous Sulfate 325 MG Tablet PO (12:35)
--- NOTE | 2019-09-20 12:42 | PCM.PROGNOTE ---
<No Mathur - Last Filed: 09/20/19 12:52> Patient Problems: Active and Suspected Problems (Last Reviewed 09/18/19 @ 07:[address] Danny Stone MD) Closed right hip fracture (Acute) Hyponatremia (Acute) Hypoglycemia (Acute) Subjective: Patient seen and examined. Denies significant pain at rest however reports increased pain with movement. Denies shortness of breath, chest pain or other current symptoms. - Physical Exam Vitals/I&O's: Vital Signs Temp Pulse Resp BP Pulse Ox 97.9 F 80 20 H 156/64 H 96 09/20/19 06:15 09/20/19 08:06 09/20/19 06:15 09/20/19 06:15 09/20/19 06:46 Oxygen Flow Rate (L/min) 2 Oxygen Delivery Method Nasal Cannula Weight: 128 lb 8.472 oz Body Mass Index (BMI) 19.5 Finger Stick Blood Glucose 89 Intake and Output for Last 24 Hours 09/18/19 09/19/19 09/20/19 23:59 23:59 23:59 Intake Total 1323.33 / 1723.33 3727.49 / 3727.49 650 / 650 Output Total 2300 / 2700 1350 / 1350 1275 / 1275 Balance -976.67 / -976.67 2377.49 / 2377.49 -625 / -625 General: Alert, Oriented x3, Cooperative HEENT: Atraumatic, PERRLA, EOMI, Normocephalic Neck: Supple, No JVD, Negative Carotid Bruits Lungs: Clear to auscultation, Normal air movement Cardiovascular: Regular rate, No murmurs Abdomen: Bowel Sounds Present, Soft, Non Tender Extremities: No clubbing, No cyanosis, No edema, Capillary Refill Less than 3 Seconds Skin: No rashes, No breakdown Musculoskeletal: No Tenderness to Palpation of Joints or Extremities, - - Left BKA Neurological: Cranial nerves II-XII grossly intact, Neuro grossly intact Psych/Mental Status: Normal Affect, Appropriate Microbiology Past 72 Hours 09/17/19 23:05 Mucosa - Nasopharyngeal Coronavirus COVID-19 PCR - Final Laboratory Results 09/19/19 20:10: Hgb 7.9 L, Hct 23.4 L 09/20/19 05:57: WBC 9.2, RBC 2.16 L, Hgb 7.8 L, Hct 22.5 L, MCV 104.2 H, MCH 36.1 H, MCHC 34.7, RDW Std Deviation 59.6 H, RDW Coeff of Sarai 15.9 H, Plt Count 169, MPV 9.4 09/20/19 05:57: Sodium 130 L, Potassium 3.6, Chloride 99, Carbon Dioxide 24.0, Anion Gap 7, BUN 6 L, Creatinine 0.32 L, Estim Creat Clear Calc 55.87, Est GFR (MDRD) Af Amer 359, Est GFR (MDRD) Non-Af 297, BUN/Creatinine Ratio 19.0, Glucose 132 H, Calcium 7.5 L Current Medications Acetaminophen (Tylenol) 1,000 mg PO Q8 [facility] Last Admin: 09/20/19 06:20 Dose: 1,000 mg Documented by: Acyclovir (Zovirax) 800 mg PO 5X/DAY [facility] Stop: 09/22/19 14:01 Last Admin: 09/20/19 10:52 Dose: 800 mg Documented by: Albuterol Sulfate (Ventolin Aerosols) 2.5 mg INHALATION Q2H PRN PRN PRN Reason: Shortness of Breath/Wheezing Amiodarone HCl (Cordarone) 100 mg PO DAILY@0800 [facility] Last Admin: 09/20/19 08:10 Dose: 100 mg Documented by: Atorvastatin Calcium (Lipitor) 80 mg PO QHS [facility] Last Admin: 09/19/19 21:55 Dose: 80 mg Documented by: Calamine/Phenol (Calmoseptine Ointment) 1 applic TOPICAL BID [facility]; Protocol Last Admin: 09/20/19 10:52 Dose: 1 applicatio Documented by: Dextrose (D50w Syringe) 0 gm IV X1 PRN; Protocol PRN Reason: Hypoglycemia Diltiazem HCl (Cardizem) 60 mg PO BID [facility] Last Admin: 09/20/19 08:06 Dose: 60 mg Documented by: Ferrous Sulfate (Ferrous Sulfate) 325 mg PO DAILY@1200 [facility] Last Admin: 09/20/19 12:35 Dose: 325 mg Documented by: Finasteride (Proscar) 5 mg PO DAILY [facility] Last Admin: 09/20/19 08:07 Dose: 5 mg Documented by: Glucagon () 1 mg IM .X1 PRN PRN Reason: Hypoglycemia Hydralazine HCl (Apresoline Iv) 5 mg IV Q4H PRN PRN PRN Reason: SBP more than 160 mmHg Hydromorphone HCl (Dilaudid Inj) 0.5 mg IV Q2H PRN PRN PRN Reason: Pain Score 6-10/10 Sodium Chloride () 250 mls @ 15 mls/hr IV .[id number] PRN PRN Reason: Saline Flush Sodium Chloride () 250 mls @ 15 mls/hr IV .[id number] PRN PRN Reason: Additional IVPB Infusion Lorazepam (Ativan) 2 mg IV Q2H PRN PRN; Protocol PRN Reason: CIWA score > 8 but <15 Lorazepam (Ativan) 2 mg IV UD PRN; Protocol PRN Reason: CIWA score >/=15. Melatonin (Melatonin) 3 mg PO QHS PRN PRN PRN Reason: INSOMNIA Last Admin: 09/19/19 22:06 Dose: 3 mg Documented by: Metoprolol Tartrate (Lopressor (Beta Pauline)) 50 mg PO BID [facility] Last Admin: 09/20/19 08:06 Dose: 50 mg Documented by: Mirtazapine (Remeron) 15 mg PO QHS [facility] Last Admin: 09/19/19 21:55 Dose: 15 mg Documented by: Multivitamins/Minerals ([facility]ivitamin With [facility] ([facility])) [facility] Last Admin: 09/20/19 08:11 Dose: 1 tablet Documented by: Mupirocin (Bactroban) 1 applic TOPICAL TID [facility]; Protocol Last Admin: 09/20/19 12:35 Dose: 1 applicatio Documented by: Nicotine (Nicoderm Cq (Pbkc)) 21 mg TRANSDERM. DAILY [facility] Last Admin: 09/20/19 08:08 Dose: 21 mg Documented by: Nutritional Formula (Lactose Free) (Ensure Enlive) 120 ml PO 4X/DAY [facility] Last Admin: 09/20/19 08:12 Dose: Not Given Documented by: Ondansetron HCl (Zofran) 4 mg IV Q6H PRN PRN PRN Reason: NAUSEA Oxycodone HCl (Oxyir) 5 - 10 mg PO Q4H PRN PRN PRN Reason: Pain Score 4-10/10 Last Admin: 05/25/20 10:58 Dose: 10 mg Documented by: Pantoprazole Sodium (Protonix) 40 mg PO DAILY [facility] Last Admin: 09/20/19 08:07 Dose: 40 mg Documented by: Potassium Chloride (K-Dur) 20 meq PO DAILY@0800 [facility] Last Admin: 09/20/19 08:10 Dose: 20 meq Documented by: Rivaroxaban (Xarelto) 15 mg PO DAILY@1700 [facility] Last Admin: 09/19/19 18:45 Dose: 15 mg Documented by: Senna/Docusate Sodium (Senokot-S, Brianna-Colace) 2 tablet PO BID [facility] Last Admin: 09/20/19 08:07 Dose: 2 tablet Documented by: Sodium Chloride () 10 - 40 ml IV UD PRN PRN Reason: SALINE FLUSH Last Admin: 09/18/19 13:47 Dose: 10 ml Documented by: Tamsulosin HCl (Flomax) 0.4 mg PO DAILY [facility] Last Admin: 09/20/19 08:09 Dose: 0.4 mg Documented by: Thiamine HCl ([facility]itamin B1) [facility] Stop: 09/20/19 17:01 Last Admin: 09/20/19 08:11 Dose: 100 mg Documented by: Medical Necessity - Tobacco Use Smoking Status: Current every day smoker Tobacco Use: Cigarettes Assessment/Plan All Active Problems (Last Reviewed 09/18/19 @ 07:[address] Danny Stone MD) Closed right hip fracture (Acute) Hyponatremia (Acute) Hypoglycemia (Acute) TIA (transient ischemic attack) (Resolved) Acute blood loss anemia (Resolved) Acute arterial ischemic stroke, vertebrobasilar, thalamic (Resolved) Hyponatremia (Resolved) Leukocytosis (Resolved) left stump swelling (Resolved) 1. Right hip traumatic displaced sub-trochanter fracture secondary to mechanical fall prior to admission status post cephalo-medullary fixation right hip by Dr. Boyle 09/19/2019- PRN pain regimen. PT/OT. Management per ortho. Resume home Xarelto for DVT prophylaxis. Plan for SNF pending acceptance. 2. Acute on chronic macrocytic anemia-expected outcome secondary to #1. Continue iron supplementation. Trend CBC. 3. Chronic COPD-no exacerbation. As needed albuterol aerosol. 4. Paroxysmal atrial fibrillation on anticoagulation with Xarelto-continue metoprolol, amiodarone, Cardizem regimen. 5. Chronic alcohol dependence- CIWA/ativan protocol. 6. Tobacco dependence- encouraged cessation. 7. Hyperlipidemia-continue statin. 8. BPH-continue Flomax, Proscar. DVT prophylaxis-continue Xarelto. Discharge planning: Plan for SNF pending acceptance. This patient was seen by VIRI Teixeira under the supervision of Dr. Munoz. <Jaime Munoz F - Last Filed: 09/20/19 15:08> - Physical Exam Vitals/I&O's: Vital Signs Temp Pulse Resp BP Pulse Ox 98.0 F 71 16 150/57 H 98 09/20/19 14:14 09/20/19 14:14 09/20/19 14:14 09/20/19 14:14 09/20/19 14:14 Oxygen Flow Rate (L/min) 3 Oxygen Delivery Method Nasal Cannula Weight: 128 lb 8.472 oz Body Mass Index (BMI) 19.5 Finger Stick Blood Glucose 89 Intake and Output for Last 24 Hours 09/18/19 09/19/19 09/20/19 23:59 23:59 23:59 Intake Total 1323.33 / 1723.33 3727.49 / 3727.49 650 / 650 Output Total 2300 / 2700 1350 / 1350 1275 / 1275 Balance -976.67 / -976.67 2377.49 / 2377.49 -625 / -625 Microbiology Past 72 Hours 09/17/19 23:05 Mucosa - Nasopharyngeal Coronavirus COVID-19 PCR - Final Laboratory Results 09/19/19 20:10: Hgb 7.9 L, Hct 23.4 L 09/20/19 05:57: WBC 9.2, RBC 2.16 L, Hgb 7.8 L, Hct 22.5 L, MCV 104.2 H, MCH 36.1 H, MCHC 34.7, RDW Std Deviation 59.6 H, RDW Coeff of Sarai 15.9 H, Plt Count 169, MPV 9.4 09/20/19 05:57: Sodium 130 L, Potassium 3.6, Chloride 99, Carbon Dioxide 24.0, Anion Gap 7, BUN 6 L, Creatinine 0.32 L, Estim Creat Clear Calc 55.87, Est GFR (MDRD) Af Amer 359, Est GFR (MDRD) Non-Af 297, BUN/Creatinine Ratio 19.0, Glucose 132 H, Calcium 7.5 L Current Medications Acetaminophen (Tylenol) 1,000 mg PO Q8 [facility] Last Admin: 09/20/19 14:22 Dose: 1,000 mg Documented by: Acyclovir (Zovirax) 800 mg PO 5X/DAY [facility] Stop: 09/22/19 14:01 Last Admin: 09/20/19 14:23 Dose: 800 mg Documented by: Albuterol Sulfate (Ventolin Aerosols) 2.5 mg INHALATION Q2H PRN PRN PRN Reason: Shortness of Breath/Wheezing Amiodarone HCl (Cordarone) 100 mg PO DAILY@0800 [facility] Last Admin: 09/20/19 08:10 Dose: 100 mg Documented by: Atorvastatin Calcium (Lipitor) 80 mg PO QHS [facility] Last Admin: 09/19/19 21:55 Dose: 80 mg Documented by: Calamine/Phenol (Calmoseptine Ointment) 1 applic TOPICAL BID [facility]; Protocol Last Admin: 09/20/19 10:52 Dose: 1 applicatio Documented by: Dextrose (D50w Syringe) 0 gm IV X1 PRN; Protocol PRN Reason: Hypoglycemia Diltiazem HCl (Cardizem) 60 mg PO BID [facility] Last Admin: 09/20/19 08:06 Dose: 60 mg Documented by: Ferrous Sulfate (Ferrous Sulfate) 325 mg PO DAILY@1200 [facility] Last Admin: 09/20/19 12:35 Dose: 325 mg Documented by: Finasteride (Proscar) 5 mg PO DAILY [facility] Last Admin: 09/20/19 08:07 Dose: 5 mg Documented by: Glucagon () 1 mg IM .X1 PRN PRN Reason: Hypoglycemia Hydralazine HCl (Apresoline Iv) 5 mg IV Q4H PRN PRN PRN Reason: SBP more than 160 mmHg Hydromorphone HCl (Dilaudid Inj) 0.5 mg IV Q2H PRN PRN PRN Reason: Pain Score 6-10/10 Sodium Chloride () 250 mls @ 15 mls/hr IV .[id number] PRN PRN Reason: Saline Flush Sodium Chloride () 250 mls @ 15 mls/hr IV .[id number] PRN PRN Reason: Additional IVPB Infusion Lorazepam (Ativan) 2 mg IV Q2H PRN PRN; Protocol PRN Reason: CIWA score > 8 but <15 Lorazepam (Ativan) 2 mg IV UD PRN; Protocol PRN Reason: CIWA score >/=15. Melatonin (Melatonin) 3 mg PO QHS PRN PRN PRN Reason: INSOMNIA Last Admin: 09/19/19 22:06 Dose: 3 mg Documented by: Metoprolol Tartrate (Lopressor (Beta Pauline)) 50 mg PO BID [facility] Last Admin: 09/20/19 08:06 Dose: 50 mg Documented by: Mirtazapine (Remeron) 15 mg PO QHS [facility] Last Admin: 09/19/19 21:55 Dose: 15 mg Documented by: Multivitamins/Minerals (Multivitamin With Minerals (Bkc)) [facility] Last Admin: 09/20/19 08:11 Dose: 1 tablet Documented by: Mupirocin (Bactroban) 1 applic TOPICAL TID [facility]; Protocol Last Admin: 09/20/19 12:35 Dose: 1 applicatio Documented by: Nicotine (Nicoderm Cq (Pbkc)) 21 mg TRANSDERM. DAILY [facility] Last Admin: 09/20/19 08:08 Dose: 21 mg Documented by: Nutritional Formula (Lactose Free) (Ensure Enlive) 120 ml PO 4X/DAY [facility] Last Admin: 09/20/19 14:22 Dose: 120 ml Documented by: Ondansetron HCl (Zofran) 4 mg IV Q6H PRN PRN PRN Reason: NAUSEA Oxycodone HCl (Oxyir) 5 - 10 mg PO Q4H PRN PRN PRN Reason: Pain Score 4-10/10 Last Admin: 09/20/19 10:58 Dose: 10 mg Documented by: Pantoprazole Sodium (Protonix) 40 mg PO DAILY [facility] Last Admin: 09/20/19 08:07 Dose: 40 mg Documented by: Potassium Chloride (K-Dur) 20 meq PO DAILY@0800 [facility] Last Admin: 09/20/19 08:10 Dose: 20 meq Documented by: Rivaroxaban (Xarelto) 15 mg PO DAILY@1700 [facility] Last Admin: 09/19/19 18:45 Dose: 15 mg Documented by: Senna/Docusate Sodium (Senokot-S, Brianna-Colace) 2 tablet PO BID [facility] Last Admin: 09/20/19 08:07 Dose: 2 tablet Documented by: Sodium Chloride () 10 - 40 ml IV UD PRN PRN Reason: SALINE FLUSH Last Admin: 09/18/19 13:47 Dose: 10 ml Documented by: Tamsulosin HCl (Flomax) 0.4 mg PO DAILY [facility] Last Admin: 09/20/19 08:09 Dose: 0.4 mg Documented by: Thiamine HCl (Vitamin B1) 100 mg PO BIDCM [facility] Stop: 09/20/19 17:01 Last Admin: 09/20/19 08:11 Dose: 100 mg Documented by: Addendum: Dr. Munoz I personally examined the patient and reviewed the chart. I agree with the above. 69-year-old male presenting to the hospital after a mechanical fall leading to a right hip subtrochanteric fracture. He underwent repair yesterday by orthopedic surgery. He will be resumed on his Xarelto for DVT prophylaxis and will likely need to be placed at a [facility] facility for rehab given the fact that he has left A. He does have a history of A. fib and therefore will need to be maintained on Xarelto even after he is completed the course just for simple DVT prophylaxis, and he will also need to continue his metoprolol and amiodarone. Otherwise he is doing fairly well and states that his pain is decently well controlled at this time. Inpatient E&M: [id number] [facility] L2
--- NOTE | 2019-09-20 13:12 | NURSING ---
Updated Monica in [facility].
[2019-09-20] MEDS: Rivaroxaban 15 MG Tablet PO (17:50)
[2019-09-20] MEDS: Mirtazapine 15 MG Tablet PO (22:04)
[2019-09-20] MEDS: Atorvastatin Calcium 80 MG Tablet PO (22:04)
[2019-09-21] VITALS (7 sets, daily range): BP systolic 133–168; BP diastolic 44–69; PULSE 64–103; RESP 18; TEMP 36.6–36.8; O2SAT 92–99
[2019-09-21] MEDS: Mupirocin Ointment 22gm Tube 1 APPLIC TOPICAL ×3 (05:15→23:16)
[2019-09-21] MEDS: Acetaminophen 500 MG Tablet 1000 MG PO ×3 (05:15→23:19)
[2019-09-21] MEDS: Acyclovir 800 MG Tablet PO ×5 (05:15→23:18)
[2019-09-21 06:25] LABS: Hematocrit 23.2 % (40-54); Mean Corp Hgb Conc 34.5 g/dL (32-36); Mean Corpuscular Hgb 36.2 pg (27.0-32.0); Mean Platelet Vol. 9.2 fl (6.2-12.0); Platelet Count 207 K/mm3 (150-450); RBC Distribution Width CV 16.3 % (11.6-14.6); RBC Distribution Width SD 62.4 fl (35.1-43.9); Red Blood Count 2.21 M/mm3 (4.6-6.2); White Blood Count 7.8 K/mm3 (4.4-11.0)
[2019-09-21 06:49] LABS: Anion Gap 4 (5-15); BUN 6 mg/dL (7-18); BUN/Creat Ratio 14.8 RATIO (10-20); Calcium,Total 7.9 mg/dL (8.5-10.1); Chloride 99 mmol/L (98-107); Creatinine, Serum 0.41 mg/dL (0.70-1.30); EST Glomerular Filtration Rate 221 mL/min (>60); Est Glom Filt Rate - Afr Amer 268 mL/min (>60); Estimated Creatinine Clearance 55.87 ml/min; Glucose 96 mg/dL (74-106); Potassium 3.8 mmol/L (3.5-5.1); Sodium Level 131 mmol/L (136-145)
[2019-09-21] MEDS: Amiodarone 200 MG Tablet 100 MG PO (08:35)
[2019-09-21] MEDS: Tamsulosin HCl 0.4 MG Capsule PO (08:36)
[2019-09-21] MEDS: Senna/Docusate Sodium 1 Tablet 2 TABLET PO (08:36)
[2019-09-21] MEDS: Multivitamins,Ther W-Minerals Tablet 1 TABLET PO (08:37)
[2019-09-21] MEDS: dilTIAZem 60 MG Tablet PO ×2 (08:37→23:17)
[2019-09-21] MEDS: Metoprolol Tartrate 50 MG Tablet PO ×2 (08:37→23:17)
[2019-09-21] MEDS: Finasteride 5 MG Tablet PO (08:37)
[2019-09-21] MEDS: Pantoprazole Sodium 40 MG Tablet PO (08:37)
[2019-09-21] MEDS: Menthol/Lanolin/Calamine/Znox 113 GM Tube 1 APPLIC TOPICAL ×2 (08:38→23:20)
--- NOTE | 2019-09-21 10:47 | CASEMGMT ---
Addendum entered by Katie Forde 09/21/19 14:23: YIMI received message from Deedee at [facility] stating they are able to accept pt but would like to deep clean the room pt will be going into and asked if pt could discharge tomorrow afternoon. YIMI placed a call to back to Deedee, YIMI updated Deedee that pt would still need a pre-cert and this worker already updated physician that pt likely wouldn't get out today so discharge tomorrow is fine. Deedee states understanding, will submit for pre-cert today. Plan: [facility] pending pre-cert Original Note: Social Work Note SW updated that pt is agreeable to SNF and prefers [facility]. SW in to speak with pt. SW introduced self and role at [facility]. Pt is alert and orientated x3. Pt confirms that he wishes to discharge to [facility] as he has been there before. YIMI explained referral process and that pt will need pre-cert. Pt states understanding. YIMI reviewed previous notes. Pt's CM is Eva Marcial through [facility]. Pt gets an aide 3 hours a day 4 days a week from [facility] and has a medical alert button. YIMI placed a call to Eva Marcial, left message updating on admission and discharge plan for pt. YIMI placed a call to [facility] and spoke with Sarita in admissions and provided referral. Sarita states she will review referral, states she is not sure if they are taking new negative COVID tests but will speak with administration. YIMI updated Sarita that pt is ready for discharge once pre-cert is obtained. YIMI faxed referral. Plan: [facility] pending acceptance and pre-cert Katie Forde [employer], [employer]
--- NOTE | 2019-09-21 11:02 | PN_ITS ---
<No Mathur - Last Filed: 09/21/19 11:09> Patient Problems: Active and Suspected Problems (Last Reviewed 09/18/19 @ 07:[address] Danny Stone MD) Closed right hip fracture (Acute) Hyponatremia (Acute) Hypoglycemia (Acute) Subjective: Patient seen and examined. Denies pain. Agreeable to SNF at discharge, a cceptance pending. Patient states he is worried about who will take care of his dog while he is at SNF for rehab. - Physical Exam Vitals/I&O's: Vital Signs Temp Pulse Resp BP Pulse Ox 98.2 F 79 18 133/58 H 99 09/21/19 08:29 09/21/19 08:37 09/21/19 08:29 09/21/19 08:29 09/21/19 08:29 Oxygen Flow Rate (L/min) 2 Oxygen Delivery Method Nasal Cannula Weight: 128 lb 8.472 oz Body Mass Index (BMI) 19.5 Finger Stick Blood Glucose 89 Intake and Output for Last 24 Hours 09/19/19 09/20/19 09/21/19 23:59 23:59 23:59 Intake Total 3727.49 / 3727.49 650 / 650 Output Total 1350 / 1350 1385 / 1385 2350 / 2350 Balance 2377.49 / 2377.49 -735 / -735 -2350 / -2350 General: Alert, Oriented x3, Cooperative HEENT: Atraumatic, PERRLA, EOMI, Normocephalic Oral: Dry Mucosa Neck: Supple, No JVD, Negative Carotid Bruits Lungs: Clear to auscultation, Normal air movement Cardiovascular: Regular rate, Regular Rhythm, Normal S1, Normal S2, No murmurs Abdomen: Bowel Sounds Present, Soft, Non Tender, Non-Distended Extremities: No clubbing, No cyanosis, No edema, Capillary Refill Less than 3 Seconds Skin: No rashes, No breakdown, - - Right hip dressing intact Musculoskeletal: No Tenderness to Palpation of Joints or Extremities, - - Left BKA Neurological: Cranial nerves II-XII grossly intact Psych/Mental Status: Normal Affect, Appropriate Microbiology Past 72 Hours 09/17/19 23:05 Mucosa - Nasopharyngeal Coronavirus COVID-19 PCR - Final Laboratory Results 09/21/19 06:12: WBC 7.8, RBC 2.21 L, Hgb 8.0 L, Hct 23.2 L, MCV 105.0 H, MCH 36.2 H, MCHC 34.5, RDW Std Deviation 62.4 H, RDW Coeff of Sarai 16.3 H, Plt Count 207, MPV 9.2 09/21/19 06:12: Sodium 131 L, Potassium 3.8, Chloride 99, Carbon Dioxide 28.0, Anion Gap 4 L, BUN 6 L, Creatinine 0.41 L, Estim Creat Clear Calc 55.87, Est GFR (MDRD) Af Amer 268, Est GFR (MDRD) Non-Af 221, BUN/Creatinine Ratio 14.8, Glucose 96, Calcium 7.9 L Current Medications Acetaminophen (Tylenol) 1,000 mg PO Q8 [facility] Last Admin: 09/21/19 05:15 Dose: 1,000 mg Documented by: Acyclovir (Zovirax) 800 mg PO 5X/DAY [facility] Stop: 09/22/19 14:01 Last Admin: 09/21/19 08:36 Dose: 800 mg Documented by: Albuterol Sulfate (Ventolin Aerosols) 2.5 mg INHALATION Q2H PRN PRN PRN Reason: Shortness of Breath/Wheezing Amiodarone HCl (Cordarone) 100 mg PO DAILY@0800 [facility] Last Admin: 09/21/19 08:35 Dose: 100 mg Documented by: Atorvastatin Calcium (Lipitor) 80 mg PO QHS [facility] Last Admin: 09/20/19 22:04 Dose: 80 mg Documented by: Calamine/Phenol (Calmoseptine Ointment) 1 applic TOPICAL BID [facility]; Protocol Last Admin: 09/21/19 08:38 Dose: 1 applicatio Documented by: Dextrose (D50w Syringe) 0 gm IV X1 PRN; Protocol PRN Reason: Hypoglycemia Diltiazem HCl (Cardizem) 60 mg PO BID [facility] Last Admin: 09/21/19 08:37 Dose: 60 mg Documented by: Ferrous Sulfate (Ferrous Sulfate) 325 mg PO DAILY@1200 [facility] Last Admin: 09/20/19 12:35 Dose: 325 mg Documented by: Finasteride (Proscar) 5 mg PO DAILY [facility] Last Admin: 09/21/19 08:37 Dose: 5 mg Documented by: Glucagon () 1 mg IM .X1 PRN PRN Reason: Hypoglycemia Hydralazine HCl (Apresoline Iv) 5 mg IV Q4H PRN PRN PRN Reason: SBP more than 160 mmHg Hydromorphone HCl (Dilaudid Inj) 0.5 mg IV Q2H PRN PRN PRN Reason: Pain Score 6-10/10 Sodium Chloride () 250 mls @ 15 mls/hr IV .[id number] PRN PRN Reason: Saline Flush Sodium Chloride () 250 mls @ 15 mls/hr IV .[id number] PRN PRN Reason: Additional IVPB Infusion Lorazepam (Ativan) 2 mg IV Q2H PRN PRN; Protocol PRN Reason: CIWA score > 8 but <15 Lorazepam (Ativan) 2 mg IV UD PRN; Protocol PRN Reason: CIWA score >/=15. Melatonin (Melatonin) 3 mg PO QHS PRN PRN PRN Reason: INSOMNIA Last Admin: 09/19/19 22:06 Dose: 3 mg Documented by: Metoprolol Tartrate (Lopressor (Beta Pauline)) 50 mg PO BID [facility] Last Admin: 09/21/19 08:37 Dose: 50 mg Documented by: Mirtazapine (Remeron) 15 mg PO QHS [facility] Last Admin: 09/20/19 22:04 Dose: 15 mg Documented by: Multivitamins/Minerals (Multivitamin With Minerals (Bkc)) [facility] Last Admin: 09/21/19 08:37 Dose: 1 tablet Documented by: Mupirocin (Bactroban) 1 applic TOPICAL TID [facility]; Protocol Last Admin: 09/21/19 05:15 Dose: 1 applicatio Documented by: Nicotine (Nicoderm Cq (Pbkc)) 21 mg TRANSDERM. DAILY [facility] Last Admin: 09/21/19 08:37 Dose: 21 mg Documented by: Nutritional Formula (Lactose Free) (Ensure Enlive) 120 ml PO 4X/DAY [facility] Last Admin: 09/21/19 08:35 Dose: 120 ml Documented by: Ondansetron HCl (Zofran) 4 mg IV Q6H PRN PRN PRN Reason: NAUSEA Oxycodone HCl (Oxyir) 5 - 10 mg PO Q4H PRN PRN PRN Reason: Pain Score 4-10/10 Last Admin: 09/20/19 22:15 Dose: 10 mg Documented by: Pantoprazole Sodium (Protonix) 40 mg PO DAILY [facility] Last Admin: 09/21/19 08:37 Dose: 40 mg Documented by: Potassium Chloride (K-Dur) 20 meq PO DAILY@0800 [facility] Last Admin: 09/21/19 08:35 Dose: 20 meq Documented by: Rivaroxaban (Xarelto) 15 mg PO DAILY@1700 [facility] Last Admin: 09/20/19 17:50 Dose: 15 mg Documented by: Senna/Docusate Sodium (Senokot-S, Brianna-Colace) 2 tablet PO BID [facility] Last Admin: 09/21/19 08:36 Dose: 2 tablet Documented by: Sodium Chloride () 10 - 40 ml IV UD PRN PRN Reason: SALINE FLUSH Last Admin: 09/18/19 13:47 Dose: 10 ml Documented by: Tamsulosin HCl (Flomax) 0.4 mg PO DAILY [facility] Last Admin: 09/21/19 08:36 Dose: 0.4 mg Documented by: Medical Necessity - Tobacco Use Smoking Status: Current every day smoker Tobacco Use: Cigarettes Assessment/Plan All Active Problems (Last Reviewed 09/18/19 @ 07:[address] Danny Stone MD) Closed right hip fracture (Acute) Hyponatremia (Acute) Hypoglycemia (Acute) TIA (transient ischemic attack) (Resolved) Acute blood loss anemia (Resolved) Acute arterial ischemic stroke, vertebrobasilar, thalamic (Resolved) Hyponatremia (Resolved) Leukocytosis (Resolved) left stump swelling (Resolved) 1. Right hip traumatic displaced sub-trochanter fracture secondary to mechanical fall prior to admission status post cephalo-medullary fixation right hip by Dr. Boyle 09/19/2019- PRN pain regimen. PT/OT. Management per ortho. Resume home Xarelto for DVT prophylaxis. Plan for SNF pending acceptance. 2. Acute on chronic macrocytic anemia-expected outcome secondary to #1. Continue iron supplementation. Trend CBC. 3. Chronic COPD-no exacerbation. As needed albuterol aerosol. 4. Paroxysmal atrial fibrillation on anticoagulation with Xarelto-continue metoprolol, amiodarone, Cardizem regimen. 5. Chronic alcohol dependence- CIWA/ativan protocol. 6. Tobacco dependence- encouraged cessation. 7. Hyperlipidemia-continue statin. 8. BPH-continue Flomax, Proscar. DVT prophylaxis-continue Xarelto. Discharge planning: Plan for SNF pending acceptance. This patient was seen by VIRI Teixeira under the supervision of Dr. Munoz. <Jaime Munoz F - Last Filed: 09/21/19 12:37> - Physical Exam Vitals/I&O's: Vital Signs Temp Pulse Resp BP Pulse Ox 98.2 F 79 18 133/58 H 99 09/21/19 08:29 09/21/19 08:37 09/21/19 08:29 09/21/19 08:29 09/21/19 08:29 Oxygen Flow Rate (L/min) 1 Oxygen Delivery Method Nasal Cannula Weight: 128 lb 8.472 oz Body Mass Index (BMI) 19.5 Finger Stick Blood Glucose 89 Intake and Output for Last 24 Hours 09/19/19 09/20/19 09/21/19 23:59 23:59 23:59 Intake Total 3727.49 / 3727.49 650 / 650 480 / 480 Output Total 1350 / 1350 1385 / 1385 2650 / 2650 Balance 2377.49 / 2377.49 -735 / -735 -2170 / -2170 Microbiology Past 72 Hours 09/17/19 23:05 Mucosa - Nasopharyngeal Coronavirus COVID-19 PCR - Final Laboratory Results 09/21/19 06:12: WBC 7.8, RBC 2.21 L, Hgb 8.0 L, Hct 23.2 L, MCV 105.0 H, MCH 36.2 H, MCHC 34.5, RDW Std Deviation 62.4 H, RDW Coeff of Sarai 16.3 H, Plt Count 207, MPV 9.2 09/21/19 06:12: Sodium 131 L, Potassium 3.8, Chloride 99, Carbon Dioxide 28.0, Anion Gap 4 L, BUN 6 L, Creatinine 0.41 L, Estim Creat Clear Calc 55.87, Est GFR (MDRD) Af Amer 268, Est GFR (MDRD) Non-Af 221, BUN/Creatinine Ratio 14.8, Glucose 96, Calcium 7.9 L Current Medications Acetaminophen (Tylenol) 1,000 mg PO Q8 [facility] Last Admin: 09/21/19 05:15 Dose: 1,000 mg Documented by: Acyclovir (Zovirax) 800 mg PO 5X/DAY [facility] Stop: 09/22/19 14:01 Last Admin: 09/21/19 08:36 Dose: 800 mg Documented by: Albuterol Sulfate (Ventolin Aerosols) 2.5 mg INHALATION Q2H PRN PRN PRN Reason: Shortness of Breath/Wheezing Amiodarone HCl (Cordarone) 100 mg PO DAILY@0800 [facility] Last Admin: 09/21/19 08:35 Dose: 100 mg Documented by: Atorvastatin Calcium (Lipitor) 80 mg PO QHS [facility] Last Admin: 09/20/19 22:04 Dose: 80 mg Documented by: Calamine/Phenol (Calmoseptine Ointment) 1 applic TOPICAL BID [facility]; Protocol Last Admin: 09/21/19 08:38 Dose: 1 applicatio Documented by: Dextrose (D50w Syringe) 0 gm IV X1 PRN; Protocol PRN Reason: Hypoglycemia Diltiazem HCl (Cardizem) 60 mg PO BID [facility] Last Admin: 09/21/19 08:37 Dose: 60 mg Documented by: Ferrous Sulfate (Ferrous Sulfate) 325 mg PO DAILY@1200 [facility] Last Admin: 09/21/19 12:18 Dose: 325 mg Documented by: Finasteride (Proscar) 5 mg PO DAILY [facility] Last Admin: 09/21/19 08:37 Dose: 5 mg Documented by: Glucagon () 1 mg IM .X1 PRN PRN Reason: Hypoglycemia Hydralazine HCl (Apresoline Iv) 5 mg IV Q4H PRN PRN PRN Reason: SBP more than 160 mmHg Hydromorphone HCl (Dilaudid Inj) 0.5 mg IV Q2H PRN PRN PRN Reason: Pain Score 6-10/10 Sodium Chloride () 250 mls @ 15 mls/hr IV .[id number] PRN PRN Reason: Saline Flush Sodium Chloride () 250 mls @ 15 mls/hr IV .[id number] PRN PRN Reason: Additional IVPB Infusion Lorazepam (Ativan) 2 mg IV Q2H PRN PRN; Protocol PRN Reason: CIWA score > 8 but <15 Lorazepam (Ativan) 2 mg IV UD PRN; Protocol PRN Reason: CIWA score >/=15. Melatonin (Melatonin) 3 mg PO QHS PRN PRN PRN Reason: INSOMNIA Last Admin: 09/19/19 22:06 Dose: 3 mg Documented by: Metoprolol Tartrate (Lopressor (Beta Pauline)) 50 mg PO BID [facility] Last Admin: 09/21/19 08:37 Dose: 50 mg Documented by: Mirtazapine (Remeron) 15 mg PO QHS [facility] Last Admin: 09/20/19 22:04 Dose: 15 mg Documented by: Multivitamins/Minerals (Multivitamin With Minerals (Bkc)) [facility] Last Admin: 09/21/19 08:37 Dose: 1 tablet Documented by: Mupirocin (Bactroban) 1 applic TOPICAL TID [facility]; Protocol Last Admin: 09/21/19 05:15 Dose: 1 applicatio Documented by: Nicotine (Nicoderm Cq (Pbkc)) 21 mg TRANSDERM. DAILY [facility] Last Admin: 09/21/19 08:37 Dose: 21 mg Documented by: Nutritional Formula (Lactose Free) (Ensure Enlive) 120 ml PO 4X/DAY [facility] Last Admin: 09/21/19 08:35 Dose: 120 ml Documented by: Ondansetron HCl (Zofran) 4 mg IV Q6H PRN PRN PRN Reason: NAUSEA Oxycodone HCl (Oxyir) 5 - 10 mg PO Q4H PRN PRN PRN Reason: Pain Score 4-10/10 Last Admin: 09/21/19 12:18 Dose: 10 mg Documented by: Pantoprazole Sodium (Protonix) 40 mg PO DAILY [facility] Last Admin: 09/21/19 08:37 Dose: 40 mg Documented by: Potassium Chloride (K-Dur) 20 meq PO DAILY@0800 [facility] Last Admin: 09/21/19 08:35 Dose: 20 meq Documented by: Rivaroxaban (Xarelto) 15 mg PO DAILY@1700 [facility] Last Admin: 09/20/19 17:50 Dose: 15 mg Documented by: Senna/Docusate Sodium (Senokot-S, Brianna-Colace) 2 tablet PO BID [facility] Last Admin: 09/21/19 08:36 Dose: 2 tablet Documented by: Sodium Chloride () 10 - 40 ml IV UD PRN PRN Reason: SALINE FLUSH Last Admin: 09/18/19 13:47 Dose: 10 ml Documented by: Tamsulosin HCl (Flomax) 0.4 mg PO DAILY [facility] Last Admin: 09/21/19 08:36 Dose: 0.4 mg Documented by: Addendum: Dr. Munoz I personally examined the patient and reviewed the chart. I agree with the above. 69-year-old male presenting to the hospital after a mechanical fall leading to a right hip subtrochanteric fracture. He underwent repair 09/19/2019 by orthopedic surgery. He will be resumed on his Xarelto for DVT prophylaxis and will likely need to be placed at a alf facility for rehab given the fact that he has left [facility]. He does have a history of A. fib and therefore will need to be maintained on Xarelto even after he is completed the course just for simple DVT prophylaxis, and he will also need to continue his metoprolol and amiodarone. Otherwise he is doing fairly well and states that his pain is decently well controlled at this time. Inpatient E&M: 77894 Subs Hosp L2
--- NOTE | 2019-09-21 12:14 | NURSING ---
Asked pt if he would like this nurse to call his Sister and give her an update. Pt states he already spoke to his sister today and this is not necessary
[2019-09-21] MEDS: Ferrous Sulfate 325 MG Tablet PO (12:18)
[2019-09-21] MEDS: oxyCODONE 5 MG Tablet PO ×2 (12:18→23:32)
[2019-09-21] MEDS: Rivaroxaban 15 MG Tablet PO (18:29)
[2019-09-21] MEDS: Mirtazapine 15 MG Tablet PO (23:18)
[2019-09-21] MEDS: Atorvastatin Calcium 80 MG Tablet PO (23:18)
[2019-09-21] MEDS: MELATONIN 3 MG TABLET PO (23:32)
[2019-09-21] MEDS: 0.9% Saline Lock 10 ML Syringe IV (23:57)
[2019-09-22] VITALS (7 sets, daily range): BP systolic 122–155; BP diastolic 49–77; PULSE 79–99; RESP 18–22; TEMP 36.6–36.7; O2SAT 92–99
[2019-09-22] MEDS: Acyclovir 800 MG Tablet PO ×3 (06:53→13:50)
[2019-09-22] MEDS: Acetaminophen 500 MG Tablet 1000 MG PO ×2 (06:53→13:50)
[2019-09-22] MEDS: Mupirocin Ointment 22gm Tube 1 APPLIC TOPICAL ×2 (06:54→13:51)
[2019-09-22 06:55] LABS: Hematocrit 23.9 % (40-54); Hemoglobin 8.3 g/dL (13.0-16.5); Mean Corp Hgb Conc 34.7 g/dL (32-36); Mean Corpuscular Hgb 36.7 pg (27.0-32.0); Mean Corpuscular Volume 105.8 fL (80-94); Platelet Count 238 K/mm3 (150-450); RBC Distribution Width CV 16.1 % (11.6-14.6); RBC Distribution Width SD 61.8 fl (35.1-43.9); Red Blood Count 2.26 M/mm3 (4.6-6.2); White Blood Count 6.9 K/mm3 (4.4-11.0)
[2019-09-22] MEDS: oxyCODONE 5 MG Tablet PO ×2 (10:12→15:59)
[2019-09-22] MEDS: dilTIAZem 60 MG Tablet PO (10:14)
[2019-09-22] MEDS: Multivitamins,Ther W-Minerals Tablet 1 TABLET PO (10:14)
[2019-09-22] MEDS: Menthol/Lanolin/Calamine/Znox 113 GM Tube 1 APPLIC TOPICAL (10:14)
[2019-09-22] MEDS: Amiodarone 200 MG Tablet 100 MG PO (10:14)
[2019-09-22] MEDS: Metoprolol Tartrate 50 MG Tablet PO (10:15)
[2019-09-22] MEDS: Finasteride 5 MG Tablet PO (10:15)
[2019-09-22] MEDS: Pantoprazole Sodium 40 MG Tablet PO (10:16)
[2019-09-22] MEDS: Senna/Docusate Sodium 1 Tablet 2 TABLET PO (10:16)
[2019-09-22] MEDS: Tamsulosin HCl 0.4 MG Capsule PO (10:16)
--- NOTE | 2019-09-22 10:26 | PCM.EXTCARCO ---
- Diet 09/19/19 12:47 Diet: Regular Diet Is pt able to select menu?: No - Routine Orders/Code Status Enema Type: Fleetz Enema Frequency: Daily PRN Suppository Type: Dulcolax 10mg Suppository Frequency: Daily PRN O2 Liters per Minute: 2 O2 Frequency: PRN Keep PO Greater than or Equal to (%): 90 Routine Lab Work: CBC, BMP, - - Q Week Code Status: DNRCC-A - No intubation - Wound(s) right hip Wound Type: Surgical Incision - Suggestions for Active Care Change Position every (hours): 2 Times a day to sit in chair: 3 - Therapies Weight Bearing: Weight bearing as tolerated Physical Therapy: Eval and Treat Occupational Therapy: Eval and Treat - Problem/Diagnosis (1) Closed right hip fracture Status: Acute Current Visit: Yes (2) Paroxysmal A-fib Status: Chronic Comment: currently in sinus rhythm Current Visit: No (3) Macrocytic anemia Status: Chronic Current Visit: Yes (4) Chronic airway obstruction Status: Chronic Current Visit: No (5) HLD (hyperlipidemia) Status: Chronic Current Visit: No (6) HTN (hypertension) Status: Chronic Current Visit: No (7) Tobacco use disorder Status: Chronic Current Visit: No - Allergies/Procedures Done in Hospital Allergies/Adverse Reactions: Allergies No Known Allergies Allergy (Verified 05/05/19 14:32) Procedures: - - Right hip displaced subtrochanteric fracture - Type of Care/Length of Stay Estimated LOS: Convalescent Care Less Than 30 days Type of Care Needed: Skilled Rehab Potential: Fair Prognosis: Fair - Additional Orders/Day of Discharge Additional Orders: Remove kalani 10/03/2019 H&P will serve as current which was dated: 09/17/19 Day of Discharge: 09/22/19 - Dietary and Speech Recommendations Dietitian Recommendations/Changes: Continue regular diet. Will fortify foods when possible. Will continue ensure to 4x/day. - Follow Up Care Primary Care Physician: Sudhakar Crowell MD [Primary Care Provider] - Please follow up with your Primary Care Physician in: 1 Week Please Follow Up With: Danny Boyle DO When: 2 Weeks
--- NOTE | 2019-09-22 10:40 | PCM.DC.SUM ---
<No Mathur - Last Filed: 09/22/19 10:47> Discharge Date and Diagnosis Date of Admission: 09/17/19 Date of Discharge: 09/22/19 - Primary Discharge Diagnosis Acute Problems: Active Problems (Last Reviewed 09/18/19 @ 07:[address] Danny Stone MD) 1. Right hip traumatic displaced sub-trochanter fracture secondary to mechanical fall prior to admission status post cephalo-medullary fixation right hip by Dr. Boyle 09/19/2019 2. Acute on chronic macrocytic anemia 3. Chronic COPD 4. Paroxysmal atrial fibrillation on anticoagulation with Xarelto 5. Chronic alcohol dependence 6. Tobacco dependence 7. Hyperlipidemia 8. BPH - Secondary Discharge Diagnosis Chronic Problems: Chronic Problems (Last Reviewed 09/18/19 @ 07:[address] Danny Stone MD) Paroxysmal A-fib (Chronic) currently in sinus rhythm Diastolic CHF (Chronic) Gait instability (Chronic) Macrocytic anemia (Chronic) Chronic anticoagulation (Chronic) Xarelto Depression (Chronic) Amputation of left lower extremity (Chronic) Chronic airway obstruction (Chronic) Coronary atherosclerosis of douglas coronary artery (Chronic) Esophageal reflux (Chronic) HLD (hyperlipidemia) (Chronic) HTN (hypertension) (Chronic) Percutaneous transluminal coronary angioplasty status (Chronic) PVD (peripheral vascular disease) (Chronic) Tobacco use disorder (Chronic) Hospital Course and Treatment Imaging Results: Diagnostic Data Hip/Pelvis X-Ray 09/17/19 22:40 IMPRESSION: Acute displaced fracture of the proximal right femur. Electronically Signed: Heron Love at 23:19 EDT Tel , Service support , Chest X-Ray 09/17/19 23:13 IMPRESSION: No acute findings. Suspect mild COPD/emphysema. Electronically Signed: Heron Love at 23:41 EDT Tel , Service support , Femur X-Ray 09/19/19 08:00 IMPRESSION: ORIF of the femur for a proximal shaft fracture. Electronically Signed: Valeriy Layne DO at 10:04 EDT Tel [phone], Service support , Dr. Boyle- orthopedic medicine Operations: None Procedures: - - right femur cephalo-medullary fixation with long trochanteric femoral nail Summary of Care Provided: The patient is a 69 year old M admitted 09/17/2019 due to right hip pain. 1. Right hip traumatic displaced sub-trochanter fracture secondary to mechanical fall prior to admission status post cephalo-medullary fixation right hip by Dr. Boyle 09/19/2019- PRN pain regimen. PT/OT. Resume home Xarelto for DVT prophylaxis. SNF at discharge for rehab. Follow-up with orthopedic medicine in 2 weeks. Remove kalani 10/03/2019. 2. Acute on chronic macrocytic anemia-expected outcome secondary to #1. Continue iron supplementation. Hemoglobin stable. 3. Chronic COPD-no exacerbation. As needed albuterol aerosol. 4. Paroxysmal atrial fibrillation on anticoagulation with Xarelto-continue metoprolol, amiodarone, Cardizem regimen. 5. Chronic alcohol dependence-stable. 6. Tobacco dependence- encouraged cessation. 7. Hyperlipidemia-continue statin. 8. BPH-continue Flomax, Proscar. General: Alert, Oriented x3, Cooperative HEENT: Atraumatic, PERRLA, EOMI, Normocephalic Oral: Dry Mucosa Neck: Supple, No JVD, Negative Carotid Bruits Lungs: Clear to auscultation, Normal air movement Cardiovascular: Regular rate, Regular Rhythm, Normal S1, Normal S2, No murmurs Abdomen: Bowel Sounds Present, Soft, Non Tender, Non-Distended Extremities: No clubbing, No cyanosis, No edema, Capillary Refill Less than 3 Seconds Skin: No rashes, No breakdown, - - Right hip dressing intact Musculoskeletal: No Tenderness to Palpation of Joints or Extremities, Left BKA Neurological: Cranial nerves II-XII grossly intact Psych/Mental Status: Normal Affect, Appropriate Patient seen and examined prior to discharge. Physical assessment as noted above. Patient is stable for discharge with follow up recommendations as noted above. This patient was seen by VIRI Teixeira under the supervision of Dr. Munoz. - Physical Exam Vitals/I&O's: Vital Signs Temp Pulse Resp BP Pulse Ox 97.8 F 86 18 122/49 H 99 09/22/19 10:00 09/22/19 10:15 09/22/19 10:00 09/22/19 10:15 09/22/19 10:00 Oxygen Flow Rate (L/min) 1 Oxygen Delivery Method Room Air Weight: 128 lb 8.472 oz Body Mass Index (BMI) 19.5 Finger Stick Blood Glucose 89 Intake and Output for Last 24 Hours 09/20/19 09/21/19 09/22/19 23:59 23:59 23:59 Intake Total 650 / 650 1080 / 1580 900 / 900 Output Total 1385 / 1385 2950 / 4100 2375 / 2375 Balance -735 / -735 -1870 / -2520 -1475 / -1475 Laboratory Results 09/22/19 06:40: WBC 6.9, RBC 2.26 L, Hgb 8.3 L, Hct 23.9 L, MCV 105.8 H, MCH 36.7 H, MCHC 34.7, RDW Std Deviation 61.8 H, RDW Coeff of Sarai 16.1 H, Plt Count 238, MPV 9.0 Current Medications Acetaminophen (Tylenol) 1,000 mg PO Q8 [facility] Last Admin: 09/22/19 06:53 Dose: 1,000 mg Documented by: Acyclovir (Zovirax) 800 mg PO 5X/DAY [facility] Stop: 09/22/19 14:01 Last Admin: 09/22/19 10:16 Dose: 800 mg Documented by: Albuterol Sulfate (Ventolin Aerosols) 2.5 mg INHALATION Q2H PRN PRN PRN Reason: Shortness of Breath/Wheezing Amiodarone HCl (Cordarone) 100 mg PO DAILY@0800 [facility] Last Admin: 09/22/19 10:14 Dose: 100 mg Documented by: Atorvastatin Calcium (Lipitor) 80 mg PO QHS [facility] Last Admin: 09/21/19 23:18 Dose: 80 mg Documented by: Calamine/Phenol (Calmoseptine Ointment) 1 applic TOPICAL BID [facility]; Protocol Last Admin: 09/22/19 10:14 Dose: 1 applicatio Documented by: Dextrose (D50w Syringe) 0 gm IV X1 PRN; Protocol PRN Reason: Hypoglycemia Diltiazem HCl (Cardizem) 60 mg PO BID [facility] Last Admin: 05/27/20 10:14 Dose: 60 mg Documented by: Ferrous Sulfate (Ferrous Sulfate) 325 mg PO DAILY@1200 [facility] Last Admin: 09/21/19 12:18 Dose: 325 mg Documented by: Finasteride (Proscar) 5 mg PO DAILY [facility] Last Admin: 09/22/19 10:15 Dose: 5 mg Documented by: Glucagon () 1 mg IM .X1 PRN PRN Reason: Hypoglycemia Hydralazine HCl (Apresoline Iv) 5 mg IV Q4H PRN PRN PRN Reason: SBP more than 160 mmHg Hydromorphone HCl (Dilaudid Inj) 0.5 mg IV Q2H PRN PRN PRN Reason: Pain Score 6-10/10 Sodium Chloride () 250 mls @ 15 mls/hr IV .[id number] PRN PRN Reason: Saline Flush Sodium Chloride () 250 mls @ 15 mls/hr IV .[id number] PRN PRN Reason: Additional IVPB Infusion Lorazepam (Ativan) 2 mg IV Q2H PRN PRN; Protocol PRN Reason: CIWA score > 8 but <15 Lorazepam (Ativan) 2 mg IV UD PRN; Protocol PRN Reason: CIWA score >/=15. Melatonin (Melatonin) 3 mg PO QHS PRN PRN PRN Reason: INSOMNIA Last Admin: 09/21/19 23:32 Dose: 3 mg Documented by: Metoprolol Tartrate (Lopressor (Beta Pauline)) 50 mg PO BID [facility] Last Admin: 09/22/19 10:15 Dose: 50 mg Documented by: Mirtazapine (Remeron) 15 mg PO QHS [facility] Last Admin: 09/21/19 23:18 Dose: 15 mg Documented by: Multivitamins/Minerals ([facility]ivitamin With [facility] (B[facility])) [facility] Last Admin: 09/22/19 10:14 Dose: 1 tablet Documented by: Mupirocin (Bactroban) 1 applic TOPICAL TID [facility]; Protocol Last Admin: 09/22/19 06:54 Dose: 1 applicatio Documented by: Nicotine (Nicoderm Cq (Pbkc)) 21 mg TRANSDERM. DAILY [facility] Last Admin: 09/22/19 10:15 Dose: 21 mg Documented by: Nutritional Formula (Lactose Free) (Ensure Enlive) 120 ml PO 4X/DAY [facility] Last Admin: 09/22/19 10:15 Dose: 120 ml Documented by: Ondansetron HCl (Zofran) 4 mg IV Q6H PRN PRN PRN Reason: NAUSEA Oxycodone HCl (Oxyir) 5 - 10 mg PO Q4H PRN PRN PRN Reason: Pain Score 4-10/10 Last Admin: 09/22/19 10:12 Dose: 10 mg Documented by: Pantoprazole Sodium (Protonix) 40 mg PO DAILY [facility] Last Admin: 09/22/19 10:16 Dose: 40 mg Documented by: Potassium Chloride (K-Dur) 20 meq PO DAILY@0800 [facility] Last Admin: 09/22/19 10:14 Dose: 20 meq Documented by: Rivaroxaban (Xarelto) 15 mg PO DAILY@1700 [facility] Last Admin: 09/21/19 18:29 Dose: 15 mg Documented by: Senna/Docusate Sodium (Senokot-S, Biranna-Colace) 2 tablet PO BID [facility] Last Admin: 09/22/19 10:16 Dose: 2 tablet Documented by: Sodium Chloride () 10 - 40 ml IV UD PRN PRN Reason: SALINE FLUSH Last Admin: 09/21/19 23:57 Dose: 10 ml Documented by: Tamsulosin HCl (Flomax) 0.4 mg PO DAILY [facility] Last Admin: 09/22/19 10:16 Dose: 0.4 mg Documented by: Home Medications: Medications to take at Discharge Amiodarone HCl [Cordarone] 100 mg PO DAILY 10/15/13 Aspirin E.C. [Ecotrin] 81 mg PO DAILY@0800 10/15/13 Diltiazem CD [Cardizem CD] 60 mg PO BID 10/15/13 Metoprolol Tartrate [Lopressor (beta pauline)] 50 mg PO BID 10/15/13 Atorvastatin Calcium [Lipitor] 80 mg PO QHS 06/12/17 Ferrous Sulfate 325 mg PO BIDCM 06/12/17 Finasteride [Proscar] 5 mg PO DAILY 11/24/17 Rivaroxaban [Xarelto] 15 mg PO DAILY 11/24/17 Tamsulosin HCl [Flomax] 0.4 mg PO DAILY 11/24/17 Albuterol Aerosols [Ventolin Aerosols] 2.5 mg INHALATION Q2H PRN PRN vial.neb. 11/28/17 Albuterol Inhaler [Ventolin Hfa] 1 - 2 puff INHALATION Q4H PRN PRN 09/07/18 Mirtazapine [Remeron] 30 mg PO QHS 10/15/18 Multivit-Min/FA/Lycopen/Lutein [Centrum Silver Tablet] 1 ea PO DAILY 10/15/18 omeprazole 40 mg capsule,delayed release 40 mg PO DAILY 05/05/19 Mupirocin 1 applicatio TOPICAL TID 09/18/19 Potassium Chloride [K-Dur] 20 meq PO DAILY 09/18/19 Valacyclovir HCl [Valacyclovir] 1,000 mg PO TID 09/18/19 Acetaminophen [Tylenol] 1,000 mg PO Q8 tab 09/22/19 Oxycodone [Oxyir] 5 mg PO Q4H PRN PRN 2 Days #6 tab 09/22/19 Following Prescrptions Were Given to Patient: Oxycodone [Oxyir] 5 mg PO Q4H PRN PRN 2 Days #6 tab PRN Reason: Pain Score 4-10/10 Prescription Printed Primary Care Physician: Sudhakar Crowell MD [Primary Care Provider] - Please follow up with your Primary Care Physician in: 1 Week Please Follow Up With: Danny Boyle DO When: 2 Weeks Disposition: [facility] facility Minutes spent on discharge:: 35 Patient Condition:: Stable Medical Necessity - Tobacco Use Smoking Status: Current every day smoker Tobacco Use: Cigarettes Meaningful Use Info Meaningful Use Diagnoses (Choose all that apply): None applicable <Jaime Munoz - Last Filed: 09/22/19 10:59> Discharge Date and Diagnosis - Secondary Discharge Diagnosis Chronic Problems: Chronic Problems (Last Reviewed 09/18/19 @ 07:[address] Danny Stone MD) Paroxysmal A-fib (Chronic) currently in sinus rhythm Diastolic CHF (Chronic) Gait instability (Chronic) Macrocytic anemia (Chronic) Chronic anticoagulation (Chronic) Xarelto Depression (Chronic) Amputation of left lower extremity (Chronic) Chronic airway obstruction (Chronic) Coronary atherosclerosis of douglas coronary artery (Chronic) Esophageal reflux (Chronic) HLD (hyperlipidemia) (Chronic) HTN (hypertension) (Chronic) Percutaneous transluminal coronary angioplasty status (Chronic) PVD (peripheral vascular disease) (Chronic) Tobacco use disorder (Chronic) Hospital Course and Treatment Summary of Care Provided: The patient is a 69 year old M [] - Physical Exam Vitals/I&O's: Vital Signs Temp Pulse Resp BP Pulse Ox 97.8 F 86 18 122/49 H 99 09/22/19 10:00 09/22/19 10:15 09/22/19 10:00 09/22/19 10:15 09/22/19 10:00 Oxygen Flow Rate (L/min) 1 Oxygen Delivery Method Room Air Weight: 128 lb 8.472 oz Body Mass Index (BMI) 19.5 Finger Stick Blood Glucose 89 Intake and Output for Last 24 Hours 09/20/19 09/21/19 09/22/19 23:59 23:59 23:59 Intake Total 650 / 650 1080 / 1580 900 / 900 Output Total 1385 / 1385 2950 / 4100 2375 / 2375 Balance -735 / -735 -1870 / -2520 -1475 / -1475 Laboratory Results 09/22/19 06:40: WBC 6.9, RBC 2.26 L, Hgb 8.3 L, Hct 23.9 L, MCV 105.8 H, MCH 36.7 H, MCHC 34.7, RDW Std Deviation 61.8 H, RDW Coeff of Sarai 16.1 H, Plt Count 238, MPV 9.0 Current Medications Acetaminophen (Tylenol) 1,000 mg PO Q8 [facility] Last Admin: 09/22/19 06:53 Dose: 1,000 mg Documented by: Acyclovir (Zovirax) 800 mg PO 5X/DAY [facility] Stop: 09/22/19 14:01 Last Admin: 09/22/19 10:16 Dose: 800 mg Documented by: Albuterol Sulfate (Ventolin Aerosols) 2.5 mg INHALATION Q2H PRN PRN PRN Reason: Shortness of Breath/Wheezing Amiodarone HCl (Cordarone) 100 mg PO DAILY@0800 [facility] Last Admin: 09/22/19 10:14 Dose: 100 mg Documented by: Atorvastatin Calcium (Lipitor) 80 mg PO QHS [facility] Last Admin: 09/21/19 23:18 Dose: 80 mg Documented by: Calamine/Phenol (Calmoseptine Ointment) 1 applic TOPICAL BID [facility]; Protocol Last Admin: 09/22/19 10:14 Dose: 1 applicatio Documented by: Dextrose (D50w Syringe) 0 gm IV X1 PRN; Protocol PRN Reason: Hypoglycemia Diltiazem HCl (Cardizem) 60 mg PO BID [facility] Last Admin: 09/22/19 10:14 Dose: 60 mg Documented by: Ferrous Sulfate (Ferrous Sulfate) 325 mg PO DAILY@1200 [facility] Last Admin: 09/21/19 12:18 Dose: 325 mg Documented by: Finasteride (Proscar) 5 mg PO DAILY [facility] Last Admin: 09/22/19 10:15 Dose: 5 mg Documented by: Glucagon () 1 mg IM .X1 PRN PRN Reason: Hypoglycemia Hydralazine HCl (Apresoline Iv) 5 mg IV Q4H PRN PRN PRN Reason: SBP more than 160 mmHg Hydromorphone HCl (Dilaudid Inj) 0.5 mg IV Q2H PRN PRN PRN Reason: Pain Score 6-10/10 Sodium Chloride () 250 mls @ 15 mls/hr IV .[id number] PRN PRN Reason: Saline Flush Sodium Chloride () 250 mls @ 15 mls/hr IV .[id number] PRN PRN Reason: Additional IVPB Infusion Lorazepam (Ativan) 2 mg IV Q2H PRN PRN; Protocol PRN Reason: CIWA score > 8 but <15 Lorazepam (Ativan) 2 mg IV UD PRN; Protocol PRN Reason: CIWA score >/=15. Melatonin (Melatonin) 3 mg PO QHS PRN PRN PRN Reason: INSOMNIA Last Admin: 09/21/19 23:32 Dose: 3 mg Documented by: Metoprolol Tartrate (Lopressor (Beta Pauline)) 50 mg PO BID [facility] Last Admin: 09/22/19 10:15 Dose: 50 mg Documented by: Mirtazapine (Remeron) 15 mg PO QHS [facility] Last Admin: 09/21/19 23:18 Dose: 15 mg Documented by: Multivitamins/Minerals (Multivitamin With Minerals (Bkc)) [facility] Last Admin: 09/22/19 10:14 Dose: 1 tablet Documented by: Mupirocin (Bactroban) 1 applic TOPICAL TID [facility]; Protocol Last Admin: 09/22/19 06:54 Dose: 1 applicatio Documented by: Nicotine (Nicoderm Cq (Pbkc)) 21 mg TRANSDERM. DAILY [facility] Last Admin: 09/22/19 10:15 Dose: 21 mg Documented by: Nutritional Formula (Lactose Free) (Ensure Enlive) 120 ml PO 4X/DAY [facility] Last Admin: 09/22/19 10:15 Dose: 120 ml Documented by: Ondansetron HCl (Zofran) 4 mg IV Q6H PRN PRN PRN Reason: NAUSEA Oxycodone HCl (Oxyir) 5 - 10 mg PO Q4H PRN PRN PRN Reason: Pain Score 4-10/10 Last Admin: 09/22/19 10:12 Dose: 10 mg Documented by: Pantoprazole Sodium (Protonix) 40 mg PO DAILY [facility] Last Admin: 09/22/19 10:16 Dose: 40 mg Documented by: Potassium Chloride (K-Dur) 20 meq PO DAILY@0800 [facility] Last Admin: 09/22/19 10:14 Dose: 20 meq Documented by: Rivaroxaban (Xarelto) 15 mg PO DAILY@1700 [facility] Last Admin: 09/21/19 18:29 Dose: 15 mg Documented by: Senna/Docusate Sodium (Senokot-S, Brianna-Colace) 2 tablet PO BID [facility] Last Admin: 09/22/19 10:16 Dose: 2 tablet Documented by: Sodium Chloride () 10 - 40 ml IV UD PRN PRN Reason: SALINE FLUSH Last Admin: 09/21/19 23:57 Dose: 10 ml Documented by: Tamsulosin HCl (Flomax) 0.4 mg PO DAILY [facility] Last Admin: 09/22/19 10:16 Dose: 0.4 mg Documented by: Addendum: Dr. Munoz I personally examined the patient and reviewed the chart. I agree with the above. 69-year-old male presenting to the hospital after a mechanical fall leading to a right hip subtrochanteric fracture. He underwent repair 09/19/2019 by orthopedic surgery. He will be resumed on his Xarelto for DVT prophylaxis and will be transferred to a SNF for rehab given the fact that he has left BKA. He does have a history of A. fib and therefore will need to be maintained on Xarelto even after he is completed the course just for simple DVT prophylaxis, and he will also need to continue his metoprolol and amiodarone. Otherwise he is doing fairly well and states that his pain is decently well controlled at this time, from a medical standpoint he is ready for discharge. Inpatient E&M: [id number] Disch Hosp
--- NOTE | 2019-09-22 13:27 | CASEMGMT ---
Addendum entered by Katie Forde 09/22/19 14:03: YIMI placed a call to pt's XIOMARA Marcial and updated her that pt will be discharged to [facility] today. Original Note: Social Work Note YIMI received message from Deedee at [facility] stating [facility] is cleaning pt's room now, should have it clean by 4:00/4:30pm today. Deedee states pre-cert is still pending but states because pt has [facility] pt can admit regardless today with or without pre-cert and requests transportation be arranged for 4:00/4:30pm. YIMI spoke with RN, pt is able to transport via cot. YIMI placed a call to [facility] and arranged transportation via cot for 4:30pm. Transportation form completed and placed on SNF folder, copy on pt's chart. YIMI placed a call to Deedee at [facility] and updated her on transportation time. RN updated. Pt updated. YIMI faxed completed discharge paperwork to Deedee at [facility] including transfer to extended care facility, signed medication list and any scripts. Original in SNF folder and copy on pt's chart. YIMI completed [facility] in [facility]. Original in SNF folder and copy on pt's chart. COVID-19 patient transfer communication tool also completed and original in SNF folder and copy on pt's chart. Transportation form completed and placed on SNF folder and copy on pt's chart. YIMI updated pt on discharge and transportation time. Pt states understanding. Plan: [facility] skilled today with Carleen transporting via cot at 4:30pm Katie Forde [employer], [employer]
[2019-09-22] MEDS: Ferrous Sulfate 325 MG Tablet PO (13:49)
[2019-09-22] MEDS: Rivaroxaban 15 MG Tablet PO (15:59)
--- NOTE | 2019-09-22 16:19 | NURSING ---
report called to Gaviota @ [facility]
== END 2019-09-22 17:05 | disposition skilled nursing facility (03) | DRG 481 ==
LOC: ED 23:42 → MS3 09-18 00:59
PROVIDERS: Anesthesiology; Internal Medicine; Nurse Practitioner Family; Orthopaedic Surgery; Admitting Provider Hospitalist; Emergency Provider Emergency Medicine; PCP Family Medicine; Referring Provider Hospitalist; Visit Provider Family Medicine
PROC: 0QS634Z Reposition Right Upper Femur with Internal Fixation Device, Percutaneous Approach (ICD-10-PCS; principal; 2019-09-19 08:00)
DX: S72.21XA Displaced subtrochanteric fracture of right femur, initial encounter for closed fracture (principal); E87.1 Hypo-osmolality and hyponatremia; I50.32 Chronic diastolic (congestive) heart failure; W01.0XXA Fall on same level from slipping, tripping and stumbling without subsequent striking against object, initial encounter; E16.2 Hypoglycemia, unspecified; I48.0 Paroxysmal atrial fibrillation; D53.9 Nutritional anemia, unspecified; F32.9 Major depressive disorder, single episode, unspecified; I25.10 Atherosclerotic heart disease of native coronary artery without angina pectoris; S70.11XA Contusion of right thigh, initial encounter; N40.0 Benign prostatic hyperplasia without lower urinary tract symptoms; I70.0 Atherosclerosis of aorta; F10.20 Alcohol dependence, uncomplicated; K21.9 Gastro-esophageal reflux disease without esophagitis; I11.0 Hypertensive heart disease with heart failure; I73.9 Peripheral vascular disease, unspecified; F17.210 Nicotine dependence, cigarettes, uncomplicated; E78.5 Hyperlipidemia, unspecified; J44.9 Chronic obstructive pulmonary disease, unspecified; Z79.82 Long term (current) use of aspirin; Z66 Do not resuscitate; Z79.01 Long term (current) use of anticoagulants; Z89.512 Acquired absence of left leg below knee; Z82.5 Family history of asthma and other chronic lower respiratory diseases; Z86.718 Personal history of other venous thrombosis and embolism; Z86.73 Personal history of transient ischemic attack (TIA), and cerebral infarction without residual deficits; Z98.61 Coronary angioplasty status; R26.89 Other abnormalities of gait and mobility; E86.1 Hypovolemia
CPT/HCPCS: 36415; 71045; 73502; 73552; 76000; 80048; 80076; 80320; 82962; 82977; 85014; 85018; 85025; 85027; 85610; 85730; 86850; 86900; 86901; 87635; 93005; 97110; 97162; 97166; 97530; 97802; 97803; 99251; 99285; 99406; C1713; C1776; G2023; J7030; J7040; J7120; A4216; G0463; G0480; J2405; U0004

== ENCOUNTER 2019-10-12 11:36 | Emergency (ER) | payer MEDICARE, MEDICAID, SELFPAY ==
[2019-09-19 06:16] VITALS: BMI 19.5
[2019-10-12 11:37] VITALS: BP 119/98; PULSE 80; RESP 17; TEMP 36.8; O2SAT 94; BMI 20.1
[2019-10-12 11:41] VITALS: BP 119/98; PULSE 83; RESP 17; TEMP 36.8; O2SAT 94
--- NOTE | 2019-10-12 12:25 | VDLE_ITS ---
Reason For Study: swelling RIGHT GSV is normal. CFV is compressible, spontaneous, phasic, competent and demonstrates normal augmentation. FV is compressible, spontaneous, phasic, competent and demonstrates normal augmentation. POP V is compressible, spontaneous, phasic, competent and demonstrates normal augmentation. T/P Trunk is compressible. PTV is compressible. RT PerV is compressible. Procedure Exam performed portable in ED. The exam was abbreviated due to the COVID 19 protocol. The exam was diagnostic. A preliminary report was called and/or faxed to Dr. Jones. Interpretation Summary Deep veins of the right lower extremity are patent and compressible segmentally. There is no evidence of right lower extremity deep vein thrombosis. Valvular competence appears intact within the proximal deep venous system on the right . The right great saphenous vein appears patent and compressible segmentally. Ordering Physician: Wilner Jones Performed By: George Segundo RVT
--- NOTE | 2019-10-12 12:55 | RAD_ITS ---
STUDY: X-RAY CHEST REASON FOR EXAM: Male, 69 years old. Weakness and confusion, swelling in foot TECHNIQUE: Single AP portable view of the chest. COMPARISON: Comparison is made with prior examination dated September 17, 2019. FINDINGS: EKG electrodes are seen. Since prior study, there has been progressive infiltrate and/or atelectasis at the left lung base. This is superimposed on mild degree of scarring. Hyperinflation. Normal size heart. Normal mediastinum and narayan. Normal visualized pulmonary arteries. There is atherosclerotic calcification of the aortic arch with tortuosity. There are diffuse degenerative changes of the visualized thoracic spine. Mild dextroscoliosis. Normal visualized ribs, clavicles, and shoulders. There is no demonstrated abnormality of the visualized soft tissue structures of the upper abdomen. RAD/Chest 1 View (Portable) IMPRESSION: Progressive atelectasis/infiltrate in the left lower lobe. Hyperinflation and mild bibasilar scarring. Electronically Signed: Clay Bah, at 13:16 EDT , Service support ,
[2019-10-12 12:58] LABS: Absolute Lymphocyte Count 0.59 X10^3/uL (0.83-4.51); Absolute Neutrophil Count 4.2 X10^3/uL (2.0-7.7); Basophil# 0.05 X10^3/uL; Basophil% 0.9 % (0-1); Eosinophil# 0.17 X10^3/uL; Eosinophils% 2.9 % (0-5); Hematocrit 32.1 % (40-54); Hemoglobin 10.6 g/dL (13.0-16.5); Lymphocyte # 0.59 X10^3/ul (4.0); Lymphocyte % 10.2 % (19-41); Mean Corpuscular Hgb 34.6 pg (27.0-32.0); Mean Corpuscular Volume 104.9 fL (80-94); Mean Platelet Vol. 8.9 fl (6.2-12.0); Monocyte# 0.75 X10^3/uL; NRBC Flagged by Analyzer 0 % (0-5); Neutrophil # 4.19 X10^3/uL (2.7-7.7); Neutrophil % 72.7 % (47-70); POSITIVE DIFFERENTIAL YES; Platelet Count 365 K/mm3 (150-450); RBC Distribution Width CV 14.8 % (11.6-14.6); RBC Distribution Width SD 57.3 fl (35.1-43.9); Red Blood Count 3.06 M/mm3 (4.6-6.2); White Blood Count 5.8 K/mm3 (4.4-11.0)
[2019-10-12 12:58] LABS: Bacteria 0 SEEN /hpf (None Seen); Mucous, Urine 0 SEEN /hpf (<or=2+); Red Blood Cells-Urine 0 SEEN /hpf (0-5); Squamous Epithelial Cells - UA 0 SEEN /hpf (0-5); White Blood Cells 0 SEEN /hpf (0-5)
[2019-10-12 13:03] LABS: Color, Urine Straw (Yellow); Glucose, Dipstick Normal (Normal); Ketone-Dipstick Negative (Negative); Leukocyte Esterase-Dipstick Negative /ul (Negative); Nitrite-Dipstick Negative (Negative); Occult Blood-Urine Negative /ul (Negative); Protein-Dipstick Negative (Negative); Urine Bilirubin Dipstick Negative (Negative); Urine Clarity Clear (Clear); Urine Urobilinogen Normal (Normal)
[2019-10-12 13:15] LABS: Amorphous Sediment 1+
[2019-10-12 13:18] LABS: Lactic Acid 1.5 mmol/L (0.4-1.9)
[2019-10-12 13:22] LABS: ALB/GLOB Ratio 0.7 RATIO (0.9-2.4); AST(SGOT) 22 U/L (15-37); Alanine Aminotransfer ALT/SGPT 21 U/L (16-61); Albumin, Serum 2.5 g/dL (3.2-5.0); Alkaline Phosphatase 159 U/L (45-117); Anion Gap 8 (5-15); BUN 7 mg/dL (7-18); BUN/Creat Ratio 12.5 RATIO (10-20); Calcium,Total 8.4 mg/dL (8.5-10.1); Chloride 96 mmol/L (98-107); Creatinine, Serum 0.56 mg/dL (0.70-1.30); EST Glomerular Filtration Rate 153 mL/min (>60); Est Glom Filt Rate - Afr Amer 185 mL/min (>60); Estimated Creatinine Clearance 60.95 ml/min; Globulin 3.8 g/dL (2.2-4.2); Glucose 87 mg/dL (74-106); Lipase 80 U/L (73-393); Potassium 3.9 mmol/L (3.5-5.1); Protein, Total 6.3 g/dL (6.4-8.2); Sodium Level 130 mmol/L (136-145)
--- NOTE | 2019-10-12 13:30 | ED.VIS.GEN ---
History of Present Illness Chief Complaint: Wound Informant: Patient, SNF Narrative: Patient reportedly broke his right hip on 17 September and had surgery on 18 September. He has been at [facility] since discharge from the hospital. Reportedly the right leg has become increasingly edematous. Reports that it was seeping a yellow fluid and the patient is now confused. Patient is normally ANO x3. Reportedly this confusion was a mixup on days. The patient states that the swelling in the leg is painful for him. He notes that he is on a blood thinner. Past Medical History - Allergies and Home Meds Allergies/Adverse Reactions: Allergies No Known Allergies Allergy (Verified 10/12/19 11:45) Primary Care Physician: Sudhakar Crowell MD [Primary Care Provider] - Surgical History: - - Multiple vascular stents, revasculation of left leg, left BKA, left elbow debridement for chronic infection Smoking Status: Current every day smoker - Family History Sibling Family History: Family History (Last Reviewed 09/18/19 @ 07:[address] Danny Stone MD) Father Asthma Family History: Reports: COPD - 4 of his sisters has COPD. Paternal Family History: Family History (Last Reviewed 09/18/19 @ 07:[address] Danny Stone MD) Father Asthma Family History: Reports: COPD, Heart Disease, No pertinent history Review of Systems General: Denies: Chills, Fever, Sweats Eyes: Denies: Visual changes - bilaterally, Diplopia ENT: Denies: Rhinorrhea, Sore throat Cardiovascular: Denies: Chest pain, Palpitations Respiratory: Reports: Cough - mild cough per patient. Denies: Dyspnea, Dyspnea on exertion Gastrointestinal: Denies: Abdominal pain, Nausea, Vomiting, Diarrhea, Melena, Hematochezia Genitourinary: Denies: Dysuria, Hematuria, Frequency Musculoskeletal: Reports: Swelling, Extremity Pain. Denies: Back pain Skin: Denies: Rash, Wounds Neurological: Denies: Headache, Weakness, Numbness Physical Exam Vital Signs/Narrative: Vital Signs Temp Pulse Resp BP Pulse Ox 10/12/19 11:41 98.3 F 83 17 119/98 H 94 10/12/19 11:37 98.3 F 80 17 119/98 H 94 Inital Vital Signs reviewed: Yes General: Well nourished, Well developed, No Acute Distress Head: Normocephalic, Atraumatic Eyes: Perrl, EOMI ENT: Moist mucous membranes, No rhinorrhea Neck: Supple, Nontender Cardiovascular: Regular rate, Regular rhythm, No murmurs Respiratory: No distress, CTA bilaterally, Chest nontender Abdomen: Soft, Nontender, Nondistended, Normal bowel sounds Back: Nontender, Normal Inspection Extremities: Tenderness - The surgical incisions look good they are intact and not seeping. I do not see any significant erythema around the surgical site. The lower leg is edematous. I do not see any weeping fluid. The legs were wrapped with an Chris wrap which I took down to examine the skin., Edema Skin: Normal color, No rash Neurological: Alert, Oriented x3, Cranial nerves II-XII grossly intact, Normal Strength, Normal Sensation Psychological: Normal affect, Normal Mood Diagnostic/Tx/Re-eval Clinical Impression(s) from Imaging Studies Chest X-Ray 10/12/19 12:55 IMPRESSION: Progressive atelectasis/infiltrate in the left lower lobe. Hyperinflation and mild bibasilar scarring. Electronically Signed: Clay Bah, at 13:16 EDT , Service support , Laboratory Last Values WBC 5.8 K/mm3 (4.4-11.0) 10/12/19 12:01 RBC 3.06 M/mm3 (4.6-6.2) L 10/12/19 12:01 Hgb 10.6 g/dL (13.0-16.5) L 10/12/19 12:01 Hct 32.1 % (40-54) L 10/12/19 12:01 MCV 104.9 fL (80-94) H 10/12/19 12:01 MCH 34.6 pg (27.0-32.0) H 10/12/19 12:01 MCHC 33.0 g/dL (32-36) 10/12/19 12:01 RDW Std Deviation 57.3 fl (35.1-43.9) H 10/12/19 12:01 RDW Coeff of Sarai 14.8 % (11.6-14.6) H 10/12/19 12:01 Plt Count 365 K/mm3 (150-450) 10/12/19 12:01 MPV 8.9 fl (6.2-12.0) 10/12/19 12:01 Immature Gran % (Auto) 0.300 % (0.0-0.9) 10/12/19 12:01 Neut % (Auto) 72.7 % (47-70) H 10/12/19 12:01 Lymph % (Auto) 10.2 % (19-41) L 10/12/19 12:01 [place] % (Auto) 13.0 % (0-10) H 10/12/19 12:01 Eos % (Auto) 2.9 % (0-5) 10/12/19 12:01 Baso % (Auto) 0.9 % (0-1) 10/12/19 12:01 Absolute Neuts (auto) 4.2 X10^3/uL (2.0-7.7) 10/12/19 12:01 Absolute Lymphs (auto) 0.59 X10^3/uL (0.83-4.51) L 10/12/19 12:01 Nucleated RBC % 0 % (0-5) 10/12/19 12:01 PT 21.1 SECONDS (11.7-14.9) H 10/12/19 12:01 INR 1.9 10/12/19 12:01 APTT 44.7 Seconds (24.1-36.2) H 10/12/19 12:01 Sodium 130 mmol/L (136-145) L 10/12/19 12:01 Potassium 3.9 mmol/L (3.5-5.1) 10/12/19 12:01 Chloride 96 mmol/L (98-107) L 10/12/19 12:01 Carbon Dioxide 26.0 mmol/L (21.0-32.0) 10/12/19 12:01 Anion Gap 8 (5-15) 10/12/19 12:01 BUN 7 mg/dL (7-18) 10/12/19 12:01 Creatinine 0.56 mg/dL (0.70-1.30) L 10/12/19 12:01 Estim Creat Clear Calc 60.95 ml/min 10/12/19 12:01 Est GFR (MDRD) Af Amer 185 mL/min (>60) 10/12/19 12:01 Est GFR (MDRD) Non-Af 153 mL/min (>60) 10/12/19 12:01 BUN/Creatinine Ratio 12.5 RATIO (10-20) 10/12/19 12:01 Glucose 87 mg/dL (74-106) 10/12/19 12:01 Lactic Acid 1.5 mmol/L (0.4-1.9) 10/12/19 12:01 Calcium 8.4 mg/dL (8.5-10.1) L 10/12/19 12:01 Total Bilirubin 0.60 mg/dL (0.20-1.00) 10/12/19 12:01 AST 22 U/L (15-37) 10/12/19 12:01 ALT 21 U/L (16-61) 10/12/19 12:01 Alkaline Phosphatase 159 U/L (45-117) H 10/12/19 12:01 Troponin I < 0.015 ng/mL (<0.045) 10/12/19 12:01 Total Protein 6.3 g/dL (6.4-8.2) L 10/12/19 12:01 Albumin 2.5 g/dL (3.2-5.0) L 10/12/19 12:01 Globulin 3.8 g/dL (2.2-4.2) 10/12/19 12:01 Albumin/Globulin Ratio 0.7 RATIO (0.9-2.4) L 10/12/19 12:01 Lipase 80 U/L (73-393) 10/12/19 12:01 Urine Color Straw (Yellow) 10/12/19 11:54 Urine Clarity Clear (Clear) 10/12/19 11:54 Urine pH 8.0 (5.0 - 8.0) 10/12/19 11:54 Ur Specific [place] 1.010 (1.002-1.030) 10/12/19 11:54 Urine Protein Negative mg/dl (Negative) 10/12/19 11:54 Urine Glucose (UA) Normal mg/dl (Normal) 10/12/19 11:54 Urine Ketones Negative mg/dl (Negative) 10/12/19 11:54 Urine Occult Blood Negative /ul (Negative) 10/12/19 11:54 Urine Nitrite Negative (Negative) 10/12/19 11:54 Urine Bilirubin Negative mg/dL (Negative) 10/12/19 11:54 Urine Urobilinogen Normal mg/dl (Normal) 10/12/19 11:54 Ur Leukocyte Esterase Negative /ul (Negative) 10/12/19 11:54 Urine RBC 0 SEEN /hpf (0-5) 10/12/19 11:54 Urine WBC 0 SEEN /hpf (0-5) 10/12/19 11:54 Ur Squamous Epith Cells 0 SEEN /hpf (0-5) 10/12/19 11:54 Amorphous Sediment 1+ 10/12/19 11:54 Urine Bacteria 0 SEEN /hpf (None Seen) 10/12/19 11:54 Urine Mucus 0 SEEN /hpf (<or=2+) 10/12/19 11:54 - Medical Decision Making Duplex ultrasound was negative. Patient's testing is essentially negative. I reviewed his chest x-ray and after listening to his lungs and looking at the chest x-ray I do not feel he has pneumonia. His white count is normal. Lactic acid is normal even his urinalysis is normal. I do agree that his leg is grossly edematous. This is probably multifactorial. I spoke with his doctor [facility] They will continue to work with him and we are clearing him to come back to their facility. ED Disposition - Plan for ED Patient: Disposition: Home or Assisted Living Diagnosis: Encounter for postoperative wound check, Confusion, Right leg swelling Instructions: ED Peripheral Edema, Unilateral Referrals: Sudhakar Crowell MD [Primary Care Provider] -
[2019-10-12 13:48] LABS: Differential Indicated SCAN CRITERIA MET
[2019-10-12 13:57] LABS: International Normalized Ratio 1.9; Prothrombin Time (Protime)PT. 21.1 SECONDS (11.7-14.9)
[2019-10-12 13:58] LABS: Partial Thromboplast Time 44.7 Seconds (24.1-36.2)
[2019-10-12 14:27] VITALS: BP 121/92; PULSE 68; RESP 18
--- NOTE | 2019-10-12 14:34 | ED.RN ---
report called back to [facility]. informed of pt findings and care provided. eta for transport is 40 min. stu shabazz rn [id number]
== END 2019-10-12 14:56 | disposition home or self-care (01) ==
PROVIDERS: Emergency Provider Emergency Medicine; PCP Family Medicine
DX: Z48.00 Encounter for change or removal of nonsurgical wound dressing (principal); R41.0 Disorientation, unspecified; M79.89 Other specified soft tissue disorders; Z89.512 Acquired absence of left leg below knee
CPT/HCPCS: 71045; 80053; 81001; 83605; 83690; 84484; 85025; 85610; 85730; 93971; 99285; P9612; A4216

== ENCOUNTER → 2019-10-18 13:22 | Outpatient (CLI) | payer MEDICARE, MEDICAID, SELFPAY ==
[2019-10-18 13:16] VITALS: BMI 20.1
--- NOTE | 2019-10-18 13:24 | RAD_ITS ---
STUDY: X-RAY - RIGHT FEMUR REASON FOR STUDY: Male, 69 years old. ORIF of a femoral fracture TECHNIQUE: 4 view(s) of the femur. COMPARISON: 09/18/2019 FINDINGS: A previously described proximal fracture is undergone open reduction internal fixation since the previous study. Alignment at the fracture site is now anatomic. No postoperative complications are noted. Follow-up is recommended to assure complete osseous union. RAD/Femur Min 2 Views IMPRESSION: ORIF of a proximal femoral fracture shows anatomic alignment, follow-up recommended to assure complete osseous union Electronically Signed: Rich Glass MD at 14:01 EDT , Service support ,
== END ==
PROVIDERS: PCP Family Medicine; Referring Provider Orthopaedic Surgery; Visit Provider Orthopaedic Surgery
DX: S72.001A Fracture of unspecified part of neck of right femur, initial encounter for closed fracture (principal)
CPT/HCPCS: 73552

== ENCOUNTER → 2019-12-06 14:29 | Outpatient (CLI) | payer MEDICARE, MEDICAID, SELFPAY ==
[2019-10-18 13:16] VITALS: BMI 20.1
--- NOTE | 2019-12-06 14:31 | RAD_ITS ---
STUDY: X-RAY - RIGHT FEMUR REASON FOR STUDY: Male, 69 years old. PAIN TECHNIQUE: 4 view(s) of the femur. COMPARISON: 10/18/2019 FINDINGS: There is an intramedullary luanne in the femur for a proximal shaft fracture. Interval increasing healing is noted since the previous study. Alignment of bony fragments demonstrate no significant interval changes. Normal visualized soft tissue structure. There is a right iliac vascular stent is noted. RAD/Femur Min 2 Views IMPRESSION: Healing fracture of the femur with ORIF. Electronically Signed: Valeriy Layne DO at 16:11 EDT Tel [phone], Service support ,
== END ==
PROVIDERS: PCP Family Medicine; Referring Provider Orthopaedic Surgery; Visit Provider Orthopaedic Surgery
DX: S72.001A Fracture of unspecified part of neck of right femur, initial encounter for closed fracture (principal)
CPT/HCPCS: 73552

== ENCOUNTER 2020-01-31 12:35 | Emergency (ER) | payer MEDICARE, MEDICAID, SELFPAY ==
[2020-01-17 13:35] VITALS: BMI 20.1
[2020-01-31 12:36] VITALS: BP 116/49; PULSE 57; RESP 18; TEMP 36.6; O2SAT 98; BMI 21.7
--- NOTE | 2020-01-31 13:29 | VDLE_ITS ---
Reason For Study: Swelling RIGHT LEFT GSV is normal. CFV is compressible, spontaneous, competent, CFV is compressible, spontaneous, competent and demonstrates pulsatile venous flow. and demonstrates pulsatile venous flow. FV is compressible, spontaneous, competent and demonstrates pulsatile venous flow. POP V is compressible, spontaneous, competent and demonstrates pulsatile venous flow. T/P Trunk is compressible. PTV is compressible. RT PerV is compressible. Procedure This is a venous duplex using B-mode, color flow and spectral Doppler. Exam performed portable in ED. A preliminary report was called and/or faxed to Jeff. Interpretation Summary There is no evidence of right lower extremity deep vein thrombosis. Right great saphenous vein appears patent and compressible segmentally. Pulsatile venous flow noted consistent with proximal venous hypertension or occlusion. Clinical correlation would be appropriate Patent and compressible left common femoral vein Ordering Physician: Naila Aguilar Referring Physician: Himanshu Crowell Performed By: Katie Holt RVT
--- NOTE | 2020-01-31 13:31 | ED.DCSUM_ITS ---
History of Present Illness Chief Complaint: Cellulitis Informant: Patient Onset: Weeks - 3 weeks Context: Gradual Onset Current Severity: Mild Maximum Severity: Moderate Narrative: Patient presents with redness and swelling to his right lower extremity. He reports his skin is peeling off of his foot. He also has scabs and redness noted to his right forearm. He is currently on Xarelto secondary to a history of A. fib. He states he had an ultrasound of his leg 3 weeks ago that did not show a clot at that time. - Past Medical History (1) Chronic anticoagulation Status: Chronic Comment: Xarelto (2) Depression Status: Chronic (3) Diastolic CHF Status: Chronic (4) HLD (hyperlipidemia) Status: Chronic (5) HTN (hypertension) Status: Chronic (6) PVD (peripheral vascular disease) Status: Chronic (7) Paroxysmal A-fib Status: Chronic Comment: currently in sinus rhythm (8) TIA (transient ischemic attack) Status: Resolved Past Medical History - Allergies and Home Meds Allergies/Adverse Reactions: Allergies No Known Allergies Allergy (Verified 01/31/20 12:38) Primary Care Physician: Sudhakar Crowell MD [Primary Care Provider] - Prior records reviewed: Yes Surgical History: - Smoking Status: Current every day smoker - Family History Sibling Family History: Family History (Last Reviewed 09/18/19 @ 07:[address] Danny Stone MD) Father Asthma Family History: Reports: COPD - 4 of his sisters has COPD. Paternal Family History: Family History (Last Reviewed 09/18/19 @ 07:[address] Danny Stone MD) Father Asthma Family History: Reports: COPD, Heart Disease, No pertinent history Review of Systems General: Denies: Chills, Fever Eyes: Denies: Visual changes - bilaterally ENT: Denies: Bilateral ear pain Cardiovascular: Denies: Chest pain Respiratory: Denies: Dyspnea, Cough Gastrointestinal: Denies: Abdominal pain Musculoskeletal: Reports: Swelling, Extremity Pain Skin: Reports: Wounds Neurological: Denies: Headache Hematologic: Denies: Easy bruising, Easy bleeding Allergy: Denies: Uticaria Physical Exam Vital Signs/Narrative: Vital Signs Temp Pulse Resp BP Pulse Ox 01/31/20 12:36 97.8 F 57 L 18 116/49 L 98 Inital Vital Signs reviewed: Yes General: Well nourished, Well developed Head: Normocephalic ENT: Moist mucous membranes Neck: Supple Cardiovascular: Regular rate, Regular rhythm Respiratory: No distress, CTA bilaterally Abdomen: Soft, Nontender Extremities: - - Patient has multiple scabs to the right forearm with mild surrounding cellulitis. Patient has sloughing of the skin over his right foot, worse over the plantar surface. No open wounds are noted on the leg. He does have 3+ right lower extremity edema. Minimal erythema is noted to the leg. Neurological: Alert, Oriented x3 Psychological: Normal affect Diagnostic/Tx/Re-eval Laboratory Results 01/31/20 01/31/20 13:06 13:06 WBC 6.8 RBC 3.33 L Hgb 11.9 L Hct 33.8 L MCV 101.5 H MCH 35.7 H MCHC 35.2 RDW Std Deviation 75.7 H RDW Coeff of Sarai 20.7 H Plt Count 219 MPV 9.3 Immature Gran % (Auto) 0.600 Neut % (Auto) 74.4 H Lymph % (Auto) 11.3 L [place] % (Auto) 10.9 H Eos % (Auto) 2.2 Baso % (Auto) 0.6 Absolute Neuts (auto) 5.1 Absolute Lymphs (auto) 0.77 L Nucleated RBC % 0 Platelet Estimate ADEQUATE Hypochromasia 1+ Anisocytosis 1+ Sodium 130 L Potassium 3.6 Chloride 99 Carbon Dioxide 26.0 Anion Gap 5 BUN 3 L Creatinine 0.41 L Estim Creat Clear Calc 60.42 Est GFR (MDRD) Af Amer 268 Est GFR (MDRD) Non-Af 221 BUN/Creatinine Ratio 7.4 L Glucose 90 Calcium 7.9 L - Medical Decision Making Venous ultrasound of the right lower extremity is unremarkable. Blood work is unremarkable other than a sodium of 130 which is his baseline. At this time patient be treated with antibiotics as well as ketoconazole cream for his foot. I have recommended he follow-up with wound center for further treatment. ED Disposition - Plan for ED Patient: Disposition: Home or Assisted Living Diagnosis: Cellulitis Instructions: Cellulitis Prescriptions: Smz/Tmp Ds [Bactrim Ds] 1 tab PO BID #14 tab Transmission Status: Pending to [facility] Cephalexin [Keflex] 500 mg PO Q6 #40 cap Transmission Status: Pending to [facility] Ketoconazole [Nizoral Cream] 1 applic TOPICAL BID #1 tube Transmission Status: Pending to [facility] Referrals: Sudhakar Crowell MD [Primary Care Provider] - Additional Instructions: Follow-up at [facility] - call [phone] for an appointment
[2020-01-31 13:41] LABS: Absolute Lymphocyte Count 0.77 X10^3/uL (0.83-4.51); Absolute Neutrophil Count 5.1 X10^3/uL (2.0-7.7); Basophil# 0.04 X10^3/uL; Basophil% 0.6 % (0-1); Eosinophil# 0.15 X10^3/uL; Eosinophils% 2.2 % (0-5); Hematocrit 33.8 % (40-54); Hemoglobin 11.9 g/dL (13.0-16.5); Lymphocyte # 0.77 X10^3/ul (4.0); Lymphocyte % 11.3 % (19-41); Mean Corp Hgb Conc 35.2 g/dL (32-36); Mean Corpuscular Hgb 35.7 pg (27.0-32.0); Mean Corpuscular Volume 101.5 fL (80-94); Mean Platelet Vol. 9.3 fl (6.2-12.0); Monocyte# 0.74 X10^3/uL; Monocyte% 10.9 % (0-10); NRBC Flagged by Analyzer 0 % (0-5); Neutrophil # 5.05 X10^3/uL (2.7-7.7); Neutrophil % 74.4 % (47-70); POSITIVE MORPHOLOGY YES; Platelet Count 219 K/mm3 (150-450); RBC Distribution Width CV 20.7 % (11.6-14.6); RBC Distribution Width SD 75.7 fl (35.1-43.9); Red Blood Count 3.33 M/mm3 (4.6-6.2); White Blood Count 6.8 K/mm3 (4.4-11.0)
[2020-01-31 13:46] LABS: Differential Indicated SCAN CRITERIA MET
[2020-01-31 13:48] LABS: Anion Gap 5 (5-15); BUN 3 mg/dL (7-18); BUN/Creat Ratio 7.4 RATIO (10-20); Calcium,Total 7.9 mg/dL (8.5-10.1); Chloride 99 mmol/L (98-107); Creatinine, Serum 0.41 mg/dL (0.70-1.30); EST Glomerular Filtration Rate 221 mL/min (>60); Est Glom Filt Rate - Afr Amer 268 mL/min (>60); Estimated Creatinine Clearance 60.42 ml/min; Glucose 90 mg/dL (74-106); Potassium 3.6 mmol/L (3.5-5.1); Sodium Level 130 mmol/L (136-145)
[2020-01-31 14:08] LABS: Anisocytosis 1+; Hypochromasia 1+; Platelet Estimate ADEQUATE (ADEQ)
[2020-01-31 15:44] VITALS: RESP 18
== END 2020-01-31 15:45 | disposition home or self-care (01) ==
PROVIDERS: Emergency Provider Emergency Medicine; PCP Family Medicine
DX: L03.90 Cellulitis, unspecified (principal); E78.5 Hyperlipidemia, unspecified; I11.0 Hypertensive heart disease with heart failure; I48.0 Paroxysmal atrial fibrillation; I50.32 Chronic diastolic (congestive) heart failure; I73.9 Peripheral vascular disease, unspecified; F17.200 Nicotine dependence, unspecified, uncomplicated; Z79.01 Long term (current) use of anticoagulants; Z82.49 Family history of ischemic heart disease and other diseases of the circulatory system; Z86.73 Personal history of transient ischemic attack (TIA), and cerebral infarction without residual deficits
CPT/HCPCS: 80048; 85025; 93971; 99285

== ENCOUNTER 2020-02-07 14:07 | Emergency (ER) | payer MEDICARE, MEDICAID, SELFPAY ==
[2020-02-07 14:11] VITALS: BP 102/50; PULSE 53; RESP 14; TEMP 36.4; O2SAT 97; BMI 23.4
[2020-02-07 14:14] VITALS: BP 102/50; PULSE 53; RESP 14; TEMP 36.4; O2SAT 97
--- NOTE | 2020-02-07 14:26 | ED.DCSUM_ITS ---
History of Present Illness Chief Complaint: Cellulitis Detail of Chief Complaint: Reported recurrent cellulitis Informant: Patient, - - Personal duty nurse Onset: Days Context: Sudden Onset Timing: Continuous Quality: Erythema right forearm, left forearm and right foot Location: Forearms and right foot Current Severity: Moderate Maximum Severity: Moderate Worsened by: Picking and excoriation of skin and soaking foot foot Relieved by: Nothing Narrative: Patient is an elderly male who was seen [address] Carlson. Patient was treated with antifungal cream for his tinea pedis right foot. He continues to pick and scratch at his forearms and feet. The aide/personal duty nurse has been soaking his foot. He only has a right foot since he has an amputation due to peripheral arterial disease. He denies fever, chills night sweats. He denies cardiac respiratory symptoms. He denies GI symptoms. He states he scratches and picks because it itches. Patient's healthcare provider informed me that she had a phone conversation with his doctor who recommended he come here because the antibiotics are not working. 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 (2) Chronic airway obstruction Status: Chronic (3) Chronic anticoagulation Status: Chronic Comment: Xarelto (4) Coronary atherosclerosis of [place] coronary artery Status: Chronic (5) Depression Status: Chronic (6) Diastolic CHF Status: Chronic (7) Esophageal reflux Status: Chronic (8) HLD (hyperlipidemia) Status: Chronic (9) PVD (peripheral vascular disease) Status: Chronic (10) Paroxysmal A-fib Status: Chronic Comment: currently in sinus rhythm (11) Percutaneous transluminal coronary angioplasty status Status: Chronic (12) Tobacco use disorder Status: Chronic (13) TIA (transient ischemic attack) Status: Resolved Past Medical History - Allergies and Home Meds Allergies/Adverse Reactions: Allergies No Known Allergies Allergy (Verified 02/07/20 14:14) Primary Care Physician: Sudhakar Crowell MD [Primary Care Provider] - Prior records reviewed: Yes Surgical History: - Lives: Alone Smoking Status: Current every day smoker Alcohol: None Drugs: None - Family History Sibling Family History: Family History (Last Reviewed 09/18/19 @ 07:[address] Danny Stone MD) Father Asthma Family History: Reports: COPD - 4 of his sisters has COPD. Paternal Family History: Family History (Last Reviewed 09/18/19 @ 07:[address] Danny Stone MD) Father Asthma Family History: Reports: COPD, Heart Disease, No pertinent history Review of Systems General: Denies: Chills, Fever, Malaise, Subjective Eyes: Denies: Visual changes - bilaterally, Blurred Vision - bilaterally ENT: Denies: Rhinorrhea, Sore throat Cardiovascular: Denies: Chest pain, Palpitations Respiratory: Reports: Cough - Cough is chronic and nonproductive. Denies: Dyspnea, Dyspnea on exertion Gastrointestinal: Denies: Abdominal pain, Nausea, Vomiting, Diarrhea, Melena, Hematochezia Musculoskeletal: Reports: Swelling. Denies: Myalgias, Arthralgias, Neck pain, Back pain, Extremity Pain Skin: Reports: Rash, Wounds - Due to scratching and picking. Denies: Abscess, Abrasions Neurological: Reports: - - And has neuropathic pain due to peripheral arterial disease. Denies: Headache, Weakness Psych: Reports: Depression Endocrine: Denies: Polyuria Hematologic: Reports: Easy bruising Allergy: Denies: Uticaria, Swelling of the mouth Physical Exam Vital Signs/Narrative: Vital Signs Temp Pulse Resp BP Pulse Ox 02/07/20 14:14 97.5 F L 53 L 14 102/50 L 97 02/07/20 14:11 97.5 F L 53 L 14 102/50 L 97 Inital Vital Signs reviewed: Yes General: Well nourished, Well developed Head: Normocephalic, Atraumatic Eyes: Perrl, EOMI. Negative for: Pale conjunctiva, Scleral icterus ENT: No rhinorrhea Neck: Supple, Nontender, No lymphadenopathy, No JVD Cardiovascular: Regular rhythm, No murmurs, Normal S1, Normal S2, Bradycardia Respiratory: No distress, Chest nontender, Decreased Air Movement. Negative for: CTA bilaterally Abdomen: Soft, Nontender, Nondistended, Normal bowel sounds Rectal: Deferred Back: Nontender Extremities: Tenderness - She has discomfort due to neuropathy., Edema - There is pitting edema of the right foot. Skin: Normal color, Rash - Dyshidrotic eczema of the right foot and hands. Erythema with slight warmth and edema right and left forearm with multiple areas of excoriation and scarring. There is also areas of picking posterior inferior neck without evidence of infection.. Negative for: No rash, Cyanosis, Diaphoresis, Jaundice, No Trauma Neurological: Alert, Oriented x3, Cranial nerves II-XII grossly intact. Negative for: Normal Strength, Normal Sensation Psychological: Depressed Diagnostic/Tx/Re-eval Laboratory Results 02/07/20 02/07/20 02/07/20 14:31 14:31 14:31 WBC 5.6 RBC 3.20 L Hgb 11.4 L Hct 33.4 L MCV 104.4 H MCH 35.6 H MCHC 34.1 RDW Std Deviation 72.2 H RDW Coeff of Sarai 18.5 H Plt Count 238 MPV 8.7 Immature Gran % (Auto) 0.700 Neut % (Auto) 65.8 Lymph % (Auto) 13.6 L [place] % (Auto) 12.7 H Eos % (Auto) 6.5 H Baso % (Auto) 0.7 Absolute Neuts (auto) 3.7 Absolute Lymphs (auto) 0.76 L Nucleated RBC % 0 Differential Comment SCANNED Anisocytosis 1+ Crenated Cell RARE Sodium 123 L Potassium 4.5 Chloride 95 L Carbon Dioxide 23.0 Anion Gap 5 BUN 4 L Creatinine 0.46 L Estim Creat Clear Calc 58.94 Est GFR (MDRD) Af Amer 233 Est GFR (MDRD) Non-Af 193 BUN/Creatinine Ratio 8.8 L Glucose 82 Lactic Acid 1.2 Calcium 7.7 L Prior records indicate patient does have history of hyponatremia. 1 week ago sodium was 130. Sodium today is 123. Medication list indicates patient is not on a thiazide or loop diuretic. - Medical Decision Making Patient is on appropriate antibiotics for strep and staph coverage. The health care provider was informed she should not soak his foot because this is making his rash worse. He should not soak his hands either. Problem has to do with the fact that he has significant dyshidrotic eczema and needs a moisturizing cream to prevent him from scratching and causing mild infection. Will obtain CBC, BMP to evaluate if patient requires inpatient therapy with IV antibiotics versus changing his present regimen i.e. no longer soaking his foot hands and moisturizing cream so he does not scratch causing additional infections. ED Disposition - Plan for ED Patient: Disposition: Home or Assisted Living Diagnosis: Dyshidrotic eczema, Electrical Engineer Mep syndrome, Abrasions of multiple sites Instructions: ED DERMATITIS Atopic Eczema Referrals: Sudhakar Crowell MD [Primary Care Provider] - 3-5 Days Additional Instructions: 1. You must stop scratching your skin 2. Do not soak your feet or hands in water 3. Apply Eucerin cream 3 times a day to your right foot, hands and forearms. At night recommending wrapping your foot and upper extremities with cellophane to allow greater penetration of the moisturizing cream. 4. Continue to take antibiotic until gone
[2020-02-07 14:49] LABS: Absolute Lymphocyte Count 0.76 X10^3/uL (0.83-4.51); Absolute Neutrophil Count 3.7 X10^3/uL (2.0-7.7); Basophil# 0.04 X10^3/uL; Basophil% 0.7 % (0-1); Eosinophil# 0.36 X10^3/uL; Eosinophils% 6.5 % (0-5); Hematocrit 33.4 % (40-54); Hemoglobin 11.4 g/dL (13.0-16.5); Lymphocyte # 0.76 X10^3/ul (4.0); Lymphocyte % 13.6 % (19-41); Mean Corp Hgb Conc 34.1 g/dL (32-36); Mean Corpuscular Hgb 35.6 pg (27.0-32.0); Mean Corpuscular Volume 104.4 fL (80-94); Mean Platelet Vol. 8.7 fl (6.2-12.0); Monocyte# 0.71 X10^3/uL; Monocyte% 12.7 % (0-10); NRBC Flagged by Analyzer 0 % (0-5); Neutrophil # 3.67 X10^3/uL (2.7-7.7); Neutrophil % 65.8 % (47-70); POSITIVE MORPHOLOGY YES; Platelet Count 238 K/mm3 (150-450); RBC Distribution Width CV 18.5 % (11.6-14.6); RBC Distribution Width SD 72.2 fl (35.1-43.9); White Blood Count 5.6 K/mm3 (4.4-11.0)
[2020-02-07 14:54] LABS: Differential Indicated SCAN CRITERIA MET
[2020-02-07 15:03] LABS: Anion Gap 5 (5-15); BUN 4 mg/dL (7-18); BUN/Creat Ratio 8.8 RATIO (10-20); Calcium,Total 7.7 mg/dL (8.5-10.1); Chloride 95 mmol/L (98-107); Creatinine, Serum 0.46 mg/dL (0.70-1.30); EST Glomerular Filtration Rate 193 mL/min (>60); Est Glom Filt Rate - Afr Amer 233 mL/min (>60); Estimated Creatinine Clearance 58.94 ml/min; Glucose 82 mg/dL (74-106); Potassium 4.5 mmol/L (3.5-5.1); Sodium Level 123 mmol/L (136-145)
[2020-02-07 15:12] LABS: Lactic Acid 1.2 mmol/L (0.4-1.9)
[2020-02-07 15:14] VITALS: BP 114/55; PULSE 57; RESP 18; TEMP 36.7; O2SAT 94
[2020-02-07 15:19] LABS: Anisocytosis 1+; Crenated RBC RARE; Differential Comment SCANNED
[2020-02-07 15:56] VITALS: BP 125/43; PULSE 57; RESP 18; O2SAT 97
== END 2020-02-07 16:29 | disposition home or self-care (01) ==
PROVIDERS: Emergency Provider Emergency Medicine; PCP Family Medicine
DX: L30.1 Dyshidrosis [pompholyx] (principal); E78.5 Hyperlipidemia, unspecified; I25.10 Atherosclerotic heart disease of native coronary artery without angina pectoris; I48.0 Paroxysmal atrial fibrillation; I73.9 Peripheral vascular disease, unspecified; K21.9 Gastro-esophageal reflux disease without esophagitis; I50.32 Chronic diastolic (congestive) heart failure; F17.200 Nicotine dependence, unspecified, uncomplicated; Z79.01 Long term (current) use of anticoagulants; Z86.73 Personal history of transient ischemic attack (TIA), and cerebral infarction without residual deficits; Z82.49 Family history of ischemic heart disease and other diseases of the circulatory system; F32.9 Major depressive disorder, single episode, unspecified; Z95.5 Presence of coronary angioplasty implant and graft; J44.9 Chronic obstructive pulmonary disease, unspecified
CPT/HCPCS: 80048; 83605; 85025; 99283; 99284; A4216

== ENCOUNTER → 2020-06-26 13:14 | Outpatient (CLI) | payer MEDICARE, MEDICAID, SELFPAY ==
[2020-03-09 13:50] VITALS: BMI 20.1
--- NOTE | 2020-06-26 13:36 | EKG12_ITS ---
Test Reason : PREOP Blood Pressure : / mmHG Vent. Rate : 061 BPM Atrial Rate : 061 BPM P-R Int : 196 ms QRS Dur : 090 ms QT Int : 480 ms P-R-T Axes : 065 059 074 degrees QTc Int : 483 ms Normal sinus rhythm Prolonged QT Abnormal ECG Confirmed by AYE VALDOVINOS, LEIGH ([id number]), editor department VIOLETA GASPAR ([id number]) on 06/27/2020 10:30:14 AM Referred By: Tierney Iniguez Confirmed By:LEIGH GRIFFITHS MD
== END ==
PROVIDERS: PCP Family Medicine; Referring Provider Nurse Practitioner Acute Care; Visit Provider Nurse Practitioner Acute Care
DX: R94.31 Abnormal electrocardiogram [ECG] [EKG] (principal); Z79.891 Long term (current) use of opiate analgesic
CPT/HCPCS: 93005

== ENCOUNTER 2020-07-02 22:39 | Emergency (ER) | payer MEDICARE, MEDICAID, SELFPAY ==
[2020-03-09 13:50] VITALS: BMI 20.1
[2020-07-02 22:42] VITALS: BP 92/41; PULSE 50; RESP 20; TEMP 36.6; O2SAT 92; BMI 22.7
--- NOTE | 2020-07-02 22:54 | RAD_ITS ---
EXAM: XR RIGHT WRIST COMPLETE, 3 OR MORE VIEWS : 1950 CLINICAL INDICATION: fall and pain TECHNIQUE: Frontal, lateral and oblique views of the right wrist. This report was created using Tut[employer] report generation technology. COMPARISON: No previous imaging of the right wrist FINDINGS: BONES/JOINTS: A distal radius comminuted fracture is present with intra-articular extension. The radius is shortened due to overlying fracture fragments. Bone mineral density may be diminished. Preservation of the joint space. SOFT TISSUES: Unremarkable. No soft tissue swelling or gas. No radiopaque foreign body. OTHER FINDINGS: There is apex volar angulation. RAD/Wrist min 3 Views IMPRESSION: Shortening of the radius due to a comminuted distal radius fracture with intra-articular extension and overriding fracture fragments at 2344 Reported and signed by: Marlo Palmer MD Electronically Signed: Marlo Palmer MD at 23:43 EST Tel , Service support ,
--- NOTE | 2020-07-02 23:00 | ED.DCSUM_ITS ---
- ER Visit Summary Date of Service: 07/02/20 Chief Complaint: Right wrist pain after fall History of Present Illness: The patient is a 70 M Struve peripheral arterial disease, TIA and prior vascular stenting. He is also had a left below the knee amputation. Patient states that he lost balance while getting ready for bed tonight he fell and landed awkwardly on his right wrist and he thinks it is broken. He denies hitting his head or having other injuries. States he was feeling fine today. He has not been ill recently. He denies any nausea, vomiting diarrhea or fever today. He denies any other complaints. Physical Examination: Older male no acute distress. Vital signs initial blood pressure is 92/41 he will be rechecked. Pulse ox 92% on room air no signs of hypoxia. H EENT exam unremarkable. Poor dentition. No trauma to his face or scalp. No hematomas. C-spine nontender. Trachea midline. No lymphadenopathy. Lungs clear to auscultation bilaterally. Heart regular rhythm rate about 50- 60. Chest wall nontender. Abdomen soft nontender. Patient moving all 4 extremities. He has a left below the knee amputation and prosthesis on. He has trace edema in his right lower extremity which she states is chronic and has had recent vascular stenting of his right lower leg. Dorsi plantarflexion intact. Left upper extremity is nontender with normal range of motion and wooden box maker strength. Right shoulder and right elbow are nontender. Right wrist is obviously defo rmed consistent with a wrist fracture. It is closed the skin is intact. Right hand is neurovascularly intact. He can open and close his right hand. He has a palpable radial pulse. Neurologically is awake and alert with no focal motor deficits. Test Results: Right wrist x-ray 3 views interpreted by myself shows comminuted distal radius fracture that is intra-articular and shortened. Otherwise unremarkable. Also interpreted by the radiologist who agrees. CBC shows a white count of 4. Hemoglobin 9.6 which is the patient's baseline anemia he typically runs between 7 and 11. Chemistries show sodium 134. Normal BUN and creatinine. Normal gap. Glucose slightly low at 61 he will be given a snack prior to discharge. EKG shows a sinus bradycardia rate of 48 with a prolonged QT which has been seen and is unchanged from prior EKGs. Repeat exam patient is doing well at 12:10 AM. He is resting comfortably. Myself along with nursing staff placed a short arm Ortho-Glass AP splint that was well-padded and that I fabricated. I instructed the patient on fracture care and splint care. He did inform me that his blood pressure normally runs low often below 100 as does his heart rate runs low. These are not new. Emergency Department Course and Treatment: Patient fell has an obviously deformed right wrist. X-ray will be obtained. His blood pressure will be rechecked. If it continues to run low he may need further work-up. Patient was also given 1 Merrill for pain. Treatment Plan: Follow-up with local orthopedic physician. Keep splint dry and clean. Ice and elevate. Tylenol for pain. Disposition: Discharge Impression: Acute fall Acute right wrist comminuted fracture Short arm AP splint of Ortho-Glass by ER physician. Acute on chronic hypotension and bradycardia This note was generated with [employer] dictation software. It may contain incorrect words, spelling, and punctuation that were not noted in review of the chart prior to signing ED Disposition - Plan for ED Patient: Disposition: Home or Assisted Living Instructions: ED Fracture, Wrist, General Referrals: Sudhakar Crowell MD [Primary Care Provider] - As Needed Aashish Josue MD [STAFF PHYSICIAN] - As soon as possible Additional Instructions: You have a broken right wrist. Ice and elevate it to decrease the pain and swelling. Keep the splint dry and clean. Keep the splint on. Tylenol for pain. Call and follow-up with either Dr. Bola Josue of [place] [facility] or Dr. Weaver from the [facility] for evaluation of your broken wrist and casting.
--- NOTE | 2020-07-02 23:03 | EKG12_ITS ---
Test Reason : UPPER EXT Blood Pressure : / mmHG Vent. Rate : 048 BPM Atrial Rate : 048 BPM P-R Int : 176 ms QRS Dur : 084 ms QT Int : 546 ms P-R-T Axes : 053 055 067 degrees QTc Int : 487 ms Sinus bradycardia Prolonged QT Abnormal ECG Confirmed by SUMMER VALDOVINOS, MOHAN ([id number]), associate editor VIOLETA GASPAR ([id number]) on 07/05/2020 10:55:35 AM Referred By: INES Confirmed By:MOHAN WHEELER MD
--- NOTE | 2020-07-02 23:07 | RAD_ITS ---
HISTORY: low bp EXAM: XR Chest 1 View: COMPARISON: October 12, 2019 FINDINGS: # of images incl. paperwork: 1 Calcific plaque in the aortic arch persists Fibrotic lung disease is present, and was present previously, however, interstitial markings and linear airspace disease is more severe on today's study than previously Heart is not enlarged. No acute osseous pathology perceived. Pulmonary vascularity is distinct. No effusions. RAD/Chest 1 View (Portable) IMPRESSION: Chronic interstitial lung disease and atherosclerosis, but with new more pronounced basilar interstitial lung disease and some linear airspace disease in the left lower lobe. This may represent interstitial pulmonary edema and atelectasis.. at 2339 Reported and signed by: Marlo Palmer MD Electronically Signed: Marlo Palmer MD at 23:38 EST Tel , Service support ,
[2020-07-02] MEDS: HYDROcodone Bitartrate/Apap 5/325 Tablet PO (23:16)
[2020-07-02 23:39] LABS: Absolute Lymphocyte Count 0.95 X10^3/uL (0.83-4.51); Absolute Neutrophil Count 2.9 X10^3/uL (2.0-7.7); Basophil# 0.03 X10^3/uL; Basophil% 0.6 % (0-1); Eosinophil# 0.17 X10^3/uL; Eosinophils% 3.6 % (0-5); Hematocrit 29.1 % (40-54); Hemoglobin 9.6 g/dL (13.0-16.5); Lymphocyte # 0.95 X10^3/ul (4.0); Lymphocyte % 19.9 % (19-41); Mean Corpuscular Volume 118.3 fL (80-94); Mean Platelet Vol. 8.7 fl (6.2-12.0); Monocyte# 0.64 X10^3/uL; Monocyte% 13.4 % (0-10); NRBC Flagged by Analyzer 0 % (0-5); Neutrophil # 2.92 X10^3/uL (2.7-7.7); Neutrophil % 61.2 % (47-70); Platelet Count 199 K/mm3 (150-450); RBC Distribution Width CV 13.6 % (11.6-14.6); RBC Distribution Width SD 59.7 fl (35.1-43.9); Red Blood Count 2.46 M/mm3 (4.6-6.2); White Blood Count 4.8 K/mm3 (4.4-11.0)
[2020-07-03 00:01] LABS: Anion Gap 8 (5-15); BUN 3 mg/dL (7-18); BUN/Creat Ratio 7.1 RATIO (10-20); Calcium,Total 7.6 mg/dL (8.5-10.1); Chloride 103 mmol/L (98-107); Creatinine, Serum 0.42 mg/dL (0.70-1.30); EST Glomerular Filtration Rate 210 mL/min (>60); Est Glom Filt Rate - Afr Amer 253 mL/min (>60); Estimated Creatinine Clearance 62.12 ml/min; Glucose 61 mg/dL (74-106); Potassium 3.4 mmol/L (3.5-5.1); Sodium Level 134 mmol/L (136-145)
--- NOTE | 2020-07-03 00:14 | ED.DEP ---
ED Disposition - Plan for ED Patient: Disposition: Home or Assisted Living Instructions: ED Fracture, Wrist, General Referrals: Sudhakar Crowell MD [Primary Care Provider] - As Needed Aashish Josue MD [STAFF PHYSICIAN] - As soon as possible Additional Instructions: You have a broken right wrist. Ice and elevate it to decrease the pain and swelling. Keep the splint dry and clean. Keep the splint on. Tylenol for pain. Call and follow-up with either Dr. Bola Josue of [facility] or Dr. Weaver from the [facility] for evaluation of your broken wrist and casting.
== END 2020-07-03 01:25 | disposition home or self-care (01) ==
PROVIDERS: Emergency Provider Emergency Medicine; PCP Family Medicine
DX: S52.571A Other intraarticular fracture of lower end of right radius, initial encounter for closed fracture (principal); W18.39XA Other fall on same level, initial encounter; I73.9 Peripheral vascular disease, unspecified; Z89.512 Acquired absence of left leg below knee; Z86.73 Personal history of transient ischemic attack (TIA), and cerebral infarction without residual deficits; I95.89 Other hypotension; R00.1 Bradycardia, unspecified; Z79.899 Other long term (current) drug therapy
CPT/HCPCS: 29126; 29125; 71045; 73110; 80048; 84484; 85025; 93005; 99285; A4216

== ENCOUNTER 2020-07-24 11:38 | Emergency (ER) | payer MEDICARE, MEDICAID, SELFPAY ==
[2020-07-24 11:39] VITALS: BP 131/55; PULSE 53; RESP 16; TEMP 36.6; O2SAT 97; BMI 22.1
[2020-07-24 13:44] VITALS: BP 142/98; PULSE 52; RESP 16; O2SAT 94
[2020-07-24 13:44] LABS: Absolute Lymphocyte Count 0.73 X10^3/uL (0.83-4.51); Absolute Neutrophil Count 4.8 X10^3/uL (2.0-7.7); Basophil# 0.02 X10^3/uL; Basophil% 0.3 % (0-1); Eosinophil# 0.09 X10^3/uL; Eosinophils% 1.5 % (0-5); Hematocrit 33.9 % (40-54); Hemoglobin 11.7 g/dL (13.0-16.5); Lymphocyte # 0.73 X10^3/ul (4.0); Lymphocyte % 11.8 % (19-41); Mean Corp Hgb Conc 34.5 g/dL (32-36); Mean Corpuscular Hgb 38.5 pg (27.0-32.0); Mean Corpuscular Volume 111.5 fL (80-94); Mean Platelet Vol. 9.2 fl (6.2-12.0); Monocyte# 0.48 X10^3/uL; Monocyte% 7.8 % (0-10); NRBC Flagged by Analyzer 0 % (0-5); Neutrophil # 4.83 X10^3/uL (2.7-7.7); Neutrophil % 78.1 % (47-70); Platelet Count 263 K/mm3 (150-450); RBC Distribution Width CV 14.6 % (11.6-14.6); RBC Distribution Width SD 57.3 fl (35.1-43.9); Red Blood Count 3.04 M/mm3 (4.6-6.2); White Blood Count 6.2 K/mm3 (4.4-11.0)
[2020-07-24 13:48] LABS: ALB/GLOB Ratio 0.5 RATIO (0.9-2.4); AST(SGOT) 48 U/L (15-37); Alanine Aminotransfer ALT/SGPT 31 U/L (16-61); Albumin, Serum 1.9 g/dL (3.2-5.0); Alkaline Phosphatase 202 U/L (45-117); Anion Gap 2 (5-15); BUN 3 mg/dL (7-18); BUN/Creat Ratio 6.4 RATIO (10-20); Calcium,Total 7.7 mg/dL (8.5-10.1); Chloride 100 mmol/L (98-107); Creatinine, Serum 0.47 mg/dL (0.70-1.30); EST Glomerular Filtration Rate 188 mL/min (>60); Est Glom Filt Rate - Afr Amer 227 mL/min (>60); Estimated Creatinine Clearance 60.54 ml/min; Globulin 4.1 g/dL (2.2-4.2); Glucose 77 mg/dL (74-106); Potassium 4.3 mmol/L (3.5-5.1); Sodium Level 130 mmol/L (136-145)
--- NOTE | 2020-07-24 15:14 | ED.DCSUM_ITS ---
History of Present Illness Chief Complaint: Diarrhea Informant: Patient Narrative: 1-year-old male presents for evaluation of diarrhea. He tells me he had diarrhea 23 times last night. States he went so much she is not can be able to go today. However his caregiver that checks on him during the week tells me that it smells like C. difficile. He denies any C. difficile risk factors or any previous occurrence of C. difficile. He tells me that he eats about 2 meals a day whenever this caregiver comes and gets food for him otherwise he exist on 8-12 beers a day. He has no intentions of stopping drinking. No fevers. He also reports that last week he had a stent placed in his right leg. He tells me that since that time the leg is felt better but now is more swollen than normal. 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 (3) Chronic anticoagulation Status: Chronic Comment: Xarelto (4) Coronary atherosclerosis of [place] coronary artery Status: Chronic (5) Depression Status: Chronic (6) Diastolic CHF Status: Chronic (7) HLD (hyperlipidemia) Status: Chronic (8) HTN (hypertension) Status: Chronic (9) Macrocytic anemia Status: Chronic (10) PVD (peripheral vascular disease) Status: Chronic (11) Paroxysmal A-fib Status: Chronic Comment: currently in sinus rhythm (12) Percutaneous transluminal coronary angioplasty status Status: Chronic (13) Tobacco use disorder Status: Chronic (14) TIA (transient ischemic attack) Status: Resolved Past Medical History - Allergies and Home Meds Allergies/Adverse Reactions: Allergies No Known Allergies Allergy (Verified 07/24/20 11:41) Primary Care Physician: Sudhakar Crowell MD [Primary Care Provider] - 3-5 Days Surgical History: - - Multiple vascular stents, revasculation of left leg, left BKA, left elbow debridement for chronic infection Smoking Status: Current every day smoker - Family History Sibling Family History: Family History (Last Reviewed 09/18/19 @ 07:[address] Danny Stone MD) Father Asthma Family History: Reports: COPD - 4 of his sisters has COPD. Paternal Family History: Family History (Last Reviewed 09/18/19 @ 07:[address] Danny Stone MD) Father Asthma Family History: Reports: COPD, Heart Disease, No pertinent history Review of Systems General: Denies: Chills, Fever, Sweats Eyes: Denies: Visual changes - bilaterally, Diplopia ENT: Denies: Rhinorrhea, Sore throat Cardiovascular: Denies: Chest pain, Palpitations Respiratory: Denies: Dyspnea, Cough, Dyspnea on exertion Gastrointestinal: Reports: Diarrhea. Denies: Abdominal pain, Nausea, Vomiting, Melena, Hematochezia Genitourinary: Denies: Dysuria, Hematuria, Frequency Musculoskeletal: Reports: Extremity Pain. Denies: Back pain Skin: Denies: Rash, Wounds Neurological: Denies: Headache, Weakness, Numbness Physical Exam Vital Signs/Narrative: Vital Signs Temp Pulse Resp BP Pulse Ox 07/24/20 13:44 52 L 16 142/98 H 94 07/24/20 11:39 97.8 F 53 L 16 131/55 H 97 Inital Vital Signs reviewed: Yes General: Well nourished, Well developed, No Acute Distress Head: Normocephalic, Atraumatic Eyes: Perrl, EOMI ENT: Moist mucous membranes, No rhinorrhea Neck: Supple, Nontender Cardiovascular: Regular rate, Regular rhythm, No murmurs Respiratory: No distress, CTA bilaterally, Chest nontender Abdomen: Soft, Nontender, Nondistended, Normal bowel sounds Back: Nontender, Normal Inspection Extremities: Tenderness, Edema - Right leg swelling 1-2+ pitting edema left leg amputation Skin: Normal color, No rash Neurological: Alert, Oriented x3, Cranial nerves II-XII grossly intact, Normal Strength, Normal Sensation Psychological: Normal affect, Normal Mood Diagnostic/Tx/Re-eval Laboratory Last Values WBC 6.2 K/mm3 (4.4-11.0) 07/24/20 12:51 RBC 3.04 M/mm3 (4.6-6.2) L 07/24/20 12:51 Hgb 11.7 g/dL (13.0-16.5) L 07/24/20 12:51 Hct 33.9 % (40-54) L 07/24/20 12:51 MCV 111.5 fL (80-94) H 07/24/20 12:51 MCH 38.5 pg (27.0-32.0) H 07/24/20 12:51 MCHC 34.5 g/dL (32-36) 07/24/20 12:51 RDW Std Deviation 57.3 fl (35.1-43.9) H 07/24/20 12:51 RDW Coeff of Sarai 14.6 % (11.6-14.6) 07/24/20 12:51 Plt Count 263 K/mm3 (150-450) 07/24/20 12:51 MPV 9.2 fl (6.2-12.0) 07/24/20 12:51 Immature Gran % (Auto) 0.500 % (0.0-0.9) 07/24/20 12:51 Neut % (Auto) 78.1 % (47-70) H 07/24/20 12:51 Lymph % (Auto) 11.8 % (19-41) L 07/24/20 12:51 [place] % (Auto) 7.8 % (0-10) 07/24/20 12:51 Eos % (Auto) 1.5 % (0-5) 07/24/20 12:51 Baso % (Auto) 0.3 % (0-1) 07/24/20 12:51 Absolute Neuts (auto) 4.8 X10^3/uL (2.0-7.7) 07/24/20 12:51 Absolute Lymphs (auto) 0.73 X10^3/uL (0.83-4.51) L 07/24/20 12:51 Nucleated RBC % 0 % (0-5) 07/24/20 12:51 Sodium 130 mmol/L (136-145) L 07/24/20 12:51 Potassium 4.3 mmol/L (3.5-5.1) 07/24/20 12:51 Chloride 100 mmol/L (98-107) 07/24/20 12:51 Carbon Dioxide 28.0 mmol/L (21.0-32.0) 07/24/20 12:51 Anion Gap 2 (5-15) L 07/24/20 12:51 BUN 3 mg/dL (7-18) L 07/24/20 12:51 Creatinine 0.47 mg/dL (0.70-1.30) L 07/24/20 12:51 Estim Creat Clear Calc 60.54 ml/min 07/24/20 12:51 Est GFR (MDRD) Af Amer 227 mL/min (>60) 07/24/20 12:51 Est GFR (MDRD) Non-Af 188 mL/min (>60) 07/24/20 12:51 BUN/Creatinine Ratio 6.4 RATIO (10-20) L 07/24/20 12:51 Glucose 77 mg/dL (74-106) 07/24/20 12:51 Calcium 7.7 mg/dL (8.5-10.1) L 07/24/20 12:51 Total Bilirubin 0.40 mg/dL (0.20-1.00) 07/24/20 12:51 AST 48 U/L (15-37) H 07/24/20 12:51 ALT 31 U/L (16-61) 07/24/20 12:51 Alkaline Phosphatase 202 U/L (45-117) H 07/24/20 12:51 Total Protein 6.0 g/dL (6.4-8.2) L 07/24/20 12:51 Albumin 1.9 g/dL (3.2-5.0) L 07/24/20 12:51 Globulin 4.1 g/dL (2.2-4.2) 07/24/20 12:51 Albumin/Globulin Ratio 0.5 RATIO (0.9-2.4) L 07/24/20 12:51 - Medical Decision Making Patient was in the emergency department for 3-1/2 hours. No stool has been able to be collected from him. His labs are negative. Increase his Lasix have a follow-up with his doctor in the next 3 to 5 days. ED Disposition - Plan for ED Patient: Disposition: Home or Assisted Living Diagnosis: Diarrhea, Alcohol abuse, Lymphedema Instructions: ED Diarrhea, Unknown Cause, ED Lymphedema Prescriptions: Furosemide [Lasix] 40 mg PO DAILY #7 tablet Transmission Status: Pending to [id number] Referrals: Sudhakar Crowell MD [Primary Care Provider] - 3-5 Days Additional Instructions: Or than 2 meals a week. If your diet consists only of beer you most likely have diarrhea.
[2020-07-24 15:19] VITALS: BP 167/71; PULSE 73; RESP 16; O2SAT 97
== END 2020-07-24 15:38 | disposition home or self-care (01) ==
PROVIDERS: Emergency Provider Emergency Medicine; PCP Family Medicine
DX: R19.7 Diarrhea, unspecified (principal); I89.0 Lymphedema, not elsewhere classified; F10.10 Alcohol abuse, uncomplicated; Y90.9 Presence of alcohol in blood, level not specified; I25.10 Atherosclerotic heart disease of native coronary artery without angina pectoris; F32.9 Major depressive disorder, single episode, unspecified; E78.5 Hyperlipidemia, unspecified; I11.0 Hypertensive heart disease with heart failure; I50.32 Chronic diastolic (congestive) heart failure; D53.9 Nutritional anemia, unspecified; I48.0 Paroxysmal atrial fibrillation; Z79.01 Long term (current) use of anticoagulants; Z86.73 Personal history of transient ischemic attack (TIA), and cerebral infarction without residual deficits; Z95.5 Presence of coronary angioplasty implant and graft; I73.9 Peripheral vascular disease, unspecified; F17.200 Nicotine dependence, unspecified, uncomplicated; Z89.612 Acquired absence of left leg above knee
CPT/HCPCS: 80053; 85025; 99284

== ENCOUNTER 2020-08-21 11:29 | Inpatient (IN) | payer MEDICARE, MEDICAID, SELFPAY ==
[2020-08-21] VITALS (32 sets, daily range): BP systolic 107–189; BP diastolic 62–78; PULSE 79–148; RESP 16–24; TEMP 36.3–38; O2SAT 88–98; BMI 20.5; BMI 19.0
--- NOTE | 2020-08-21 12:39 | ED.DCSUM_ITS ---
History of Present Illness Chief Complaint: General Illness Informant: Patient Narrative: 70-year-old male presenting with generalized weakness and diarrhea. He states that last night he had 5 episodes of diarrhea which were black. He does take iron but is also on Xarelto which he states he is on for history of blood clots. Patient does not have any chest pain or shortness of breath. He does not have fever or chills. He currently does not have any abdominal pain but describes him cramping earlier with his diarrhea. Patient has not had any frankly bloody stools. He denies history of gastric ulcer or duodenal ulcer. - Past Medical History (1) Closed right hip fracture Status: Inactive (2) Hypoglycemia Status: Deleted (3) Hyponatremia Status: Chronic (4) Amputation of left lower extremity Status: Chronic (5) Chronic anticoagulation Status: Chronic Comment: Xarelto (6) Coronary atherosclerosis of [place] coronary artery Status: Chronic (7) Depression Status: Chronic Past Medical History - Allergies and Home Meds Allergies/Adverse Reactions: Allergies No Known Allergies Allergy (Verified 08/21/20 11:33) Past Medical History: - - Hypertension, hyperlipidemia, TIA, blood loss anemia, atrial fibrillation, GERD Surgical History: noncontributory, - - Multiple vascular stents, revasculation of left leg, left BKA, left elbow debridement for chronic infection Lives: Alone Smoking Status: Current every day smoker Alcohol: Sober Drugs: None - Family History Sibling Family History: Family History (Last Reviewed 09/18/19 @ 07:[address] Danny Stone MD) Father Asthma Family History: Reports: COPD - 4 of his sisters has COPD. Paternal Family History: Family History (Last Reviewed 09/18/19 @ 07:[address] Danny Stone MD) Father Asthma Family History: Reports: COPD, Heart Disease, No pertinent history Maternal Family History: Family History (Last Reviewed 09/18/19 @ 07:[address] Danny Stone MD) Father Asthma Family History: Reports: - - Denies known maternal medical history including cardiac history Review of Systems General: Reports: Malaise. Denies: Chills, Fever, Sweats Eyes: Denies: Visual changes - bilaterally, Diplopia ENT: Denies: Rhinorrhea, Sore throat Cardiovascular: Denies: Chest pain, Palpitations Respiratory: Denies: Dyspnea, Cough, Dyspnea on exertion Gastrointestinal: Reports: Abdominal pain - Abdominal cramping, Diarrhea, Melena Genitourinary: Denies: Dysuria, Hematuria Musculoskeletal: Denies: Myalgias, Arthralgias Skin: Denies: Rash, Abscess Neurological: Denies: Headache, Weakness, Parasthesia Psych: Denies: Depression, Anxiety, Suicidal thoughts Physical Exam Vital Signs/Narrative: Vital Signs Temp Pulse Resp BP Pulse Ox 08/21/20 11:33 97.4 F L 111 H 18 189/74 H 94 08/21/20 11:30 97.5 F L 111 H 18 189/74 H 94 Inital Vital Signs reviewed: Yes General: Well nourished, No Acute Distress Head: Normocephalic, Atraumatic Eyes: Perrl, EOMI, Pale conjunctiva. Negative for: Scleral icterus ENT: Moist mucous membranes, No rhinorrhea Cardiovascular: Regular rate, Regular rhythm Respiratory: No distress, CTA bilaterally Abdomen: Soft, Nontender, Nondistended Rectal: Guaiac positive, - - Black stool Back: Nontender, Normal Inspection Extremities: Nontender, No edema Skin: No rash, Pallor Neurological: Alert, Oriented x3, Cranial nerves II-XII grossly intact Psychological: Normal affect, Normal Mood Diagnostic/Tx/Re-eval Laboratory Data 08/21/20 08/21/20 08/21/20 13:35 13:35 13:35 WBC 19.0 H RBC 3.15 L Hgb 11.8 L Hct 34.2 L MCV 108.6 H MCH 37.5 H MCHC 34.5 RDW Std Deviation 73.1 H RDW Coeff of Sarai 18.7 H Plt Count 235 MPV 9.2 Immature Gran % (Auto) 1.300 H Neut % (Auto) 93.2 H Lymph % (Auto) 2.5 L [place] % (Auto) 2.8 Eos % (Auto) 0.0 Baso % (Auto) 0.2 Absolute Neuts (auto) 17.8 H Absolute Lymphs (auto) 0.48 L Nucleated RBC % 0 Differential Comment COMMENT Anisocytosis 1+ PT 12.1 INR 1.0 Sodium 132 L Potassium 3.3 L Chloride 98 Carbon Dioxide 26.0 Anion Gap 8 BUN 9 Creatinine 0.55 L Estim Creat Clear Calc 56.10 Est GFR (MDRD) Af Amer 187 Est GFR (MDRD) Non-Af 155 BUN/Creatinine Ratio 16.3 Glucose 123 H Calcium 8.1 L Total Bilirubin 0.60 AST 337 H ALT 161 H Alkaline Phosphatase 171 H Troponin I 0.281 H Total Protein 6.7 Albumin 1.9 L Globulin 4.8 H Albumin/Globulin Ratio 0.4 L Lipase 42 L Ethyl Alcohol Blood Type Antibody Screen 08/21/20 08/21/20 13:35 13:35 WBC RBC Hgb Hct MCV MCH MCHC RDW Std Deviation RDW Coeff of Sarai Plt Count MPV Immature Gran % (Auto) Neut % (Auto) Lymph % (Auto) [place] % (Auto) Eos % (Auto) Baso % (Auto) Absolute Neuts (auto) Absolute Lymphs (auto) Nucleated RBC % Differential Comment Anisocytosis PT INR Sodium Potassium Chloride Carbon Dioxide Anion Gap BUN Creatinine Estim Creat Clear Calc Est GFR (MDRD) Af Amer Est GFR (MDRD) Non-Af BUN/Creatinine Ratio Glucose Calcium Total Bilirubin AST ALT Alkaline Phosphatase Troponin I Total Protein Albumin Globulin Albumin/Globulin Ratio Lipase Ethyl Alcohol < 3.0 Blood Type O POSITIVE Antibody Screen NEGATIVE - Medical Decision Making 68-year-old male presenting with diarrhea. He had some abdominal cramping when he is having diarrhea but states he does not have any pain now currently. He describes his diarrhea as black. He denies bloody stool. He states that he feels generally weak when he is trying to get around but denies any chest pain or significant shortness of breath. He is not fallen or injured himself. Patient found to be in A. fib RVR at a rate of 145/min on his EKG as interpreted by myself. Patient also has a history of A. fib and he is anticoagulated on Eliquis. He could not recall what he was on for rate control. Patient given 20 mg of IV Cardizem and his heart rate did slow down. Patient's chest x-ray shows bilateral linear infiltrates consistent with atelectasis but could possibly be infiltrates as interpreted by myself. Patient is not having any respiratory complaints and is not hypoxic. Patient has a CBC which shows a leukocytosis of 19, hemoglobin 11.8, hematocrit 34.2, platelets 235. CMP shows sodium 132, potassium 3.3, chloride 98, CO2 26, BUN 9, creatinine 0.55, platelets 123. ALT 161, AST 337, alk phos 171, lipase is negative. Troponin is elevated at 0.281. EtOH is negative. Patient is Hemoccult positive. Patient did have return of his A. fib and was given 20 mg of Cardizem again. At this point I felt the patient needed be admitted for GI bleed given his pallor and conjunctival pallor. Is possible his hemoglobin has not shifted yet. Discussed the patient with Dr. Camacho who recommended IV and p.o. contrasted CT of the abdomen and pelvis. Given patient's GI bleed aspirin was withheld. Again the patient denies any sort of chest pain or shortness of breath. Patient was discussed with hospitalist as well. Patient will remain in the ED until CT abdomen pelvis with p.o. and IV contrast is complete. I will add lactic acid, blood cultures, urine culture. Patient will be signed out to incoming ED physician for monitoring. Patient is clinically stable at this time. Impression: 1. Leukocytosis 2. Transaminitis 3. Elevated troponin 4. GI bleed ED Disposition - Plan for ED Patient:
--- NOTE | 2020-08-21 12:57 | EKG12_ITS ---
Test Reason : Blood Pressure : / mmHG Vent. Rate : 145 BPM Atrial Rate : 091 BPM P-R Int : 000 ms QRS Dur : 078 ms QT Int : 340 ms P-R-T Axes : 000 048 084 degrees QTc Int : 528 ms Atrial fibrillation Nonspecific abnormality Abnormal ECG Confirmed by SUMMER VALDOVINOS, MOHAN ([id number]), senior editor VIOLETA GASPAR ([id number]) on 08/24/2020 8:58:15 AM Referred By: ROBBY/KATHERINE Confirmed By:MOHAN WHEELER MD
[2020-08-21] MEDS: dilTIAZem 25 MG/5 ML Vial 20 MG IV BOLUS ×2 (13:34→14:49)
[2020-08-21 14:02] LABS: Absolute Lymphocyte Count 0.48 X10^3/uL (0.83-4.51); Absolute Neutrophil Count 17.8 X10^3/uL (2.0-7.7); Basophil# 0.03 X10^3/uL; Basophil% 0.2 % (0-1); Hematocrit 34.2 % (40-54); Hemoglobin 11.8 g/dL (13.0-16.5); Lymphocyte # 0.48 X10^3/ul (0.83-4.51); Lymphocyte % 2.5 % (19-41); Mean Corp Hgb Conc 34.5 g/dL (32-36); Mean Corpuscular Hgb 37.5 pg (27.0-32.0); Mean Corpuscular Volume 108.6 fL (80-94); Mean Platelet Vol. 9.2 fl (6.2-12.0); Monocyte# 0.53 X10^3/uL; Monocyte% 2.8 % (0-10); NRBC Flagged by Analyzer 0 % (0-5); Neutrophil # 17.75 X10^3/uL (2.7-7.7); Neutrophil % 93.2 % (47-70); POSITIVE DIFFERENTIAL YES; POSITIVE MORPHOLOGY YES; Platelet Count 235 K/mm3 (150-450); RBC Distribution Width CV 18.7 % (11.6-14.6); RBC Distribution Width SD 73.1 fl (35.1-43.9); Red Blood Count 3.15 M/mm3 (4.6-6.2)
[2020-08-21 14:04] LABS: Differential Indicated SCAN CRITERIA MET
[2020-08-21 14:11] LABS: Prothrombin Time (Protime)PT. 12.1 SECONDS (11.7-14.9)
[2020-08-21 14:20] LABS: ALB/GLOB Ratio 0.4 RATIO (0.9-2.4); AST(SGOT) 337 U/L (15-37); Alanine Aminotransfer ALT/SGPT 161 U/L (16-61); Albumin, Serum 1.9 g/dL (3.2-5.0); Alkaline Phosphatase 171 U/L (45-117); Anion Gap 8 (5-15); BUN 9 mg/dL (7-18); BUN/Creat Ratio 16.3 RATIO (10-20); Calcium,Total 8.1 mg/dL (8.5-10.1); Chloride 98 mmol/L (98-107); Creatinine, Serum 0.55 mg/dL (0.70-1.30); EST Glomerular Filtration Rate 155 mL/min (>60); Est Glom Filt Rate - Afr Amer 187 mL/min (>60); Globulin 4.8 g/dL (2.2-4.2); Glucose 123 mg/dL (74-106); Lipase 42 U/L (73-393); Potassium 3.3 mmol/L (3.5-5.1); Protein, Total 6.7 g/dL (6.4-8.2); Sodium Level 132 mmol/L (136-145)
[2020-08-21 14:24] LABS: Anisocytosis 1+
[2020-08-21 14:30] LABS: Alcohol, Blood (Medical)-Serum < 3.0 mg/dL
--- NOTE | 2020-08-21 14:35 | ED.RN ---
dr. dior aware of hr.
--- NOTE | 2020-08-21 15:43 | ED.RN ---
dr. dior aware of hr.
--- NOTE | 2020-08-21 16:16 | CT_ITS ---
STUDY: CT ABDOMEN AND PELVIS WITH CONTRAST REASON FOR EXAM: Male, 70 years old. Abdominal pain RADIATION DOSAGE (If Supplied By Facility): CTDIvol = ( 15.65 ) mGy, DLP = ( 543.84 ) mGycm TECHNIQUE: CT images were obtained from the dome of the diaphragm to the symphysis pubis without oral contrast. Oral and amp; IV Breeza Neutral and amp; 100mL Isovue-370 was administered. Sagittal and coronal images were reconstructed. Individualized dose optimization techniques were used for this CT. COMPARISON: 20 May 2013 FINDINGS: There is eventration of the left hemidiaphragm with likely overlying atelectasis in the left lower lobe. There is mild right lower lobe atelectasis. Coronary arteries are severely diseased. There are no pleural effusions Liver contains a subcentimeter segment 2 hypodensity, too small to characterize and presumed to be cyst and not requiring further follow-up. Gallbladder is normal. There is no bladder dilation. Spleen, and pancreas are intact. Right adrenal is normal. 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 Right kidney contains a cyst and a cortical scar. There are no solid enhancing lesions, stones or hydronephrosis. Bladder is normal. There is no intestinal obstruction. Appendix is not seen. Aorta is normal caliber with extensive atherosclerosis. There are extensive calcifications in the iliacs and metallic stent on the right common iliac 2 proximal femoral and in the left common femoral. There is femoral to femoral graft bypass which is patent and perfused. There is chronic compression fracture of L1 with posterior superior cortical retropulsion and moderate to severe thecal sac stenosis. L1 is completely collapsed with vertebrum planum. There is chronic stable condition deformity of T12 with anterior wedging deformity and 25% loss of height ventrally. Remainder of the osseous structures are intact with replaced right hip. CT/Abdomen/Pelvis WITH Contrast IMPRESSION: 1. No acute abdominal findings. 2. Severe coronary artery disease. 3. Severe vascular disease, patent popliteal popliteal bypass. 4. L1 vertebral chronic collapse and moderate to severe thecal sac compression. Elective neurosurgical consultation is advised. Electronically Signed: Jacob Iglesias MD at 19:31 EDT Tel , Service support ,
--- NOTE | 2020-08-21 16:39 | PCM.HP.STD ---
<No Mathur [employer]ER - Last Filed: 08/21/20 16:56> Problem List (1) Hyponatremia Status: Chronic (2) Paroxysmal A-fib Status: Chronic (3) Diastolic CHF Status: Chronic (4) Gait instability Status: Chronic (5) Orthostatic hypotension Status: Inactive (6) Macrocytic anemia Status: Chronic (7) Chronic anticoagulation Status: Chronic Comment: Xarelto (8) Depression Status: Chronic (9) Amputation of left lower extremity Status: Chronic (10) Chronic airway obstruction Status: Chronic (11) Coronary atherosclerosis of [place] coronary artery Status: Chronic (12) Esophageal reflux Status: Chronic (13) HLD (hyperlipidemia) Status: Chronic (14) HTN (hypertension) Status: Chronic (15) Percutaneous transluminal coronary angioplasty status Status: Chronic (16) PVD (peripheral vascular disease) Status: Chronic (17) Tobacco use disorder Status: Chronic (18) TIA (transient ischemic attack) Status: Resolved Qualifiers: Transient cerebral ischemia type: unspecified Qualified Code(s): G45.9 - Transient cerebral ischemic attack, unspecified History of Present Illness Date of Admission: 08/21/20 Chief Complaint: Diarrhea, black stools, weakness. The patient is a 70 year old M who presents to the emergency room due to diarrhea with black stools and weakness. He states he has had 4-5 episodes of diarrhea per day for the past week. He denies blood in stool. Denies abdominal pain. Denies nausea, vomiting. Reports he is on Xarelto for atrial fibrillation. Denies fever, chills, shortness of breath. Patient has a history of chronic alcoholism and states he previously drank 10-12 beers per day however quit 3 weeks ago because his sister told him to. He states he did not go through withdrawal. He denies other associated symptoms or complaints. He has a past medical history of paroxysmal atrial fibrillation on anticoagulation with Xarelto, chronic alcohol dependence, tobacco dependence, hyperlipidemia, BPH, chronic macrocytic anemia, chronic COPD, hypertension. Past Medical History Past Medical History (Chronic Problems): Chronic Problems (Last Reviewed 09/18/19 @ 07:[address] Danny Stone MD) Hyponatremia (Chronic) Paroxysmal A-fib (Chronic) Diastolic CHF (Chronic) Gait instability (Chronic) Macrocytic anemia (Chronic) Chronic anticoagulation (Chronic) Xarelto Depression (Chronic) Amputation of left lower extremity (Chronic) Chronic airway obstruction (Chronic) Coronary atherosclerosis of [place] coronary artery (Chronic) Esophageal reflux (Chronic) HLD (hyperlipidemia) (Chronic) HTN (hypertension) (Chronic) Percutaneous transluminal coronary angioplasty status (Chronic) PVD (peripheral vascular disease) (Chronic) Tobacco use disorder (Chronic) TIA (transient ischemic attack) (Chronic) Medical History: Medical History (Last Reviewed 09/18/19 @ 07:[address] Danny Stone MD) Arthritis M19.90 Back problem M53.9 H/O TIA (transient ischemic attack) and stroke Z86.73 HTN (hypertension) I10 Allergies No Known Allergies Allergy (Verified 08/21/20 11:33) Home Medications: Ambulatory Orders Medication Instructions Recorded Amiodarone HCl [Cordarone] 100 mg PO DAILY 10/15/13 Aspirin E.C. [Ecotrin] 81 mg PO DAILY@0800 10/15/13 Diltiazem CD [Cardizem CD] 60 mg PO BID 10/15/13 Metoprolol Tartrate [Lopressor 50 mg PO BID 10/15/13 (beta lu)] Atorvastatin Calcium [Lipitor] 80 mg PO QHS 06/12/17 Ferrous Sulfate 325 mg PO BIDCM 06/12/17 Finasteride [Proscar] 5 mg PO DAILY 11/24/17 Rivaroxaban [Xarelto] 15 mg PO DAILY 11/24/17 Tamsulosin HCl [Flomax] 0.4 mg PO DAILY 11/24/17 Albuterol Inhaler [Ventolin Hfa] 1 - 2 puff INHALATION Q4H PRN PRN 09/07/18 Mirtazapine [Remeron] 30 mg PO QHS 10/15/18 Multivit-Min/FA/Lycopen/Lutein 1 ea PO QHS 10/15/18 [Centrum Silver Tablet] omeprazole 40 mg capsule,delayed 40 mg PO DAILY 05/05/19 release Mupirocin 1 applicatio TOPICAL TID 09/18/19 Potassium Chloride Oral Tablet 20 meq PO DAILY 09/18/19 [K-Dur] Acetaminophen 650 mg PO Q4H PRN PRN 10/12/19 Acetaminophen [Tylenol] 650 mg RECTAL Q4H PRN PRN 10/12/19 Bisacodyl 10 mg [place] DAILY PRN PRN 10/12/19 Guaifenesin [Robitussin] 10 ml PO Q4H PRN PRN 10/12/19 Mag Hydrox/Aluminum Hyd/Simeth 30 ml PO Q4H PRN PRN 10/12/19 [Antacid Liquid] Magnesium Hydroxide [Milk Of 30 ml PO DAILY PRN PRN 10/12/19 Magnesia] Methadone HCl 10 mg PO QHS 10/12/19 Methadone HCl [(None)] 5 mg PO BREAKFAST 10/12/19 Na Phos,M-B/Na Phos,Di-Ba [Fleet 1 bottle RECTAL DAILY PRN PRN 10/12/19 Enema] Ketoconazole [Nizoral Cream] 1 applic TOPICAL BID #1 tube 01/31/20 Furosemide [Lasix] 40 mg PO DAILY #7 tablet 07/24/20 Surgical History: Surgical History (Last Reviewed 09/18/19 @ 07:[address] Danyn Stone MD) Amputated left leg S88.912A History of surgery on upper extremity Z98.890 Surgical History: - - Multiple vascular stents, revasculation of left leg, left BKA, left elbow debridement for chronic infection Psychiatric History: No pertinent psych hx Lives: Alone Smoking Status: Current every day smoker Tobacco Use: Cigarettes - 2 packs/day Alcohol: Sober Drugs: None - *Family History Sibling Family History: Family History (Last Reviewed 09/18/19 @ 07:[address] Danny Stone MD) Father Asthma History Items: COPD - 4 of his sisters has COPD. Paternal Family History: Family History (Last Reviewed 09/18/19 @ 07:[address] Danny Stone MD) Father Asthma History Items: COPD, Heart Disease, No pertinent history Maternal Family History: Family History (Last Reviewed 09/18/19 @ 07:[address] Danny Stone MD) Father Asthma History Items: - - Denies known maternal medical history including cardiac history Review of Systems Constitutional: Denies: Chills, Fever, Weight Change HEENT: Denies: Head Aches, Sinus Congestion, Sinus Drainage Cardiovascular: Denies: Chest Pain, Palpitations Respiratory: Denies: Cough, Shortness of breath at rest, Sputum production Gastrointestinal: Reports: Diarrhea, Melena. Denies: Abdominal Pain, Nausea, Vomiting Genitourinary: Reports: Dysuria Musculoskeletal: Denies: Joint Pain, Joint Tenderness Skin: Denies: Rash, Wounds Neurological: Denies: Numbness, Tingling, Focal weakness Psychiatric: Denies: Anxiety, Depression, Homicidal Ideations, Suicidal Ideations Hematologic/ Lymphatic: Denies: Easy Bruising, Easy Bleeding VTE Information - Inpt Only VTE Present on Admission: No VTE Mechan Device Prophylaxis: SCD's VTE Pharm Prophylaxis ordered?: No Reason prophylaxis not ordered:: Medical Contraindication - Physical Exam Vitals/I&O's: Vital Signs Temp Pulse Resp BP Pulse Ox 97.4 F L 121 H 24 H 127/68 H 97 08/21/20 11:33 08/21/20 16:24 08/21/20 15:15 08/21/20 15:15 08/21/20 15:15 Oxygen Delivery Method Nasal Cannula Weight: 130 lb 15.273 oz Body Mass Index (BMI) 20.5 Finger Stick Blood Glucose 89 General: Alert, Oriented x3, Cooperative HEENT: Atraumatic, PERRLA, EOMI, Normocephalic Neck: Supple, No JVD, Negative Carotid Bruits Lungs: Clear to auscultation, Diminished Cardiovascular: - - Atrial fibrillation, tachycardic Abdomen: Bowel Sounds Present, Soft, Non Tender Extremities: No clubbing, No cyanosis, No edema, Capillary Refill Less than 3 Seconds Skin: No rashes, No breakdown Musculoskeletal: No Tenderness to Palpation of Joints or Extremities, - - Left BKA Neurological: Cranial nerves II-XII grossly intact, Neuro grossly intact Psych/Mental Status: Normal Affect, Appropriate Microbiology Past 72 Hours 08/21/20 14:42 Stool Stool Occult Blood (TITO) - Final Occult Blood Positive Laboratory Results 08/21/20 13:35: WBC 19.0 H, RBC 3.15 L, Hgb 11.8 L, Hct 34.2 L, MCV 108.6 H, MCH 37.5 H, MCHC 34.5, RDW Std Deviation 73.1 H, RDW Coeff of Sarai 18.7 H, Plt Count 235, MPV 9.2, Immature Gran % (Auto) 1.300 H, Neut % (Auto) 93.2 H, Lymph % (Auto) 2.5 L, [place] % (Auto) 2.8, Eos % (Auto) 0.0, Baso % (Auto) 0.2, Absolute Neuts (auto) 17.8 H, Absolute Lymphs (auto) 0.48 L, Nucleated RBC % 0, Differential Comment COMMENT, Anisocytosis 1+ 08/21/20 13:35: PT 12.1, INR 1.0 08/21/20 13:35: Sodium 132 L, Potassium 3.3 L, Chloride 98, Carbon Dioxide 26.0, Anion Gap 8, BUN 9, Creatinine 0.55 L, Estim Creat Clear Calc 56.10, Est GFR (MDRD) Af Amer 187, Est GFR (MDRD) Non-Af 155, BUN/Creatinine Ratio 16.3, Glucose 123 H, Calcium 8.1 L, Total Bilirubin 0.60, AST 337 H, ALT 161 H, Alkaline Phosphatase 171 H, Troponin I 0.281 H, Total Protein 6.7, Albumin 1.9 L, Globulin 4.8 H, Albumin/Globulin Ratio 0.4 L, Lipase 42 L 08/21/20 13:35: Blood Type O POSITIVE, Antibody Screen NEGATIVE 08/21/20 13:35: Ethyl Alcohol < 3.0 Current Medications Diltiazem HCl 125 mg/ Dextrose 125 mls @ 5 mls/hr IV .Q25H [facility]; Protocol Assessment/Plan 1. GI bleed, diarrhea-stool for occult blood positive. C. difficile and enteric pathogen panel pending. Hold Xarelto. IV PPI. General surgery consulted. PT/OT. 2. Transaminitis-unclear etiology. Previous LFTs normal. Quit drinking alcohol [address] of abdomen and pelvis pending. 3. Paroxysmal atrial fibrillation on anticoagulation with Xarelto-RVR on admission. Received IV Cardizem bolus. Placed on Cardizem drip. Home Cardizem regimen likely needs increased. Continue metoprolol. 4. Indeterminate troponin-suspect demand ischemia as result of A. fib with RVR. Trend enzymes. Obtain echocardiogram. 5. Mild hypokalemia-replace per protocol. Trend BMP. 6. Chronic macrocytic anemia-at baseline, trend CBC. 7. Chronic alcohol dependence-states he previously drank 10-12 beers per day, quit 3 weeks ago. Denies ongoing withdrawal symptoms. Thiamine, folic acid, multivitamin supplementation. 8. Tobacco dependence-2 pack/day smoker. Encourage cessation. Nicotine replacement patch if desired. 9. Chronic COPD-patient placed on 2 L supplemental oxygen on admission. No evidence of acute exacerbation. As needed albuterol aerosol. Suspect patient may have component of chronic hypoxia, ambulatory pulse ox prior to discharge. 10. Hypertension-stable, continue Lasix, metoprolol. 11. Hyperlipidemia-continue statin. 12. BPH-on Flomax, Proscar. 13. History of left BKA DVT prophylaxis-SCDs. CODE STATUS: Discussed in length with patient including differences between full code, DNR CCA and DNR CC. Patient elects DNR CCA no intubation. This patient was seen by VIRI Teixeira under the supervision of Dr. Trimble. <Juan Trimble E - Last Filed: 08/21/20 17:12> History of Present Illness The patient is a 70 year old M [] Past Medical History Medical History: Medical History (Last Reviewed 09/18/19 @ 07:[address] Danny Stone MD) Arthritis M19.90 Back problem M53.9 H/O TIA (transient ischemic attack) and stroke Z86.73 HTN (hypertension) I10 Allergies No Known Allergies Allergy (Verified 08/21/20 11:33) Surgical History: Surgical History (Last Reviewed 09/18/19 @ 07:[address] Danny Stone MD) Amputated left leg S88.912A History of surgery on upper extremity Z98.890 - *Family History Sibling Family History: Family History (Last Reviewed 09/18/19 @ 07:[address] Danny Sotne MD) Father Asthma Paternal Family History: Family History (Last Reviewed 09/18/19 @ 07:[address] Danny Stone MD) Father Asthma Maternal Family History: Family History (Last Reviewed 09/18/19 @ 07:[address] Danny Stone MD) Father Asthma - Physical Exam Vitals/I&O's: Vital Signs Temp Pulse Resp BP Pulse Ox 98.2 F 131 H 19 H 160/78 H 96 08/21/20 16:46 08/21/20 16:46 08/21/20 16:46 08/21/20 16:46 08/21/20 16:46 Oxygen Flow Rate (L/min) 2 Oxygen Delivery Method Nasal Cannula Weight: 130 lb 15.273 oz Body Mass Index (BMI) 20.5 Finger Stick Blood Glucose 89 Microbiology Past 72 Hours 08/21/20 14:42 Stool Stool Occult Blood (TITO) - Final Occult Blood Positive Laboratory Results 08/21/20 13:35: WBC 19.0 H, RBC 3.15 L, Hgb 11.8 L, Hct 34.2 L, MCV 108.6 H, MCH 37.5 H, MCHC 34.5, RDW Std Deviation 73.1 H, RDW Coeff of Sarai 18.7 H, Plt Count 235, MPV 9.2, Immature Gran % (Auto) 1.300 H, Neut % (Auto) 93.2 H, Lymph % (Auto) 2.5 L, [place] % (Auto) 2.8, Eos % (Auto) 0.0, Baso % (Auto) 0.2, Absolute Neuts (auto) 17.8 H, Absolute Lymphs (auto) 0.48 L, Nucleated RBC % 0, Differential Comment COMMENT, Anisocytosis 1+ 08/21/20 13:35: PT 12.1, INR 1.0 08/21/20 13:35: Sodium 132 L, Potassium 3.3 L, Chloride 98, Carbon Dioxide 26.0, Anion Gap 8, BUN 9, Creatinine 0.55 L, Estim Creat Clear Calc 56.10, Est GFR (MDRD) Af Amer 187, Est GFR (MDRD) Non-Af 155, BUN/Creatinine Ratio 16.3, Glucose 123 H, Calcium 8.1 L, Total Bilirubin 0.60, AST 337 H, ALT 161 H, Alkaline Phosphatase 171 H, Troponin I 0.281 H, Total Protein 6.7, Albumin 1.9 L, Globulin 4.8 H, Albumin/Globulin Ratio 0.4 L, Lipase 42 L 08/21/20 13:35: Blood Type O POSITIVE, Antibody Screen NEGATIVE 08/21/20 13:35: Ethyl Alcohol < 3.0 Current Medications Diltiazem HCl 125 mg/ Dextrose 125 mls @ 5 mls/hr IV .Q25H [facility]; Protocol Last Admin: 08/21/20 16:45 Dose: 5 mg/hr, 5 mls/hr Documented by: Assessment/Plan Hospitalist note: I am seeing this patient in conjunction with No Mathur. I independently seen and examined the patient. History and physical, laboratory data and imaging studies reviewed and I concur with above admission and treatment plan. Patient presented to the emergency room because of diarrhea that has been going on for the past week, 4-5 times a day of loose black stool, associated with generalized weakness and fatigue. He denied abdominal pain, nausea or vomiting. He denies fever or chills. He reported cough without sputum production. He denied chest pain, shortness of breath, palpitation, dizziness or lightheadedness. Patient mentioned that he was drinking alcohol heavily every day but he quit drinking 3 weeks ago. In the emergency department, patient was in A. fib with RVR, received 2 doses of IV Cardizem bolus but heart rate remained around 130s. He is afebrile, blood pressure stable, pulse ox is 95% on 2 L. Routine blood work was remarkable for leukocytosis, hemoglobin of 11.8 g/dL, sodium 132, potassium 3.3. Stool was positive for occult blood. LFT revealed elevated liver transaminases as well as slight elevated alk phos. EKG revealed A. fib with RVR. Troponin 0 0.281. Lipase was normal. Blood alcohol level was less than 3. Chest x-ray showed no obvious infiltrate, official reading is pending. Patient is being admitted for GI bleed, A. fib with RVR, elevated LFT and abnormal cardiac enzymes. - Physical Exam General: Alert, Oriented x3, Cooperative, No apparent distress. HEENT: Atraumatic, PERRLA, EOMI. Neck: Supple, No JVD, Negative Carotid Bruits, Trachea Midline, Thyroid Normal. Lungs: Diminished breath sounds bilateral, otherwise clear no rhonchi, No wheeze, No rales. Cardiovascular: irregular rate and rhythm, Normal S1, Normal S2, PMI Normal, tachycardia. Abdomen: Bowel Sounds Present, Soft, Non Tender, Non-Distended, No Hepato-splenomegaly. Extremities: No clubbing, No cyanosis, trace edema on the right leg. Status post below left knee amputation. Skin: No rashes, No breakdown Neurological: Cranial nerves are intact, neuro grossly intact Assessment and plan: #1 GI bleed: Stool came back positive for occult blood. Patient has been on Xarelto for paroxysmal A. fib. Hemoglobin is 11.8 g/dL. Plan: Admit to PCU, cardiac monitoring, H&H every 6 hours x4, transfuse if hemoglobin is than 8 g/dL, stool for C. difficile, stool for enteric pathogens, hold Xarelto, IV Protonix twice daily, general surgery consult, repeat CBC and BMP tomorrow morning, PT OT evaluation and treatment. #2 A. fib with RVR: Heart rate has been around 140s, received 2 doses of IV Cardizem bolus in the ED and heart rate remained high. Plan to start him on IV Cardizem drip, hold Xarelto for now, continue amiodarone, p.o. Cardizem and metoprolol. #3 abnormal cardiac enzymes: This could be due to A. fib with RVR. Patient denied any chest pain. No acute ischemic changes on EKG. Plan: Cardiac monitoring, serial cardiac enzymes, 2D echocardiogram. #4 elevated LFT: Patient quit drinking 3 weeks ago and 4 weeks ago, LFT was normal. Today, bilirubin is normal, ALT, AST and alk phos are elevated. Patient denied any right upper quadrant pain. CT scan abdomen and pelvis with contrast ordered in the ED, to be done before admission to the floor. General surgery consulted as above. #5 alcohol abuse: Patient used to drink 10-12 beers daily. He quit drinking 2 weeks ago. Denies any withdrawal symptoms. Plan for thiamine, folic acid. #6 CODE STATUS: DNR CCA, no intubation. Patient confirmed that he does not want any life-sustaining measures, no CPR, no chest compressions, no intubation or mechanical ventilation. #7 other chronic medical problems: Stable, continue current medications as above. This note was generated with [employer] dictation software. It may contain incorrect words, spelling, and punctuation that were not noted in checking the note before signing. Inpatient E&M: 31138 Init Hosp L3
--- NOTE | 2020-08-21 17:00 | RAD_ITS ---
INDICATION: weakness, diarrhea since last night. pt stopped drinking alcohol 3 weeks ago EXAMINATION/TECHNIQUE: X-RAY - XR Chest 1 View COMPARISON: 07/02/2020. FINDINGS: Chronic interstitial lung changes. Bibasilar linear opacities. Tortuous and calcified thoracic aorta. The heart is not enlarged. No pleural effusion or pneumothorax. No acute osseous abnormalities. Degenerative changes of the thoracic spine. RAD/Chest 1 View IMPRESSION: Bibasilar linear opacities could represent atelectasis, edema or infection in the correct clinical setting. Chronic intersitial lung changes. Electronically Signed: Himanshu Esqueda MD at 18:09 EDT Tel , Service support ,
--- NOTE | 2020-08-21 21:01 | ECHOD_ITS ---
Reason For Study: abnormal EKG Procedure This was a 2D Doppler, Color Flow transthoracic echocardiogram. The study was technically difficult. Exam performed portable in patient room. Left Ventricle Normal LV size. Sigmoid septum. Left ventricular systolic function is normal. The estimated ejection fraction is 65 %. No regional wall motion abnormalities noted. Right Ventricle Normal RV size. Normal systolic function. Atria The left atrium is mildly enlarged. Normal right atrium. No doppler evidence for ASD. Mitral Valve There is mild to moderate mitral annular calcification. Extension of the mitral annular calcification onto the base of the posterior mitral valve leaflet. Anterior leaflet diffuse mitral valve thickening. The mitral papillary muscle appears thickened and/or calcified. Moderate (2+) mitral valve insufficiency. Tricuspid Valve Normal tricuspid valve. Mild tricuspid valve insufficiency. Right ventricular systolic pressure estimated to be 48 mmHg. Aortic Valve Trisinus/trileaflet aortic valve. Mild diffuse aortic valve thickening. Mild focal aortic valve calcification. Aortic sclerosis, no stenosis. Mild-Moderate (1-2+) aortic valve insufficiency. Pulmonic Valve The pulmonic valve is not well visualized. Great Vessels The aortic root is not well visualized. Pericardium/Pleural Trivial pericardial effusion. There are no echocardiographic indications of cardiac tamponade. MMode/2D Measurements & Calculations LVIDd: 3.7 cm IVSd: 1.4 cm LVOT diam: 2.0 cm LVIDs: 2.6 cm LVPWd: 0.95 cm LVOT area: 3.3 cm2 FS: 29.2 % LA dimension: 3.7 cm LAV(MOD-bp): 82.9 ml LA A4 area: 23.8 cm2 LAV(MOD-bp) Indexed: 49.1 ml/m2 LAV(MOD-sp2): 72.2 ml LAV(MOD-sp4): 83.8 ml RA A4 area: 15.9 cm2 Time Measurements MV dec time: 0.14 sec Doppler Measurements & Calculations MV E max peter: 125.6 cm/sec Lat Peak E' Peter: 8.6 cm/sec Med Peak E' Peter: 7.3 cm/sec MV A max peter: 98.1 cm/sec E/E' lat: 14.6 E/E' med: 17.2 MV E/A: 1.3 MV V2 max: 123.1 cm/sec MV P1/2t max peter: 123.1 cm/sec Ao V2 max: 215.5 cm/sec MV max P.1 mmHg MV P1/2t: 43.2 msec Ao max P.6 mmHg MV V2 mean: 56.3 cm/sec MV dec slope: 833.4 cm/sec2 Ao V2 mean: 124.1 cm/sec MV mean P.6 mmHg Ao mean P.6 mmHg MV V2 VTI: 23.5 cm MVA(P1/2t): 5.1 cm2 Ao V2 VTI: 42.3 cm MVA(VTI): 3.9 cm2 HUNTER(I,D): 2.2 cm2 HUNTER(V,D): 2.0 cm2 AI max peter: 389.5 cm/sec LV V1 max: 133.5 cm/sec MR max peter: 545.7 cm/sec AI max P.7 mmHg LV V1 max P.1 mmHg MR max P.1 mmHg LV V1 mean P.1 mmHg AI dec slope: 479.4 cm/sec2 LV V1 mean: 79.9 cm/sec AI P1/2t: 238.0 msec LV V1 VTI: 28.4 cm SV(LVOT): 92.5 ml PA V2 max: 110.3 cm/sec TR max peter: 334.9 cm/sec TR max P.9 mmHg ECHO/Echo Complete Interpretation Summary The study was technically difficult. Left ventricular systolic function is normal. The estimated ejection fraction is 65 %. Sigmoid septum. The left atrium is mildly enlarged. There is mild to moderate mitral annular calcification. Extension of the mitral annular calcification onto the base of the posterior mi tral valve leaflet. Anterior leaflet diffuse mitral valve thickening. The mitral papillary muscle appears thickened and/or calcified. Moderate (2+) mitral valve insufficiency. Mild tricuspid valve insufficiency. Aortic sclerosis, no stenosis. Mild-Moderate (1-2+) aortic valve insufficiency. Trivial pericardial effusion. There are no echocardiographic indications of cardiac tamponade. Right ventricular systolic pressure estimated to be 48 mmHg. Transmitral diastolic flow velocities suggest diastolic dysfunction (pseudonorm al pattern). Ordering Physician: Juan Trimble Referring Physician: Himanshu Crowell Performed By: Christian Shannon RCS
[2020-08-21 21:07] LABS: Bacteria 0 SEEN /hpf (None Seen); Mucous, Urine 0 SEEN /hpf (<or=2+); Squamous Epithelial Cells - UA 0 SEEN /hpf (0-5)
[2020-08-21 21:11] LABS: Color, Urine Yellow (Yellow); Glucose, Dipstick Normal (Normal); Ketone-Dipstick Negative (Negative); Leukocyte Esterase-Dipstick Negative /ul (Negative); Nitrite-Dipstick Negative (Negative); Occult Blood-Urine 250 /ul (Negative); Protein-Dipstick 30 mg/dl (Negative); Urine Bilirubin Dipstick Negative (Negative); Urine Clarity Clear (Clear); Urine Urobilinogen Normal (Normal); Urine pH 6.5 (5.0 - 8.0)
[2020-08-21 21:16] LABS: Red Blood Cells-Urine 10-25 SEEN /hpf (0-5)
[2020-08-21 21:17] LABS: White Blood Cells 0-5 SEEN /hpf (0-5)
[2020-08-21] MEDS: Metoprolol Tartrate 50 MG Tablet PO (22:34)
[2020-08-21] MEDS: Atorvastatin Calcium 80 MG Tablet PO (22:34)
[2020-08-21] MEDS: Ferrous Sulfate 325 MG Tablet PO (22:34)
[2020-08-21] MEDS: Mirtazapine 30 MG Tablet PO (22:35)
[2020-08-21 22:41] LABS: Magnesium 1.8 mg/dL (1.6-2.6)
[2020-08-21] MEDS: Methadone 10 MG Tablet PO (22:43)
[2020-08-21 22:48] LABS: Lactic Acid 1.5 mmol/L (0.4-1.9)
--- NOTE | 2020-08-21 23:05 | EKG12_ITS ---
Test Reason : RHYTHM CHANGE Blood Pressure : / mmHG Vent. Rate : 085 BPM Atrial Rate : 085 BPM P-R Int : 166 ms QRS Dur : 084 ms QT Int : 432 ms P-R-T Axes : 070 060 081 degrees QTc Int : 514 ms Normal sinus rhythm Nonspecific ST and T wave abnormality Prolonged QT Abnormal ECG Confirmed by SUMMER VALDOVINOS, MOHAN ([id number]), art editor VIOLETA GASPAR ([id number]) on 08/24/2020 9:19:06 AM Referred By: TANVI Confirmed By:MOHAN WHEELER MD
[2020-08-21 23:46] LABS: Hematocrit 29.2 % (40-54); Hemoglobin 10.2 g/dL (13.0-16.5)
[2020-08-21] MEDS: dilTIAZem 60 MG Tablet PO (23:47)
[2020-08-22] VITALS (14 sets, daily range): BP systolic 121–154; BP diastolic 56–62; PULSE 80–101; RESP 18–27; TEMP 37.1–38.3; O2SAT 89–96; BMI 19.0
[2020-08-22 08:11] LABS: ALB/GLOB Ratio 0.4 RATIO (0.9-2.4); AST(SGOT) 235 U/L (15-37); Alanine Aminotransfer ALT/SGPT 123 U/L (16-61); Albumin, Serum 1.5 g/dL (3.2-5.0); Alkaline Phosphatase 130 U/L (45-117); BUN 9 mg/dL (7-18); Calcium,Total 7.7 mg/dL (8.5-10.1); Chloride 104 mmol/L (98-107); Creatinine, Serum 0.36 mg/dL (0.70-1.30); EST Glomerular Filtration Rate 254 mL/min (>60); Est Glom Filt Rate - Afr Amer 308 mL/min (>60); Estimated Creatinine Clearance 53.64 ml/min; Glucose 104 mg/dL (74-106); Protein, Total 5.5 g/dL (6.4-8.2); Sodium Level 133 mmol/L (136-145)
[2020-08-22 08:12] LABS: Anion Gap 5 (5-15)
[2020-08-22 09:46] LABS: Hematocrit 33.5 % (40-54); Hemoglobin 10.4 g/dL (13.0-16.5); Mean Corpuscular Volume 125.5 fL (80-94); Red Blood Count 2.67 M/mm3 (4.6-6.2); White Blood Count 20.3 K/mm3 (4.4-11.0)
[2020-08-22 09:48] LABS: Differential Indicated SCAN CRITERIA MET; POSITIVE COUNT YES; POSITIVE DIFFERENTIAL YES; POSITIVE MORPHOLOGY YES; Platelet Count 143 K/mm3 (150-450); RBC Distribution Width CV 19.4 % (11.6-14.6); RBC Distribution Width SD 89.8 fl (35.1-43.9)
[2020-08-22 09:50] LABS: Eosinophils% 0.1 % (0-5); Lymphocyte % 1.7 % (19-41); Monocyte% 2.8 % (0-10); Neutrophil % 94.8 % (47-70)
[2020-08-22 09:53] LABS: Absolute Neutrophil Count 19.2 X10^3/uL (2.0-7.7); Lymphocyte # 0.35 X10^3/ul (0.83-4.51)
[2020-08-22 09:54] LABS: Absolute Lymphocyte Count 0.35 X10^3/uL (0.83-4.51)
[2020-08-22 10:08] LABS: NRBC Flagged by Analyzer 0 % (0-5)
[2020-08-22 10:09] LABS: Anisocytosis 2+; Differential Comment SCANNED; Macrocytosis 2+
[2020-08-22] MEDS: Folic Acid 1 MG Tablet PO (10:38)
[2020-08-22] MEDS: Ferrous Sulfate 325 MG Tablet PO ×2 (10:38→16:37)
[2020-08-22] MEDS: Thiamine Hydrochloride 100 MG Tablet PO (10:39)
[2020-08-22] MEDS: Amiodarone 200 MG Tablet 100 MG PO (10:39)
[2020-08-22] MEDS: Finasteride 5 MG Tablet PO (10:39)
[2020-08-22] MEDS: Metoprolol Tartrate 50 MG Tablet PO ×2 (10:39→20:53)
[2020-08-22] MEDS: Tamsulosin HCl 0.4 MG Capsule PO (10:40)
[2020-08-22] MEDS: dilTIAZem 60 MG Tablet PO (10:44)
--- NOTE | 2020-08-22 10:45 | CASEMGMT ---
RN XIOMARA Assessment: Face to Face with pt for initial transition planning/care coordination assessment. RN CM introduced self and role at [facility], pt voices understanding and consents to assessment. Pt is O x4 and answers all questions appropriately at this time but falls asleep at times. Care providers, pharmacy, and demographics verified/updated. Admitting Dx: A fib with RVR, GI bleed, Elevated LFT PCP: [facility] Specialists: Pt denies having any specialists. Karin from [facility] called this CM to make aware that they are currently seeing pt. Preferred Pharmacy: [facility] Insurance: [employer], [employer] Prescription Benefit: yes LW/HPOA: Pt has a LW and DPOA on file. DPOA is Monica Willson, . LNOK: Monica Willson, Living Arrangements: Pt lives alone in a single story house with 5 steps with a rail. Pt denies concerns at home. Transportation: Pt reports he does not drive. He states his sister transports him. Per face sheet sister lives in [place]. DME/HHC/SNF: Pt states he has a cane and walker at home. He states he has had [facility] HHS in the past and denies SNF stays. Pt states he does have an aide named Jose L Childers. Pt states he may need some therapy before he goes home. Made him aware this CM would speak with YIMI. Notified Edyta GELLER. Pt states no further concerns/needs. CM to follow. Advised pt to ask CM if any further question/concerns/needs arise, voices understanding. Pt Goal: S/T therapy stay Plan: S/T therapy stay
--- NOTE | 2020-08-22 10:57 | NT.THERAPY_ITS ---
Nutrition Therapy Report - History Nutrition Services has been consulted to:: Manage nutrient details of diet order Current diet / nutrition support order:: Cardiac; heart healthy diet - Anthropometric Measurements Height:: 5 ft 8 in Weight:: 56.8 kg Body Mass Index (BMI):: 19.0 - Relevant Labs Relevant Labs:: WBC 20.3 K/mm3 (4.4-11.0) H 08/22/20 02:30 RBC 2.67 M/mm3 (4.6-6.2) L 08/22/20 02:30 Hgb 10.4 g/dL (13.0-16.5) L 08/22/20 02:30 Hct 33.5 % (40-54) L 08/22/20 02:30 MCV 125.5 fL (80-94) H D 08/22/20 02:30 MCH 39.0 pg (27.0-32.0) H 08/22/20 02:30 MCHC 31.0 g/dL (32-36) L D 08/22/20 02:30 RDW Std Deviation 89.8 fl (35.1-43.9) H 08/22/20 02:30 RDW Coeff of Sarai 19.4 % (11.6-14.6) H 08/22/20 02:30 Plt Count 143 K/mm3 (150-450) L 08/22/20 02:30 Immature Gran % (Auto) 1.300 % (0.0-0.9) H 08/21/20 13:35 Neut % (Auto) 94.8 % (47-70) H 08/22/20 02:30 Lymph % (Auto) 1.7 % (19-41) L 08/22/20 02:30 Absolute Neuts (auto) 19.2 X10^3/uL (2.0-7.7) H 08/22/20 02:30 Absolute Lymphs (auto) 0.35 X10^3/uL (0.83-4.51) L 08/22/20 02:30 Sodium 133 mmol/L (136-145) L 08/22/20 02:24 Potassium 3.0 mmol/L (3.5-5.1) L 08/22/20 02:24 Creatinine 0.36 mg/dL (0.70-1.30) L 08/22/20 02:24 BUN/Creatinine Ratio 25.0 RATIO (10-20) H 08/22/20 02:24 Glucose 123 mg/dL (74-106) H 08/21/20 13:35 Calcium 7.7 mg/dL (8.5-10.1) L 08/22/20 02:24 AST 235 U/L (15-37) H 08/22/20 02:24 ALT 123 U/L (16-61) H 08/22/20 02:24 Alkaline Phosphatase 130 U/L (45-117) H 08/22/20 02:24 Troponin I 0.428 ng/mL (<0.045) H 08/22/20 06:16 Total Protein 5.5 g/dL (6.4-8.2) L 08/22/20 02:24 Albumin 1.5 g/dL (3.2-5.0) L 08/22/20 02:24 Globulin 4.8 g/dL (2.2-4.2) H 08/21/20 13:35 Albumin/Globulin Ratio 0.4 RATIO (0.9-2.4) L 08/22/20 02:24 Lipase 42 U/L (73-393) L 08/21/20 13:35 - Assessment Food / Nutrition-Related History:: Pt reports UBW~130 lbs and denies any recent wt loss and reports intake has been typical at meals. Adj IBW 66-68 Kg due to LLE amputation. PO to be established with cardiac diet as ordered. 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 Pt appears to have visible muscle and fat wasting in the neck, clavicle, face and arms in addition to ~4% wt loss x past 1-2 weeks meet criteria for severe malnutrition--will add ONS as tolerated. 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 Evidence of Malnutrition Exists:: Yes Severe PCM:: Social & Environmental circumstances - Nutrition Intervention Nutrition Prescription:: Estimated nutrition needs~4326-4118 kcal (30 kcal/Kg) and ~65-75 gm pro (1.2 gm pro/Kg) per day. Estimated fluid needs~8745-5295 ml/day (30 ml/Kg). - Food / Nutrient Delivery Interventions Summary of nutrition intervention:: Clear liquid diet with gradual advancement as tolerated to liberalized. regular/no added salt. Will add 240 ml Ensure Clear BID to meals for additional 480 calories and 16 gm protein. Nutrition support ordered as / adjusted to:: no nutrition support at this time Nutrition education provided?: No - MNT Monitoring Further MNT monitoring and evaluation required?: Yes MNT Follow-up in:: 3-5 days
--- NOTE | 2020-08-22 11:06 | CASEMGMT ---
SW received a message that patient is active with [facility]. His Safety Investigator is Eva Marcial. Patient has home health aides M-F 3 hours a day from [facility]. He also has an emergency response system. Edyta LUZ
--- NOTE | 2020-08-22 11:28 | PCM.PN.HOSP ---
Documented by User: No Mathur NP, INFORMATION SECURITY SPECIALIST-C 08/22/20 11:50 Subjective Subjective: Patient seen and examined. Reports he feels tired. Reports fever, chills. No further diarrhea since admission. Objective Data Objective Data Vital Signs: Vital Signs Temp Pulse Resp BP Pulse Ox 100.0 F H 95 18 153/62 H 96 08/22/20 10:54 08/22/20 10:54 08/22/20 10:54 08/22/20 10:54 08/22/20 10:54 Oxygen Flow Rate (L/min) 4 Oxygen Delivery Method Nasal Cannula Weight: 125 lb 3.561 oz Body Mass Index (BMI) 19.0 Finger Stick Blood Glucose 89 Intake & Output: Intake and Output for Last 24 Hours 08/20/20 08/21/20 08/22/20 23:59 23:59 23:59 Intake Total 681.25 / 681.25 1000 / 1000 Balance 681.25 / 681.25 1000 / 1000 Lab / Micro Data Result Diagrams: 08/22/20 02:30 08/22/20 02:24 Labs: Laboratory Results - last 24 hr 08/21/20 08/21/20 08/21/20 13:35 13:35 13:35 WBC 19.0 H RBC 3.15 L Hgb 11.8 L Hct 34.2 L MCV 108.6 H MCH 37.5 H MCHC 34.5 RDW Std Deviation 73.1 H RDW Coeff of Sarai 18.7 H Plt Count 235 MPV 9.2 Immature Gran % (Auto) 1.300 H Neut % (Auto) 93.2 H Lymph % (Auto) 2.5 L [place] % (Auto) 2.8 Eos % (Auto) 0.0 Baso % (Auto) 0.2 Absolute Neuts (auto) 17.8 H Absolute Lymphs (auto) 0.48 L Nucleated RBC % 0 Differential Comment COMMENT Anisocytosis 1+ Macrocytosis PT 12.1 INR 1.0 Sodium 132 L Potassium 3.3 L Chloride 98 Carbon Dioxide 26.0 Anion Gap 8 BUN 9 Creatinine 0.55 L Estim Creat Clear Calc 56.10 Est GFR (MDRD) Af Amer 187 Est GFR (MDRD) Non-Af 155 BUN/Creatinine Ratio 16.3 Glucose 123 H Lactic Acid Calcium 8.1 L Magnesium Total Bilirubin 0.60 AST 337 H ALT 161 H Alkaline Phosphatase 171 H Troponin I 0.281 H Total Protein 6.7 Albumin 1.9 L Globulin 4.8 H Albumin/Globulin Ratio 0.4 L Lipase 42 L Urine Color Urine Clarity Urine pH Ur Specific [place] Urine Protein Urine Glucose (UA) Urine Ketones Urine Occult Blood Urine Nitrite Urine Bilirubin Urine Urobilinogen Ur Leukocyte Esterase Urine RBC Urine WBC Ur Squamous Epith Cells Urine Bacteria Urine Mucus Ethyl Alcohol Blood Type Antibody Screen 08/21/20 08/21/20 08/21/20 13:35 13:35 20:50 WBC RBC Hgb Hct MCV MCH MCHC RDW Std Deviation RDW Coeff of Sarai Plt Count MPV Immature Gran % (Auto) Neut % (Auto) Lymph % (Auto) [place] % (Auto) Eos % (Auto) Baso % (Auto) Absolute Neuts (auto) Absolute Lymphs (auto) Nucleated RBC % Differential Comment Anisocytosis Macrocytosis PT INR Sodium Potassium Chloride Carbon Dioxide Anion Gap BUN Creatinine Estim Creat Clear Calc Est GFR (MDRD) Af Amer Est GFR (MDRD) Non-Af BUN/Creatinine Ratio Glucose Lactic Acid Calcium Magnesium Total Bilirubin AST ALT Alkaline Phosphatase Troponin I Total Protein Albumin Globulin Albumin/Globulin Ratio Lipase Urine Color Yellow Urine Clarity Clear Urine pH 6.5 Ur Specific [place] 1.010 Urine Protein 30 H Urine Glucose (UA) Normal Urine Ketones Negative Urine Occult Blood 250 H Urine Nitrite Negative Urine Bilirubin Negative Urine Urobilinogen Normal Ur Leukocyte Esterase Negative Urine RBC 10-25 SEEN Urine WBC 0-5 SEEN Ur Squamous Epith Cells 0 SEEN Urine Bacteria 0 SEEN Urine Mucus 0 SEEN Ethyl Alcohol < 3.0 Blood Type O POSITIVE Antibody Screen NEGATIVE 08/21/20 08/21/20 08/21/20 21:55 21:55 23:30 WBC RBC Hgb 10.2 L Hct 29.2 L MCV MCH MCHC RDW Std Deviation RDW Coeff of Sarai Plt Count MPV Immature Gran % (Auto) Neut % (Auto) Lymph % (Auto) [place] % (Auto) Eos % (Auto) Baso % (Auto) Absolute Neuts (auto) Absolute Lymphs (auto) Nucleated RBC % Differential Comment Anisocytosis Macrocytosis PT INR Sodium Potassium Chloride Carbon Dioxide Anion Gap BUN Creatinine Estim Creat Clear Calc Est GFR (MDRD) Af Amer Est GFR (MDRD) Non-Af BUN/Creatinine Ratio Glucose Lactic Acid 1.5 Calcium Magnesium 1.8 Total Bilirubin AST ALT Alkaline Phosphatase Troponin I 0.295 H Total Protein Albumin Globulin Albumin/Globulin Ratio Lipase Urine Color Urine Clarity Urine pH Ur Specific [place] Urine Protein Urine Glucose (UA) Urine Ketones Urine Occult Blood Urine Nitrite Urine Bilirubin Urine Urobilinogen Ur Leukocyte Esterase Urine RBC Urine WBC Ur Squamous Epith Cells Urine Bacteria Urine Mucus Ethyl Alcohol Blood Type Antibody Screen 08/21/20 08/22/20 08/22/20 23:30 02:24 02:24 WBC RBC Hgb Hct MCV MCH MCHC RDW Std Deviation RDW Coeff of Sarai Plt Count MPV Immature Gran % (Auto) Neut % (Auto) Lymph % (Auto) [place] % (Auto) Eos % (Auto) Baso % (Auto) Absolute Neuts (auto) Absolute Lymphs (auto) Nucleated RBC % Differential Comment Anisocytosis Macrocytosis PT INR Sodium 133 L Potassium 3.0 L Chloride 104 Carbon Dioxide 24.0 Anion Gap 5 BUN 9 Creatinine 0.36 L Estim Creat Clear Calc 53.64 Est GFR (MDRD) Af Amer 308 Est GFR (MDRD) Non-Af 254 BUN/Creatinine Ratio 25.0 H Glucose 104 Lactic Acid Calcium 7.7 L Magnesium Total Bilirubin 0.40 AST 235 H ALT 123 H Alkaline Phosphatase 130 H Troponin I 0.408 H 0.428 H Total Protein 5.5 L Albumin 1.5 L Globulin 4.0 Albumin/Globulin Ratio 0.4 L Lipase Urine Color Urine Clarity Urine pH Ur Specific [place] Urine Protein Urine Glucose (UA) Urine Ketones Urine Occult Blood Urine Nitrite Urine Bilirubin Urine Urobilinogen Ur Leukocyte Esterase Urine RBC Urine WBC Ur Squamous Epith Cells Urine Bacteria Urine Mucus Ethyl Alcohol Blood Type Antibody Screen 08/22/20 08/22/20 02:30 06:16 WBC 20.3 H RBC 2.67 L Hgb 10.4 L Hct 33.5 L MCV 125.5 H D MCH 39.0 H MCHC 31.0 L D RDW Std Deviation 89.8 H RDW Coeff of Sarai 19.4 H Plt Count 143 L MPV 9.0 Immature Gran % (Auto) 0.600 Neut % (Auto) 94.8 H Lymph % (Auto) 1.7 L [place] % (Auto) 2.8 Eos % (Auto) 0.1 Baso % (Auto) 0.0 Absolute Neuts (auto) 19.2 H Absolute Lymphs (auto) 0.35 L Nucleated RBC % 0 Differential Comment SCANNED Anisocytosis 2+ Macrocytosis 2+ PT INR Sodium Potassium Chloride Carbon Dioxide Anion Gap BUN Creatinine Estim Creat Clear Calc Est GFR (MDRD) Af Amer Est GFR (MDRD) Non-Af BUN/Creatinine Ratio Glucose Lactic Acid Calcium Magnesium Total Bilirubin AST ALT Alkaline Phosphatase Troponin I 0.428 H Total Protein Albumin Globulin Albumin/Globulin Ratio Lipase Urine Color Urine Clarity Urine pH Ur Specific [place] Urine Protein Urine Glucose (UA) Urine Ketones Urine Occult Blood Urine Nitrite Urine Bilirubin Urine Urobilinogen Ur Leukocyte Esterase Urine RBC Urine WBC Ur Squamous Epith Cells Urine Bacteria Urine Mucus Ethyl Alcohol Blood Type Antibody Screen Micro: Microbiology 08/21/20 21:55 Blood Culture (Wb) - Left Forearm Bacteria Detection (PCR) - Final Meth. resistant Staph. aureus 08/21/20 21:55 Blood Culture (Wb) - Left Forearm Blood Culture - Preliminary Meth. resistant Staph. aureus 08/21/20 21:43 Blood Culture (Wb) - Left Hand Blood Culture - Preliminary 08/21/20 14:42 Stool Stool Occult Blood (TITO) - Final Occult Blood Positive Radiography Diagnostic Testing: Radiology Impression Abdomen/Pelvis CT 08/21/20 16:16 IMPRESSION: 1. No acute abdominal findings. 2. Severe coronary artery disease. 3. Severe vascular disease, patent popliteal popliteal bypass. 4. L1 vertebral chronic collapse and moderate to severe thecal sac compression. Elective neurosurgical consultation is advised. Electronically Signed: Jacob Iglesias MD at 19:31 EDT Tel , Service support , Chest X-Ray 08/21/20 17:00 IMPRESSION: Bibasilar linear opacities could represent atelectasis, edema or infection in the correct clinical setting. Chronic intersitial lung changes. Electronically Signed: Himanshu Esqueda MD at 18:09 EDT Tel , Service support , Physical Exam Const alert, oriented x3 and no apparent distress HEENT moist oral mucous membranes Head and Scalp: normocephalic Eyes PERRL, EOMs intact bilaterally and conjunctivae normal Neck no lymphadenopathy Resp normal respiratory effort and clear to auscultation bilaterally Cardio Rate: tachycardic Rhythm: abnormal rhythm other (atrial fibrillation) and other Peripheral Pulses: pulses 2+ throughout GI normal to inspection, nondistended, normoactive bowel sounds, non-tender and non-distended Extremity normal to inspection and no clubbing, cyanosis or edema Peripheral Pulses: Yes pulses 2+ throughout Skin no rashes or lesions noted Neuro oriented x3, moves all extremities, no focal motor deficits and no sensory deficits noted Sensorium / Orientation: awake and alert Speech: speech normal Psych affect normal Assessment & Plan Assessment/Plan (1) Paroxysmal A-fib: Status: Acute Code(s): I48.0 - Paroxysmal atrial fibrillation (2) Macrocytic anemia: Status: Chronic Code(s): D53.9 - Nutritional anemia, unspecified (3) Amputation of left lower extremity: Status: Chronic Code(s): S88.912A - Complete traumatic amputation of left lower leg, level unspecified, initial encounter Qualifiers: Encounter type: subsequent encounter Qualified Code(s): S88.912D - Complete traumatic amputation of left lower leg, level unspecified, subsequent encounter (4) HTN (hypertension): Status: Chronic Code(s): I10 - Essential (primary) hypertension Qualifiers: Hypertension type: essential hypertension Qualified Code(s): I10 - Essential (primary) hypertension (5) HLD (hyperlipidemia): Status: Chronic Code(s): E78.5 - Hyperlipidemia, unspecified Qualifiers: Hyperlipidemia type: mixed hyperlipidemia Qualified Code(s): E78.2 - Mixed hyperlipidemia (6) Alcohol abuse: Status: Inactive Code(s): F10.10 - Alcohol abuse, uncomplicated (7) Transaminitis: Status: Acute Code(s): R74.01 - Elevation of levels of liver transaminase levels (8) GI bleed: Status: Acute Code(s): K92.2 - Gastrointestinal hemorrhage, unspecified Qualifiers: GI bleed type/associated pathology: unspecified gastrointestinal hemorrhage type Qualified Code(s): K92.2 - Gastrointestinal hemorrhage, unspecified (9) Elevated troponin: Status: Acute Code(s): R77.8 - Other specified abnormalities of plasma proteins (10) MRSA bacteremia: Status: Acute Code(s): R78.81 - Bacteremia; B95.62 - Methicillin resistant Staphylococcus aureus infection as the cause of diseases classified elsewhere Plan: Assessment/Plan 1. GI bleed, diarrhea-stool for occult blood positive. C. difficile and enteric pathogen panel pending. Hold Xarelto. IV PPI. General surgery consulted. Plan for scope. PT/OT. 2. Transaminitis-unclear etiology. Previous LFTs normal. Quit drinking alcohol [address] of abdomen and pelvis demonstrates no acute abdominal findings. Trend LFTs. 3. Paroxysmal atrial fibrillation on anticoagulation with Xarelto-RVR on admission. Continue oral metoprolol, Cardizem, metoprolol. DC Cardizem drip. Increase home Cardizem to Cardizem CD 120 mg twice daily 4. Indeterminate troponin-suspect demand ischemia as result of A. fib with RVR. Echocardiogram pending. 5. MRSA bacteremia- Unclear source. IV vancomycin. ID consult. 6. Chronic macrocytic anemia-at baseline, trend CBC. 7. Chronic alcohol dependence-states he previously drank 10-12 beers per day, quit 3 weeks ago. Denies ongoing withdrawal symptoms. Thiamine, folic acid, multivitamin supplementation. 8. Tobacco dependence-2 pack/day smoker. Encourage cessation. Nicotine replacement patch if desired. 9. Chronic COPD-patient placed on 2 L supplemental oxygen on admission. No evidence of acute exacerbation. As needed albuterol aerosol. Suspect patient may have component of chronic hypoxia, ambulatory pulse ox prior to discharge. 10. Hypertension-stable, continue Lasix, metoprolol. 11. Hyperlipidemia-continue statin. 12. BPH-on Flomax, Proscar. 13. History of left BKA DVT prophylaxis-SCDs. This patient was seen by VIRI Teixeira under the supervision of Dr. Kaba Documented by User: Dr. Fozia Holguin MD 08/22/20 18:09 Objective Data Lab / Micro Data Result Diagrams: 08/22/20 02:30 08/22/20 02:24 Assessment & Plan Assessment/Plan (1) GI bleed: Status: Acute Code(s): K92.2 - Gastrointestinal hemorrhage, unspecified Qualifiers: GI bleed type/associated pathology: unspecified gastrointestinal hemorrhage type Qualified Code(s): K92.2 - Gastrointestinal hemorrhage, unspecified Plan: This patient was seen in conjunction with No Mathur NP. I have independently interviewed and examined the patient and reviewed pertinent historical, laboratory, and other data. Please refer to her note for patient's presentation, findings, and recommendations. Patient was seen and examined. No acute events overnight. He denied any new complaints. No fevers or dizziness or chest pain. Vitals were reviewed -stable Physical Exam: Gen: Appears frail, not pale, not jaundiced, alert oriented x3, on 4 L of oxygen CVS:HS I +II, regular, no murmurs RESP: Diminished at lung bases GI: BS present and normal, nontender, no palpable organs EXT:No edema Plan: Will replace potassium, continue on PPI, continue on IV antibiotics Follow-up on blood cultures ID consult Repeat blood work in a.m. Assessment/Plan (1) GI bleed: Status: Acute Code(s): K92.2 - Gastrointestinal hemorrhage, unspecified Qualifiers: GI bleed type/associated pathology: unspecified gastrointestinal hemorrhage type Qualified Code(s): K92.2 - Gastrointestinal hemorrhage, unspecified Inpatient E&M: [id number] [facility] Hosp L3
--- NOTE | 2020-08-22 13:12 | CASEMGMT ---
YIMI Note: Patient's sister, Monica Willson, called RN and requested that CM/SW call her. YIMI Mitchell called patient's sister, Monica Willson (Home [phone] and cell [phone]). She said that patient needs more than a little therapy. She reports that patient is suffering from demential and is gonna need to go to someplace [facility]. Sister reports that patient lives alone and keeps falling and it occurs more frequently. Monica said that Patient is very difficult and not happy but she is concerned about him as he is not safe to be at home alone. She said that she is planning to come to [place] to get him into a fpc setting and help with his housing arrangements. Sister said that patient will use his dog as a excuse for staying at his residence as he worships the dog. Sister said that the lady who is patient's aide is currently caring for patient's dog while patient is in the hospital. Sister said that patients physical health has been deteriorating for the last 4-5 months as patient has had a broken hip and wrist. Patient said that patient had diarrhea prior to this current hospitalization and is not doing well. Sister reports that patient is an alcoholic with dementia and he is just gonna to get worse. Sister said that when when she has talked to patient about [facility] dr[facility] care he has hung up on me. Sister said that at times patient said that he needs to go somewhere but wants a private room. Again, sister voiced that short term therapy is not gonna to help as it is his mind. She reports that patient is quiet, private and alcoholic ... he is used to his beer and cigarettes. Sister said that when patient was at [facility] ([facility]) he went without his beer and cigarette and we tried to keep him away from them but the first thing he got when he left was a beer. Sister said that when patient was at [facility] he was there for 21 days. Sister said that patient can be grumpy and likes his privacy. Sister said that she is gonna to try to leave on the weekend to come to [place]. Sister said that she does not want patient to know she is coming to [place] as she has to get some car maintenance issues resolved and wants to have more defiant plans prior to patient being advised of her coming to [place]. Sister voiced that placing patient in SNF is hard.. he's my baby brother. Plan: SW/CM will continue to monitor for discharge planning. Sadie SPANGLER
--- NOTE | 2020-08-22 15:46 | EX.PCM.CON.S ---
Assessment & Plan Assessment/Plan (1) GI bleed: Status: Acute Code(s): K92.2 - Gastrointestinal hemorrhage, unspecified Qualifiers: GI bleed type/associated pathology: unspecified gastrointestinal hemorrhage type Qualified Code(s): K92.2 - Gastrointestinal hemorrhage, unspecified Plan: At this point I really do not think he needs to have any endoscopies. A little difficult for me to really put an opinion here when I can examine the patient. He currently is really in no acute distress and more than likely his endoscopies can be done in an outpatient fashion. It would be unlikely that an ulcer would be causing a white count of 20,000. I think it is important for him to see a meeting manager secondary to his alcoholism and his elevation in his liver function tests which should be followed in concordance. In addition his bleeding diarrhea may actually be from a esophageal source. HPI Consult Data Date of Consult: 08/22/20 HPI Narrative HPI Narrative: PIOTR MARTINEZ, The patient is a 70 year old M who presents to the emergency room due to diarrhea with black stools and weakness. He states he has had 4-5 episodes of diarrhea per day for the past week. He denies blood in stool. Denies abdominal pain. Denies nausea, vomiting. Reports he is on Xarelto for atrial fibrillation. Denies fever, chills, shortness of breath. Patient has a history of chronic alcoholism and states he previously drank 10-12 beers per day however quit 3 weeks ago because his sister told him to. He states he did not go through withdrawal. He denies other associated symptoms or complaints. He has a past medical history of paroxysmal atrial fibrillation on anticoagulation with Xarelto, chronic alcohol dependence, tobacco dependence, hyperlipidemia, BPH, chronic macrocytic anemia, chronic COPD, hypertension. He has not had any further diarrhea since being admitted to the hospital. [facility] Medical History Arthritis Back problem H/O TIA (transient ischemic attack) and stroke HTN (hypertension) Home Medications amiodarone 100 mg PO DAILY 10/15/13 [History Last Taken 06/12/17] aspirin 81 mg PO DAILY@0800 10/15/13 [History Last Taken 09/07/17] diltiazem HCl 60 mg PO BID 10/15/13 [History Last Taken 06/12/17] metoprolol tartrate 50 mg PO BID 10/15/13 [History Last Taken 06/12/17] atorvastatin 80 mg PO QHS 06/12/17 [History Last Taken 06/11/17] ferrous sulfate 325 mg PO BIDCM 06/12/17 [History Last Taken 09/06/18] finasteride 5 mg PO DAILY 11/24/17 [History Last Taken Unknown] rivaroxaban 15 mg PO DAILY 11/24/17 [History Last Taken Unknown] tamsulosin 0.4 mg PO DAILY 11/24/17 [History Last Taken Unknown] albuterol sulfate 1 - 2 puff INHALATION Q4H PRN PRN 09/07/18 [History Last Taken Unknown] mirtazapine 30 mg PO QHS 10/15/18 [History Last Taken Unknown] mmobpzty-uzx-SZ-lycopen-lutein 1 ea PO QHS 10/15/18 [History Last Taken Unknown] omeprazole 40 mg capsule,delayed release 40 mg PO DAILY 05/05/19 [History Last Taken Unknown] mupirocin 1 applicatio TOPICAL TID 09/18/19 [History Last Taken Unknown] potassium chloride 20 meq PO DAILY 09/18/19 [History Last Taken Unknown] Methadone Hcl 10 mg PO QHS 10/12/19 [History Last Taken Unknown] acetaminophen 650 mg PO Q4H PRN PRN 10/12/19 [History Last Taken Unknown] acetaminophen 650 mg RECTAL Q4H PRN PRN 10/12/19 [History Last Taken Unknown] alum-mag hydroxide-simeth 30 ml PO Q4H PRN PRN 10/12/19 [History Last Taken Unknown] bisacodyl 10 mg RI DAILY PRN PRN 10/12/19 [History Last Taken Unknown] guaifenesin 10 ml PO Q4H PRN PRN 10/12/19 [History Last Taken Unknown] magnesium hydroxide 30 ml PO DAILY PRN PRN 10/12/19 [History Last Taken Unknown] methadone 5 mg PO BREAKFAST 10/12/19 [History Last Taken Unknown] sodium phosphates 1 bottle RECTAL DAILY PRN PRN 10/12/19 [History Last Taken Unknown] ketoconazole 1 applic TOPICAL BID #1 tube 01/31/20 [Rx Last Taken Unknown] furosemide 40 mg PO DAILY #7 tablet 07/24/20 [Rx Last Taken Unknown] Allergy/AdvReac Type Severity Reaction Status Date / Time No Known Allergies Allergy Verified 08/21/20 11:33 Family History Father Asthma Surgical History Amputated left leg History of surgery on upper extremity Social History Smoking Status: Current every day smoker alcohol intake: current alcohol intake frequency: 3 or more drinks per day substance use type: does not use additional social history: aspirin daily no ibuprofen Physical Exam Narrative Patient refused to have a physical examination Lab / Micro Data Result Diagrams: 08/22/20 02:30 08/22/20 02:24 Labs: Laboratory Results - last 24 hr 08/21/20 08/21/20 08/21/20 20:50 21:55 21:55 WBC RBC Hgb Hct MCV MCH MCHC RDW Std Deviation RDW Coeff of Sarai Plt Count MPV Immature Gran % (Auto) Neut % (Auto) Lymph % (Auto) [place] % (Auto) Eos % (Auto) Baso % (Auto) Absolute Neuts (auto) Absolute Lymphs (auto) Nucleated RBC % Differential Comment Anisocytosis Macrocytosis Sodium Potassium Chloride Carbon Dioxide Anion Gap BUN Creatinine Estim Creat Clear Calc Est GFR (MDRD) Af Amer Est GFR (MDRD) Non-Af BUN/Creatinine Ratio Glucose Lactic Acid 1.5 Calcium Magnesium 1.8 Total Bilirubin AST ALT Alkaline Phosphatase Troponin I 0.295 H Total Protein Albumin Globulin Albumin/Globulin Ratio Urine Color Yellow Urine Clarity Clear Urine pH 6.5 Ur Specific [place] 1.010 Urine Protein 30 H Urine Glucose (UA) Normal Urine Ketones Negative Urine Occult Blood 250 H Urine Nitrite Negative Urine Bilirubin Negative Urine Urobilinogen Normal Ur Leukocyte Esterase Negative Urine RBC 10-25 SEEN Urine WBC 0-5 SEEN Ur Squamous Epith Cells 0 SEEN Urine Bacteria 0 SEEN Urine Mucus 0 SEEN 08/21/20 08/21/20 08/22/20 23:30 23:30 02:24 WBC RBC Hgb 10.2 L Hct 29.2 L MCV MCH MCHC RDW Std Deviation RDW Coeff of Sarai Plt Count MPV Immature Gran % (Auto) Neut % (Auto) Lymph % (Auto) [place] % (Auto) Eos % (Auto) Baso % (Auto) Absolute Neuts (auto) Absolute Lymphs (auto) Nucleated RBC % Differential Comment Anisocytosis Macrocytosis Sodium 133 L Potassium 3.0 L Chloride 104 Carbon Dioxide 24.0 Anion Gap 5 BUN 9 Creatinine 0.36 L Estim Creat Clear Calc 53.64 Est GFR (MDRD) Af Amer 308 Est GFR (MDRD) Non-Af 254 BUN/Creatinine Ratio 25.0 H Glucose 104 Lactic Acid Calcium 7.7 L Magnesium Total Bilirubin 0.40 AST 235 H ALT 123 H Alkaline Phosphatase 130 H Troponin I 0.408 H Total Protein 5.5 L Albumin 1.5 L Globulin 4.0 Albumin/Globulin Ratio 0.4 L Urine Color Urine Clarity Urine pH Ur Specific [place] Urine Protein Urine Glucose (UA) Urine Ketones Urine Occult Blood Urine Nitrite Urine Bilirubin Urine Urobilinogen Ur Leukocyte Esterase Urine RBC Urine WBC Ur Squamous Epith Cells Urine Bacteria Urine Mucus 08/22/20 08/22/20 08/22/20 02:24 02:30 06:16 WBC 20.3 H RBC 2.67 L Hgb 10.4 L Hct 33.5 L MCV 125.5 H D MCH 39.0 H MCHC 31.0 L D RDW Std Deviation 89.8 H RDW Coeff of Sarai 19.4 H Plt Count 143 L MPV 9.0 Immature Gran % (Auto) 0.600 Neut % (Auto) 94.8 H Lymph % (Auto) 1.7 L [place] % (Auto) 2.8 Eos % (Auto) 0.1 Baso % (Auto) 0.0 Absolute Neuts (auto) 19.2 H Absolute Lymphs (auto) 0.35 L Nucleated RBC % 0 Differential Comment SCANNED Anisocytosis 2+ Macrocytosis 2+ Sodium Potassium Chloride Carbon Dioxide Anion Gap BUN Creatinine Estim Creat Clear Calc Est GFR (MDRD) Af Amer Est GFR (MDRD) Non-Af BUN/Creatinine Ratio Glucose Lactic Acid Calcium Magnesium Total Bilirubin AST ALT Alkaline Phosphatase Troponin I 0.428 H 0.428 H Total Protein Albumin Globulin Albumin/Globulin Ratio Urine Color Urine Clarity Urine pH Ur Specific [place] Urine Protein Urine Glucose (UA) Urine Ketones Urine Occult Blood Urine Nitrite Urine Bilirubin Urine Urobilinogen Ur Leukocyte Esterase Urine RBC Urine WBC Ur Squamous Epith Cells Urine Bacteria Urine Mucus Micro: Microbiology 08/22/20 11:30 Enteric Bacteriology - Final Stool 08/21/20 21:55 Bacteria Detection (PCR) - Final Blood Culture (Wb) - Left Forearm Meth. resistant Staph. aureus Blood Culture - Preliminary Meth. resistant Staph. aureus 08/21/20 21:43 Blood Culture - Preliminary Blood Culture (Wb) - Left Hand 08/21/20 14:42 Stool Occult Blood (TITO) - Final Stool Occult Blood Positive Radiology Impression Abdomen/Pelvis CT 08/21/20 16:16 IMPRESSION: 1. No acute abdominal findings. 2. Severe coronary artery disease. 3. Severe vascular disease, patent popliteal popliteal bypass. 4. L1 vertebral chronic collapse and moderate to severe thecal sac compression. Elective neurosurgical consultation is advised. Electronically Signed: Jacob Iglesias MD at 19:31 EDT Tel , Service support , Chest X-Ray 08/21/20 17:00 IMPRESSION: Bibasilar linear opacities could represent atelectasis, edema or infection in the correct clinical setting. Chronic intersitial lung changes. Electronically Signed: Himanshu Esqueda MD at 18:09 EDT Tel , Service support , Echocardiogram 08/21/20 21:01 Interpretation Summary The study was technically difficult. Left ventricular systolic function is normal. The estimated ejection fraction is 65 %. Sigmoid septum. The left atrium is mildly enlarged. There is mild to moderate mitral annular calcification. Extension of the mitral annular calcification onto the base of the posterior mitral valve leaflet. Anterior leaflet diffuse mitral valve thickening. The mitral papillary muscle appears thickened and/or calcified. Moderate (2+) mitral valve insufficiency. Mild tricuspid valve insufficiency. Aortic sclerosis, no stenosis. Mild-Moderate (1-2+) aortic valve insufficiency. Trivial pericardial effusion. There are no echocardiographic indications of cardiac tamponade. Right ventricular systolic pressure estimated to be 48 mmHg. Transmitral diastolic flow velocities suggest diastolic dysfunction (pseudonormal pattern). Ordering Physician: Juan Trimble Referring Physician: Himanshu Crowell Performed By: Christian Shannon RCS
[2020-08-22] MEDS: Albuterol 2.5 MG/3 ML VIAL.NEB. INHALATION ×3 (16:48→23:42)
[2020-08-22] MEDS: Acetaminophen 325 MG Tablet 650 MG PO (20:08)
[2020-08-22] MEDS: dilTIAZem CD 120 MG Capsule PO (20:52)
[2020-08-22] MEDS: Mirtazapine 30 MG Tablet PO (20:53)
[2020-08-22] MEDS: Methadone 10 MG Tablet PO (20:53)
[2020-08-22] MEDS: Atorvastatin Calcium 80 MG Tablet PO (20:53)
--- NOTE | 2020-08-22 20:55 | NURSING ---
Pts hs meds/bracelet verified with Linette dailey rn at this time.
[2020-08-23] VITALS (15 sets, daily range): BP systolic 59–130; BP diastolic 37–70; PULSE 40–108; RESP 12–24; TEMP 36.1–37; O2SAT 83–98
[2020-08-23] MEDS: Vancomycin IV 500 MG/100 ML BAG 100 MG IV (02:01)
--- NOTE | 2020-08-23 06:10 | RAD_ITS ---
STUDY: X-RAY CHEST REASON FOR EXAM: Male, 70 years old. Decreased O2 sats. TECHNIQUE: AP COMPARISON: 08/21/2020 CXR FINDINGS: Interval progression of left greater than right basilar airspace disease. No apparent pneumothorax or pleural effusion. Underlying emphysema and chronic interstitial changes. Cardiac silhouette, hilar and mediastinal contours with no acute findings. Heart size normal. Atherosclerosis of the thoracic aorta. Degenerative osseous changes with no acute osseous abnormality. RAD/Chest 1 View (Portable) IMPRESSION: Interval progression of left greater than right basilar airspace disease concerning for pneumonia. Underlying emphysema. Electronically Signed: Heron Love MD at 7:05 EDT Tel , Service support ,
[2020-08-23 06:20] LABS: Allen Test Positive; Base Excess -4 mmol/L (-2 to +2); Bicarbonate 20.7 mmol/L (22-26); Blood Gas Specimen Type ART; FI02 50; O2 Delivery Device Venti Mask; PO2 73 mmHG (75-100); SITE L Radial; SO2 95 % (95-99); Total Carbon Dioxide 22 mmol/L; pCO2 30.5 mmHg (35-45); pH 7.44 (7.35-7.45)
[2020-08-23 06:43] LABS: Absolute Lymphocyte Count 0.47 X10^3/uL (0.83-4.51); Absolute Neutrophil Count 13.2 X10^3/uL (2.0-7.7); Basophil# 0.01 X10^3/uL; Basophil% 0.1 % (0-1); Hematocrit 30.4 % (40-54); Hemoglobin 10.3 g/dL (13.0-16.5); Lymphocyte # 0.47 X10^3/ul (0.83-4.51); Lymphocyte % 3.2 % (19-41); Mean Corp Hgb Conc 33.9 g/dL (32-36); Mean Corpuscular Hgb 37.9 pg (27.0-32.0); Mean Corpuscular Volume 111.8 fL (80-94); Monocyte# 0.84 X10^3/uL; Monocyte% 5.8 % (0-10); NRBC Flagged by Analyzer 0 % (0-5); Neutrophil # 13.18 X10^3/uL (2.7-7.7); Neutrophil % 90.4 % (47-70); POSITIVE DIFFERENTIAL YES; POSITIVE MORPHOLOGY YES; Platelet Count 146 K/mm3 (150-450); RBC Distribution Width CV 18.7 % (11.6-14.6); RBC Distribution Width SD 75.1 fl (35.1-43.9); Red Blood Count 2.72 M/mm3 (4.6-6.2); White Blood Count 14.6 K/mm3 (4.4-11.0)
--- NOTE | 2020-08-23 06:55 | CPS ---
Pt does not like wearing BIPAP, explained again why it is on him and that is temporary. Pt allowed R.T. to keep mask on him @this time.
[2020-08-23 07:00] LABS: Differential Indicated SCAN CRITERIA MET
[2020-08-23 07:01] LABS: Anisocytosis 2+; Differential Comment SCANNED; Macrocytosis 2+
[2020-08-23 07:02] LABS: Microcytosis RARE
[2020-08-23 07:12] LABS: AST(SGOT) 220 U/L (15-37); Alanine Aminotransfer ALT/SGPT 118 U/L (16-61); Albumin, Serum 1.5 g/dL (3.2-5.0); Alkaline Phosphatase 120 U/L (45-117); Anion Gap 6 (5-15); BUN 15 mg/dL (7-18); BUN/Creat Ratio 38.7 RATIO (10-20); Bilirubin, Direct 0.28 mg/dL (0.00-0.30); Calcium,Total 7.8 mg/dL (8.5-10.1); Chloride 108 mmol/L (98-107); Creatinine, Serum 0.39 mg/dL (0.70-1.30); EST Glomerular Filtration Rate 233 mL/min (>60); Est Glom Filt Rate - Afr Amer 281 mL/min (>60); Estimated Creatinine Clearance 53.64 ml/min; Glucose 96 mg/dL (74-106); Potassium 3.5 mmol/L (3.5-5.1); Protein, Total 5.5 g/dL (6.4-8.2); Sodium Level 136 mmol/L (136-145)
[2020-08-23] MEDS: Ferrous Sulfate 325 MG Tablet PO (09:55)
[2020-08-23] MEDS: Folic Acid 1 MG Tablet PO (09:56)
[2020-08-23] MEDS: Amiodarone 200 MG Tablet 100 MG PO (09:57)
[2020-08-23] MEDS: Metoprolol Tartrate 50 MG Tablet PO (09:57)
[2020-08-23] MEDS: dilTIAZem CD 120 MG Capsule PO (09:57)
[2020-08-23] MEDS: Finasteride 5 MG Tablet PO (09:57)
[2020-08-23] MEDS: Tamsulosin HCl 0.4 MG Capsule PO (09:57)
[2020-08-23] MEDS: Thiamine Hydrochloride 100 MG Tablet PO (09:57)
--- NOTE | 2020-08-23 10:19 | PN.HOSP_ITS ---
Documented by User: No Mathur NP, CAUL DRESSER-C 08/23/20 11:11 Subjective Subjective: Patient seen and examined. Placed on BiPAP this morning due to worsening shortness of breath. Patient denies further diarrhea. Denies fever, chills. Denies cough Objective Data Objective Data Vital Signs: Vital Signs Temp Pulse Resp BP Pulse Ox 98.2 F 108 H 20 H 103/62 97 08/23/20 06:47 08/23/20 09:57 08/23/20 06:47 08/23/20 09:57 08/23/20 08:38 Oxygen Flow Rate (L/min) 6 Oxygen Delivery Method Bi-pap Weight: 125 lb 3.561 oz Body Mass Index (BMI) 19.0 Finger Stick Blood Glucose 89 Intake & Output: Intake and Output for Last 24 Hours 08/21/20 08/22/20 08/23/20 23:59 23:59 23:59 Intake Total 681.25 / 681.25 3470 / 3470 933.75 / 933.75 Output Total 300 / 300 Balance 681.25 / 681.25 3170 / 3170 933.75 / 933.75 Lab / Micro Data Result Diagrams: 08/23/20 06:24 08/23/20 06:24 Labs: Laboratory Results - last 24 hr 08/23/20 08/23/20 08/23/20 05:00 05:00 06:24 WBC Cancelled Corrected WBC Cancelled RBC Cancelled Hgb Cancelled Hct Cancelled MCV Cancelled MCH Cancelled MCHC Cancelled RDW Std Deviation Cancelled RDW Coeff of Sarai Cancelled Plt Count Cancelled MPV Cancelled Immature Gran % (Auto) Cancelled Neut % (Auto) Cancelled Lymph % (Auto) Cancelled [place] % (Auto) Cancelled Eos % (Auto) Cancelled Baso % (Auto) Cancelled Absolute Neuts (auto) Cancelled Absolute Lymphs (auto) Cancelled Total Counted Cancelled Neutrophils % (Manual) Cancelled Band Neutrophils % Cancelled Lymphocytes % (Manual) Cancelled Monocytes % (Manual) Cancelled Eosinophils % (Manual) Cancelled Basophils % (Manual) Cancelled Metamyelocytes % Cancelled Myelocytes % Cancelled Promyelocytes % Cancelled Blast Cells % Cancelled Plasma Cell % (Manual) Cancelled Other Cells % Cancelled Nucleated RBC % Cancelled Nucleated RBCs/100 WBC Cancelled Differential Comment Cancelled Diff Path Review Cancelled Hypersegmented Neuts Cancelled Atypical Lymphocytes Cancelled Reactive Lymphocytes Cancelled Smudge Cells Cancelled Toxic Granulation Cancelled Toxic Vacuolation Cancelled Dohle Bodies Cancelled [place] Rods Cancelled Platelet Estimate Cancelled Plt Morphology Comment Cancelled RBC Morphology Cancelled Polychromasia Cancelled Hypochromasia Cancelled Poikilocytosis Cancelled Basophilic Stippling Cancelled Anisocytosis Cancelled Microcytosis Cancelled Macrocytosis Cancelled Spherocytes Cancelled Sickle Cells Cancelled Target Cells Cancelled Tear Drop Cells Cancelled Ovalocytes Cancelled Stomatocytes Cancelled [place] Bodies Cancelled Richard Cells Cancelled Bite Cells Cancelled Crenated Cell Cancelled Acanthocytes (Spur) Cancelled Rouleaux Cancelled Schistocytes Cancelled Sodium Cancelled 136 Potassium Cancelled 3.5 Chloride Cancelled 108 H Carbon Dioxide Cancelled 22.0 Anion Gap Cancelled 6 BUN Cancelled 15 Creatinine Cancelled 0.39 L Estim Creat Clear Calc Cancelled 53.64 Est GFR (MDRD) Af Amer Cancelled 281 Est GFR (MDRD) Non-Af Cancelled 233 BUN/Creatinine Ratio Cancelled 38.7 H Glucose Cancelled 96 Calcium Cancelled 7.8 L Total Bilirubin Cancelled 0.40 Direct Bilirubin Cancelled 0.28 AST Cancelled 220 H ALT Cancelled 118 H Alkaline Phosphatase Cancelled 120 H Total Protein Cancelled 5.5 L Albumin Cancelled 1.5 L Globulin Cancelled 4.0 08/23/20 06:24 WBC 14.6 H Corrected WBC RBC 2.72 L Hgb 10.3 L Hct 30.4 L MCV 111.8 H D MCH 37.9 H MCHC 33.9 D RDW Std Deviation 75.1 H RDW Coeff of Sarai 18.7 H Plt Count 146 L MPV 10.0 Immature Gran % (Auto) 0.500 Neut % (Auto) 90.4 H Lymph % (Auto) 3.2 L [place] % (Auto) 5.8 Eos % (Auto) 0.0 Baso % (Auto) 0.1 Absolute Neuts (auto) 13.2 H Absolute Lymphs (auto) 0.47 L Total Counted Neutrophils % (Manual) Band Neutrophils % Lymphocytes % (Manual) Monocytes % (Manual) Eosinophils % (Manual) Basophils % (Manual) Metamyelocytes % Myelocytes % Promyelocytes % Blast Cells % Plasma Cell % (Manual) Other Cells % Nucleated RBC % 0 Nucleated RBCs/100 WBC Differential Comment SCANNED Diff Path Review Hypersegmented Neuts Atypical Lymphocytes Reactive Lymphocytes Smudge Cells Toxic Granulation Toxic Vacuolation Dohle Bodies [place] Rods Platelet Estimate Plt Morphology Comment RBC Morphology Polychromasia Hypochromasia Poikilocytosis Basophilic Stippling Anisocytosis 2+ Microcytosis RARE Macrocytosis 2+ Spherocytes Sickle Cells Target Cells Tear Drop Cells Ovalocytes Stomatocytes [place] Bodies Richard Cells Bite Cells Crenated Cell Acanthocytes (Spur) Rouleaux Schistocytes Sodium Potassium Chloride Carbon Dioxide Anion Gap BUN Creatinine Estim Creat Clear Calc Est GFR (MDRD) Af Amer Est GFR (MDRD) Non-Af BUN/Creatinine Ratio Glucose Calcium Total Bilirubin Direct Bilirubin AST ALT Alkaline Phosphatase Total Protein Albumin Globulin Micro: Microbiology 08/21/20 20:50 Urine, Midstream Urine Culture - Final Culture exhibits no growth. 08/21/20 21:55 Blood Culture (Wb) - Left Forearm Bacteria Detection (PCR) - Final Meth. resistant Staph. aureus 08/21/20 21:55 Blood Culture (Wb) - Left Forearm Blood Culture - Preliminary Meth. resistant Staph. aureus 08/22/20 11:30 Stool C. difficile GDH Antigen & Toxins - Final 08/22/20 11:30 Stool C. difficile DNA Amplification - Final 08/22/20 11:30 Stool Enteric Bacteriology - Final 08/21/20 21:43 Blood Culture (Wb) - Left Hand Blood Culture - Preliminary 08/21/20 14:42 Stool Stool Occult Blood (TITO) - Final Occult Blood Positive ABG Data ABG results: ABG 08/23/20 06:17 Specimen Type ART Sample Site L Radial pH 7.44 Bicarbonate Actual 20.7 L Total CO2 22 Base Excess -4 L O2 Saturation 95 O2 % 50 ABG pCO2 30.5 L ABG pO2 73 L Kwame Test Positive O2 Delivery Device Venti Mask Radiography Diagnostic Testing: Radiology Impression Echocardiogram 08/21/20 21:01 Interpretation Summary The study was technically difficult. Left ventricular systolic function is normal. The estimated ejection fraction is 65 %. Sigmoid septum. The left atrium is mildly enlarged. There is mild to moderate mitral annular calcification. Extension of the mitral annular calcification onto the base of the posterior mitral valve leaflet. Anterior leaflet diffuse mitral valve thickening. The mitral papillary muscle appears thickened and/or calcified. Moderate (2+) mitral valve insufficiency. Mild tricuspid valve insufficiency. Aortic sclerosis, no stenosis. Mild-Moderate (1-2+) aortic valve insufficiency. Trivial pericardial effusion. There are no echocardiographic indications of cardiac tamponade. Right ventricular systolic pressure estimated to be 48 mmHg. Transmitral diastolic flow velocities suggest diastolic dysfunction (pseudonormal pattern). Ordering Physician: Juan Trimble Referring Physician: Himanshu Crowell Performed By: Christian Shannon RCS Chest X-Ray 08/23/20 06:10 IMPRESSION: Interval progression of left greater than right basilar airspace disease concerning for pneumonia. Underlying emphysema. Electronically Signed: Heron Love MD at 7:05 EDT Tel , Service support , Physical Exam Const alert and oriented x3 General Appearance: cooperative and on BiPAP Orientation / Consciousness: awake, oriented to person, oriented to place and oriented to time Nutritional Appearance: cachectic HEENT moist oral mucous membranes Head and Scalp: normocephalic Eyes PERRL, EOMs intact bilaterally and conjunctivae normal Neck no lymphadenopathy Resp Auscultation: clear to auscultation bilaterally and diminished lung sounds Cardio Cardio Narrative: Atrial fibrillation, tachycardic GI normal to inspection, nondistended, normoactive bowel sounds Extremity normal to inspection and no clubbing, cyanosis or edema Skin no rashes or lesions noted Neuro oriented x3, no focal motor deficits and no sensory deficits noted Sensorium / Orientation: awake and alert Psych Mood & Affect: flat affect Assessment & Plan Assessment/Plan (1) MRSA bacteremia: Status: Acute Code(s): R78.81 - Bacteremia; B95.62 - Methicillin resistant Staphylococcus aureus infection as the cause of diseases classified elsewhere (2) GI bleed: Status: Acute Code(s): K92.2 - Gastrointestinal hemorrhage, unspecified Qualifiers: GI bleed type/associated pathology: unspecified gastrointestinal hemorrhage type Qualified Code(s): K92.2 - Gastrointestinal hemorrhage, unspecified (3) Elevated troponin: Status: Acute Code(s): R77.8 - Other specified abnormalities of plasma proteins (4) Transaminitis: Status: Acute Code(s): R74.01 - Elevation of levels of liver transaminase levels (5) Paroxysmal A-fib: Status: Acute Code(s): I48.0 - Paroxysmal atrial fibrillation Plan: Assessment/Plan 1. Acute hypoxic respiratory failure secondary to bilateral pneumonia with associated MRSA bacteremia-chest x-ray consistent with bilateral pneumonia, left greater than right. IV vancomycin. Albuterol and DuoNeb aerosols. Continue BiPAP as tolerated. Send sputum for culture. ID consult. 2. Transaminitis-unclear etiology. Previous LFTs normal. Quit drinking alcohol [address] of abdomen and pelvis demonstrates no acute abdominal findings. LFTs trending down. 3. Paroxysmal atrial fibrillation on anticoagulation with Xarelto-RVR on admission. Continue oral metoprolol, Cardizem, metoprolol. Increase home Cardizem to Cardizem CD 180 mg twice daily. 4. Indeterminate troponin-suspect demand ischemia as result of A. fib with RVR and #1. Echocardiogram demonstrates an EF of 65%, moderate mitral valve insufficiency, mild to moderate aortic valve insufficiency, RVSP estimated to be 48 mmHg. 5. GI bleed, diarrhea-stool for occult blood positive. C. difficile and enteric pathogen negative. Hold Xarelto. IV PPI. General surgery consulted. General surgery recommends outpatient follow-up with GI for endoscopies as hemoglobin is stable and patient has history of alcoholism and abnormal LFTs. Trend CBC. 6. Chronic macrocytic anemia-at baseline, trend CBC. 7. Chronic alcohol dependence-states he previously drank 10-12 beers per day, quit 3 weeks ago. Denies ongoing withdrawal symptoms. Thiamine, folic acid supplementation. 8. Tobacco dependence-2 pack/day smoker. Encourage cessation. Nicotine replacement patch if desired. 9. Chronic COPD- As needed albuterol aerosol. Suspect patient may have component of chronic hypoxia, ambulatory pulse ox prior to discharge. 10. Hypertension-stable, continue metoprolol. Lasix on hold. 11. Hyperlipidemia-continue statin. 12. BPH-on Flomax, Proscar. 13. History of left BKA DVT prophylaxis-SCDs. Discharge planning: Anticipate SNF when medically stable. This patient was seen by VIRI Teixeira under the supervision of Dr. Kaba Documented by User: Dr. Fozia Holguin MD 08/23/20 16:57 Objective Data Lab / Micro Data Result Diagrams: 08/23/20 06:24 08/23/20 06:24 See summary
--- NOTE | 2020-08-23 11:00 | CPS ---
pt no longer wants to wear the BIPAP.
[2020-08-23 12:46] LABS: Bedside Glucose 101 mg/dL (70-110)
--- NOTE | 2020-08-23 13:14 | CHAPLAIN ---
Type of Pastoral Visit ___ Initial Visit ___ Follow-up Visit ___ On-call Visit ___ General Patient Visit ___ Spiritual Assessment ___ Family Conference ___ Bereavement _x__ Rapid Response ___ Code Blue ___ Other (describe below) Pastoral Care Referral From ___ Patient ___ Family ___ Nurse ___ Physician ___ Cheese Specialist ___ Innovation Manager _x__ Other (describe below) Sacrament/Intervention ___ Active listening ___ Anointing ___ Jew ___ Bereavement ___ Communion ___ Mckenna exploration ___ ___ Life review _x__ Prayer ___ Reconciliation ___ Sacrament of Sick _x__ Supportive presence ___ Wedding ___ Other (describe below) Pastoral Comments came to rapid response where medical team gathered; pt was DNR and did not survive; offered prayer and stayed at bedside until time of called; no family members are present nor available to come to hospital; gave support to staff
--- NOTE | 2020-08-23 14:29 | EXP.PCM_ITS ---
Documented by User: No Mathur NP, [employer] 08/23/20 14:37 Preliminary Cause of Acute hypoxic respiratory failure Date of Admission: 08/21/20 Principle Diagnosis Problem List: Active and Suspected Problems (Updated 08/22/20 @ 11:40 by No Mathur NP, [employer] MA[employer]GER-C) MRSA bacteremia (Acute) Elevated troponin (Acute) GI bleed (Acute) Transaminitis (Acute) Paroxysmal A-fib (Acute) Assessment & Plan Assessment/Plan (1) MRSA bacteremia: Status: Acute Code(s): R78.81 - Bacteremia; B95.62 - Methicillin resistant Staphylococcus aureus infection as the cause of diseases classified elsewhere (2) Elevated troponin: Status: Acute Code(s): R77.8 - Other specified abnormalities of plasma proteins (3) GI bleed: Status: Acute Code(s): K92.2 - Gastrointestinal hemorrhage, unspecified Qualifiers: GI bleed type/associated pathology: unspecified gastrointestinal hemorrhage type Qualified Code(s): K92.2 - Gastrointestinal hemorrhage, unspecified (4) Paroxysmal A-fib: Status: Acute Code(s): I48.0 - Paroxysmal atrial fibrillation Plan: Patient is a 70-year-old male admitted 08/21/2020 due to diarrhea, black stools and weakness. 1. Acute hypoxic respiratory failure secondary to bilateral pneumonia with associated MRSA bacteremia-chest x-ray consistent with bilateral pneumonia, left greater than right. IV vancomycin during admission. Patient refused BiPAP/Ventimask and became hypoxic. Patient DNR CCA no intubation code status. Attempted high flow oxygen, patient intermittently hypoxic. 2. Transaminitis-unclear etiology. Previous LFTs normal. Quit drinking alcohol [address] of abdomen and pelvis demonstrates no acute abdominal findings. LFTs trended down. 3. Paroxysmal atrial fibrillation on anticoagulation with Xarelto-RVR on admission. Heart rate controlled on increased p.o. Cardizem as well as home metoprolol, amiodarone. 4. Indeterminate troponin-suspect demand ischemia as result of A. fib with RVR and #1. Echocardiogram demonstrates an EF of 65%, moderate mitral valve insufficiency, mild to moderate aortic valve insufficiency, RVSP estimated to be 48 mmHg. 5. GI bleed, diarrhea-stool for occult blood positive. C. difficile and enteric pathogen negative. Xarelto held during admission. IV PPI. General surgery consulted. General surgery recommends outpatient follow-up with GI for endoscopies as hemoglobin is stable and patient has history of alcoholism and abnormal LFTs. Trend CBC. Patient refused assessment by general surgery. 6. Chronic macrocytic anemia-at baseline. 7. Chronic alcohol dependence-states he previously drank 10-12 beers per day, quit 3 weeks ago. 8. Tobacco dependence-2 pack/day smoker. 9. Chronic COPD 10. Hypertension 11. Hyperlipidemia 12. BPH 13. History of left BKA Patient undergoing treatment for the above during admission. As noted previously, he refused BiPAP/Ventimask and did not want to be intubated. Patient became bradycardic, hypoxic and apneic. As previously discussed, patient did not want any aggressive intervention. Time of 1207 on 07/28. This patient was seen by [facility] under the supervision of Dr. Holguin. Documented by User: Dr. Fozia Holguin MD 08/24/20 16:50 This patient was seen in conjunction with No Mathur NP. I have independently interviewed and examined the patient and reviewed pertinent historical, laboratory, and other data. Please refer to her note for patient's presentation, findings, and recommendations. 70-year-old male who was admitted on 07/28/20 with GI bleed, severe anemia. He has history of chronic alcohol use. He presented to the hospital and his stool for occult blood was positive. He was found to have A. fib with RVR. He was started on Cardizem. His liver enzymes showed elevated LFTs. Patient continued to be fairly stable. General surgery was consulted for work-up for GI bleed. Patient did not want any work-up. His hemoglobin remained stable. His heart rate also remained stable and he was started on Cardizem. His Xarelto was held on admission. His blood cultures came back positive for MRSA. He was started on vancomycin. Chest x-ray had showed bilateral pneumonia, left greater than right. ID was consulted but did not see the patient before he passed. On 08/23/20, patient overnight was on oxygen, he refused to wear his BiPAP for saturation. He refused to also keep the oxygen on. His vitals were stable. He was talking to his nurse and suddenly became bradycardic. Patient had expressed strongly that he was DNR CCA on admission. He was kept comfortable and passed at 12:07 pm Inpatient E&M: [id number] Disch Hosp
== END 2020-08-23 12:07 | DRG 193 ==
LOC: ED 13:19 → PCU 20:39
PROVIDERS: Admitting Provider Hospitalist; Emergency Provider Student in an Organized Health Care Education/Training Program; PCP Family Medicine; Visit Provider Internal Medicine
DX: J18.9 Pneumonia, unspecified organism (principal); E43 Unspecified severe protein-calorie malnutrition; J96.01 Acute respiratory failure with hypoxia; K92.2 Gastrointestinal hemorrhage, unspecified; E87.1 Hypo-osmolality and hyponatremia; I50.32 Chronic diastolic (congestive) heart failure; I48.20 Chronic atrial fibrillation, unspecified; I24.8 Other forms of acute ischemic heart disease; Z68.1 Body mass index [BMI] 19.9 or less, adult; J44.0 Chronic obstructive pulmonary disease with (acute) lower respiratory infection; I25.10 Atherosclerotic heart disease of native coronary artery without angina pectoris; F32.9 Major depressive disorder, single episode, unspecified; R77.8 Other specified abnormalities of plasma proteins; R74.01 Elevation of levels of liver transaminase levels; E78.5 Hyperlipidemia, unspecified; I11.0 Hypertensive heart disease with heart failure; I48.0 Paroxysmal atrial fibrillation; K21.9 Gastro-esophageal reflux disease without esophagitis; D50.0 Iron deficiency anemia secondary to blood loss (chronic); Z79.01 Long term (current) use of anticoagulants; Z86.73 Personal history of transient ischemic attack (TIA), and cerebral infarction without residual deficits; Z79.82 Long term (current) use of aspirin; A49.02 Methicillin resistant Staphylococcus aureus infection, unspecified site; Z66 Do not resuscitate; D53.9 Nutritional anemia, unspecified; F10.20 Alcohol dependence, uncomplicated; F17.210 Nicotine dependence, cigarettes, uncomplicated; N40.0 Benign prostatic hyperplasia without lower urinary tract symptoms; Z89.512 Acquired absence of left leg below knee; I08.0 Rheumatic disorders of both mitral and aortic valves; Z79.899 Other long term (current) drug therapy; Z82.5 Family history of asthma and other chronic lower respiratory diseases; Z86.718 Personal history of other venous thrombosis and embolism; Z98.61 Coronary angioplasty status
CPT/HCPCS: 36415; 36600; 71045; 74177; 80048; 80053; 80076; 81001; 82077; 82274; 82803; 82962; 83605; 83690; 83735; 84484; 85014; 85018; 85025; 85610; 86850; 86900; 86901; 87040; 87077; 87086; 87149; 87186; 87493; 87506; 93005; 93306; 94002; 94640; 97162; 97166; 99285; 99406; J7030; J7040; Q9967; A4216